=== PATIENT | female | born 1985 | race Caucasian/White ===

== ENCOUNTER 2023-07-29 16:28 | Outpatient (OUT) | payer OTHER, SELFPAY ==
[2023-07-29 17:27] LABS: Thyroid Stimulating Hormone 0.883 uIU/mL (0.358-3.740)
[2023-07-29 17:42] LABS: Erythrocyte Sedimentation Rate 3 mm/hr (<=20)
[2023-07-29 18:22] LABS: Percent Iron Saturation 14.7 %
[2023-07-31 04:10] LABS: DHEA-Sulfate 56.8 ug/dL (57.3-279.2)
[2023-07-31 12:09] LABS: ANA Direct Negative (Negative)
[2023-08-08 12:09] LABS: Free Testosterone(Direct) <0.2 pg/mL (0.0-4.2); Testosterone 5 ng/dL (8-60)
== END 2023-07-29 16:29 | disposition home or self-care (01) ==
LOC: LAB 16:33
PROVIDERS: PCP Internal Medicine
DX: L65.0 Telogen effluvium (principal)
CPT/HCPCS: 36415; 82306; 82607; 82627; 82728; 83540; 83550; 84402; 84403; 84443; 85652; 86038

== ENCOUNTER 2023-10-09 07:02 | Outpatient (OUT) | payer OTHER, SELFPAY ==
--- NOTE | 2023-10-09 | ECG_ITS ---
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
[2023-10-09 07:37] LABS: Hematocrit 36.1 % (36.0-48.0); Hemoglobin 12.1 g/dL (12.0-16.0)
== END 2023-10-09 07:03 | disposition home or self-care (01) ==
LOC: CARD 07:04
PROVIDERS: PCP Internal Medicine
DX: Z01.812 Encounter for preprocedural laboratory examination (principal); Z01.810 Encounter for preprocedural cardiovascular examination
CPT/HCPCS: 36415; 85014; 85018; 93005

== ENCOUNTER 2023-10-30 16:10 | Outpatient (OUT) | payer OTHER, SELFPAY ==
--- NOTE | 2023-10-30 | US_ITS ---
The [address] [address] Patient Name: CHRISTIAN WEBER MRN: [id number] date: 1985 Sex: F Assigned Patient Location: US Current Patient Location: US Accession/Order Number: [id number] Exam Date: 10/30/2023 16:00 Report Date: 10/30/2023 17:50 At the request of: NON-STAFF PHYSICIAN Procedure: US venous doppler LE BI EXAM: US venous doppler LE BI HISTORY: RULE OUT DVT, BILATERAL LEG SWELLING for the past day. COMPARISON: None. TECHNIQUE: Multiple sonographic images of the deep veins of both lower extremities were obtained, supplemented with Doppler. FINDINGS: The deep veins of both lower extremities are fairly well-visualized the groin to the mid calf. No filling defect is identified in the deep veins on either side to indicate a thrombus. There is normal compression augmentation of flow bilaterally. US/US venous doppler LE BI IMPRESSION: There is no direct or indirect evidence of deep vein thrombosis in the lower extremities at this time. Electronically authenticated by: LUCIO SALGUERO Date: 10/30/2023 17:50
== END 2023-10-30 16:11 | disposition home or self-care (01) ==
PROVIDERS: PCP Internal Medicine
DX: I82.403 Acute embolism and thrombosis of unspecified deep veins of lower extremity, bilateral (principal); R60.0 Localized edema
CPT/HCPCS: 93970

== ENCOUNTER 2024-04-08 20:15 | Outpatient (REF) | payer OTHER, SELFPAY ==
--- OUTSIDE RECORDS SUMMARY | 2024-04-08 20:21 | XMS_ITS | CCD ---
Author Organization [facility] Care Team Providers Care Underground Supervisor Name Role Phone Michael Hendrix Unavailable Unavailable Michael Hendrix Unavailable Unavailable Michael Hendrix Unavailable Unavailable BRIDGET [id number] UNKNOWN Unavailable U navailable HANNAH ., DR CAMPBELL Admitting Unavailabl e KARASIK ., DR CAMPBELL Attending Unavailabl e MISC, DR CERRATO Primary Care Unavailable KARASIK ., DR CAMPBELL Consulting Unavailabl e KARASIK ., DR CAMPBELL Admitting Unavailabl e KARASIK ., DR CAMPBELL Attending Unavailabl e MISC, DR CERRATO Primary Care Unavailable KARASIShannon ., DR CAMPBELL Consulting UnavailReal Elder Consulting Unavailable MD Shahab Young Attending Provider Shahab Young Attending Unavailable Shahab Young Attending Unavailable Hima Hill DO Primary Care Provider HIMA HILL Attending HIMA Mcgee Referring HIMA Mcgee Primary Care Unavailable Allergies Allergy Classification Reported Allergen(s) Allergy Type Date of Onset Reaction(s) Facility (1 source) No Known Medication Allergies; Translations: [No Known Medication Allergies] Propensity to adverse reactions (disorder) [facility] Repository Medications Current Medications Medication Drug Class(es) Dates Sig (Normalized) Sig (Original) ascorbic acid 500 mg oral tablet (6 sources) Vitamin C take 1 tablet by mouth in the morning, then take 1 tablet by mouth at bedtime ascorbic acid (VITAMIN C) 500 mg tablet Take 1 tablet (500 mg total) by mouth in the morning and 1 tablet (500 mg total) before bedtime. 0 Active 24 hr buPROPion hydrochloride 150 mg extended release oral tablet (7 sources) Aminoketone Start: 12-10-2023 take 1 tablet by mouth once daily buPROPion XL (WELLBUTRIN XL) 150 mg 24 hr tablet Indications: Depression, unspecified depression type take 1 tablet by mouth once daily 90 tablet 0 12/10/2023 Active Start: 09-08-2023 take 1 tablet by anuradha th once daily buPROPion XL (WELLBUTRIN XL) 150 mg 24 hr tablet Indications: Depression, unspecified depression type take 1 tablet by mouth once daily 90 tablet 0 09/08/2023 Active Start: 07-21-2023 Bupropion Hcl Active MG ORAL AM July 21, 2023 12:00am chlorthalidone 25 mg oral tablet (1 source) Thiazide-like Diuretic Start: 07-21-2023 take 1 mg by mouth once daily Chlorthalidone Active MG ORAL DAILY July 21, 2023 12:00am 0.5 ml dulaglutide 1.5 mg/ml auto-injector (5 sources) GLP-1 Receptor Agonist Start: 12-17-2023 dulaglutide (TRULICITY) 0.75 mg/0.5 mL pen injector Indications: Obesity with body mass index 30 or greater Inject 0.5 mL (0.75 mg total) under the skin every 7 days. 2 mL 2 12/17/2023 Active estrogens, conjugated (mcc) 0.625 mg/ml vaginal cream (7 sources) Estrogen Start: 07-23-2023 PREMARIN vaginal cream Insert 0.5 g into the vagina 2 (two) times a week. 0 07/23/2023 Active Start: 07-21-2023 Conjugated Est rogens (Premarin) 0.625 mg/gram cream Active 0.625 MG VAGINAL TWICE A WEEK July 21, 2023 12:00am lactobacillus acidophilus [id number] unt / pectin 10 mg oral capsule (6 sources) take 1 capsule by mouth once daily at breakfast acidophilus-pectin, citrus 100 million cell-10 mg capsule Take 1 capsule by mouth daily with breakfast. 0 Active Pnv,Calcium 33-Dfst-Llnac Acid (Westab Plus) 27 mg iron- 1 mg tablet (1 source) Start: 023 take 1 tablet by mouth once daily Pnv,Calcium 49-Ogjr-Aopay Acid (Westab Plus) 27 mg iron- 1 mg tablet Active TAB ORAL DAILY July 21, 2023 12:00am no115/iron/folic acid ( 19 ORAL) (6 sources) take 1 tablet by mouth in the morning no115/iron/folic acid ( 19 ORAL) Take 1 tablet by mouth in the morning. 0 Active SUMAtriptan 100 mg oral tablet (11 sources) Serotonin-1b and Serotonin-1d Receptor Agonist Start: End: take 1 tablet by mouth twice daily SUMAtriptan (IMITREX) 100 mg tablet Indications: Migraine without aura and without status migrainosus, not intractable take 1 tablet by mouth twice a day if needed 9 tablet 0 02/19/2024 Active vitamin b12 1 mg oral tablet (6 sources) Vitamin B12 Start: take 33-33.9 tablets by mouth once daily in the morning cyanocobalamin 1000 MCG tablet Indications: Class 1 obesity with serious comorbidity and body mass index (BMI) of 33.0 to 33.9 in adult, unspecified obesity type take 1 tablet by mouth every morning 90 tablet 0 12/10/2023 Active Start: 11-10-2023 take 33-33.9 tablets by mouth once daily in the morning cyanocobalamin 1000 MCG tablet Indications: Class 1 obesity with serious comorbidity and body mass index (BMI) of 33.0 to 33.9 in adult, unspecified obesity type take 1 tablet by mouth every morning 90 tablet 0 11/10/2023 Active WESTAB PLUS 27 mg iron- 1 mg tablet (6 sources) Start: 03-06-2024 take 1 tablet by mouth once daily WESTAB PLUS 27 mg iron- 1 mg tablet Indications: Essential hypertension take 1 tablet by mouth once daily 90 tablet 0 03/06/2024 Active Start: 12-10-2023 End: 03-06-2024 take 1 tablet by mouth once daily WESTAB PLUS 27 mg iron- 1 mg tablet Indications: Essential hypertension take 1 tablet by mouth once daily 90 tablet 0 12/10/2023 03/06/2024 Discontinued Start: 12-10-2023 take 1 tablet by anuradha th once daily WESTAB PLUS 27 mg iron- 1 mg tablet Indications: Essential hypertension take 1 tablet by mouth once daily 90 tablet 0 12/10/2023 Active Completed/Discontinued Medications Medication Drug Class(es) Dates Sig (Normalized) Sig (Original) brompheniramin/pse udoephedrine (BROMALINE ORAL) (2 sources) End: 12-17-2023 take 2 tablets by mouth three times daily brompheniramin/pseu doephedrine (BROMALINE ORAL) Take 2 tablets by mouth 3 (three) times a day. 0 12/17/2023 Discontinued (Therapy completed) take 2 tablets by mo uth three times daily brompheniramin/pseudoephedrine (BROMALIN E ORAL) Take 2 tablets by mouth 3 (three) times a day. 0 Active 72 hr scopolamine 0.0139 mg/hr transdermal system (2 sources) Anticholinergic End: 12-17-2023 apply 1 dose transdermal route once daily scopolamine (TRANSDERM-SCOP) 1 mg/[address] 1 patch on the skin once. 0 12/17/2023 Discontinued (Therapy completed) Problems Active Problems Problem Classification Problem Date Documented Date Episodic/Chronic Essential hypertension (8 sources) Essential hypertension; Translations: [Essential (primary) hypertension] Onset: 12-29-2018 10-09-2022 Chronic Genitourinary symptoms and ill-defined conditions (6 sources) Female stress incontinence; Translations: [Stress incontinence (female) (male)] Onset: 12-29-2018 10-09-2022 Chronic Headache; including migraine (12 sources) Migraine without aura, not refractory ; Translations: [Migraine without aura, not intractable, without status migrainosus] Onset: 03-04-2022 12-03-2023 Chronic Immunizations and screening for infectious disease (1 source) Encounter for screening for human papillomavirus (HPV); Translations: [ENC SCREENING HUMAN PAPILLOMAVIRUS] Onset: 03-10-2023 Episodic Nonmalignant breast conditions (2 sources) Unspecified lump in the right breast, lower inner quadrant; Translations: [Unspecified lump in the left breast, lower inner quadrant] Onset: 03-16-2023 Episodic Other female genital disorders (1 source) Other specified noninflammatory disorders of vagina; Translations: [Other specified noninflammatory disorders of vagina] Onset: 07-21-2023 Episodic Other nutritional; endocrine; and metabolic disorders (7 sources) Body mass index 30+ - obesity; Translations: [Obesity, unspecified] Onset: 01-25-2020 10-09-2022 Chronic Other nutritional; endocrine; and metabolic disorders (1 source) Obesity, unspecified; Translations: [Obesity, unspecified] Onset: 10-09-2022 Chronic Other nutritional; endocrine; and metabolic disorders (1 source) Weight loss Onset: 12-17-2023 Episodic Other screening for suspected conditions (not mental disorders or infectious disease) (7 sources) Encounter for screening mammogram for malignant neoplasm of breast; Translations: [Encounter for screening for malignant neoplasm of cervix] Onset: 03-05-2023 Episodic Thyroid disorders (7 sources) Hypothyroidism; Translations: [Hypothyroidism, unspecified] Onset: 03-25-2019 10-09-2022 Chronic Past or Other Problems Problem Classification Problem Date Documented Da te Episodic/Chronic Diabetes mellitus without complication (6 sources) Impaired fasting glycemia; Translations: [Impaired fasting glucose] Onset: 03-04-2022 10-09-2022 Episodic Mood disorders (6 sources) Mood disorders Onset: 07-09-2023 Resolved: 12-17-2023 07-09-2023 Results Test Name Value Interpretation Reference Range Facility Virtual Visiton 07-21-2023 Virtual Visit [facility] [address] [place] [address] [address] [place] [address] Virtual Visit Signed Patient: Cass Riley MR#: [id number] : 1985 Acct: [id number] Age/Sex: 38 / F Loc: OB.AV Date of Service: 07/21/[address]: Shahab Young M.D. cc: Intake Intake Visit Reasons: meds [phone], ok per Hannah Signal Fitter Required: No Allergies No Known Allergies Allergy (Verified 07/21/23 16:27) Medications - Last Reconciled 07/21/23 by [facility] bupropion HCl mg ORAL AM chlorthalidone mg ORAL DAILY PNV,calcium 20-vuke-sezss acid 27 mg iron- 1 mg (WesTab Plus) tabs ORAL DAILY Patient : No Post menopausal: No History History 5 Elective abortions 0 Para 4 Spontaneous abortions 1 Hx # Term Pregnancies 4 Ectopic pregnancies 0 Hx # Pregnancies 0 Multiple births 0 PFSH Medical History (Updated 07/21/23 @ 16:29 by [facility]) Anxiety Depression Hypertension Surgical History (Updated 07/21/23 @ 16:29 by [facility]) History of section Hx of tonsillectomy Family History (Updated 07/21/23 @ 16:30 by [facility]) Other Diabetes Hypertension Social History (Updated 07/21/23 @ 16:30 by [facility]) Advance Directives: No Would like to be referred to Credit Portfolio Manager for info?: No Smoking Status: Never smoker Second hand tobacco smoke exposure: No Former alcohol user?: No How often do you have six or more drinks on one occasion: Never Non prescribed substance use: denies use Travel outside of [place] in last 30 days?: No (Updated 07/21/23 @ 16:30 by Rosa Is[facility] Ridgeway) Other Diabetes Hypertension (Updated 07/21/23 @ 16:29 by [facility]) Anxiety Depression Hypertension HPI Virtual Visit HPI COVID-19 Testing ordered at today's visit? (Not Rapid/POC testing in clinic): No Details: This visit was conducted remotely via real time communication between the patient and the provider. The patient consent for this virtual visit was obtained on 07/21/23. Cass is a 38-year-old multiparous white female, she is known to me from my previous practice. She has a history of vaginal dryness and has been on Premarin vaginal cream for some time. She is requesting a refill. She reports significant improvement of symptoms while using the cream only once a week. Is the patient in the right setting: Yes Questionnaire C-SSRS (Primary Care) [employer] Review of Systems [facility] Eyes Reports no additional complaints ENT Reports no additional complaints Card Reports no additional complaints Resp Reports no additional complaints GI Reports no additional complaints Reports no additional complaints Musc Reports no additional complaints Skin/Breast Reports no additional complaints Neuro Reports no additional complaints Psych Reports no additional complaints Endo Reports no additional complaints Exam (AMB) Const Common normals: Yes no acute distress and Yes patient oriented x3 HEENT Common normals: normocephalic Head and scalp: normocephalic Lymph Lymphatic: no lymphadenopathy noted Respiratory Common normals: normal respiratory effort Cardio Common normals: regular rate and regular rhythm Rate: regular rate Rhythm: regular rhythm GI Common normals: Normal to inspection, nondistended, normoactive bowel sounds present, Soft to palpation and non-tender Palpation: Soft to palpation Common normals: no CVA tenderness Bladder/kidney exam: no CVA tenderness Uterus palpation: No Uterus tender Back Pelvis Common normals: no CVA tenderness Extremity Common normals: normal to inspection, full ROM, no clubbing, cyanosis or edema and no calf tenderness Neuro Common normals: patient oriented x3, moves all extremities and no focal motor deficits Psych Common normals: mental status grossly normal Skin Common normals: Yes no rashes or lesions noted General skin exam: no rashes or lesions noted Level of Care and Goal Health Risk Score: (1) Low: no medical problems and biometric screenings normal Assessment Plan (AMB) Assessment Plan (1) Vaginal dryness: Code(s): N89.8 - Other specified noninflammatory disorders of vagina Plan We will continue using Premarin cream as prescribed. I advised Cass that she needs a yearly Pap test. Medications: New conjugated estrogens (Premarin) 0.625 mg vaginal 2XW 30 grams 1RF N89.8 - Other specified noninflammatory disorders of vagina Coding Level of Care Code 43954 New Patient Level 2 Diagnoses Vaginal dryness N89.8 Dictated By: Shahab Young M.D. Signed By: 07/22/23 1241 Normal [facility] PAP ACOG PANEL 2: 30 to 65on 03-12-2023 . . Normal [facility] Comment on above: Result Comment: Perf ormed at: WB Performed By: #### 4 [id number] #### [facility] [address] [address] [address] Marcia Beverly Age Gdln ACOG Testing 30-65 Normal [facility] Comment on above: Performed By: #### 4 [id number] #### [facility] [address] [address] [address] Marcia Beverly DIAGNOSIS: Comment Normal [facility] Comment on above: Result Comment: NEGA TIVE FOR INTRAEPITHELIAL LESION OR MALIGNANCY. Performed at: WB Performed By: #### 4 [id number] #### [facility] [address] [address] [address] Marcia Beverly HPV Aptima Negative Normal Negative [facility] Comment on above: Result Comment: This nucleic acid amplification test detects fourteen high-risk HPV types (16,18,31,33,35,39,45,51,52,56,58,59,66,68) without differentiation. Performed at: =G Performed By: #### 4 [id number] #### [facility] [address] [address] [address] Marcia Bevrely HPV Genotype Reflex Comment Normal [facility] Comment on above: Result Comment: Crit eria not met, HPV Genotype not performed. Performed at: WB Performed By: #### 4 [id number] #### [facility] [address] [address] [address] Marcia Beverly Methodology: Comment Normal [facility] Comment on above: Result Comment: This liquid based ThinPrep(R) pap test was screened with the use of an image guided system. Performed at: WB Performed By: #### 4 [id number] #### [facility] [address] [address] [address] Marcia Beverly Note: Comment Normal [facility] Comment on above: Result Comment: The Pap smear is a screening test designed to aid in the detection of premalignant and malignant conditions of the uterine cervix. It is not a diagnostic procedure and should not be used as the sole means of detecting cervical cancer. Both false-positive and false-negative reports do occur. . Performed at: WB Performed By: #### 4 [id number] #### [facility] [address] [address] [address] Marcia Beverly Performed by: Comment Normal [facility] Comment on above: Result Comment: Elke Covington, Remarketing Rep (ASCP) Performed at: WB Performed By: #### 4 [id number] #### [facility] [address] [place] [address] Dr. Marcia Beverly Specimen adequacy: Comment Normal [facility] Comment on above: Result Comment: Sati sfactory for evaluation. Endocervical and/or squamous metaplastic cells (endocervical component) are present. Performed at: WB Performed By: #### 4 [id number] #### [facility] [address] [address] [address] Marcia Beverly MG MAMM DIAGNOSTIC 3D SUBHASH CA Don 03-07-2023 MG MAMM DIAGNOSTIC 3D SUBHASH CAD Patient: CASS RILEY Exam Date: 03/07/2023 : 1985 Gender:F Ordering : DR SHAHAB YOUNG . Admission #: [id number] Family : Order #: [id number] CLICK HERE TO VIEW EXAM RADIOLOGY REPORT PROCEDURE: MAMMOGRAM DIAGNOSTIC 3D BILATERAL CAD, 03/07/2023, 07:14 ULTRASOUND BREAST BILATERAL LIMITED, 03/07/2023, 07:56 COMPARISON: None. INDICATIONS: Screening mammography Calculator Name NCI Breast Cancer Risk Assessment Tool 5 Year Breast Cancer Risk 0.40% Lifetime Breast Cancer Risk 9.20% Personal Breast Cancer No Personal Ovarian Cancer No Treatments None Family Cancers None LOCATION: [facility] BREAST COMPOSITION: Scattered areas fibroglandular density. FINDINGS: DIAGNOSTIC CATEGORY 2--BENIGN FINDING: RIGHT BREAST: Normal appearing fibroglandular tissue. Skin surface marker localizes a palpable lump to the anterior lower-inner quadrant; no appreciable mammographic abnormality. Ultrasound evaluation of this area demonstrates normal appearing fibroglandular tissue. LEFT BREAST: Normal appearing fibroglandular tissue. Skin surface marker localizes a palpable lump to the mid breast lower-inner quadrant; no appreciable mammographic abnormality. Ultrasound evaluation of this area demonstrates normal appearing fibroglandular tissue. RECOMMENDATIONS: CLINICAL EVALUATION. PLEASE NOTE: A NORMAL MAMMOGRAM DOES NOT EXCLUDE THE POSSIBILITY OF BREAST CANCER. A CLINICALLY SUSPICIOUS PALPABLE LUMP SHOULD BE BIOPSIED. Dictated by: Real Hendrix M.D. on 03/07/2023 at 09:03 Approved by: Real Hendrix M.D. on 03/07/2023 at 09:06 Normal [facility] US BREAST SUBHASH LIMITEDon 04-0 US BREAST SUBHASH LIMITED Patient: CASS RILEY Exam Date: 03/07/2023 : 1985 Gender:F Ordering : DR SHAHAB YOUNG . Admission #: [id number] Family : Order #: [id number] CLICK HERE TO VIEW EXAM RADIOLOGY REPORT PROCEDURE: MAMMOGRAM DIAGNOSTIC 3D BILATERAL CAD, 03/07/2023, 07:14 ULTRASOUND BREAST BILATERAL LIMITED, 03/07/2023, 07:56 COMPARISON: None. INDICATIONS: Screening mammography Calculator Name NCI Breast Cancer Risk Assessment Tool 5 Year Breast Cancer Risk 0.40% Lifetime Breast Cancer Risk 9.20% Personal Breast Cancer No Personal Ovarian Cancer No Treatments None Family Cancers None LOCATION: [facility] BREAST COMPOSITION: Scattered areas fibroglandular density. FINDINGS: DIAGNOSTIC CATEGORY 2--BENIGN FINDING: RIGHT BREAST: Normal appearing fibroglandular tissue. Skin surface marker localizes a palpable lump to the anterior lower-inner quadrant; no appreciable mammographic abnormality. Ultrasound evaluation of this area demonstrates normal appearing fibroglandular tissue. LEFT BREAST: Normal appearing fibroglandular tissue. Skin surface marker localizes a palpable lump to the mid breast lower-inner quadrant; no appreciable mammographic abnormality. Ultrasound evaluation of this area demonstrates normal appearing fibroglandular tissue. RECOMMENDATIONS: CLINICAL EVALUATION. PLEASE NOTE: A NORMAL MAMMOGRAM DOES NOT EXCLUDE THE POSSIBILITY OF BREAST CANCER. A CLINICALLY SUSPICIOUS PALPABLE LUMP SHOULD BE BIOPSIED. Dictated by: Real Hendrix M.D. on 03/07/2023 at 09:03 Approved by: Real Hendrix M.D. on 03/07/2023 at 09:06 Normal [facility] BASIC METABOLIC PANELon 07-01 BUN/CREATININE RATIO NOT APPLICABLE Normal 6-22 [facility] Comment on above: Performed By: #### 1 0165, [id number], 28198 #### [facility] [place] [address] Office Technology Instructor: Bruno Watts MD Calcium [Mass/Vol] 9.0 mg/dL Normal 8.6-10.2 [facility] Comment on above: Performed By: #### 1 0165, 23882, 18963 #### [facility] [place] [address] Office Technology Instructor: Bruno Watts MD Chloride [Moles/Vol] 101 mmol/L Normal 98-110 [facility] Comment on above: Performed By: #### 1 0165, 91012, 85372 #### [facility] [place] [address] Office Technology Instructor: Bruno Watts MD CO2 [Moles/Vol] 30 mmol/L Normal 20-32 [facility] Comment on above: Performed By: #### 1 0165, 34190, 78023 #### [facility] [place] [address] Office Technology Instructor: Bruno Watts MD Creatinine [Mass/Vol] 0.67 mg/dL Normal 0.50-1.10 [facility] Comment on above: Performed By: #### 1 0165, 33591, 12329 #### [facility] [place] [address] Office Technology Instructor: Bruno Watts MD eGFR NON-AFR. CYMRAES 113 mL/min/1.73m2 Normal > OR = 60 [facility] Comment on above: Performed By: #### 1 0165, 61910, 89604 #### [facility] [address], [address] [place] [address] Office Technology Instructor: Bruno Watts MD GFR/1.73 sq M.predicted among blacks MDRD (S/P/Bld) [Vol rate/Area] 131 mL/min/{1.73_m2} Normal > OR = 60 [facility] Comment on above: Performed By: #### 1 0165, 72188, 48285 #### [facility] [place] [address] Office Technology Instructor: Bruno Watts MD Glucose [Mass/Vol] 127 mg/dL High 65-99 [facility] Comment on above: Result Comment: Fasting reference interval For someone without known diabetes, a glucose value >125 mg/dL indicates that they may have diabetes and this should be confirmed with a follow-up test. Performed By: #### 1 0165, 05376, 83863 #### [facility] [place] [address] Office Technology Instructor: Bruno Watts MD Potassium [Moles/Vol] 3.7 mmol/L Normal 3.5-5.3 [facility] Comment on above: Performed By: #### 1 0165, 97512, 95849 #### [facility] [place] [address] Office Technology Instructor: Bruno Watts MD Sodium [Moles/Vol] 139 mmol/L Normal 135-146 [facility] Comment on above: Performed By: #### 1 0165, 94210, 52890 #### [facility] [place] [id number] Office Technology Instructor: Bruno Watts MD Urea nitrogen [Mass/Vol] 14 mg/dL Normal 7-25 [facility] Comment on above: Performed By: #### 1 0165, 14407, 21506 #### [facility] [place] [address] Office Technology Instructor: Bruno Watts MD PATIENT ID APPROVAL TIQ RENETTAU EARLon 07-14-2021 COMMENT Normal [facility] Comment on above: Result Comment: Iden tification of test requisition and/or specimen(s) was questionable. The below named individual provided this revised patient identification. Performed By: #### 1 0165, 53901, 65639 #### [facility] [place] [address] Office Technology Instructor: Bruno Watts MD CONTACT ZARA Roche Normal [facility] Comment on above: Performed By: #### 1 0165, 48434, 51928 #### [facility] [address] [place] [address] Office Technology Instructor: Bruno Watts MD TESTS AFFECTED [id number] Normal [facility] Comment on above: Performed By: #### 1 0165, 28237, 70187 #### [facility] [place] [address] Office Technology Instructor: Bruno Watts MD TSH+FREE T4on 07-14-2021 Free T4 [Mass/Vol] 0.9 ng/dL Normal 0.8-1.8 [facility] Comment on above: Result Comment: TEST NOT PERFORMED An identification discrepancy exists between the requisition and the specimen. Performed By: #### 1 0165, 20878, 94198 #### [facility] [place] [address] Office Technology Instructor: Bruno Watts MD TSH Qn 0.92 m[IU]/L Normal [facility] Comment on above: Result Comment: Refe rence Range > or = 20 Years 0.40-4.50 Ranges First trimester 0.26-2.66 Second trimester 0.55-2.73 Third trimester 0.43-2.91 Performed By: #### 1 0165, 54383, 75589 #### [facility] [address] [facility], [address] [place] [address] Office Technology Instructor: Bruno Watts MD Coding Summary.on 02-11-2018 Coding Summary. 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 However, the narrative phrase printed from the coding software may appear abbreviated, or result in slightly different terminology. Coded By: Marcela Sandoval Date Saved: 02/11/2018 10:31 am Normal [facility] [place] Intraoperative Recor don 02-05-2018 Main OR Intraoperative Record IntraOp Document Type FTURO Summary Primary Physician: Owen Alexandre Jr., MD Finalized Date/Time: 02/05/18 14:30:20 Pt. Name: RHINA RILEYRAJAT Rucker/Sex: 1985 Female Med Rec #: [id number] Physician: Owen Alexandre Jr., MD Financial #: [id number] Pt. Type: O Room/Bed: / Admit/Disch: 02/05/18 13:58:13 - Institution: Case Times FTURO Entry 1 Patient Times In Room 02/05/18 14:22:00 Out Room 02/05/18 14:31:00 Procedure Times Start 02/05/18 14:23:00 Stop 02/05/18 14:26:00 Anesthesia Times Last Modified By: Yoel RAI, Maru GARCIA 02/05/18 14:27:00 Case Attendance FTURO Entry 1 Entry 2 Entry 3 Case Attendee Yoel RAI, SHAUNAOR, [facility], Owen Kumari Jr., MD Role Performed Pediatric Psychologist - Primary Scrub - Primary Surgeon - Primary Time In 02/05/18 14:22:00 02/05/18 14:22:00 02/05/18 14:22:00 Time Out 02/05/18 14:31:00 02/05/18 14:31:00 02/05/18 14:31:00 Procedure CYSTOSCOPY LOCAL(.) CYSTOSCOPY LOCAL(.) CYSTOSCOPY LOCAL(.) Comments Last Modified By: Yoel RAI, SHAUNAOR, Yoel RAI, SHAUNAOR, Yoel ARI, SHAUNAOR, Maru 02/05/18 Maru 02/05/18 Maru 02/05/18 14:27:01 14:27:01 14:27:01 Surgical Procedures FTURO Entry 1 Procedure Description Procedure CYSTOSCOPY LOCAL Modifiers . Surgeon Description cysto Primary Procedure Yes Primary Surgeon Baldomero Zuluaga MD, Owen Santos Start 02/05/18 14:23:00 Stop 02/05/18 14:26:00 Anesthesia Type Local Surgical Service Urology Wound Class 2 - Clean-Contaminated Last Modified By: Yoel RAI, RADHA, Maru 02/05/18 14:27:03 General Case Data FTURO Pre-Care Text: Classifies surgical wound, implements aseptic technique, initiates traffic control Entry 1 Case Information OR URO 1 FT Case Level None Wound Class 2 - Clean-Contaminated Specialty Urology Preop Diagnosis URINARY INCONTINENCE Postop Same As Preop No Postop Diagnosis stress uriinary Outcomes Met? Yes inconttinence Last Modified By: Yoel RAI, SHAUNAOR, Maru 02/05/18 14:29:01 Post-Care Text: The patient is free from signs and symptoms of infection EU IntraOp - FTURO Pre-Care Text: Implements protective measures prior to operative or invasive procedure, confirms identity before the operative or invasive procedure, verifies operative procedure, surgical site, and laterality Entry 1 EU Perioperative Protocols Procedure(s) CYSTOSCOPY LOCAL(.) Patient Identity Birthday, ID Band Verified (select at Check, Patient least 2): Participation Consents / H and P HandP, Surgery/Procedure Operative Site N/A Verified Consent Marking Verified Surgical Site Yes Laterality Verified n/a Verified Procedure Verified Yes Correct Patient Yes Position Verified Availability Equipment, Medication Time Out Yoel RAI, SHAUNAOR, Verified (If Participants Adriel Mahoney [facility], Applicable) Baldomero Wiley Jr., MD, Donald L Time Out Complete 02/05/18 14:23:00 Allergies Reviewed? Yes Allergies Reviewed Self/Patient With Body Position Frog Legged Prep Area perineal area Prep Agents Betadine Solution Skin. Condition Intact Additional None Specimens Collected Vitals - EU Blood Pressure 153/92 Pulse 85 bpm Respirations SPO2 EBL 0 IandO - EU Total Intake 0 mL Total Output 0 mL Outcomes Met? Yes Last Modified By: RADHA Diallo RN, Ruthann 02/05/18 14:25:52 Post-Care Text: The patient is free from signs and symptoms of injury caused by extraneous objects Case Comments Finalized By: RADHA Diallo RN, Ruthann Document Signatures Signed By: RADHA Diallo RN, Ruthann 02/05/18 14:29 RADHA Diallo RN, Ruthann 02/05/18 14:30 Normal [facility] Main OR Preoperative Recordo n 02-05-2018 Main OR Preoperative Record Holding Area Document Type FTURO Summary Primary Physician: Owen Alexandre Jr., MD Finalized Date/Time: 02/05/18 14:24:03 Pt. Name: CASS RILEY/Sex: 1985 Female Med Rec #: [id number] Physician: Owen Alexandre Jr., MD Financial #: [id number] Pt. Type: O Room/Bed: / Admit/Disch: 02/05/18 13:58:13 - Institution: Case Times Holding FTURO Pre-Care Text: Verifies consent for planned procedure, identifies individual values and wishes concerning care, includes family members in perioperative teaching Secures patient's records' belongings, and valuables, maintains patient's dignity and privacy, and maintains patient confidentiality Entry 1 In Holding 02/05/18 14:16:00 Outcomes Met? Yes Last Modified By: Indiana Victor LPN 02/05/18 14:16:46 Post-Care Text: The patient participates in decisions affecting his or her perioperative plan of care The patient's right to privacy is maintained Surgery Checklist FTURO Entry 1 Patient Birthday, ID Band Procedure History and Physical, Identification: Check, Patient Verification: Surgical Consent, With Participation Patient NPO after Midnight: n/a Personal Items: Jewelry Personal Items earrings, ring Complaints of Pain: No Comment: Skin Integrity Intact, Running [place], Warm, & Dry Vitals - EU Blood Pressure 153/98 Pulse 88 bpm Respirations 16 br/min SPO2 RN Reviewed Yes Last Modified By: RADHA Diallo RN, Ruthann 02/05/18 14:23:59 Finalized By: RADHA Diallo RN, Ruthann Document Signatures Signed By: Indiana Victor LPN 02/05/18 14:18 RADHA Diallo RN, Ruthann 02/05/18 14:24 [facility] Operative Reporton 8 Operative Report Patient: CASS RILEY Age: 32 years Sex: Female : 1985 Associated Diagnoses: None Author: Baldomero Zuluaga MD, Owen Santos Procedure Operative Information Details: Date/ Time: 02/05/18 14:31:00. Pre-Op Dx: Mixed Urinary Incontinence - N39.46, Urgency Incontinence - N39.41, Stress Incontinence - N39.3. Post-Op Dx: Same. Anesthesia Type: Local. Procedure: Local Cystoscopy. Complications: None. Risks/Benefits/Inform ed Consent: Surgical risks, benefits, details of the procedure have been explained to the patient, Full informed consent has been obtained. Intraoperative Information Prepped: Patient is brought back to the endoscopy suite, Patient is placed in modified dorso/lithotomy position, Patient prepped in the usual fashion with Betadine solution, 2% Xylocaine Jelly is placed per Urethra, After waiting several minutes the Cystoscope is introduced. The Urethra is: Normal, there is hypermobility to the urethra. No urethral masses diverticuli or vaginal abnormalities were noted.. The Bladder is: Normal, the bladder does leak with Valsalva and coughing. The urethra appears to be hypermobile.. The ureteral orifices: Show efflux of clear urine. Devices Implanted: None. Removal: Cystoscope is removed, The patient tolerated it well. Postoperative Information Discharge: Patient is discharged home with antibiotic coverage, Follow up arranged, we discussed several treatment options including bladder suspension. The patient will be seen in the office in the next 2 weeks and we will likely make arrangements for TVT mid urethral sling.. Normal [facility] Comment on above: Result Comment: Elec tronically Signed By: Baldomero Zuluaga MD, Owen Will.monique\Date and Time Signed: 02/05/18 14:32 EST Vital Signs Date Time Vital Sign Value Performing Clinician Ronen schrader 12-17-2023 16:28-0500 Body height 162.6 cm Hima Hill DO Work Phone: Sidelines 12-17-2023 16:28-0500 Body mass index (BMI) [Ratio] 30.24 kg/m2 Hima Hill DO Work Phone: [facility] 12-17-2023 16:28-0500 Body temperature 97.9 [degF] Hima Chapmans DO Work Phone: S[facility] 12-17-2023 16:28-0500 Body weight 79.92 kg Hima Chapmans DO Work Phone: S[facility] 12-17-2023 16:28-0500 Diastolic blood pressure 70 mm[Hg] Hima Hill DO Work Phone: S[facility] 12-17-2023 16:28-0500 Heart rate 75 /min Hima Chapmans DO Work Phone: [facility] 12-17-2023 16:28-0500 SaO2% (BldA) [Mass fraction] 99 % Hima Hill DO Work Phone: [facility] 12-17-2023 16:28-0500 Systolic blood pressure 126 mm[Hg] Hima Hill DO Work Phone: Sidelines Encounters Encounter Date Encounter Type Care Provider Facility Start: 03-06-2024 Refill Hima Mayer O Work Phone: [facility] Comment on above: Essential hypertensi on Start: 02-19-2024 Refill Hima Hill D O Work Phone: [facility] Comment on above: Migraine without aur a and without status migrainosus, not intractable Start: 02-02-2024 Refill Hima Mayer O Work Phone: [facility] Comment on above: Migraine without aur a and without status migrainosus, not intractable Start: 01-14-2024 Refill Hima Mayer O Work Phone: [facility] Comment on above: Migraine without aur a and without status migrainosus, not intractable Start: 12-17-2023 End: 12-17-2023 ambulatory [facility] Start: 12-17-2023 End: 12-17-2023 Office outpatient visit 25 minutes Hima Hill DO Work Phone: [facility] Comment on above: Obesity with body ma ss index 30 or greater (Primary Dx); Migraine without aura and without status migrainosus, not intractable Start: 12-03-2023 Refill Hima Mayer O Work Phone: [facility] Comment on above: Migraine without aur a and without status migrainosus, not intractable Start: 07-21-2023 End: 07-21-2023 ambulatory Shahab Young Facility:[facility] Start: 07-21-2023 Non-patient / Non-visit MD Manuel Young Work Phone: [facility] ([facility] Work Phone: Start: 03-07-2023 End: 03-08-[address] SHAHAB YOUNG . Facility:[facility] Start: 03-05-2023 End: 03-05-[address] SHAHAB YOUNG . Facility:[facility] Start: 02-05-2018 End: 02-06-2018 Ambulatory Michael Hendrix Facility:[facility] Procedures Date Procedure Procedure Detail Performing Clinician Start: 12-17-2023 Adult depression screening assessment Hima Hill DO Work Phone: Start: 07-09-2023 Adult depression screening assessment Hima Yuhas DO Work Phone: Plan of Treatment Date Care Activity Detail Author Start: 10-01-2033 DTaP,Tdap and Td Vaccines (2 - Td or Tdap) DTaP,Tdap and Td Vaccines (2 - Td or Tdap) [facility] Start: 12-17-2024 Adult BMI Screening Adult BMI Screen ing [facility] Start: 12-17-2024 Depression Screening Depression Scre ening [facility] Start: 12-17-2024 Tobacco Screening Tobacco Screening [facility] Start: 10-22-2024 Adult BMI Screening Adult BMI Screen ing [facility] Start: 10-22-2024 Tobacco Screening Tobacco Screening [facility] Start: 08-01-2024 Influenza vaccination Influenza Vacc ine [facility] Start: 07-09-2024 Depression Screening Depression Scre ening [facility] Start: 12-17-2023 End: 12-17-2023 Patient encounter procedure 12/17/2023 4:30 PM EST Office Visit [facility] [address] [place] [address] Hima Hill DO [address] [place] [address] [facility] Start: 08-01-2023 COVID-19 Vaccine ( season) COVID-19 Vaccine ( season) [facility] Start: 2006 Screening for malign ant neoplasm of cervix Pap Smear [facility] Start: 2003 Adult BMI Follow Up Plan Adult BMI Follow Up Plan [facility] Immunizations Immunization Date Immunization Notes Care Provider Fa cility 10-01-2023 influenza, injectabl e, quadrivalent, preservative free Hima Hill DO Work Phone: [facility] 10-01-2023 tetanus toxoid, redu eliceo diphtheria toxoid, and acellular pertussis vaccine, adsorbed Hima Hill DO Work Phone: [facility] 10-01-2023 influenza virus vaccine, unspecified formulation Hima Velahas DO Work Phone: [facility] 09-27-2022 Influenza, injectabl e, Madin Ashwini Canine Kidney, preservative free, quadrivalent Hima Yuhas DO Work Phone: [facility] 08-14-2021 influenza, injectabl e, quadrivalent, preservative free Hima Velahas DO Work Phone: [facility] 09-13-2020 influenza, seasonal, injectable Hima Yuhas DO Work Phone: [facility] 07-13-2020 influenza, injectabl e, quadrivalent, preservative free Hima Yuhas DO Work Phone: [facility] 07-13-2019 influenza, injectabl e, quadrivalent, preservative free Hima Yuhas DO Work Phone: [facility] 07-13-2019 measles, mumps and rubella virus vaccine Hima Yuhas DO Work Phone: [facility] 07-10-2018 influenza, injectabl e, quadrivalent, preservative free Hima Yuhas DO Work Phone: [facility] 12-25-2017 Influenza, injectabl e, Madin Ashwini Canine Kidney, preservative free, quadrivalent Hima Yuhas DO Work Phone: [facility] 12-17-2017 influenza virus vaccine, unspecified formulation Hima Velahas DO Work Phone: [facility] Payers Date Payer Category Payer Self-pay 2020 Medicaid [place] [employer] [place] [employer] [id number] 2020-Present [phone] [facility] [address] [place] [address] [id number] 2018 Unknown [id number] 1985 Unknown [id number] 1985 Unknown [id number] 1985 Unknown [id number] 1959 Unknown [id number] Unknown [id number] Unknown [id number] Social History Date Type Detail Facility Start: 07-21-2023 Tobacco smoking stat [facility] Never smoker [facility] Work Phone: Start: 1985 Sex Assigned At Female [facility] Work Phone: Start: 10-09-2022 Tobacco smoking stat [facility] Never smoked tobacco [facility] Start: 10-09-2022 Tobacco use and exposure Smokeless tobacco non-user [facility] Start: 10-25-2023 End: 12-17-2023 Alcohol intake Current drinker of alcohol (finding) [facility] Start: 10-22-2023 End: 12-17-2023 History of Social function [facility] Start: 10-22-2023 End: 12-17-2023 Tobacco use panel [facility] Adolescent depressio n screening assessment 0 [facility] Start: 10-22-2023 Alcohol Comment Socially [facility] Start: 1985 Sex Assigned At Not on file P [facility] History of Present illness Narrative 12-17-2023 Hima Hill, DO - 12/17/2023 4:30 PM EST Note Date & Type Note Facility 12-17-2023 History of Presen t illness Narrative IM PROGRESS NOTE Patient - Cass Riley Age - 38 y.o. - 1985 ASSESSMENT & PLAN 1. Obesity with body mass index 30 or greater -we discussed her ongoing treatment options for recurrent weight gain. -diet and exercise still the [place]. She relates a adequate diet for weight loss. -medication options include continuing the bupropion and adding phentermine, or trying to use GLP 1 agent once again. She prefers to try GLP 1 agent along with the bupropion - dulaglutide (TRULICITY) 0.75 mg/0.5 mL pen injector; Inject 0.5 mL (0.75 mg total) under the skin every 7 days. Dispense: 2 mL; Refill: 2 2. Migraine without aura and without status migrainosus, not intractable -increased frequency of migraines. May be related to her weight gain. -advised her to start using sumatriptan early on in her migraines. This should allow it to work better. If she is running out before the end of the month, we may need to change to CGRP prophylactic agent. It appears she is now having 10-15 migraine days a month. - SUMAtriptan (IMITREX) 100 mg tablet; take 1 tablet by mouth twice a day if needed Dispense: 9 tablet; Refill: 0 Subjective 38-year-old female presents for recheck on her weight, as well as migraine headaches. She has had problems with obesity since having children, but through a series of Mounjaro, bupropion, and phentermine, combined with a portion control, high-protein diet and increased exercise was able to drop her BMI to 28. -at last visit, she would completed her course of phentermine along with the diet. -since her last visit, her weight has increased and her BMI is again above 30. -she is interested in restarting medications along with her diet and exercise. A review of systems was negative except for the following: General: weight gain Neurological: Increasing frequency of her migraine headaches. Had been stable at about 2 per month, but now happening 2-3 times a week. This is been in conjunction with her weight gain. She describes it as sharp, [place] pain in her right temporal region accompanied by visual blurring and nausea. Generally triggered by bright lights or working on the computer. Sumatriptan has been used in the past with success, but her insurance will only pay for 6 tablets a month, and she runs out quickly. As a result, she is started using ibuprofen as her primary treatment and sumatriptan only if there has no improvement. Therefore, she has not taking the sumatriptan for several hours after the onset of the headache. Dermatological: Her alopecia is improving. No longer on any treatment.. Exam BP 126/70 (BP Site: Left Arm, BP Postition: Sitting) Pulse 75 Temp 36.6 C (97.9 F) (Oral) Ht 162.6 cm (5' 4 ) Wt 79.9 kg (176 lb 3.2 oz) SpO2 99% BMI 30.24 kg/m Physical Exam Vitals reviewed. Constitutional: General: She is not in acute distress. Appearance: She is obese. She is not toxic-appearing. HENT: Head: Normocephalic. Right Ear: External ear normal. Left Ear: External ear normal. Nose: Nose normal. Mouth/Throat: Mouth: Mucous membranes are moist. Comments: Attempted visualization of the posterior pharynx, but not enough light available on her phone to provide a good look. Eyes: General: No scleral icterus. Neck: Vascular: No carotid bruit. Cardiovascular: Rate and Rhythm: Normal rate and regular rhythm. Pulses: Normal pulses. Heart sounds: No murmur heard. No gallop. Pulmonary: Effort: Pulmonary effort is normal. Breath sounds: No wheezing or rales. Abdominal: Palpations: Abdomen is soft. Musculoskeletal: Cervical back: Normal range of motion. No tenderness. Right lower leg: No edema. Left lower leg: No edema. Skin: General: Skin is warm and dry. Coloration: Skin is not jaundiced. Findings: No bruising. Comments: Thinning hair on the scalp without bald spots Neurological: Mental Status: She is alert and oriented to person, place, and time. Motor: No weakness. Coordination: Coordination normal. Psychiatric: Mood and Affect: Mood normal. Behavior: Behavior normal. Meds Current Outpatient Medications: acidophilus-pectin, citrus 100 million cell-10 mg capsule, Take 1 capsule by mouth daily with breakfast., Disp: , Rfl: ascorbic acid (VITAMIN C) 500 mg tablet, Take 1 tablet (500 mg total) by mouth in the morning and 1 tablet (500 mg total) before bedtime., Disp: , Rfl: buPROPion XL (WELLBUTRIN XL) 150 mg 24 hr tablet, take 1 tablet by mouth once daily, Disp: 90 tablet, Rfl: 0 cyanocobalamin 1000 MCG tablet, take 1 tablet by mouth every morning, Disp: 90 tablet, Rfl: 0 PREMARIN vaginal cream, Insert 0.5 g into the vagina 2 (two) times a week., Disp: , Rfl: no115/iron/folic acid ( 19 ORAL), Take 1 tablet by mouth in the morning., Disp: , Rfl: WESTAB PLUS 27 mg iron- 1 mg tablet, take 1 tablet by mouth once daily, Disp: 90 tablet, Rfl: 0 dulaglutide (TRULICITY) 0.75 mg/0.5 mL pen injector, Inject 0.5 mL (0.75 mg total) under the skin every 7 days., Disp: 2 mL, Rfl: 2 SUMAtriptan (IMITREX) 100 mg tablet, take 1 tablet by mouth twice a day if needed, Disp: 9 tablet, Rfl: 0 Lab Results No visits with results within 1 Month(s) from this visit. Latest known visit with results is: Admission on 10/22/2023, Discharged on 10/22/2023 Component Date Value Ref Range Status Nursing urine 10/22/2023 Negative Negative^Negative Final Other Testing No results found. Hima Hill DO., [facility] Office: [phone] documented in this encounter [facility] Evaluation note Note Date & Type Note Facility Evaluation note No assessment information [facility] Work Phone: Evaluation note Note Date & Type Note Facility Evaluation note Diagnosis Migraine without aura and without status migrainosus, not intractable documented in this encounter [facility] Evaluation note Note Date & Type Note Facility Evaluation note Diagnosis Obesity with body mass index 30 or greater- Primary Migraine without aura and without status migrainosus, not intractable documented in this encounter [facility] Evaluation note Note Date & Type Note Facility Evaluation note Diagnosis Migraine without aura and without status migrainosus, not intractable documented in this encounter [facility] Evaluation note Note Date & Type Note Facility Evaluation note Diagnosis Essential hypertension Unspecified essential hypertension documented in this encounter [facility] Instructions Note Date & Type Note Facility Instructions Not on filedocumented in this en counter [facility] Instructions Note Date & Type Note Facility Instructions Not on filedocumented in this en counter [facility] Instructions Note Date & Type Note Facility Instructions Not on filedocumented in this en counter [facility] Summary Purpose Family History Relationship Condition Age at Onset Recorded Date/T rivera Not Specified Diabetes mellitus Unknown Hypertension Unknown Advance Directives Advance Directive Response Recorded Date/ Time Advance Directives No July 21, 2023 4:30pm Chief Complaint and Reason for Visit Chief Complaint meds [phone], o k jae Young Additional Source Comments INFORMATION SOURCE (unrecogn ized section and content) DATE CREATED AUTHOR 05/22/2018 [facility] DATE CREATED AUTHOR AUTHOR'S ORGANIZ ATION 09/30/2021 [facility] DATE CREATED AUTHOR AUTHOR'S ORGANIZ ATION 03/16/2023 [facility] DATE CREATED AUTHOR AUTHOR'S ORGANIZ ATION 07/26/2023 [facility] DATE CREATED AUTHOR AUTHOR'S ORGANIZ ATION 12/20/2023 [facility] Goals (unrecognized section and content) Goals may be documented in a n alternate sectionNot on filedocumented as of this encounterNot on filedocumented as of this encounterNot on filedocumented as of this encounterNot on filedocumented as of this encounterNot on filedocumented as of this encounterNot on filedocumented as of this encounter Reason for Visit (unrecogniz ed section and content) Reason Comments Med Refill Reason Comments Hypertension Bp check,Headaches Hypothyroidism Weight Loss Care Teams (unrecognized sec tion and content) Underground Supervisor Relationship Specialty Start Date End Date Hima Hill DO [address] [place] [address] PCP - General Internal Medicine 10/09/22 Underground Supervisor Relationship Specialty Start Date End Date Hima Hill DO [address] [place] [address] PCP - General Internal Medicine 10/09/22 Underground Supervisor Relationship Specialty Start Date End Date Hima Hill DO [address] [place] [address] PCP - General Internal Medicine 10/09/22 FOR RECORDS PERTAINING TO PATIENTS WHO ARE OR HAVE BEEN ENROLLED IN A CHEMICAL DEPENDENCY/SUBSTANCEABUSE PROGRAM, SOME INFORMATION MAY BE OMITTED. This clinical summary was aggregated from multiple sources. Caution should be exercised in using it in the provision of clinical care. This summary normalizes information from multiple sources, and as a consequence, information in this document may materially change the coding, format and clinical context of patient data. In addition, data may be omitted in some cases. CLINICAL DECISIONS SHOULD BE BASED ON THE PRIMARY CLINICAL RECORDS. [facility]. provides no warranty or guarantee of the accuracy or completeness of information in this document.
[2024-04-14 11:10] LABS: Age Gdln ACOG Testing Note (.); HPV Aptima Negative (Negative); IGP, Aptima HPV, rfx 16/18,45 Note (.)
== END 2024-04-08 20:16 | disposition home or self-care (01) ==
LOC: LAB 20:15
PROVIDERS: PCP Internal Medicine; Visit Provider Physician Assistant
DX: Z01.419 Encounter for gynecological examination (general) (routine) without abnormal findings (principal)
CPT/HCPCS: 87624; G0145

== ENCOUNTER 2024-12-10 10:11 | Outpatient (OUT) | payer OTHER, SELFPAY ==
--- NOTE | 2024-12-10 10:16 | US_ITS ---
Patient Name: CHRISTIAN WEBER MR#: [id number] : 1985 Exam Date: 12/10/2024 Ordering Doctor: THERESE VIZCAINO . RADIOLOGY REPORT PROCEDURE: MM TOMOSYNTHESIS DIAGNOSTIC BI, 12/10/2024, 10:39 US BREAST LT LIMITED, 12/10/2024, 10:18 COMPARISON: MG MAMM DIAGNOSTIC 3D SUBHASH CAD, 03/07/2023. INDICATIONS: Breast lump Calculator Name NCI Breast Cancer Risk Assessment Tool 5 Year Breast Cancer Risk 0.50% Lifetime Breast Cancer Risk 9.10% Personal Breast Cancer No Personal Ovarian Cancer No Treatments None Family Cancers None LOCATION: [facility] BREAST COMPOSITION: There are scattered areas of fibroglandular density. FINDINGS: DIAGNOSTIC CATEGORY 2--BENIGN FINDING: RIGHT BREAST: No significant suspicious finding. No significant change has occurred. LEFT BREAST: Skin surface marker localizes patient's palpable lump to the lower inner quadrant, mid breast. No underlying mammographic abnormality or change compared to prior study. Ultrasound evaluation demonstrates an area deep to the palpable lump which appears to represent normal fibroglandular tissue. Annual screening mammography is recommended. If patient notices any increase in size, additional evaluation should be performed at that time. RECOMMENDATIONS: ROUTINE MAMMOGRAM AND CLINICAL EVALUATION IN 12 MONTHS. PLEASE NOTE: A NORMAL MAMMOGRAM DOES NOT EXCLUDE THE POSSIBILITY OF BREAST CANCER. A CLINICALLY SUSPICIOUS PALPABLE LUMP SHOULD BE BIOPSIED. Dictated by: Real Hendrix M.D. on 12/10/2024 at 11:07 Approved by: Real Hendrix M.D. on 12/10/2024 at 11:33
--- OUTSIDE RECORDS SUMMARY | 2024-12-10 10:30 | XMS_ITS | CCD ---
Author Organization [facility] Care Team Providers Care Credit Consultant Name Role Phone Simeon, Michael W Unavailable Unavailable Rice, Michael W Unavailable Unavailable Rice, Michael W Unavailable Unavailable MIRIANHAS, HIMA~[phone] UNKNOWN Unavailable U navailable HANNAH ., DR CAMPBELL Admitting Unavailabl e KARASIK ., DR CAMPBELL Attending Unavailabl e MISC, DR CERRATO Primary Care Unavailable KARASIK ., DR CAMPBELL Consulting Unavailabl e KARASIK ., DR CAMPBELL Admitting Unavailabl e KARASIK ., DR CAMPBELL Attending Unavailabl e MISC, DR CERRATO Primary Care Unavailable KARASIK ., DR CAMPBELL Consulting Unavailabl e Real Hendrix Consulting Unavailable MD Shahab Young Attending Provider Shahab Young Attending Unavailable Shahab Young Attending Unavailable Yuvahes Hima MARTÍNEZ Primary Care Provider ELLIOTT VIZCAINO Attending Unavailable ELLIOTT VIZCAINO Attending Unavailable YUHAS, HIMA L Referring Unavailable YUHAS, HIMA L Primary Care Unavailable YUHAS, HIMA L Attending Unavailable YUHAS, HIMA L Referring Unavailable YUHAS, HIMA L Primary Care Unavailable YUHAS, HIMA L Attending Unavailable YUHAS, HIMA L Referring Unavailable YUHAS, HIMA L Primary Care Unavailable YUHAS, HIMA L Attending Unavailable YUHAS, HIMA L Referring Unavailable YUHAS, HIMA L Primary Care Unavailable YUHAS, HIMA L Attending Unavailable YUHAS, HIMA L Referring Unavailable YUHAS, HIMA L Primary Care Unavailable Allergies Allergy Classification Reported Allergen(s) Allergy Type Date of Onset Reaction(s) Facility (1 source) No Known Medication Allergies; Translations: [No Known Medication Allergies] Propensity to adverse reactions (disorder) [facility] Medications Current Medications Medication Drug Class(es) [...] 7 days. 2 mL 2 12/17/2023 Active DULoxetine 30 mg delayed release oral capsule (5 sources) Serotonin and Norepinephrine Reuptake Inhibitor Start: 10-18-2024 take 1 capsule by mouth in the morning DULoxetine (CYMBALTA) 30 mg capsule Indications: Fibromyalgia Take 1 capsule (30 mg total) by mouth in the morning. 90 capsule 10/18/2024 Active Start: 08-17-2024 End: 10-18-2024 take 1 capsule by mouth in the morning DULoxetine (CYMBALTA) 30 mg capsule Indications: Fibromyalgia Take 1 capsule (30 mg total) by mouth in the morning. 90 capsule 08/17/2024 10/18/2024 Discontinued (Reorder) lactobacillus acidophilus [id number] unt / pectin 10 mg oral capsule (10 sources) take 1 capsule by mouth once daily at breakfast acidophilus-pectin, citrus 100 million cell-10 mg capsule Take 1 capsule by mouth daily with breakfast. Active ondansetron 4 mg disintegrating oral tablet (4 sources) Serotonin-3 Receptor Antagonist Start: ondansetron ODT (ZOFRAN ODT) 4 mg disintegrating tablet Indications: Migraine without aura and without status migrainosus, not intractable Dissolve 1 tablet (4 mg total) on tongue 2 (two) times a day as needed for nausea or vomiting. 20 tablet 10/05/2024 Active Pnv,Calcium 15-Ovml-Iumxr Acid (Westab Plus) 27 mg iron- 1 mg tablet (1 source) Start: take 1 tablet by mouth once daily Pnv,Calcium 73-Vugx-Rscgo Acid (Westab Plus) 27 mg iron- 1 mg tablet Active TAB ORAL DAILY July 21, 2023 12:00am no115/iron/folic acid ( 19 ORAL) (6 sources) take 1 tablet by mouth in the morning no115/iron/folic acid ( 19 ORAL) Take 1 tablet by mouth in the morning. 0 Active propranolol hydrochloride 40 mg oral tablet (5 sources) beta-Adrenergic Blake Start: take 1 tablet by mouth twice daily at bedtime propranoloL (INDERAL) 40 mg tablet Indications: Intractable migraine without aura and without status migrainosus TAKE 1 TABLET BY MOUTH TWICE DAILY (IN THE MORNING and before bedtime) 60 tablet 1 11/15/2024 Active Start: 10-12-2024 End: 11-15-2024 take 1 tablet by mouth in the morning, then take 1 tablet by mouth at bedtime propranoloL (INDERAL) 40 mg tablet Indications: Intractable migraine without aura and without status migrainosus Take 1 tablet (40 mg total) by mouth in the morning and 1 tablet (40 mg total) before bedtime. 60 tablet 1 10/12/2024 11/15/2024 Discontinued SUMAtriptan 100 mg oral tablet (16 sources) Serotonin-1b and Serotonin-1d Receptor Agonist Start: 10-18-2024 take 1 tablet by mouth at bedtime SUMAtriptan (IMITREX) 100 mg tablet Indications: Migraine without aura and without status migrainosus, not intractable Take 1 tablet (100 mg total) by mouth in the morning and at bedtime. 9 tablet 1 10/18/2024 Active Start: 10-05-2024 End: 10-18-2024 take 1 tablet by mouth at bedtime SUMAtriptan (IMITREX) 100 mg tablet Indications: Migraine without aura and without status migrainosus, not intractable Take 1 tablet (100 mg total) by mouth in the morning and at bedtime. 9 tablet 1 10/05/2024 10/18/2024 Discontinued (Reorder) Start: 11-10-2023 End: 02-19-2024 take 1 tablet by mouth twice daily SUMAtriptan (IMITREX) 100 mg tablet Indications: Migraine without aura and without status migrainosus, not intractable take 1 tablet by mouth twice a day if needed 9 tablet 0 02/19/2024 Active ubrogepant 100 mg oral tablet (4 sources) Start: 10-12-2024 take 1 tablet by mouth once daily as needed ubrogepant (UBRELVY) 100 mg tablet Indications: Intractable migraine without aura and without status migrainosus Take 100 mg by mouth daily as needed (zMigraine). 2 tablet 10/12/2024 Active vitamin b12 1 mg oral tablet (10 sources) Vitamin B12 Start: 04-27-2024 take 33-33.9 tablets by mouth once daily in the morning cyanocobalamin 1000 MCG tablet Indications: Class 1 obesity with serious comorbidity and body mass index (BMI) of 33.0 to 33.9 in adult, unspecified obesity type take 1 tablet by mouth every morning 90 tablet 04/27/2024 Active Start: 12-10-2023 take 33-33.9 tablets by mouth once daily [...] PLUS 27 mg iron- 1 mg tablet (10 sources) Start: 05-23-2024 take 1 tablet by mouth once daily WESTAB PLUS 27 mg iron- 1 mg tablet Indications: Essential hypertension take 1 tablet by mouth once daily 90 tablet 05/23/2024 Active Start: 03-06-2024 take 1 tablet by anuradha th once [...] 3 (three) times a day. 0 Active estrogens, conjugated (correction) 0.625 mg/ml vaginal cream (8 sources) Estrogen Start: 07-23-2023 End: 10-12-2024 PREMARIN vaginal cream Inser t 0.5 g into the vagina 2 (two) times a week. 07/23/2023 10/12/2024 Discontinued (Patient Stopped On Own) Start: 07-21-2023 Conjugated Est rogens (Premarin) 0.625 mg/gram cream Active 0.625 MG VAGINAL TWICE A WEEK July 21, 2023 12:00am 72 hr scopolamine 0.0139 mg/hr transdermal system (2 sources) Anticholinergic End: 01-17-2024 apply 1 dose transdermal route once daily scopolamine (TRANSDERM-SCOP) 1 mg/[address] 1 patch on the skin once. 0 12/17/2023 Discontinued (Therapy completed) Problems Active Problems Problem Classification Problem Date Documented Date Episodic/Chronic Anxiety disorders (1 source) Obsessive-compulsive disorder, unspecified; Translations: [Obsessive-compulsive disorder, unspecified] Onset: 07-23-2024 Chronic Deficiency and other anemia (2 sources) Iron deficiency anemia, unspecified; Translations: [Iron deficiency anemia, unspecified] Onset: 07-23-2024 Episodic Essential hypertension (12 sources) Essential hypertension; Translations: [Essential (primary) hypertension] Onset: 12-29-2018 10-09-2022 Chronic Genitourinary symptoms and ill-defined conditions (10 sources) Female stress incontinence; Translations: [Stress incontinence (female) (male)] Onset: 12-29-2018 10-09-2022 Chronic Headache; including migraine (20 sources) Migraine without aura, not refractory ; [...] breast, lower inner quadrant] Onset: 03-16-2023 Episodic Nutritional deficiencies (2 sources) Deficiency of other specified B group vitamins; Translations: [Deficiency of other specified B group vitamins] Onset: 07-23-2024 Episodic Other connective tissue disease (1 source) Fibromyalgia; Translations: [Fibromyalgia] 10-18-2024 Episodic Other female genital disorders (1 source) Other specified noninflammatory disorders of vagina; Translations: [Other specified noninflammatory disorders of vagina] Onset: 07-21-2023 Episodic Other nutritional; endocrine; and metabolic disorders (11 sources) Body mass index 30+ - obesity; Translations: [Obesity, unspecified] Onset: 01-25-2020 10-09-2022 Chronic Other nutritional; endocrine; and metabolic disorders (2 sources) Obesity, unspecified; Translations: [Obesity, unspecified] Onset: 10-09-2022 Chronic Other nutritional; endocrine; and metabolic disorders (2 sources) Body mass index (BMI) 33.0-33.9, adult; Translations: [Body mass index (BMI) 33.0-33.9, adult] Onset: 07-23-2024 Chronic Other screening for suspected conditions (not mental disorders or infectious disease) (7 sources) Encounter for screening mammogram for malignant neoplasm of breast; Translations: [Encounter for screening for malignant neoplasm of cervix] Onset: 03-05-2023 Episodic Thyroid disorders (11 sources) Hypothyroidism; Translations: [Hypothyroidism, unspecified] Onset: 03-25-2019 10-09-2022 Chronic Unclassified (1 source) Annual Exam Onset: 07-23-2024 Past or Other Problems Problem Classification Problem Date Documented Da te Episodic/Chronic Diabetes mellitus without complication (12 sources) Impaired fasting glycemia; Translations: [Impaired fasting glucose] Onset: 03-04-2022 10-09-2022 Episodic Mood disorders (10 sources) Mood disorders Onset: 07-09-2023 Resolved: 10-12-2024 07-09-2023 Other nutritional; endocrine; and metabolic disorders (1 source) Weight loss Onset: 12-17-2023 Episodic Results Test Name Value Interpretation Reference Range Facility MR BRAIN WO CONTon MR BRAIN WO CONT MR BRAIN WO CONT MR BRAIN WO CONT 11/02/2024 6:36 AM INDICATION: Intractable migraine without aura and without status migrainosus COMPARISON: None TECHNIQUE: Multiplanar multisequence MR images of the brain were obtained without intravenous contrast. FINDINGS: BRAIN: A few scattered foci of periventricular and subcortical T2/flair hyperintensities, primarily involving the frontal lobes bilaterally. No areas of diffusion restriction. No acute intracranial hemorrhage. No mass lesion.Nonspecific flattening of the pituitary parenchyma along the floor of the sella. Suggestion of low-lying position of the right greater than left cerebellar tonsils, though with maintenance of normal rounded morphology, compatible with normal anatomic variant. VENTRICLES: Normal ventricular size. VASCULATURE: Major arterial and venous intracranial flow voids are present. ORBITS: Unremarkable. PARANASAL SINUSES: Visualized paranasal sinuses are well-aerated. TEMPORAL BONE: Well-aerated middle ears and visualized mastoid air cells. SOFT TISSUES: The visualized head and neck soft tissues are unremarkable. OSSEOUS STRUCTURES: Normal bone marrow signal. Visualized upper cervical spine is unremarkable. IMPRESSION: 1. No acute intracranial process. 2. Mild white matter signal abnormalities, as can be seen in setting of migrainous headaches amongst other etiologies in this age group. Approved by Jeovanny Queen MD on 11/02/2024 8:25 AM I, Tomer Guido MD have personally reviewed the image(s) and agree with and/or edited the report Finalized by Tomer Guido MD on 11/02/2024 12:57 PM Normal [facility] CBC AND AUTO DIFFon 07-23-20 ABSOLUTE BASOPHIL 0.1 X10E9/L Normal 0.0-0.2 [facility] Comment on above: Performed By: #### C BCA, CMP, TSHR, 2132-08, 22050-1 #### [facility] ([id number]) [address], [address] [place] [address] ABSOLUTE NEUTROPHIL 4.7 X10E9/L Normal 1.5-6.6 [facility] Comment on above: Performed By: #### C BCA, CMP, TSHR, 2132-08, 91936-7 #### [facility] ([id number]) [address], [address] [place] [address] Basophils/100 WBC (Bld) 1.0 % Normal [facility] Comment on above: Performed By: #### C BCA, CMP, TSHR, 2132-08, 03657-1 #### [facility] ([id number]) [address], [address] [place] [address] Eosinophils (Bld) [#/Vol] 0.1 10*3/uL Normal 0.0-0.4 [facility] Comment on above: Performed By: #### C BCA, CMP, TSHR, 2132-08, 70835-0 #### [facility] ([id number]) [address], [address] [place] [address] Eosinophils/100 WBC (Bld) 1.8 % Normal [facility] Comment on above: Performed By: #### C BCA, CMP, TSHR, 2132-08, 84558-6 #### [facility] ([id number]) [address], [address] [place] [address] Erythrocyte distribution width (RBC) [Ratio] 12.8 % Normal 11.5-15.0 [facility] Comment on above: Performed By: #### C BCA, CMP, TSHR, 2132-08, 55364-2 #### [facility] ([id number]) [address], [facility] [address] [place] [address] Hematocrit (Bld) [Volume fraction] 36.0 % Normal 35-47 [facility] Comment on above: Performed By: #### C BCA, CMP, TSHR, 2132-08, 08271-9 #### [facility] ([id number]) [address], [address] [place] [address] Hemoglobin (Bld) [Mass/Vol] 12.4 g/dL Normal 11.7-15.5 [facility] Comment on above: Performed By: #### C BCA, CMP, TSHR, 2132-08, 92212-4 #### [facility] ([id number]) [address], [facility] [address] [place] [address] Lymphocytes (Bld) [#/Vol] 1.7 10*3/uL Normal 1.0-3.5 [facility] Comment on above: Performed By: #### C BCA, CMP, TSHR, 2132-08, 30848-3 #### [facility] ([id number]) [address] [address] Lymphocytes/100 WBC (Bld) 24.6 % Normal [facility] Comment on above: Performed By: #### C BCA, CMP, TSHR, 2132-08, 58742-0 #### [facility] ([id number]) [address], [address] [place] [address] MCH (RBC) [Entitic mass] 30.0 pg Normal 27-34 [facility] Comment on above: Performed By: #### C BCA, CMP, TSHR, 2132-08, 41175-9 #### [facility] ([id number]) [address], [address] [place] [address] MCHC (RBC) [Mass/Vol] 34.5 g/dL Normal 32-36 [facility] Comment on above: Performed By: #### C BCA, CMP, TSHR, 2132-08, 29913-6 #### [facility] ([id number]) [address], [address] [place] [address] MCV (RBC) [Entitic vol] 87 fL Normal 80-100 [facility] Comment on above: Performed By: #### C BCA, CMP, TSHR, 2132-08, 43610-6 #### [facility] ([id number]) [address], [address] [place] [address] Monocytes (Bld) [#/Vol] 0.3 10*3/uL Normal 0-0.9 [facility] Comment on above: Performed By: #### C BCA, CMP, TSHR, 2132-08, 68191-6 #### [facility] ([id number]) [address], [address] [place] [address] Monocytes/100 WBC (Bld) 4.8 % Normal [facility] Comment on above: Performed By: #### C BCA, CMP, TSHR, 2132-08, 67418-3 #### [facility] ([id number]) [address], [address] [place] [address] Neutrophils/100 WBC (Bld) 67.8 % Normal [facility] Comment on above: Performed By: #### C BCA, CMP, TSHR, 2132-08, 32695-8 #### [facility] ([id number]) [address], [address] [place] [address] Platelet mean volume (Bld) [Entitic vol] 8.8 fL Normal 7-12 [facility] Comment on above: Performed By: #### C BCA, CMP, TSHR, 2132-08, 00920-2 #### [facility] ([id number]) [address], [facility] [address] [place] [address] Platelets (Bld) [#/Vol] 298 10*3/uL Normal 150-450 [facility] Comment on above: Performed By: #### C BCA, CMP, TSHR, 2132-08, 47803-2 #### [facility] ([id number]) [address] [address] [place] [address] RBC COUNT 4.13 X10E12/L Normal 3.80-5.20 [facility] Comment on above: Performed By: #### C BCA, CMP, TSHR, 2132-08, 18705-5 #### [facility] ([id number]) [address] [address] WBC (Bld) [#/Vol] 7.0 10*3/uL Normal 4.0-11.0 [facility] Comment on above: Performed By: #### C BCA, CMP, TSHR, 2132-08, 34478-7 #### [facility] ([id number]) [address], [address] [place] [address] COMPREHENSIVE METABOLIC PANE Ignacio 07-23-2024 Albumin [Mass/Vol] 4.2 g/dL Normal 3.2-5.3 [facility] Comment on above: Performed By: #### C BCA, CMP, TSHR, 2132-08, 73108-5 #### [facility] ([id number]) [address], [address] [place] [address] ALP [Catalytic activity/Vol] 50 U/L Normal 39-130 [facility] Comment on above: Performed By: #### C BCA, CMP, TSHR, 2132-08, 66915-0 #### [facility] ([id number]) [address], [address] [place] [address] ALT [Catalytic activity/Vol] 18 U/L Normal 0-31 [facility] Comment on above: Performed By: #### C BCA, CMP, TSHR, 2132-08, 46532-4 #### [facility] ([id number]) [address], [address] [place] [address] Anion gap [Moles/Vol] 7 mmol/L Normal 5-15 [facility] Comment on above: Performed By: #### C BCA, CMP, TSHR, 2132-08, 43471-8 #### [facility] ([id number]) [address], [address] [place] [address] AST [Catalytic activity/Vol] 23 U/L Normal 0-41 [facility] Comment on above: Performed By: #### C BCA, CMP, TSHR, 2132-08, 36756-2 #### [facility] ([id number]) [address], [address] [place] [address] Bilirubin [Mass/Vol] 0.5 mg/dL Normal 0.3-1.2 [facility] Comment on above: Performed By: #### C BCA, CMP, TSHR, 2132-08, 07122-2 #### [facility] ([id number]) [address], [address] [place] [address] Calcium [Mass/Vol] 9.1 mg/dL Normal 8.5-10.5 [facility] Comment on above: Performed By: #### C BCA, CMP, TSHR, 2132-08, 94852-7 #### [facility] ([id number]) [address], [address] [place] [address] Chloride [Moles/Vol] 101 mmol/L Normal 98-109 [facility] Comment on above: Performed By: #### C BCA, CMP, TSHR, 2132-08, 88999-4 #### [facility] ([id number]) [address], [address] [place] [address] CO2 [Moles/Vol] 30 mmol/L Normal 22-32 [facility] Comment on above: Performed By: #### C BCA, CMP, TSHR, 2132-08, 67717-8 #### [facility] ([id number]) [address] [place] [address] Creatinine [Mass/Vol] 0.60 mg/dL Normal 0.40-1.00 [facility] Comment on above: Result Comment: METH OD TRACEABLE TO IDMS STANDARD Performed By: #### C BCA, CMP, TSHR, 2132-08, 73136-2 #### [facility] ([id number]) [address] [place] [address] eGFR (CKD-EPI) NON-RACE DEPENDENT >90 Normal >59 [facility] Comment on above: Result Comment: Reported eGFR is based on the CKD-EPI 2020 equation that does not use a race coefficient. Performed By: #### C BCA, CMP, TSHR, 2132-08, 83868-2 #### [facility] ([id number]) [address], [address] [place] [address] Glucose [Mass/Vol] 91 mg/dL Normal 65-99 [facility] Comment on above: Performed By: #### C BCA, CMP, TSHR, 2132-08, 35976-1 #### [facility] ([id number]) [address], [address] [place] [address] Potassium [Moles/Vol] 4.1 mmol/L Normal 3.5-5.0 [facility] Comment on above: Performed By: #### C BCA, CMP, TSHR, 2132-08, 55137-3 #### [facility] ([id number]) [address], [address] [place] [address] Protein [Mass/Vol] 6.9 g/dL Normal 6.0-8.0 [facility] Comment on above: Performed By: #### C BCA, CMP, TSHR, 2132-08, 10174-9 #### [facility] ([id number]) [address] [place] [address] Sodium [Moles/Vol] 138 mmol/L Normal 134-146 [facility] Comment on above: Performed By: #### C BCA, CMP, TSHR, 56345-0 #### [facility] ([id number]) [address], [address] [place] [address] Urea nitrogen [Mass/Vol] 11 mg/dL Normal 5-23 [facility] Comment on above: Performed By: #### C BCA, CMP, TSHR, 2132-08, 50676-9 #### [facility] ([id number]) [address] [place] [address] ESR Photometric method (Bld) [Velocity]on 07-23-2024 ESR, ERYTHROCYTE SEDIMENTATION RATE 8 mm/h Normal 0-20 [facility] Comment on above: Performed By: #### C BCA, CMP, TSHR, 2132-08, 25156-1 #### [facility] ([id number]) [address] [place] [address] TSH WITH REFLEXon 07-23-2024 TSH 2.06 uIU/mL Normal 0.49-4.67 [facility] Comment on above: Performed By: #### C BCA, CMP, TSHR, 9, 72936-5 #### [facility] ([id number]) [address] [facility], [address] [place] [address] VITAMIN B12on 07-23-2024 Cobalamin (Vitamin B12) [Mass/Vol] 916 pg/mL High 180-914 [facility] Comment on above: Performed By: #### C BCA, CMP, TSHR, 9, 76127-6 #### [facility] ([id number]) [address] [facility], [address] [place] [address] Virtual Visiton 07-21-2023 Virtual Visit [facility] [address] [place] [address] Virtual Visit Signed Patient: Cass Riley MR#: [id number] : 1985 Acct: [id number] Age/Sex: 38 / F Loc: OB.AV Date of Service: 07/21/[address]: Shahab Young M.D. cc: Intake Intake Visit Reasons: meds [phone], ok per Hannah Principle [employer] Hygienist Required: No Allergies No Known Allergies Allergy (Verified 07/21/23 16:27) Medications - Last Reconciled 07/21/23 by [facility] bupropion HCl mg ORAL AM chlorthalidone mg ORAL DAILY PNV,calcium 46-yynx-sehiq acid 27 mg iron- 1 mg (WesTab Plus) tabs ORAL DAILY Patient : No Post menopausal: No History History 5 Elective abortions 0 Para 4 Spontaneous abortions 1 Hx # Term Pregnancies 4 Ectopic pregnancies 0 Hx # Pregnancies 0 Multiple births 0 PFSH Medical History (Updated 07/21/23 @ 16:29 by [facility]) Anxiety Depression Hypertension Surgical History (Updated 07/21/23 @ 16:29 by [facility]) History of section Hx of tonsillectomy Family History (Updated 07/21/23 @ 16:30 by [facility]) Other Diabetes Hypertension Social History (Updated 07/21/23 @ 16:30 by [facility]) Advance Directives: No Would like to be referred to [employer] for info?: No Smoking Status: Never smoker Second hand tobacco smoke exposure: No Former alcohol user?: No How often do you have six or more drinks on one occasion: Never Non prescribed substance use: denies use Travel outside of [place] in last 30 days?: No (Updated 07/21/23 @ 16:30 by Rosa Isela Golden) Other Diabetes Hypertension (Updated 07/21/23 @ 16:29 by Rosa Isela Golden) Anxiety Depression Hypertension HPI Virtual Visit HPI [...] for [employer] Review of Systems [facility] Eyes Reports no additional complaints ENT Reports [...] of vagina Coding Level of Care Code 93608 New Patient Level 2 Diagnoses Vaginal dryness N89.8 Dictated By: Shahab Young M.D. Signed By: 07/22/23 1241 Normal [facility] PAP ACOG PANEL 2: 30 to 65on 03-12-2023 . . Normal [facility] Comment on above: Result Comment: Perf ormed at: WB Performed By: #### [id number] #### [facility] [address] [address] [address] Marcia Beverly Age Gdln ACOG Testing 30-65 Normal [facility] Comment on above: Performed By: #### [id number] #### [facility] [address] [address] [address] Marcia Beverly DIAGNOSIS: Comment Normal [facility] Comment on above: Result Comment: NEGA TIVE FOR INTRAEPITHELIAL LESION OR MALIGNANCY. Performed at: WB Performed By: #### [id number] #### [facility] [address] [address] [address] Marcia Beverly HPV Aptima Negative Normal Negative [facility] Comment on above: Result Comment: This nucleic acid amplification test detects fourteen high-risk HPV types (16,18,31,33,35,39,45,51,52,56,58,59,66,68) without differentiation. Performed at: =G Performed By: #### [id number] #### [facility] [address] [address] [address] Marcia Beverly HPV Genotype Reflex Comment Normal [facility] Comment on above: Result Comment: Crit eria not met, HPV Genotype not performed. Performed at: WB Performed By: #### [id number] #### [facility] [address] [place] [address] Dr. Marcia Beverly Methodology: Comment [facility] [facility] Comment on above: Result Comment: This liquid based ThinPrep(R) pap test was screened with the use of an image guided system. Performed at: WB Performed By: #### [id number] #### [facility] [address] [place] [address] Dr. Marcia Beverly Note: Comment Normal [facility] Comment on above: Result Comment: The Pap smear is a screening test designed to aid in the detection of premalignant and malignant conditions of the uterine cervix. It is not a diagnostic procedure and should not be used as the sole means of detecting cervical cancer. Both false-positive and false-negative reports do occur. . Performed at: WB Performed By: #### [id number] #### [facility] [address] [place] [address] Dr. Marcia Beverly Performed by: Comment Normal [facility] Comment on above: Result Comment: Elke Covington, Shipping Receiving Clerk (ASCP) Performed at: WB Performed By: #### 4 [id number] #### [facility] [address] [place] [address] Dr. Marcia Beverly Specimen adequacy: Comment Normal [facility] Comment on above: Result Comment: Sati sfactory for evaluation. Endocervical and/or squamous metaplastic cells (endocervical component) are present. Performed at: WB Performed By: #### 4 [id number] #### [facility] [address] [place] [address] Dr. Marcia Beverly MG MAMM DIAGNOSTIC 3D SUBHASH CA Don 03-07-2023 MG MAMM DIAGNOSTIC 3D SUBHASH CAD Patient: CASS RILEY Exam Date: 03/07/2023 : 1985 Gender:F Ordering : DR SHAHAB YOUNG . Admission #: [id number] Family : Order #: [id number] CLICK HERE TO VIEW EXAM RADIOLOGY REPORT PROCEDURE: MAMMOGRAM DIAGNOSTIC 3D BILATERAL CAD, 03/07/2023, 07:14 ULTRASOUND BREAST BILATERAL LIMITED, 03/07/2023, 07:56 COMPARISON: None. INDICATIONS: Screening mammography Calculator Name NCI Breast Cancer Risk Assessment Tool 5 Year Breast Cancer Risk 0.40% Lifetime Breast Cancer Risk 9.20% Personal Breast Cancer No Personal Ovarian Cancer No Treatments None Family Cancers None LOCATION: [facility] BREAST COMPOSITION: Scattered areas fibroglandular density. [...] M.D. on 03/07/2023 at 09:06 Normal [facility] US BREAST SUBHASH LIMITEDon 04-0 US BREAST SUBHASH LIMITED Patient: CASS RILEY Exam Date: 03/07/2023 : 1985 Gender:F Ordering : DR SHAHAB YOUNG . Admission #: [id number] Family : Order #: [id number] CLICK HERE TO VIEW EXAM RADIOLOGY REPORT PROCEDURE: MAMMOGRAM DIAGNOSTIC 3D BILATERAL CAD, 03/07/2023, 07:14 ULTRASOUND BREAST BILATERAL LIMITED, 03/07/2023, 07:56 COMPARISON: None. INDICATIONS: Screening mammography Calculator Name NCI Breast Cancer Risk Assessment Tool 5 Year Breast Cancer Risk 0.40% Lifetime Breast Cancer Risk 9.20% Personal Breast Cancer No Personal Ovarian Cancer No Treatments None Family Cancers None LOCATION: [facility] BREAST COMPOSITION: Scattered areas fibroglandular density. [...] Hendrix M.D. on 03/07/2023 at 09:06 Normal [facility] BASIC METABOLIC PANELon 07-01 BUN/CREATININE RATIO NOT APPLICABLE Normal 6-22 [facility] Comment on above: Performed By: #### 1 0165, 30168, [id number] #### [facility] [place] [address] [employer] Supervisor: Bruno Watts MD Calcium [Mass/Vol] 9.0 mg/dL Normal 8.6-10.2 [facility] Comment on above: Performed By: #### 1 0165, 54753, 21764 #### [facility] [place] [address] [employer] Supervisor: Bruno Watts MD Chloride [Moles/Vol] 101 mmol/L Normal 98-110 [facility] Comment on above: Performed By: #### 1 0165, 44156, 31720 #### [facility] [place] [address] [employer] Supervisor: Bruno Watts MD CO2 [Moles/Vol] 30 mmol/L Normal 20-32 [facility] Comment on above: Performed By: #### 1 0165, 76816, 33183 #### [facility] [place] [address] [employer] Supervisor: Bruno Watts MD Creatinine [Mass/Vol] 0.67 mg/dL Normal 0.50-1.10 [facility] Comment on above: Performed By: #### 1 0165, 15874, 29136 #### [facility] [place] [address] [employer] Supervisor: Bruno Watts MD eGFR NON-AFR. NAMIBIAN 113 mL/min/1.73m2 Normal > OR = 60 [facility] Comment on above: Performed By: #### 1 0165, 02246, 83618 #### [facility] [place] [address] [employer] Supervisor: Bruno Watts MD GFR/1.73 sq M.predicted among blacks MDRD (S/P/Bld) [Vol rate/Area] 131 mL/min/{1.73_m2} Normal > OR = 60 [facility] Comment on above: Performed By: #### 1 0165, 84687, 14173 #### [facility] [place] [address] [employer] Supervisor: Bruno Watts MD Glucose [Mass/Vol] 127 mg/dL High 65-99 [facility] Comment on above: Result Comment: Fasting reference interval For someone without known diabetes, a glucose value >125 mg/dL indicates that they may have diabetes and this should be confirmed with a follow-up test. Performed By: #### 1 0165, 43242, 67837 #### [facility] [place] [address] [employer] Supervisor: Bruno Watts MD Potassium [Moles/Vol] 3.7 mmol/L Normal 3.5-5.3 [facility] Comment on above: Performed By: #### 1 0165, 88988, 49896 #### [facility] [place] [address] [employer] Supervisor: Bruno Watts MD Sodium [Moles/Vol] 139 mmol/L Normal 135-146 [facility] Comment on above: Performed By: #### 1 0165, 29006, 75387 #### [facility] [place] [address] [employer] Supervisor: Bruno Watts MD Urea nitrogen [Mass/Vol] 14 mg/dL Normal 7-25 [facility] Comment on above: Performed By: #### 1 0165, 52984, 06646 #### [facility] of [address], [address] [place] [address] [employer] Supervisor: Bruno Watts MD PATIENT ID APPROVAL TIQ RENETTAU EARLon 07-14-2021 COMMENT Normal [facility] Comment on above: Result Comment: Iden tification of test requisition and/or specimen(s) was questionable. The below named individual provided this revised patient identification. Performed By: #### 1 0165, 36459, 07421 #### [facility] of [address], [address] [place] [address] [employer] Supervisor: Bruno Watts MD CONTACT ZARA Roche Normal [facility] Comment on above: Performed By: #### 1 0165, 54349, 25129 #### [facility] of [address], [address] [place] [address] [employer] Supervisor: Bruno Watts MD TESTS AFFECTED [facility] [address] Normal [facility] Comment on above: Performed By: #### 1 0165, 80109, 40589 #### [facility] of [address], [address] [place] [address] [employer] Supervisor: Bruno Watts MD TSH+FREE T4on 07-14-2021 Free T4 [Mass/Vol] 0.9 ng/dL Normal 0.8-1.8 [facility] Comment on above: Result Comment: TEST NOT PERFORMED An identification discrepancy exists between the requisition and the specimen. Performed By: #### 1 0165, 81337, 56288 #### [facility] of [address], [address] [place] [address] [employer] Supervisor: Bruno Watts MD TSH Qn 0.92 m[IU]/L Normal [facility] Comment on above: Result Comment: Refe rence Range > or = 20 Years 0.40-4.50 Ranges First trimester 0.26-2.66 Second trimester 0.55-2.73 Third trimester 0.43-2.91 Performed By: #### 1 0165, 69769, 21070 #### [facility] [address] [facility], [address] [place] [address] [employer] Supervisor: Bruno Watts MD Coding Summary.on 02-11-2018 Coding Summary. CODING DATE: 02/11/2018 FINAL [facility] STATUS: Home (Routine DC) PAYOR: Roel [...] Sandoval Date Saved: 02/11/2018 10:31 am Normal [facility] Main OR Intraoperative Recor don 02-05-2018 Main OR Intraoperative Record IntraOp Document Type FTURO Summary Primary Physician: Owen Alexandre Jr., MD Finalized Date/Time: 02/05/18 14:30:20 Pt. Name: CASS RILEY/Sex: 1985 Female Med Rec #: [id number] Physician: Owen Alexandre Jr., MD Financial #: [id number] Pt. Type: O Room/Bed: / Admit/Disch: 02/05/18 13:58:13 - Institution: Case Times FTURO Entry 1 Patient Times In Room 02/05/18 14:22:00 Out Room 02/05/18 14:31:00 Procedure Times Start 02/05/18 14:23:00 Stop 02/05/18 14:26:00 Anesthesia Times Last Modified By: Yoel RAI, Maru GARCIA 02/05/18 14:27:00 Case Attendance FTURO Entry 1 Entry 2 Entry 3 Case Attendee Yoel RAI, SHAUNAOR, Adriel FIBERGLASS ROVING WINDER, Owen Kumari Jr., MD Role Performed Credit Balance Specialist - Primary Scrub - Primary Surgeon - Primary Time In 02/05/18 14:22:00 02/05/18 14:22:00 02/05/18 14:22:00 Time Out 02/05/18 14:31:00 02/05/18 14:31:00 02/05/18 14:31:00 Procedure CYSTOSCOPY LOCAL(.) CYSTOSCOPY LOCAL(.) CYSTOSCOPY LOCAL(.) Comments Last Modified By: Yoel RAI, CNOR, Yoel RAI, SHAUNAOR, Yoel RAI, SHAUNAOR, Maru 02/05/18 Maru 02/05/18 Maru 02/05/18 14:27:01 14:27:01 14:27:01 Surgical Procedures FTURO Entry 1 Procedure Description Procedure CYSTOSCOPY LOCAL Modifiers . Surgeon Description cysto Primary Procedure Yes Primary Surgeon Baldomero Zuluaga MD, Owen Santos Start 02/05/18 14:23:00 Stop 02/05/18 14:26:00 Anesthesia Type Local Surgical Service Urology Wound Class 2 - Clean-Contaminated Last Modified By: Yoel RAI, SHAUNAOR, Maru 02/05/18 14:27:03 General Case Data FTURO Pre-Care Text: Classifies surgical wound, implements aseptic technique, initiates traffic control Entry 1 Case Information OR URO 1 FT Case Level None Wound Class 2 - Clean-Contaminated Specialty Urology Preop Diagnosis URINARY INCONTINENCE Postop Same As Preop No Postop Diagnosis stress uriinary Outcomes Met? Yes inconttinence Last Modified By: Yoel RAI, CNOR, Maru 02/05/18 14:29:01 Post-Care Text: The patient [...] RAI, SHAUNAOR, Verified (If Participants Adriel Mahoney RUST, Applicable) Baldomero Wiley Jr., MD, Donald L [...] RADHA Diallo RN, Ruthann 02/05/18 14:30 Normal [facility] Main OR Preoperative Recordo n 02-05-2018 Main OR Preoperative Record Holding Area Document Type FTURO Summary Primary Physician: Owen Alexandre Jr., MD Finalized Date/Time: 02/05/18 14:24:03 Pt. Name: CASS RILEY/Sex: 1985 Female Med Rec #: [id number] Physician: Owen Alexandre Jr., MD Financial #: [id number] Pt. Type: O Room/Bed: / Admit/Disch: 02/05/18 [...] of Pain: No Comment: Skin Integrity Intact, [place], Warm, & Dry Vitals - EU Blood Pressure 153/98 Pulse 88 bpm Respirations 16 br/min SPO2 RN Reviewed Yes Last Modified By: RADHA Diallo RN, Ruthann 02/05/18 14:23:59 Finalized By: RADHA Diallo RN, Ruthann Document Signatures Signed By: Kayleigh VARGASPamelaIndiana 02/05/18 14:18 RADHA Diallo RN, Ruthann 02/05/18 14:24 Normal [facility] Operative Reporton Operative Report Patient: CASS RILEY Age: 32 years Sex: Female : 1985 Associated Diagnoses: None Author: Owen Alexandre Jr., MD Procedure Operative Information Details: Date/ Time: 02/05/18 [...] arrangements for TVT mid urethral sling.. Normal [facility] Comment on above: Result Comment: Elec tronically Signed By: Owen Alexandre Jr., MD\.monique\Date and Time Signed: 02/05/18 14:32 EST Vital Signs Date Time Vital Sign Value Performing Clinician Ronen schrader 10-12-2024 17:18-0500 Diastolic blood pressure 98 mm[Hg] Hima Chapmans DO Work Phone: [facility] [employer] 10-12-2024 17:18-0500 Systolic blood pressure 150 mm[Hg] Hima Velahas DO Work Phone: [facility] [employer] [facility] 10-12-2024 16:41-0500 Body mass index (BMI) [Ratio] 31.45 kg/m2 Hima Velahas DO Work Phone: [facility] [employer] 10-12-2024 16:41-0500 Body temperature 98.2 [degF] Hima Chapmans DO Work Phone: [facility] [employer] [facility] 10-12-2024 16:41-0500 Body weight 83.1 kg Hima Chapmans DO Work Phone: [facility] [employer] [facility] 10-12-2024 16:41-0500 Heart rate 96 /min Hima Velahas DO Work Phone: [facility] [employer] 10-12-2024 16:41-0500 SaO2% (BldA) [Mass fraction] 98 % Hima Chapmans DO Work Phone: [facility] [employer] [facility] 12-17-2023 16:28-0500 Body height 162.6 cm Hima Velahas DO Work Phone: [facility] [employer] [facility] 12-17-2023 16:28-0500 Body mass index (BMI) [Ratio] 30.24 kg/m2 Hima Velahas DO Work Phone: [facility] [employer] 12-17-2023 16:28-0500 Body temperature 97.9 [degF] Hima Velahas DO Work Phone: [facility] [employer] [facility] 12-17-2023 16:28-0500 Body weight 79.92 kg Hima Velahas DO Work Phone: [facility] [employer] [facility] 12-17-2023 16:28-0500 Diastolic blood pressure 70 mm[Hg] Hima Roberts DO Work Phone: [facility] [employer] [facility] 12-17-2023 16:28-0500 Heart rate 75 /min Hima Roberts DO Work Phone: [facility] [employer] [facility] 12-17-2023 16:28-0500 SaO2% (BldA) [Mass fraction] 99 % Hima Roberts DO Work Phone: [facility] [employer] [facility] 12-17-2023 16:28-0500 Systolic blood pressure 126 mm[Hg] Hima Roberts DO Work Phone: [facility] Encounters Encounter Date Encounter Type Care Provider Facility Start: 11-15-2024 End: 11-15-2024 Refill [facility] Roberts [facility] Comment on above: Intractable migraine without aura and without status migrainosus Start: 11-02-2024 End: 11-02-2024 ambulatory [facility] Start: 10-18-2024 End: 10-18-2024 Refill Hima Roberts DO Work Phone: [facility] Comment on above: Fibromyalgia; Migraine without aura and without status migrainosus, not intractable Start: 10-13-2024 End: 10-15-2024 Telephone encounter Hima Roberts DO Work Phone: [facility] Start: 10-12-2024 End: 10-12-2024 Office outpatient visit 25 minutes Hima Roberts DO Work Phone: [facility] Comment on above: Intractable migraine without aura and without status migrainosus (Primary Dx) Start: 10-12-2024 End: 10-12-2024 ambulatory [facility] Start: 07-23-2024 End: 07-23-2024 ambulatory [facility] Start: 07-23-2024 End: 07-23-2024 ambulatory [facility] Start: 04-12-2024 End: 04-12-2024 ambulatory ELLIOTT VIZCAINO Not Available Start: 04-08-2024 End: 04-08-2024 ambulatory ELLIOTT VIZCAINO Not Available Start: 03-06-2024 Refill Hima Roberts D O [facility] Comment on above: Essential hypertensi on Start: 02-19-2024 Refill Hima Chapmans D O Work Phone: [facility] Comment on above: Migraine without aur a and without status migrainosus, not intractable Start: 02-02-2024 Refill Hima Chapmans D O Work Phone: [facility] Comment on above: Migraine without aur a and without status migrainosus, not intractable Start: 01-14-2024 Refill Hima Chapmans D O Work Phone[facility] Comment on above: Migraine without aur a and without status migrainosus, not intractable Start: 12-17-2023 End: 12-17-2023 Office outpatient visit 25 minutes Hima Roberts DO [facility] Comment on above: Obesity with body ma ss index 30 or greater (Primary Dx); Migraine without aura and without status migrainosus, not intractable Start: 12-17-2023 End: 12-17-2023 ambulatory [facility] Start: 12-03-2023 Refill Hima Roberts D O Work Phone: [facility] Comment on above: Migraine without aur a and without status migrainosus, not intractable Start: 07-21-2023 End: 07-21-2023 ambulatory Shahab Young [facility] Start: 07-21-2023 Non-patient / Non-visit MD Manuel Young Work Phone: [facility] ([facility] Work Phone: Start: 03-07-2023 End: 03-08-[address] SHAHAB YOUNG . Facility:[facility] Start: 03-05-2023 End: 03-05-[address] SHAHAB YOUNG . Facility:[facility] Start: 02-05-2018 End: 02-06-2018 Ambulatory Michael Caro Simeon Facility:[facility] Procedures Date Procedure Procedure Detail Performing Clinician Start: 10-12-2024 Adult depression scr eening assessment Hima Roberts DO Work Phone: Start: 04-08-2024 Microscopic observat ion [Identifier] in Cervix by Cyto stain Hima Roberts DO Work Phone: Start: 12-17-2023 Adult depression scr eening assessment Hima Roberts DO Work Phone: Start: 07-09-2023 Adult depression scr eening assessment Hima Roberts DO Work Phone: Plan of Treatment Date Care Activity Detail Author Start: 10-01-2033 DTaP,Tdap and Td Vaccines (2 - Td or Tdap) DTaP,Tdap and Td Vaccines (2 - Td or Tdap) [facility] Start: 04-08-2027 Screening for malign ant neoplasm of cervix Pap Smear [facility] Start: 10-12-2025 Adult BMI Screening Adult BMI Screen ing [facility] Start: 10-12-2025 Depression Screening Depression Scre ening [facility] Start: 07-23-2025 Tobacco Screening Tobacco Screening [facility] Start: 12-17-2024 Adult BMI Screening Adult BMI Screen ing [facility] Start: 12-17-2024 Depression Screening Depression Scre ening [facility] Start: 12-17-2024 Tobacco Screening Tobacco Screening [facility] Start: 11-10-2024 End: 11-10-2024 Patient encounter procedure 11/10/2024 4:30 PM EST [facility] [address] [place] [address] Hima Roberts, DO [address] [place] [address] [facility] Start: 11-02-2024 End: 11-02-2024 Patient encounter procedure 11/02/2024 6:45 AM EST Appointment [facility] [address] [place] [address] Hima Roberts, DO [address] [place] [address] [facility] Start: 10-26-2024 End: 10-26-2024 Patient encounter procedure 10/26/2024 4:30 PM EST [facility] [address] [place] [address] Hima Roberts, DO [address] [place] [address] [facility] Start: 10-22-2024 Adult BMI Screening Adult BMI Screen ing [facility] Start: 10-22-2024 Tobacco Screening Tobacco Screening [facility] Start: 10-12-2024 End: 10-12-2025 MR Brain WO contrast MR brain without contrast Imaging Routine Intractable migraine without aura and without status migrainosus Expected: 10/12/2024, Expires: 10/12/2025 [facility] Work [facility]: Comment on above: Expected: 10/12/2024 , Expires: 10/12/2025 Start: 08-01-2024 COVID-19 Vaccine ( season) COVID-19 Vaccine ( season) [facility] Start: 08-01-2024 Influenza vaccination Influenza Vacc ine [facility] Start: 07-09-2024 Depression Screening Depression Scre ening [facility] Start: 12-17-2023 End: 12-17-2023 Patient encounter procedure 12/17/2023 4:30 PM EST [facility] [address] [place] [id number] Hima Roberts DO [address] [facility] [place] [address] [facility] Start: 08-01-2023 COVID-19 Vaccine ( season) COVID-19 Vaccine () [facility] Start: 2006 Screening for malign ant neoplasm of cervix Pap Smear [facility] Start: 2003 Adult BMI Follow Up Plan Adult BMI Follow Up Plan [facility] Immunizations Immunization Date Immunization Notes Care Provider Fa cility 10-01-2023 influenza, injectabl e, quadrivalent, preservative free Hima Chapmanelen DO Work Phone: [facility] 10-01-2023 tetanus toxoid, redu eliceo diphtheria toxoid, and acellular pertussis vaccine, adsorbed Hima Roberts DO Work Phone: [facility] 10-01-2023 influenza virus vaccine, unspecified formulation Hima Arielen DO Work Phone: [facility] 09-27-2022 Influenza, injectabl e, Madin Ashwini Canine Kidney, preservative free, quadrivalent Hima Arielen DO Work Phone: [facility] 08-14-2021 influenza, injectabl e, quadrivalent, preservative free Hima Arielen DO Work Phone: [facility] 09-13-2020 influenza, seasonal, injectable Hima Yuhas DO Work Phone: [facility] 07-13-2020 influenza, injectabl e, quadrivalent, preservative free Hima Mirianhas DO Work Phone: [facility] 07-13-2019 influenza, injectabl e, quadrivalent, preservative free Hima Roberts DO Work Phone: [facility] 07-13-2019 measles, mumps and rubella virus vaccine Hima Chapmans DO Work Phone: [facility] 07-10-2018 influenza, injectabl e, quadrivalent, preservative free Hima Chapmans DO Work Phone: [facility] 12-25-2017 Influenza, injectabl e, Madin [place] Canine Kidney, preservative free, quadrivalent Hima Chapmans DO Work Phone: [facility] 12-17-2017 influenza virus vaccine, unspecified formulation Hima Chapmans DO Work Phone: [facility] Payers Date Payer Category Payer Self-pay 2020 Medicaid [employer] [employer] [id number] 2020-Present [phone] [address] [place] [id number] 2020 Medicaid HMO [employer] [id number] 2018 Unknown [id number] 1985 Unknown [id number] 1985 Unknown [id number] 1985 Unknown [id number] [id number] 1985 Unknown [id number] [id number] 1985 Unknown [id number] [id number] 1985 Unknown [id number] [id number] 1985 Unknown [id number] [id number] 1985 Unknown [id number] [id number] 1985 Unknown [id number] [id number] 1959 Unknown [id number] Unknown [id number] Unknown [id number] Social History Date Type Detail Facility Start: 07-21-2023 Tobacco smoking stat [facility] Never smoker [facility] Work Phone: Start: 1985 Sex Assigned At Female [facility] Work Phone: Start: 10-09-2022 Tobacco smoking stat [facility] Never smoked tobacco [facility] Start: 10-09-2022 Tobacco use and exposure Smokeless tobacco non-user [facility] Start: 10-25-2023 End: 07-23-2024 Alcohol intake Current drinker of alcohol (finding) [facility] Start: 10-22-2023 End: 10-12-2024 History of Social function [facility] Start: 10-22-2023 End: 10-12-2024 Tobacco use panel [facility] Adolescent depressio n screening assessment 0 [facility] Start: 10-22-2023 Alcohol Comment Socially [facility] Start: 1985 Sex Assigned At Not on file P [facility] Start: 07-06-2015 Sex Female (finding) [facility] Clinical Notes 12-17-2023 to 10-13-2024 Telephone Encounter - Brigette Hendricks - 10/13/2024 2:59 PM ESTTelephone Encounter - Hima Roberts DO - 10/13/2024 2:59 PM ESTTelephone Encounter - Hima Roberts DO - 10/13/2024 2:59 PM EST Note Date & Type Note Facility 10-13-2024 Miscellaneous Notes Patient called they can't get her in until November 02 for her MRI she wanted to know if that was okay Message noted. Yes Message noted. Yes Patient notified documented in this encounter [facility] 10-13-2024 Telephone encounter Note Patient called they can't get her in until November 02 for her MRI she wanted to know if that was okay [facility] 10-13-2024 Telephone encounter Note Message noted. Yes [facility] 10-13-2024 Telephone encounter Note Patient notified [facility] 10-12-2024 History of Presen t illness Narrative IM PROGRESS NOTE Patient - Cass Riley Age - 39 [facility] 1985 [id number] ASSESS[facility] & PLAN 1. Intractable migraine without aura and without status migrainosus (Primary) -patient with longstanding migraines, which have increased in severity, frequency, and duration -need to get imaging -will add propanolol as prophylactic agent, but reviewed potential side effects with the patient. -will also make Ubrelvy available for breakthrough. - MR brain without contrast; Future - propranoloL (INDERAL) 40 mg tablet; Take 1 tablet (40 mg total) by mouth in the morning and 1 tablet (40 mg total) before bedtime. Dispense: 60 tablet; Refill: 1 - ubrogepant (UBRELVY) 100 mg tablet; Take 100 mg by mouth daily as needed (zMigraine). Dispense: 2 tablet; Refill: 0 2. Hypertension. -readings in office are elevated today -start propanolol 40 mg b.i.d. as above -asked patient to start checking routinely at home -goals of treatment were reviewed with the patient Subjective HEADACHE This is Worsening of a previous problem. Headache described as pounding, dull, constant, and constant feeling of nausea and fatigue. Location is reported bilateral, And for short time severe spasm or pain in the right occipital region When present, will last for 1 week straight. Headaches have been happening since a week ago Headaches symptoms: do not seem to be related to any time of the day Any new activities? yes, She started a new job several weeks ago, and is spending much more time in front of a computer screen. She is now having migraine headaches 3-4 times a week, and at least 15 over the last month. Any new diet changes? no Any new lifestyle changes? no Any new medications? no Headache can be improved by: Nothing. She has been using her previously prescribed migraine medications including sumatriptan, Excedrin, and duloxetine without any decrease in the migraines. Headache can be worsened by: stress, bright light / sun exposure, and prolonged computer use* Associated symptoms include: aura, dizziness, light sensitivity, nausea, and stiff neck A review of systems was negative except for the following: Psychiatric: anxiety. Exam BP (!) 150/98 (BP Site: Left Arm, BP Postition: Sitting) Pulse 96 Temp 36.8 C (98.2 F) (Oral) Wt 83.1 kg (183 lb 3.2 oz) SpO2 98% BMI 31.45 kg/m Physical Exam Vitals reviewed. Constitutional: General: She is not in acute distress. Appearance: She is obese. She is not toxic-appearing. HENT: Head: Normocephalic. Right Ear: Tympanic membrane, ear canal and external ear normal. Left Ear: Tympanic membrane, ear canal and external ear normal. Nose: Congestion present. Mouth/Throat: Mouth: Mucous membranes are moist. Comments: Attempted visualization of the posterior pharynx, but not enough light available on her phone to provide a good look. Eyes: General: No scleral icterus. Extraocular Movements: Extraocular movements intact. Comments: Funduscopic exam without papilledema bilaterally. Neck: Vascular: No carotid bruit. Cardiovascular: Rate and Rhythm: Normal rate and regular rhythm. Pulses: Normal pulses. Heart sounds: No murmur heard. No gallop. Pulmonary: Effort: Pulmonary effort is normal. Breath sounds: No wheezing or rales. Abdominal: Palpations: Abdomen is soft. Musculoskeletal: Right lower leg: No edema. Left lower leg: No edema. Lymphadenopathy: Cervical: No cervical adenopathy. Skin: General: Skin is warm and dry. Coloration: Skin is not jaundiced. Findings: No bruising. Comments: Thinning hair on the scalp without bald spots Neurological: General: No focal deficit present. Mental Status: She is alert and oriented to person, place, and time. Motor: No weakness. Coordination: Coordination normal. Comments: Hallpike-Stephanie test negative bilateral Psychiatric: Mood and Affect: Mood normal. Behavior: Behavior normal. Meds Current Outpatient Medications: acidophilus-pectin, citrus 100 million cell-10 mg capsule, Take 1 capsule by mouth daily with breakfast., Disp: , Rfl: cyanocobalamin 1000 MCG tablet, take 1 tablet by mouth every morning, Disp: 90 tablet, Rfl: 0 DULoxetine (CYMBALTA) 30 mg capsule, Take 1 capsule (30 mg total) by mouth in the morning., Disp: 90 capsule, Rfl: 0 ondansetron ODT (ZOFRAN ODT) 4 mg disintegrating tablet, Dissolve 1 tablet (4 mg total) on tongue 2 (two) times a day as needed for nausea or vomiting., Disp: 20 tablet, Rfl: 0 SUMAtriptan (IMITREX) 100 mg tablet, Take 1 tablet (100 mg total) by mouth in the morning and at bedtime., Disp: 9 tablet, Rfl: 1 WESTAB PLUS 27 mg iron- 1 mg tablet, take 1 tablet by mouth once daily, Disp: 90 tablet, Rfl: 0 propranoloL (INDERAL) 40 mg tablet, Take 1 tablet (40 mg total) by mouth in the morning and 1 tablet (40 mg total) before bedtime., Disp: 60 tablet, Rfl: 1 ubrogepant (UBRELVY) 100 mg tablet, Take 100 mg by mouth daily as needed (zMigraine)., Disp: 2 tablet, Rfl: 0 Lab Results No visits with results within 1 Month(s) from this visit. Latest known visit with results is: Hospital Outpatient Visit on 07/23/2024 Component Date Value Ref Range Status Sed Rate 07/23/2024 8 0 - 20 mm/h Final White Blood Cells 07/23/2024 7.0 4.0 - 11.0 X10E9/L Final RBC count 07/23/2024 4.13 3.80 - 5.20 X10E12/L Final Hemoglobin 07/23/2024 12.4 11.7 - 15.5 g/dL Final Hematocrit 07/23/2024 36.0 35 - 47 % Final MCV 07/23/2024 87 80 - 100 fL Final MCH 07/23/2024 30.0 27 - 34 pg Final MCHC 07/23/2024 34.5 32 - 36 g/dL Final RDW 07/23/2024 12.8 11.5 - 15.0 % Final Platelets 07/23/2024 298 150 - 450 X10E9/L Final MPV 07/23/2024 8.8 7 - 12 fL Final % neutrophils 07/23/2024 67.8 % Final % lymphocytes 07/23/2024 24.6 % Final % monocytes 07/23/2024 4.8 % Final % eosinophils 07/23/2024 1.8 % Final % Basophils 07/23/2024 1.0 % Final Neutrophils Absolute (A) 07/23/2024 4.7 1.5 - 6.6 X10E9/L Final Lymphocytes Absolute 07/23/2024 1.7 1.0 - 3.5 X10E9/L Final Monocytes Absolute 07/23/2024 0.3 0 - 0.9 X10E9/L Final Eosinophils Absolute 07/23/2024 0.1 0.0 - 0.4 X10E9/L Final Basophils Absolute 07/23/2024 0.1 0.0 - 0.2 X10E9/L Final Vitamin B-12 07/23/2024 916 (H) 180 - 914 pg/mL Final TSH 07/23/2024 2.06 0.49 - 4.67 uIU/mL Final Sodium 07/23/2024 138 134 - 146 mmol/L Final Potassium, Bld 07/23/2024 4.1 3.5 - 5.0 mmol/L Final Chloride 07/23/2024 101 98 - 109 mmol/L Final CO2 07/23/2024 30 22 - 32 mmol/L Final Anion gap 07/23/2024 7 5 - 15 mmol/L Final BUN 07/23/2024 11 5 - 23 mg/dL Final Creatinine 07/23/2024 0.60 0.40 - 1.00 mg/dL Final Glucose 07/23/2024 91 65 - 99 mg/dL Final Calcium 07/23/2024 9.1 8.5 - 10.5 mg/dL Final Total Protein 07/23/2024 6.9 6.0 - 8.0 g/dL Final Albumin 07/23/2024 4.2 3.2 - 5.3 g/dL Final Alkaline Phosphatase 07/23/2024 50 39 - 130 U/L Final AST 07/23/2024 23 0 - 41 U/L Final ALT 07/23/2024 18 0 - 31 U/L Final Total bilirubin 07/23/2024 0.5 0.3 - 1.2 mg/dL Final eGFR (CKD-EPI)non-race dependent 07/23/2024 >90 >59 ml/min/1.73sq.m Final Other Testing No results found. Hima Roberts DO., [facility] Office: [phone] documented in this encounter [facility] 12-17-2023 History of Presen t illness Narrative [...] weight gain. She describes it as sharp, Carrie pain in her right temporal region accompanied [...] Final Other Testing No results found. Hima Roberts DO., [facility]: [phone] documented in this encounter [facility] Evaluation note No assessment inform ation available [facility] Work Phone: Evaluation note Diagnosis Migraine without aura and without status migrainosus, not intractable [facility] Diagnosis Obesity with body mass index 30 or greater- Primary Migraine without aura and without status migrainosus, not intractable [facility] Diagnosis Migraine without aura and without status migrainosus, not intractable [facility] Diagnosis Essential hypertension Unspecified essential hypertension [facility] Diagnosis Intractable migraine without aura and without status migrainosus- Primary [facility] Diagnosis Fibromyalgia Unspecified myalgia and myositis Migraine without aura and without status migrainosus, not intractable documented in this [facility]* Diagnosis Intractable migraine without aura and without status migrainosus [facility] filedocumented in [facility] filedocumented in this encounter [facility] filedocumented in this encounter [facility] on filedocumented in this encounter [facility] on filedocumented in this encounter [facility] Summary Purpose Family History Relationship Condition Age at Onset Recorded Date/T rivera Not Specified Diabetes mellitus Unknown Hypertension Unknown Advance Directives Advance Directive Response Recorded Date/ Time Advance Directives No July 21, 2023 4:30pm Chief Complaint and Reason for Visit Chief Complaint meds [phone], o k jae Young Additional Source Comments INFORMATION SOURCE (unrecogn ized section and content) DATE CREATED AUTHOR 05/22/2018 [facility] DATE CREATED AUTHOR AUTHOR'S ORGANIZ ATION 09/30/2021 [facility] DATE CREATED AUTHOR AUTHOR'S ORGANIZ ATION 03/16/2023 [facility] DATE CREATED AUTHOR AUTHOR'S ORGANIZ ATION 07/26/2023 [facility]ical Center [facility] DATE CREATED AUTHOR AUTHOR'S ORGANIZ ATION 04/13/2024 [facility] dical Specialists [facility] DATE CREATED AUTHOR AUTHOR'S ORGANIZ ATION 07/25/2024 [facility] DATE CREATED AUTHOR AUTHOR'S ORGANIZ ATION 10/14/2024 [facility] DATE CREATED AUTHOR AUTHOR'S ORGANIZ ATION 11/03/2024 [facility] Goals (unrecognized section and content) Goals may [...] Comments Hypertension Bp check,Headaches Hypothyroidism Weight Loss Reason Comments Migraine Symptoms. X1 week. Reason Onset Date Comments Med Refill 10/18/2024 Care Teams (unrecognized sec tion and content) Credit Consultant Relationship Specialty Start Date End Date Hima Roberts DO [address] [place] [address] PCP - General Internal Medicine 10/09/22 Credit Consultant Relationship Specialty Start Date End Date Hima Roberts DO [address] [place] [address] PCP - General Internal Medicine 10/09/22 Credit Consultant Relationship Specialty Start Date End Date Hima Roberts DO [address] [place] [address] PCP - General Internal Medicine 10/09/22 Credit Consultant Relationship Specialty Start Date End Date Hima Roberts DO [address] [place] [address] PCP - General Internal Medicine 10/09/22 Credit Consultant Relationship Specialty Start Date End Date Hima Roberts DO [address] [place] [address] PCP - General Internal Medicine 10/09/22 Credit Consultant Relationship Specialty Start Date End Date Hima Roberts DO [address] [place] [address] PCP - General Internal Medicine 10/09/22 FOR [...] BE BASED ON THE PRIMARY CLINICAL RECORDS. [facility] [employer] [facility]. provides no warranty or guarantee of the accuracy or completeness of information in this document.
--- NOTE | 2024-12-10 10:43 | MM_ITS ---
Patient Name: CHRISTIAN WEBER MR#: [id number] : 1985 Exam Date: 12/10/2024 Ordering Doctor: THERESE VIZCAINO . RADIOLOGY REPORT PROCEDURE: MM TOMOSYNTHESIS DIAGNOSTIC BI, 12/10/2024, 10:39 US BREAST LT LIMITED, 12/10/2024, 10:18 COMPARISON: MG MAMM DIAGNOSTIC 3D SUBHASH CAD, 03/07/2023. INDICATIONS: Breast lump Calculator Name NCI Breast Cancer Risk Assessment Tool 5 Year Breast Cancer Risk 0.50% Lifetime Breast Cancer Risk 9.10% Personal Breast Cancer No Personal Ovarian Cancer No Treatments None Family Cancers None LOCATION: [facility] BREAST COMPOSITION: There are scattered areas of fibroglandular density. FINDINGS: DIAGNOSTIC CATEGORY 2--BENIGN FINDING: RIGHT BREAST: No significant suspicious finding. No significant change has occurred. LEFT BREAST: Skin surface marker localizes patient's palpable lump to the lower inner quadrant, mid breast. No underlying mammographic abnormality or change compared to prior study. Ultrasound evaluation demonstrates an area deep to the palpable lump which appears to represent normal fibroglandular tissue. Annual screening mammography is recommended. If patient notices any increase in size, additional evaluation should be performed at that time. RECOMMENDATIONS: ROUTINE MAMMOGRAM AND CLINICAL EVALUATION IN 12 MONTHS. PLEASE NOTE: A NORMAL MAMMOGRAM DOES NOT EXCLUDE THE POSSIBILITY OF BREAST CANCER. A CLINICALLY SUSPICIOUS PALPABLE LUMP SHOULD BE BIOPSIED. Dictated by: Real Hendrix M.D. on 12/10/2024 at 11:07 Approved by: Real Hendrix M.D. on 12/10/2024 at 11:33
== END 2024-12-10 10:12 | disposition home or self-care (01) ==
PROVIDERS: PCP Internal Medicine; Visit Provider Physician Assistant
DX: N63.25 Unspecified lump in the left breast, overlapping quadrants (principal)
CPT/HCPCS: 76642; 77066; G0279

== ENCOUNTER 2025-03-25 13:33 | Outpatient (OUT) | payer OTHER, SELFPAY ==
--- NOTE | 2025-03-25 13:48 | US_ITS ---
The [address] [address] Patient Name: CHRISTIAN WEBER MRN: [id number] date: 1985 Sex: F Assigned Patient Location: Current Patient Location: Accession/Order Number: [id number] Exam Date: 03/25/2025 15:09 Report Date: 03/25/2025 15:11 At the request of: NOAM IRIZARRY DO Procedure: US pelvis transvaginal Pelvic ultrasound. Reason for exam: Menorrhagia Comparison: none Technique: Transvaginal imaging of the uterus and ovaries was also obtained. Additional spectral Doppler analysis of the ovaries was also obtained. Findings: Uterus measures 9.7 x 4.0 x 5.1 cm. No measurable fibroid. Endometrium measures 9 mm without focal abnormality. No free fluid is seen. Left ovary not visualized. Right ovary measures 2.4 x 2.3 x 2.1 cm. Normal arterial and venous Doppler waveforms. No adnexal mass. US/US pelvis transvaginal Impression: Unremarkable uterus, endometrium and right ovary. Left ovary not visualized. Impression dictated by: Branodn Montez Jr., D.O. 03/25/2025 3:11 PM Dictation Location: [place] [address] Electronically authenticated by: [id number] Y Date: 03/25/2025 15:11
[2025-03-25 13:56] LABS: Basophils Absolute Auto 0.1 10^3/uL (0.0-0.1); Basophils Percent Auto 0.7 % (0.2-2.0); Eosinophils Absolute Auto 0.1 10^3/uL (0.0-0.7); Eosinophils Percent Auto 1.3 % (0.9-7.0); Hematocrit 36.6 % (36.0-48.0); Hemoglobin 12.5 g/dL (12.0-16.0); Immature Granulocytes Abs Auto 0.01 10^3/uL (0.00-0.03); Immature Granulocytes Pct Auto 0.1 % (0.0-0.5); Lymphocytes Percent Auto 23.2 % (20.5-60.0); Mean Corpuscular HGB Conc 34.2 g/dL (29.9-35.2); Mean Corpuscular Hemoglobin 29.9 pg (26.7-34.0); Mean Corpuscular Volume 87.6 fL (81.0-99.0); Monocytes Absolute Auto 0.5 10^3/uL (0.3-0.8); Monocytes Percent Auto 6.4 % (1.7-12.0); Neutrophils Absolute Auto 5.8 10^3/uL (1.4-6.5); Neutrophils Percent Auto 68.3 % (43.0-75.0); Platelet Count 350 10^3/uL (150-450); Red Blood Count 4.18 10^6/uL (4.20-5.40); White Blood Count 8.5 10^3/uL (4.0-11.0)
[2025-03-25 14:42] LABS: Estimated Average Glucose 100 mg/dL; Glycohemoglobin A1C 5.1 % (4.5-6.2)
[2025-03-25 14:47] LABS: Free T4 1.05 ng/dL (0.76-1.46)
[2025-03-25 14:52] LABS: Thyroid Stimulating Hormone 3.147 uIU/mL (0.358-3.740)
[2025-03-25 14:58] LABS: HCG Quantitative <1 mIU/mL
[2025-03-26 04:07] LABS: DHEA-Sulfate 55.1 ug/dL (57.3-279.2); FSH 9.9 mIU/mL (.); Luteinizing Hormone(LH) 12.7 mIU/mL (.)
[2025-04-02 17:09] LABS: DHEA, Serum 90 ng/dL (31-701)
== END 2025-03-25 13:34 | disposition home or self-care (01) ==
LOC: US 13:34
PROVIDERS: PCP Internal Medicine; Visit Provider Obstetrics & Gynecology
DX: N92.0 Excessive and frequent menstruation with regular cycle (principal)
CPT/HCPCS: 36415; 76830; 82626; 82627; 83001; 83002; 83036; 84439; 84443; 84702; 85025

== ENCOUNTER 2025-04-11 14:18 | Outpatient (REF) | payer OTHER, SELFPAY | END 2025-04-11 14:19 | disposition home or self-care (01) | LOC: LAB 14:18 | PROVIDERS: PCP Internal Medicine; Visit Provider Obstetrics & Gynecology | DX: N92.0 Excessive and frequent menstruation with regular cycle (principal); R10.2 Pelvic and perineal pain; N93.9 Abnormal uterine and vaginal bleeding, unspecified ==

== ENCOUNTER 2025-04-20 13:58 | Outpatient (OUT) | payer OTHER, SELFPAY ==
--- OUTSIDE RECORDS SUMMARY | 2025-01-28 07:00 | XMS_ITS ---
Author Organization [facility] Address [address] [place] [address] [id number] Care Team Providers Care Rental Sales Agent Name Role Phone TorieLinnea castellanosica Marina [phone] REASON FOR VISIT Recall (A) 39 Social History Sex Assigned At : Social History Observation Description Sex Assigned At Female Encounters Encounter Location Date Provider Diagnosis [facility] [address] [place] [phone] 01/28/2025 Marah Sauer Plan Of Treatment Next Appt Details Provider Name:Zoe Jimenez , 09/09/2025 11:15:00 AM, [address] [place] [address], [phone], Progress Notes * Cass RILEY LDOB: 5 (39 yo F)Acc No.[id number]:01/28/2025 Patient: Dusty KEENANCass Provider: Gi Sauer DMD :1985 A ge:39 Y S ex:Female Date:01/28/2025 Address:[address] [place] [id number] Subjective: * Chief Complaints: * 1 . Recall (A) 39. * Medical History: Objective: * Vitals: Assessment: Plan: * Treatment: * Billing Information: * Visit Code: * Procedure Codes: * Electronic signature of Linnea Sauer DMD on 04/20/2025 at 02:00 PM EDT Sign off status: Pending * Provider: Gi Sauer DMD Date: 0 01/28/2025 Generated for Phillip andrews/Obie/Stewart on: 0 04/20/2025 02:00 PM EDT
--- OUTSIDE RECORDS SUMMARY | 2025-04-11 15:30 | XMS_ITS | Encounter Summary ---
Author Organization [facility] Address [address] [place] [address] Care Team Providers Care Site Surveyor Name Role Phone Jefferson Roberts MD Primary Care Provider [phone] Reason for Visit * Reason Comments EMBX Pre-op Visit Encounter Details Date Type Department Care Team (Late st Contact Info) Description 04/11/2025 3:30 PM EDT Procedure Visit [facility] OB [address] [place] [address] Franklin Bryant, DO [address] Lora Johnson, [id number] Preop examination; Menorrhagia with regular cycle; Abnormal uterine bleeding (AUB); Pelvic pain Social History Tobacco Use Types Packs/Day Years Used Date Smoking Tobacco: Never Smokeless Tobacco: Never Alcohol Use Standard Drinks/Week Comments Never 0 (1 standard drink = 0.6 oz pur e alcohol) Comments No Sex and Gender Information Value Date Recorded Sex Assigned at Not on file Legal Sex Female 11:47 PM EDT Gender Identity Not on file Sexual Orientation Not on file documented as of this encounter Last Filed Vital Signs Vital Sign Reading Time Taken Comments Blood Pressure 122/76 04/11/2025 3:46 PM EDT Pulse - - Temperature - - Respiratory Rate - - Oxygen Saturation - - Inhaled Oxygen Concentration - - Weight 83.9 kg (185 lb) 04/11/2025 3:46 PM EDT Height - - Body Mass Index 32.77 04/12/2024 8:57 AM EDT documented in this encounter Progress Notes * Leny Lutz - 04/11/2025 3:30 PM EDT Reason for Appointment: Patient ID: Cass Riley is a 39 y.o. female who presents for EMBX and Pre-op Visit Patient presents today for Pre Op/Endometrial Biopsy appointment. Patient is scheduled to undergo Endometrial Ablation with Gabbie on 04-29-[address] Bryant at [facility]. MEDICATIONS Current Outpatient Medications Medication Instructions DULoxetine (CYMBALTA) 60 mg, Daily estrogens (conjugated) (PREMARIN) 0.625 mg, Oral, Daily, Take 1 tablet daily by mouth for 30 days phentermine (ADIPEX-P) 37.5 mg, Oral, Daily before breakfast Nswhyapw-Yve-Vl-FA ( 1 + IRON PO) propranolol LA (INDERAL LA) 60 mg, Daily ALLERGIES No Known Allergies PROBLEMS Active Ambulatory Problems Diagnosis Date Noted No Active Ambulatory Problems Resolved Ambulatory Problems Diagnosis Date Noted No Resolved Ambulatory Problems Past Medical History: Diagnosis Date Anxiety and depression (CMS/HCC) Benign essential HTN (CMS/HCC) Encounter for gynecological examination (general) (routine) without abnormal findings Hypothyroidism (CMS/HCC) Obesity (BMI 30-39.9) HISTORY PAST MEDICAL HISTORY SOCIAL HISTORY Past Medical History: Diagnosis Date Anxiety and depression (CMS/HCC) Benign essential HTN (CMS/HCC) Encounter for gynecological examination (general) (routine) without abnormal findings Hypothyroidism (CMS/HCC) Obesity (BMI 30-39.9) Social History Tobacco Use Smoking status: Never Smokeless tobacco: Never Substance Use Topics Alcohol use: Never Drug use: Never FAMILY HISTORY No family history on file. SURGICAL HISTORY Past Surgical History: Procedure Laterality Date ADENOIDECTOMY 01/2010 BLADDER SUSPENSION 2018 SECTION, LOW TRANSVERSE 08/2016 SALPINGECTOMY Bilateral 01/2021 TONSILLECTOMY 01/2010 REVIEW OF SYSTEMS Review of Systems: Review of Systems Constitutional: Negative. HENT: Negative. Eyes: Negative. Respiratory: Negative. Cardiovascular: Negative. Gastrointestinal: Negative. Genitourinary: Positive for menstrual problem and pelvic pain. Musculoskeletal: Negative. Skin: Negative. Neurological: Negative. All other systems reviewed and are negative. Hematological: Negative. Endocrine: Negative. Allergic/Immunologic: Negative. OBJECTIVE Objective: Physical Exam Constitutional: Appearance: Normal appearance. She is well-developed. Genitourinary: Vulva normal. Cardiovascular: Rate and Rhythm: Normal rate and regular rhythm. Pulmonary: Effort: Pulmonary effort is normal. Breath sounds: Normal breath sounds. Abdominal: General: Bowel sounds are normal. There is no distension. Palpations: Abdomen is soft. Tenderness: There is no abdominal tenderness. There is no guarding or rebound. Musculoskeletal: General: No swelling. Normal range of motion. Right lower leg: No edema. Left lower leg: No edema. Neurological: Mental Status: She is alert and oriented to person, place, and time. Skin: General: Skin is warm and dry. Psychiatric: Mood and Affect: Mood normal. Behavior: Behavior normal. Vitals and nursing note reviewed. Exam conducted with a interactive media director present. Vitals: Estimated body mass index is 33.66 kg/m?? as calculated from the following: Height as of 04/12/24: 5' 3 . Weight as of 03/21/25: 190 lb. BP: Patient's last menstrual period was 03/14/2025 (approximate). ASSESSMENT & PLAN ICD-10-CM 1. Preop examination Z01.818 2. Menorrhagia with regular cycle N92.0 3. Abnormal uterine bleeding (AUB) N93.9 4. Pelvic pain R10.2 EMBX: Patient was placed in dorsal lithotomy position with feet in stirrups. A sterile speculum was placed into the vagina and the cervix was visualized. The cervix was grasped with a single tooth tenaculum. The endometrial pipette was placed through the cervix into the uterus, endometrial curettage was performed and sampling was obtained, endometrial curettings were placed in formalin, and single tooth tenaculum was removed. Excellent hemostasis was assured. All instruments were removed from vagina. ..Pre Op: Patient is doing well but has complaints of bleeding and pelvic pain. Patient has tried hormone therapy in the past but all attempts to subside patients issues have failed. I have discussed conservative management vs. surgical management with the patient in detail and patient desires surgical management at this time. Patient will undergo Endometrial Ablation with Gabbie on 04/29/25. Surgical consents were signed, mmc was reviewed, and patient is to proceed to [facility] OR. Follow Up: Patient is to follow up between 1-2 weeks post op to assess proper healing and recovery from procedure. Documented by Barbara Scruggs LPN on behalf of: Franklin Bryant DO documented in this encounter Plan of Treatment Upcoming Encounters Date Type Department Care Team (Late st Contact Info) Description 05/04/2025 3:40 PM EDT Office Visit [facility] [address] [place] [address] MannyFranklin dennis, DO [address] [address] Scheduled Orders Name Type Priority Associated Diagnoses Orde r Schedule Endometrial biopsy Procedures Routine Menorrhagia with regular cycle Abnormal uterine bleeding (AUB) Pelvic pain Ordered: 04/11/2025 documented as of this encounter Procedures Procedure Name Priority Date/Time Associated Diagnosis Comments POCT , URINE Routine 04/11/2025 3:57 PM EDT Menorrhagia with regular cycle Abnormal uterine bleeding (AUB) Pelvic pain POCT URINALYSIS DIPSTICK Routine 04/11/2025 3:57 PM EDT Menorrhagia with regular cycle Abnormal uterine bleeding (AUB) Pelvic pain documented in this encounter Results * POCT , urine manually resulted (04/11/2025 3:57 PM EDT) Preg Test, Ur Negative Negative Urine 04/11/2025 3:57 PM EDT Franklin Bryant DO POINT OF CARE TEST ENTER/EDIT OR DERABLES Final Result * POCT urinalysis dipstick manually resulted (04/11/2025 3:57 PM EDT) Color, UA Yellow Clarity, UA Clear Glucose, UA Negative Negative - 2000(110) ++++ mg/dL Bilirubin, UA Negative Negative - 4(70) +++ mg/dL Ketones, UA Positive Negative - 160(16) ++++ mg/dL Comment:trace Spec Grav, UA 1.030 1 - 1.03 Blood, UA Negative Negative - 50 Ananth/mcL pH, UA 5.5 5 - 9 Protein, UA Trace Negative - 1999(20) ++++ mg/dL Urobilinogen, UA 0.2 0.2 - 12 mg/dL Leukocytes, UA Negative Negative - 500+++ Avis/mcL Nitrite, UA Negative Negative - Positive Urine 04/11/2025 3:57 PM EDT Franklin Manny DO POINT OF CARE TEST ENTER/EDIT OR DERABLES Final Result documented in this encounter Visit Diagnoses Diagnosis Preop examination Unspecified pre-operative examination Menorrhagia with regular cycle Abnormal uterine bleeding (AUB) Pelvic pain documented in this encounter Care Teams Site Surveyor Relationship Specialty Start Date End Date Jefferson Roberts MD PCP - General Internal Medicine 04/12/24 documented as of this encounter
--- OUTSIDE RECORDS SUMMARY | 2025-04-16 05:16 | XMS_ITS | Continuity of Care Document ---
Author Organization [facility] Address [address] [place] [address] Phone Care Team Providers Care Roll Out Manager Name Role Phone Franklin Bryant DO Attending Provider Care Teams Patient Care Team Team Status: Inactive Member Role Status Dates Franklin Bryant DO Attending Provider Active Start : April 11, 2025 End: April 11, 2025 Chief Complaint and Reason for Visit Chief Complaint Admit Date Unknown April 11, 2025 3:39p m Allergies, Adverse Reactions, Alerts No known allergies Social History Smoking Status Unknown if ever smoked Observation Status Observation Response Date of Response Patient Sex Female April 13, 2025 1 2:06am Assigned Sex Female May 17 Medications Medication Status Dose Units Route Directions Qty Days St art Date Stop Date End Date Instructions Metoprolol Succinate 50 mg tablet extended release 24 hr Active 50 MG PO Daily April 01, 2018 12:00a m Sumatriptan Succinate 50 mg tablet Active 50 MG PO Daily as needed for Migraine Headache April 01, 2018 12:00a m Levothyroxin e 25 mcg tablet Active 25 MCG PO Daily April 01, 2018 12:00a m Sertraline 50 mg tablet Active 50 MG PO Daily April 01, 2018 12:00a m Oxycodone-Ac etaminophen 5-325 mg tablet Discont inued 1 TAB PO Q6H as needed for pain April 01, 2018 April 06, 2018 12:00 am April 07, 2018 12:01 am Cephalexin 500 mg capsule Active 500 MG PO Q12H April 01, 2018 12:00a m Medical Equipment Device Date Implanted Device Details OBTRYX HALO SYSTEM April 01, 2018 Advance Directives Advance Directive Response Recorded Date/ Time Advance Directives No April 01, 2018 5:33am Insurance Providers Guarantor Cass Riley Address [address] [place] [phone] Contact Info. Home Phone: Payer Policy Id Coverage Id Subscriber's Name Subscriber Id Effective Date Expiration Date Roel HORVATH [id number] Owen Orourke Rosemary [id number] Insurance No Card [id number] Encounters Encounter Location(s) Arrival/Admit Date Discharge/Depart Date Provider(s) Departed Referred [facility] April 11, 2025 3:39pm April 11, 2025 3:40pm Franklin Bryant Plan of Treatment Future Tests Future scheduled test information is unavailable Pending Tests Pending diagnostic test information is unavailable Future Visits Future appointment information is unavailable Referrals to Other Providers Referral information is unavailable Future Procedures Procedure Name Ordered Date Scheduled Date Pathology Request for Lab [facility] April 12, 2025 1: 07pm April 11, 2025 12:00am Future Medications Future medication information is unavailable Patient Instructions Patient instructions are unavailable
--- OUTSIDE RECORDS SUMMARY | 2025-04-20 14:00 | XMS_ITS | Encounter Summary ---
Author Organization [facility] tem Address [id number] [address] [place] [address] Care Team Providers Care Magazine Journalist Name Role Phone Jefferson Roberts DO Primary Care Provider [phone] Encounter Details Date Type Department Care Team (Late st Contact Info) Description 10/25/2022 Telephone [facility] Internal Medicine - Family Medicine [address] [place] [address] Zara Farmer CMA Social History Tobacco Use Types Packs/Day Years Used Date Smoking Tobacco: Never Smokeless Tobacco: Never Childcare Answer Date Recorded Childcare Unknown 05/12/2019 Employment Answer Date Recorded Employment Unknown 05/12/2019 Comments Unknown Sex and Gender Information Value Date Recorded Sex Assigned at Not on file Legal Sex Female 11:25 AM EDT Gender Identity Not on file Sexual Orientation Not on file COVID-19 Exposure Response Date Recorded In the last month, have you been in contact with someone who was confirmed or suspected to have Coronavirus / COVID-19? No / Unsure 10/09/2022 3:49 PM EST documented as of this encounter Miscellaneous Notes * Telephone Encounter - Zara Farmer CMA - 10/25/2022 9:50 AM EST Patient called to let you know that the [place]ro is working great except she has a lot of nausea. She was wondering if you cold send something in for the nausea? If so, she would like it sent to [facility] in [place]. * Telephone Encounter - Jefferson Roberst DO - 10/25/2022 9:50 AM EST Rather than adding a new medication, have her decrease the dose of Mounjaro to 2.5 mg weekly for the next 2 weeks, then increase back up to 5 mg weekly. The nausea is usually noted when 1st starting,and if we use a lower dose her body will acclimate and not continue to have problems. * Telephone Encounter - Zara Farmer CMA - 10/25/2022 9:50 AM EST Left this message on her voice mail documented in this encounter Plan of Treatment Not on file documented as of this encounter Visit Diagnoses Not on filedocumented in this encounter Care Teams Magazine Journalist Relationship Specialty Start Date End Date Jefferson Roberts DO [address] [place] [address] PCP - General Internal Medicine 10/09/22 documented as of this encounter
--- OUTSIDE RECORDS SUMMARY | 2025-04-20 14:00 | XMS_ITS | Encounter Summary ---
Author Organization [facility] Address [id number] [address] [place] [address] Care Team Providers Care Inspector Exhaust Emissions Name Role Phone Jefferson Roberts DO Primary Care Provider [phone] Reason for Visit * Reason Onset Date Comments Med Refill 10/28/2022 Encounter Details Date Type Department Care Team (Late st Contact Info) Description 10/28/2022 Refill [facility] Internal Medicine - Family Medicine [address] [place] [address] Zara Farmer CMA Obesity with body mass index 30 or greater (Primary Dx) Social History Tobacco Use Types Packs/Day Years [...] PM EST documented as of this encounter Plan of Treatment Not on file documented as of this encounter Visit Diagnoses Diagnosis Obesity with body mass index 30 or greater- Primary documented in this encounter Care Teams Inspector Exhaust Emissions Relationship Specialty Start Date End Date Jefferson Roberts DO [address] [place] [address] PCP - General Internal Medicine 10/09/22 documented as of this encounter
--- OUTSIDE RECORDS SUMMARY | 2025-04-20 14:01 | XMS_ITS | Encounter Summary ---
Author Organization [facility] Address [address] [place] [address] Care Team Providers Care Pole Incisor Operator Name Role Phone Jefferson Roberts MD Primary Care Provider [phone] Encounter Details Date Type Department Care Team (Late st Contact Info) Description 04/11/2025 External Result Encounter [facility] External Department Unsolicited Franklin Bryant, DO [address] [place] [address] Social History Tobacco Use Types Packs/Day Years [...] on file documented as of this encounter Plan of Treatment Upcoming Encounters Date Type Department Care Team (Late st Contact Info) Description 05/04/2025 3:40 PM EDT Office Visit [facility] [address] [facility] [place] [id number] Franklin Bryant, [facility] [place] [address] documented as of this encounter Procedures Procedure Name Priority Date/Time Associated Diagnosis Comments PATHOLOGY REQUEST FOR LAB JULIANN Routine 04/11/2025 12:00 AM EDT documented in this encounter Results * PATHOLOGY REQUEST FOR LAB JULIANN (04/11/2025 12:00 AM EDT) PATHOLOGY REQUEST FOR LAB JULIANN 04/15/2025 9:10 AM EDT [facility] Comment:See report. Scanned copy available in EMR. Other Topography unknown / Unknown 04/11/2025 04/12/2025 1:06 PM EDT Narrative [facility] - 04/15/2025 9:11 AM EDT EMBX us Franklin Manny DO LAB BLOOD ORDERABLES Final Resul t Performing Organization Address City/State/[facility] Co de Phone Number [facility] [address] [id number], [facility] [address] [phone] documented in this encounter Visit Diagnoses Not on filedocumented in this encounter Care Teams Pole Incisor Operator Relationship Specialty Start Date End Date Jefferson Roberts MD PCP - General Internal Medicine 04/12/24 documented as of this encounter
--- OUTSIDE RECORDS SUMMARY | 2025-04-20 14:01 | XMS_ITS | Encounter Summary ---
Author Organization [facility] Address [address] [place] [address] Care Team Providers Care Sales And Distribution Clerk Name Role Phone Hima Hill MD Primary Care Provider [phone] Encounter Details Date Type Department Care Team (Late st Contact Info) Description 12/10/2024 Clinisync Result Encounter [facility] External Department Unsolicited Evelyn Vizcaino PA [address] [place] [address] Social History Tobacco Use Types Packs/Day Years [...] Visit [facility] [address] [place] [address] Franklin Bryant, DO [address] [facility] [place] [address] documented as of this encounter Procedures Procedure Name Priority Date/Time Associated Diagnosis Comments MM TOMOSYNTHESIS DIAGNOSTIC BI 12/10/2024 11:33 AM EST documented in this encounter Results * MM TOMOSYNTHESIS DIAGNOSTIC BI (12/10/2024 11:33 AM EST) Anatomical Region Laterality Modality Other 12/10/2024 11:3 3 AM EST Narrative 12/10/2024 11:34 [place] [address] Mammography Report Signed Patient: CHRISTIAN RILEY MR#: [id number] : 1985 Acct:[id number] Age/Sex: 39 / F ADM Date: 12/10/24 Loc: US Attending Dr: Evelyn Vizcaino Ordering Physician: Evelyn Vizcaino Results: Date of Service: 12/10/24 Follow Up: Procedure(s): MM tomosynthesis diagnostic BI Accession Number(s): [id number] cc: Evelyn Vizcaino; HIMA HILL Patient Name: CHRISTIAN RILEY MR#: [id number] : 1985 Exam Date: 12/10/2024 Ordering Doctor: THERESE VIZCAINO . RADIOLOGY REPORT PROCEDURE: MM TOMOSYNTHESIS DIAGNOSTIC BI, 12/10/2024, 10:39 US BREAST LT LIMITED, 12/10/2024, 10:18 COMPARISON: MG MAMM DIAGNOSTIC 3D SUBHASH CAD, 03/07/2023. INDICATIONS: Breast lump Calculator Name NCI Breast Cancer Risk Assessment Tool 5 Year Breast Cancer Risk 0.50% Lifetime Breast Cancer Risk 9.10% Personal Breast Cancer No Personal Ovarian Cancer No Treatments None Family Cancers None LOCATION: [facility] BREAST COMPOSITION: There are scattered areas of fibroglandular density. FINDINGS: DIAGNOSTIC CATEGORY 2--BENIGN FINDING: RIGHT BREAST: No significant suspicious finding. No significant change has occurred. LEFT BREAST: Skin surface marker localizes patient's palpable lump to the lower inner quadrant, mid breast. No underlying mammographic abnormality or change compared to prior study. Ultrasound evaluation demonstrates an area deep to the palpable lump which appears to represent normal fibroglandular tissue. Annual screening mammography is recommended. If patient notices any increase in size, additional evaluation should be performed at that time. RECOMMENDATIONS: ROUTINE MAMMOGRAM AND CLINICAL EVALUATION IN 12 MONTHS. PLEASE NOTE: A NORMAL MAMMOGRAM DOES NOT EXCLUDE THE POSSIBILITY OF BREAST CANCER. A CLINICALLY SUSPICIOUS PALPABLE LUMP SHOULD BE BIOPSIED. Dictated by: Real Hendrix M.D. on 12/10/2024 at 11:07 Approved by: Real Hendrix M.D. on 12/10/2024 at 11:33 Dictated By: Real Hendrix M.D. Signed By: 12/10/24 1134 DD/ 1133 TD/TT: Social Work Professor: Procedure Note Radiology, Radiologist, MD - 12/10/2024 [place] [address] Mammography Report Signed Patient: CHRISTIAN RILEY LMR#: [id number] : 1985Acct:[id number] Age/Sex: 39 / FADM Date: 12/10/24 Loc: US Attending Dr: Evelyn Vizcaino Ordering Physician: Evelyn VizcainoResults: Date of Service: 12/10/24Follow Up: Procedure(s): MM tomosynthesis diagnostic BI Accession Number(s): [id number] cc: Evelyn Vizcaino; HIMA HILL Patient Name: CHRISTIAN RILEY MR#: [id number] : 1985 Exam Date: 12/10/2024 Ordering Doctor: THERESE VIZCAINO . RADIOLOGY REPORT PROCEDURE: MM TOMOSYNTHESIS DIAGNOSTIC BI, 12/10/2024, 10:39 US BREAST LT LIMITED, 12/10/2024, 10:18 COMPARISON: MG MAMM DIAGNOSTIC 3D SUBHASH CAD, 03/07/2023. INDICATIONS: Breast lump Calculator Name NCI Breast Cancer Risk Assessment Tool 5 Year Breast Cancer Risk 0.50% Lifetime Breast Cancer Risk 9.10% Personal Breast Cancer No Personal Ovarian Cancer No Treatments None Family Cancers None LOCATION: [facility] BREAST COMPOSITION: There are scattered areas of fibroglandulardensity. FINDINGS: DIAGNOSTIC CATEGORY 2--BENIGN FINDING: RIGHT BREAST: No significant suspicious finding. No significant changehas occurred. LEFT BREAST: Skin surface marker localizes patient's palpable lump to the lower inner quadrant, mid breast. No underlying mammographic abnormalityor change compared to prior study. Ultrasound evaluation demonstrates anarea deep to the palpable lump which appears to represent normal fibroglandular tissue. Annual screening mammography is recommended. If patient noticesany increase in size, additional evaluation should be performed at that time. RECOMMENDATIONS: ROUTINE MAMMOGRAM AND CLINICAL EVALUATION IN 12 MONTHS. PLEASE NOTE: A NORMAL MAMMOGRAM DOES NOT EXCLUDE THE POSSIBILITY OFBREAST CANCER. A CLINICALLY SUSPICIOUS PALPABLE LUMP SHOULD BE BIOPSIED. Dictated by: Real Hendrix M.D. on 12/10/2024 at 11:07 Approved by: Real Hendrix M.D. on 12/10/2024 at 11:33 Dictated By: Real Hendrix M.D. Signed By:12/10/24 1134 DD/ 1133 TD/TT: Social Work Professor: Evelyn [facility] Final Result documented in this encounter Visit Diagnoses Not on filedocumented in this encounter Care Teams Sales And Distribution Clerk Relationship Specialty Start Date End Date Hima Hill MD PCP - General Internal Medicine 04/12/24 documented as of this encounter
--- OUTSIDE RECORDS SUMMARY | 2025-04-20 14:01 | XMS_ITS | Clinical Summary ---
Author Organization [facility] tem Address [id number] [address] [place] [address] Care Team Providers Care Asphalt Paving Machine Operator Name Role Phone Jefferson Roberts Primary Care Provider [phone] Allergies No known active allergies Medications PNV,calcium 92-icoh-txtaf acid (WESTAB PLUS) 27 mg iron- 1 mg tabletIndications: Essential hypertension Take 1 tablet by mouth in the morning. 90 tablet 12/30/19 25 Active DULoxetine (CYMBALTA) 30 mg capsuleIndications :Fibromyalgia Take 1 capsule (30 mg total) by mouth in the morning. 90 capsule 1 12/30/19 25 Active PREMARIN 0.625 mg tablet Take 1 tablet (0.625 mg total) by mouth. 12/28/19 25 Active rimegepant (NURTEC ODT) 75 mg tablet,disintegrat ingIndications:Int ractable migraine without aura and without status migrainosus Dissolve 75 mg on tongue daily as needed (breakthrou gh migraine). 2 tablet 01/17/20 25 Active baclofen (LIORESAL) 10 mg tabletIndications: Strain of neck muscle, initial encounter Take 1 tablet (10 mg total) by mouth in the morning and 1 tablet (10 mg total) before bedtime. 20 tablet 02/19/20 25 Active meloxicam (MOBIC) 15 mg tabletIndications: Strain of neck muscle, initial encounter Take 1 tablet (15 mg total) by mouth in the morning. 20 tablet 02/19/20 25 Active ondansetron ODT (ZOFRAN ODT) 4 mg disintegrating tabletIndications: Migraine without aura and without status migrainosus, not intractable Dissolve 1 tablet (4 mg total) on tongue 2 (two) times a day as needed for nausea or vomiting. 20 tablet 02/19/20 25 Active SUMAtriptan (IMITREX) 100 mg tabletIndications: Migraine without aura and without status migrainosus, not intractable Take 1 tablet (100 mg total) by mouth in the morning and at bedtime. 9 tablet 1 02/19/20 25 Active propranoloL (INDERAL) 40 mg tabletIndications: Intractable migraine without aura and without status migrainosus TAKE 1 TABLET BY MOUTH TWICE DAILY 60 tablet 2 03/25/20 25 Active propranoloL (INDERAL) 40 mg tabletIndications: Intractable migraine without aura and without status migrainosus TAKE 1 TABLET BY MOUTH TWICE DAILY IN THE MORNING and BEFORE bedtime 60 tablet 1 01/25/20 25 025 Discontinued Active Problems Problem Noted Date Diagnosed Date Impaired fasting glucose 03/04/2022 Migraine without aura 03/04/2022 Obesity with body mass index 30 or greater 01/25 Hypothyroidism 03/25/2019 Essential hypertension 12/29/2018 Female stress incontinence 12/29/2018 Encounters Date Type Department Care Team Description 04/13/2025 Orders Only [facility] - Family [facility] [address] [place] [phone] Ref Prov, Not In System 03/25/2025 Refill [facility] [address] [place] [address] Jefferson Roberts DO Intractable migraine without aura and without status migrainosus 03/21/2025 Orders Only [facility] [address] [place] [address] Jefferson Roberts DO Bipolar disorder, current episode mixed, mild (CMS-HCC) (Primary Dx) 03/21/2025 Telephone [facility] [address] [place] [address] Benito Scales CMA 02/18/2025 Refill [facility] [address] [place] [address] Jefferson Roberts, Strain of neck muscle, initial encounter; Migraine without aura and without status migrainosus, not intractable 02/03/2025 4:45 PM EST Telemedicine [facility] [address] [place] [address] Jefferson Roberts, Bipolar disorder, current episode mixed, mild (CMS-HCC) (Primary Dx) 02/03/2025 Travel 01/25/2025 Refill [facility] [address] [place] [address] Jefferson Roberts, Intractable migraine without aura and without status migrainosus from Last 3 Months Immunizations Immunization Administration Dates Next Due Influenza, Im Trivalent Preservative 09/13/2020 Influenza, Injectable, Mdck, Preservative Free, Quad 09/27/2022,12/25/2017 Influenza, Injectable, quadr ivalent (PF) 10/01/2023,08/14/2021,07/13/2020,2018,07/10/2018 Influenza, Unspecified 12/17/2017 MMR 07/13/2019 Tdap 10/01/2023 Family History Medical History Relation Name Comments Aneurysm Brother Hypertension Father Diabetes Paternal Grandmother Hypertension Paternal Grandmother Relation Name Status Comments Brother Father Alive Mother Alive Paternal Grandmother Social History Tobacco Use Types Packs/Day Years Used Date Smoking Tobacco: Never Smokeless Tobacco: Never Alcohol Use Standard Drinks/Week Comments Yes 0 (1 standard drink = 0.6 oz pur e alcohol) Socially Overall Financial Resource Strain (CARDIA) Answe r Date Recorded How hard is it for you to pa y for the very basics like food, housing, medical care, and heating? Not hard at all 07/23/2024 PHQ-2 Answer Date Recorded Total Score 0 01/17/2025 PRAPARE - Transportation Answer Date Re corded In the past 12 months, has l ack of transportation kept you from medical appointments or from getting medications? No 07/02 In the past 12 months, has l ack of transportation kept you from meetings, work, or from getting things needed for daily living? No 07/23/2024 Housing Instability Answer Date Recorde d Are you worried or concerned that in the next two months you may not have stable housing that you own, rent or stay in as a part of a household? No 07/23/2024 Childcare Answer Date Recorded Childcare Unknown 05/12/2019 Employment Answer Date Recorded Employment Unknown 05/12/2019 Hunger Screening Answer Date Recorded Within the past 12 months we worried whether our food would run out before we got money to buy more. Never True 01/17/2025 Within the past 12 months th e food we bought just didn't last and we didn't have money to get more. Never True 01/17/2025 Comments Unknown Sex and Gender Information Value Date Recorded Sex Assigned at Not on file Legal Sex Female 11:25 AM EDT Gender Identity Not on file Sexual Orientation Not on file Last Filed Vital Signs Vital Sign Reading Time Taken Comments Blood Pressure 138/78 01/17/2025 4:31 PM EST Pulse 82 01/17/2025 4:31 PM EST Temperature 36.9 C (98.5 F) 01/17/2025 4:31 PM EST Respiratory Rate 18 01/17/2025 4:31 PM EST Oxygen Saturation 99% 01/17/2025 4:31 PM EST Inhaled Oxygen Concentration - - Weight 88.5 kg (195 lb 3.2 oz) 01/17/2025 4:31 P M EST Height 162.6 cm (5' 4.02 ) 01/17/2025 4:31 PM ES T Body Mass Index 33.49 01/17/2025 4:31 PM EST Plan of Treatment Health Maintenance Due Date Last Done Comments Adult BMI Follow Up Plan 2003 COVID-19 Vaccine (2024-01 5 season) 2024 03/07/2021 Influenza Vaccine 08/01/2025 10/01/2023, , 08/14/2021, Additional history exists Adult BMI Screening 01/17/2026 01/17/2025 Depression Screening 01/17/2026 01/17/2025 Tobacco Screening 01/17/2026 01/17/2025 Pap Smear 04/08/2027 04/08/2024, 03/05/2023 DTaP,Tdap and Td Vaccines (2 - Td or Tdap) 10/01/2033 10/01/2023 Medical Devices Not on file Procedures Procedure Name Priority Date/Time Associated Diagnosis Comments US PELVIC WITH TRANSVAGINAL Routine 03/25/2025 2:15 PM EDT from Last 3 Months Results * Ultrasound pelvic with transvaginal (03/25/2025 2:15 PM EDT) Anatomical Region Laterality Modality Body, Pelvis Ultrasound us Not In System Ref Prov IMG US ORDERABLES Final R esult from Last 3 Months Insurance [place] [employer] Care Teams Asphalt Paving Machine Operator Relationship Specialty Start Date End Date Jefferson Roberts DO [address] [place], [place] [id number] PCP - General Internal Medicine 10/09/22
--- OUTSIDE RECORDS SUMMARY | 2025-04-20 14:01 | XMS_ITS | Encounter Summary ---
Author Organization [facility] Address [address] [place] [address] Care Team Providers Care Manager Of Applications Development Name Role Phone Jefferson Roberts MD Primary Care Provider [phone] Encounter Details Date Type Department Care Team (Late st Contact Info) Description 04/16/[address] [facility] [facility] [address] [place] [address] Bell Kramer LPN [address] [facility] [address] VALDEZ [facility] Social History Tobacco Use Types Packs/Day Years [...] 05/04/2025 3:40 PM EDT Office Visit [facility] [address] [place] [address] Franklin Bryant [address] [facility] [place] [address] documented as of this encounter Procedures Procedure Name Priority Date/Time Associated Diagnosis Comments PAP SMEAR Routine 04/08/2024 12:00 AM EDT documented in this encounter Results * Pap Smear (04/08/2024 12:00 AM EDT) Swab Cervical swab / Unknown us Damián Lamar MD LAB CYTOLOGY ORDERABLES Jessica salazar Result EXTERNAL LAB documented in this encounter Visit Diagnoses Not on filedocumented in this encounter Care Teams Manager Of Applications Development Relationship Specialty Start Date End Date Jefferson Roberts MD PCP - General Internal Medicine 04/12/24 documented as of this encounter
--- OUTSIDE RECORDS SUMMARY | 2025-04-20 14:01 | XMS_ITS | Encounter Summary ---
Author Organization [facility] Address [address] [facility] [place] [address] Care Team Providers Care Building Maintenance Superintendent Name Role Phone Jefferson Roberts MD Primary Care Provider [phone] Encounter Details Date Type Department Care Team (Late st Contact Info) Description 04/20/2025 Orders Only [facility] [address] [place] [phone] Cammy Uribe [place] [address] [place] [address] Social History Tobacco Use Types Packs/Day Years [...] 05/04/2025 3:40 PM EDT Office Visit [facility] [address] [place] [address] Franklin Bryant DO [address] [place] [address] [address] [place], [place] [id number] documented as of this encounter Procedures Procedure Name Priority Date/Time Associated Diagnosis Comments ENDOMETRIAL BIOPSY Routine 04/11/2025 12:00 AM EDT documented in this encounter Results * Endometrial biopsy (04/11/2025 12:00 AM EDT) us Franklin Bryant DO SURGICAL HISTORY PROCEDURES Jessica l Result EXTERNAL LAB documented in this encounter Visit Diagnoses Not on filedocumented in this encounter Care Teams Building Maintenance Superintendent Relationship Specialty Start Date End Date Jefferson Roberts MD PCP - General Internal Medicine 04/12/24 documented as of this encounter
--- OUTSIDE RECORDS SUMMARY | 2025-04-20 14:01 | XMS_ITS | Encounter Summary ---
Author Organization [employer] [facility] tem Address [id number] [address] [place] [address] Care Team Providers Care Hand Slitter Name Role Phone Jefferson Roberts Primary Care Provider [phone] Encounter Details Date Type Department Care Team (Late st Contact Info) Description 07/12/2024 Telephone [facility] - Family Medicine [address] [place] [address] No Montoya CMA Social History Tobacco Use Types Packs/Day Years Used Date Smoking Tobacco: Never Smokeless Tobacco: Never Alcohol Use Standard Drinks/Week Comments Yes 0 (1 standard drink = 0.6 oz pur e alcohol) Socially PHQ-2 Answer Date Recorded Total Score 0 12/17/2023 Childcare Answer Date Recorded Childcare Unknown 05/12/2019 Employment Answer Date Recorded Employment Unknown 05/12/2019 Hunger Screening Answer Date Recorded Within the past 12 months we worried whether our food would run out before we got money to buy more. Never True 12/17/2023 Within the past 12 months th e food we bought just didn't last and we didn't have money to get more. Never True 12/17/2023 Comments Unknown Sex and Gender Information Value Date Recorded Sex Assigned at Not on file Legal Sex Female 11:25 AM EDT Gender Identity Not on file Sexual Orientation Not on file documented as of this encounter Miscellaneous Notes * Telephone Encounter - No Montoya CMA - 07/12/2024 1:46 PM EDT Pt called stated that she is covid positive for 9 days now stated she feels like she is getting worse. Is there anything you can send in for it ? * Telephone Encounter - Jefferson Roberts DO - 07/12/2024 1:46 PM EDT Message noted. No, she probably needs to be seen. Video? * Telephone Encounter - No Montoya CMA - 07/12/2024 1:46 PM EDT I called pt to set up an appt via video and couldn't get her in till the she declined the visit , advised her to treat the symptoms documented in this encounter Plan of Treatment Not on file documented as of this encounter Visit Diagnoses Not on filedocumented in this encounter Additional Health Concerns Assessment Noted Time PHQ-9 Depression Total Score: 0 12/17/19 24 4:27 PM EST documented as of this encounter Care Teams Hand Slitter Relationship Specialty Start Date End Date Jefferson Roberts DO [address] [place] [address] PCP - General Internal Medicine 10/09/22 documented as of this encounter
--- OUTSIDE RECORDS SUMMARY | 2025-04-20 14:01 | XMS_ITS | Encounter Summary ---
Author Organization [facility] Address [address] [place] [address] Care Team Providers Care Speedometer Mechanic Name Role Phone Hima Hill MD Primary Care Provider [phone] Encounter Details Date Type Department Care Team (Late st Contact Info) Description 12/10/2024 Clinisync Result Encounter [facility] External Department Unsolicited Evelyn Vizcaino PA [address] [facility] [place] [address] Social History Tobacco Use Types Packs/Day Years [...] Visit [facility] [address] [place] [address] Franklin Bryant, DO [address] [facility] [place] [address] documented as of this encounter Procedures Procedure Name Priority Date/Time Associated Diagnosis Comments US BREAST LT LIMITED 12/10/2024 11:33 AM EST documented in this encounter Results * US BREAST LT LIMITED (12/10/2024 11:33 AM EST) Anatomical Region Laterality Modality Other 12/10/2024 11:3 3 AM EST Narrative 12/10/2024 11:34 AM EST [facility] [place] [id number] Ultrasound Report Signed Patient: CHRISTIAN RILEY MR#: [id number] : 1985 Acct:[id number] Age/Sex: 39 / F ADM Date: 12/10/24 Loc: US Attending Dr: Evelyn Vizcaino Ordering Physician: Evelyn Vizcaino Date of Service: 12/10/24 Procedure(s): US breast LT limited Accession Number(s): [id number] cc: Evelyn Vizcaino; HIMA HILL Patient Name: CHRISTIAN RILEY MR#: [id number] : 1985 Exam Date: 12/10/2024 Ordering Doctor: [...] None Family Cancers None LOCATION: [facility] BREAST COMPOSITION: There are scattered areas [...] Signed By: 12/10/24 1134 DD/ 1133 TD/TT: Lineman Apprentice: Procedure Note Radiology, Radiologist, MD - 12/10/2024 [place] [address] Ultrasound Report Signed Patient: CHRISTIAN RILEY LMR#: [id number] : 1985Acct:[id number] Age/Sex: 39 / FADM Date: 12/10/24 Loc: US Attending Dr: Evelyn Vizcaino Ordering Physician: Evelyn Vizcaino Date of Service: 12/10/24 Procedure(s): US breast LT limited Accession Number(s): [id number] cc: Evelyn Vizcaino; HIMA HILL Patient Name: CHRISTIAN RILEY MR#: [id number] : 1985 Exam Date: 12/10/2024 Ordering Doctor: [...] None Family Cancers None LOCATION: [facility] BREAST COMPOSITION: There are scattered areas [...] M.D. Signed By:12/10/24 1134 DD/ 1133 TD/TT: Lineman Apprentice: Evelyn [facility] Final Result documented in this encounter Visit Diagnoses Not on filedocumented in this encounter Care Teams Speedometer Mechanic Relationship Specialty Start Date End Date Hima Hill MD PCP - General Internal Medicine 04/12/24 documented as of this encounter
--- OUTSIDE RECORDS SUMMARY | 2025-04-20 14:01 | XMS_ITS | Encounter Summary ---
Author Organization [facility] Address [id number] [address] [place] [address] Care Team Providers Care Dentist/Owner Name Role Phone Jefferson Roberts DO Primary Care Provider [phone] Reason for Visit * Reason Onset Date Comments Med Refill 02/11/2023 Encounter Details Date Type Department Care Team (Late st Contact Info) Description 02/11/2023 [facility] [address] [place] [address] Zara Farmer CMA Med Refill Social History Tobacco Use Types Packs/Day Years [...] Telephone Encounter - Zara Farmer CMA - 02/11/2023 12:13 PM EDT Patient called and wants you to send her Monjouro 7.5mg to [facility] documented in this encounter Plan of Treatment Not on file documented as of this encounter Visit Diagnoses Not on filedocumented in this encounter Care Teams Dentist/Owner Relationship Specialty Start Date End Date Jefferson Roberts DO [address] [place] [address] PCP - General Internal Medicine 10/09/22 documented as of this encounter
--- OUTSIDE RECORDS SUMMARY | 2025-04-20 14:01 | XMS_ITS | Encounter Summary ---
Author Organization [facility] Address [address] [place] [address] Care Team Providers Care Oil Heaterman Name Role Phone Jefferson Roberts MD Primary Care Provider Encounter Details Date Type Department Care Team (Latest Contact Info) Description 04/11/2025 Travel Social History Tobacco Use Types Packs/Day Years [...] EDT Office Visit [facility] [address] [place] [phone] Franklin Bryant, DO [address] [facility] [address] [place] [address] documented as of this encounter Visit Diagnoses Not on filedocumented in this encounter Care Teams Oil Heaterman Relationship Specialty Start Date End Date Jefferson Roberts MD PCP - General Internal Medicine 04/12/24 documented as of this encounter
--- OUTSIDE RECORDS SUMMARY | 2025-04-20 14:01 | XMS_ITS | Encounter Summary ---
Author Organization [employer] [facility] tem Address [id number] [address] [place] [address] Care Team Providers Care Railroad Auditor Name Role Phone Jefferson Roberts DO Primary Care Provider [phone] Encounter Details Date Type Department Care Team (Late st Contact Info) Description 03/01/2023 Orders Only [facility] - Family Medicine [address] [phone] Jefferson Roberts DO [address] [place] [address] Class 1 obesity with serious comorbidity and body mass index (BMI) of 33.0 to 33.9 in adult, unspecified obesity type Social History Tobacco Use Types Packs/Day Years Used Date Smoking Tobacco: Never Smokeless Tobacco: Never PHQ-2 Answer Date Recorded Total Score 0 02/17/2023 Childcare Answer Date Recorded Childcare Unknown 05/12/2019 [...] have Coronavirus / COVID-19? No / Unsure 02/17/2023 4:17 PM EDT documented as of this encounter Plan of Treatment Not on file documented as of this encounter Visit Diagnoses Diagnosis Class 1 obesity with serious comorbidity and body mass index (BMI) of 33.0 to 33.9 in adult, unspecified obesity type documented in this encounter Additional Health Concerns Assessment Noted Time PHQ-9 Depression Total Score: 0 02/18/20 23 4:23 PM EDT documented as of this encounter Care Teams Railroad Auditor Relationship Specialty Start Date End Date Jefferson Roberts DO [address] [place] [id number] PCP - General Internal Medicine 10/09/22 documented as of this encounter
--- OUTSIDE RECORDS SUMMARY | 2025-04-20 14:01 | XMS_ITS | Patient Health Record ---
Author Organization [facility] vices Address [address] [place], [place] [id number] Care Team Providers Care Vice President [employer] Name Role Phone Marah Sauer Unavailable [phone] ZekeZoe new Unavailable [phone] Allergies No Known Allergies Reason For Referral No Information Medications Medication SIG (Take, Route, Frequency, Duration) Notes Start Date End Date Status Levothyroxine Sodium Not-Taking Biotin Active Wellbutrin Active Chlorthalidone Not-T aking Active Cymbalta 30 MG 1 capsule Orally Onc e a day Active Propranolol HCl 80 MG 1 tablet Orally Tw ice a day Active Sprintec 28 0.25-35 MG-MCG 1 (one) Oral daily 05/02 Not-Taking Potassimin Not-Takin g Social History Sex Assigned At : Social History Observation Description Sex Assigned At Female Problems Problem Type SNOMED Code ICD Code Onset Dates Problem Status W/U Status Risk Notes Problem Venereal disease screening (557513025) Screening for STD (sexually transmitted disease) (Z11.3) Active confirmed Comment:pt desires screening, Problem Fatigue (06895950) Fatigue (R53.83) Active confirmed Problem Gynecological examination normal (67329425963790 4) Well woman exam with routine gynecological exam (Z01.419) Active confirmed Problem Obesity (998290969) Obesity (E66.9) Active confirmed Comment:pt trying diet and exercise, not losing weight. COunseled pt on medication to assist, that needs to be an adjunct to diet and exercise, counseled pt on low fat, low carb, high protein diet, pt to do calorie counter, small frequent meals pt stopped qsymia, felt like wasnt working. Discussed with pt there are no quick fixes, needs to give things time to work. pt has gained 10 lbs in 3 months, tsh and free t4 abn'l, will recheck pt has mirena for contraception - removed today pt to follow up as needed, to continue diet and exercise, Problem Thyroid function tests abnormal (364856514) Low TSH level (R94.6) Active confirmed Comment:free T 4 low. Pt to follow with pcp to see if she needs to start medical management, pcp said pt does not need meds, will repeat labs, Problem Removal of intrauterine contraceptive device done (situation) (30397690312258 5) Encounter for IUD removal (Z30.432) Active confirmed Comment:specul um inserted, iud strings seen at os, grasped with ringed forceps, iud removed intact and without difficulty, good hemostasis noted, pt tolerated procedure well, Problem Contraception care education (320079692) control counseling (Z30.09) Active confirmed Problem Leukocytosis (020457425) Leukocytosis (D72.829) Active confirmed Comment:with left shift, nurse to call pt to see if any infectious processes occuring currently repeat cbc, Problem Impaired fasting glycaemia (664582778) Elevated fasting blood sugar (R73.01) 010 Problem resolved confirmed Description:Im paired fasting glucose Problem Obesity (disorder) (995321786) Overweight and obesity (E66.3) 010 Problem resolved confirmed Vital Signs Heart Rate 80 /min 02/11/2025 Height-cm 162.56 cm 02/11/2025 Blood pressure diastolic 89 mm Hg 02/11/2025 Weight-kg 58.97 kg 02/11/2025 Height 64.00 in 02/11/2025 Blood pressure systolic 141 mm Hg 02/11/2025 Weight 130 lbs 02/11/2025 BMI 22.31 kg/m2 02/11/2025 Encounters Encounter Location Date Provider Diagnosis Dental Main [address] [place] [address] [id number] 06/07/2024 Marah Sauer Encounter for scre ening for dental disorders Z13.84 ; 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 and Encounter for dental examination and cleaning without abnormal findings Z01.20 Dental Main [address] [place] [address] [id number] 02/11/2025 Zoe Jimenez Encounter for dent al examination and cleaning without abnormal findings Z01.20 Assessments Encounter Date Diagnosis (ICD Code) Assessment Notes Treatment Notes Treatment Clinical Notes Section Notes 06/07/2024 Encounter for screening for dental disorders (ICD-10 - Z13.84) 02/11/2025 Encounter for dental examination and cleaning without abnormal findings (ICD-10 - Z01.20) 06/07/2024 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) 06/07/2024 Encounter for dental examination and cleaning without abnormal findings (ICD-10 - Z01.20) Plan Of Treatment Next Appt Details Provider Name:Zoe Jimenez , 09/09/2025 11:15:00 AM, [address], [place], [id number], Insurance Providers Payer Name Payer Address Payer Phone Subscriber Number Group Number Insured Name Patient Relationship to Insured Coverage Start Date Coverage End Date [employer] [address] [address] [place] [address] [id number] Rosemary Cass Self - patient is the insured 1 DMedicaid CFC after [employer] [address] [place], [place] [phone] [id number] Martha Rileyna Self - patient is the insured 1 Medical (General) History Medical History History ICD Code No significant history of medical diseas es, ProblemStatus: Active, , Surgical History Surgery Date(Month/Year) Tonsillectomy and adenoidectomy, Problem Status: Active, 2010-03-21
--- OUTSIDE RECORDS SUMMARY | 2025-04-20 14:01 | XMS_ITS | Encounter Summary ---
Author Organization [facility] Address [address] [place] [address] Care Team Providers Care Netezza Architect Name Role Phone Jefferson Roberts MD Primary Care Provider [phone] Encounter Details Date Type Department Care Team (Late Contact Info) Description 07/28/2023 Abstract [facility] [address] [facility] [address] [place] [address] Ml Dominguez MD [address] [facility] [address] [place] [address] Social History Tobacco Use Types Packs/Day Years Used Date Smoking Tobacco: Never Smokeless Tobacco: Never Alcohol Use Standard Drinks/Week Comments Never 0 (1 standard drink = 0.6 oz pur e alcohol) Comments Unknown Sex and Gender Information Value Date Recorded Sex Assigned at Not on file Legal Sex Female 11:47 PM EDT Gender Identity Not on file Sexual Orientation Not on file COVID-19 Exposure Response Date Recorded In the last 10 days, have yo u been in contact with someone who was confirmed or suspected to have Coronavirus/COVID-19? No / Unsure 07/27/2023 4:45 PM EDT documented as of this encounter Plan of Treatment Upcoming Encounters Date Type Department Care Team (Late st Contact Info) Description 05/04/2025 3:40 PM EDT Office Visit [facility] [address] [place] [address] Franklin Bryant DO [address] [place] [address] documented as of this encounter Visit Diagnoses Not on filedocumented in this encounter Care Teams Netezza Architect Relationship Specialty Start Date End Date Jefferson Roberts MD PCP - General Internal Medicine 04/12/24 documented as of this encounter
--- OUTSIDE RECORDS SUMMARY | 2025-04-20 14:01 | XMS_ITS | Encounter Summary ---
[facility] Address [id number] [address] [place] [address] Care Team Providers Care Construction Management Assistant Name Role Phone Jefferson Roberts DO Primary Care Provider [phone] Encounter Details Date Type Department Care Team (Late st Contact Info) Description 10/01/2022 Orders Only [facility] Internal Medicine - Family Medicine [address] [place] [phone] Jefferson Roberts DO [address] [place] [address] Social History Tobacco Use Types Packs/Day Years Used Date Smoking Tobacco: Never Assessed Childcare Answer Date Recorded Childcare Unknown 05/12/2019 [...] on filedocumented in this encounter Care Teams Construction Management Assistant Relationship Specialty Start Date End Date Jefferson Roberts DO [address] [place], [place] [phone] PCP - General Internal Medicine 10/09/22 documented as of this encounter
--- OUTSIDE RECORDS SUMMARY | 2025-04-20 14:01 | XMS_ITS | Encounter Summary ---
Author Organization [facility] [facility] Address [id number] [address] [place] [address] Care Team Providers Care Biofuels Product Development Manager Name Role Phone Jefferson Roberts DO Primary Care Provider [phone] Encounter Details Date Type Department Care Team (Late st Contact Info) Description 04/07/2023 Orders Only [facility] Internal Medicine - Family Medicine [address] [place] [address] Jefferson Roberts DO [address] [place] [address] Class 1 obesity with serious comorbidity and [...] documented as of this encounter Care Teams Biofuels Product Development Manager Relationship Specialty Start Date End Date Jefferson Roberts DO [address] [place] [address] PCP - General Internal Medicine 10/09/22 documented as of this encounter
--- OUTSIDE RECORDS SUMMARY | 2025-04-20 14:01 | XMS_ITS | Clinical Summary ---
Author Organization [facility] Address [address] [place] [address] Care Team Providers Care Home Theater Expert Name Role Phone Hima Hill MD Primary Care Provider [phone] Allergies No known active allergies Medications Xftkwhaf-Exz-Ed- FA ( 1 + IRON PO) Active estrogens, conjugated, (Premarin) 0.625 MG tabletIndication s:Hormone imbalance Take 1 tablet (0.625 mg) by mouth Daily Take 1 tablet daily by mouth for 30 days 30 tablet 11 4 Active DULoxetine (Cymbalta) [address] capsule Take 60 mg by mouth Daily Do not crush or chew. Active propranolol LA (Inderal LA) 60 MG 24 hr capsule Take 60 mg by mouth Daily Do not crush, chew, or split. Active phentermine (Adipex-P) 37.5 MG tabletIndication s:Encounter for weight management Take 1 tablet (37.5 mg) by mouth in the morning. Take before meals. 30 tablet 5 Active baclofen (Lioresal) 10 MG tablet Take 10 mg by mouth in the morning and 10 mg in the evening. 5 Active Ferrous Sulfate (IRON PO) Take 1 tablet by mouth in the morning. 5 Active 27-1 MG tablet Take 1 tablet by mouth Daily 5 Active Rimegepant Sulfate (Nurtec) 75 MG tablet dispersible Take 75 mg by mouth Daily as needed 5 Active SUMAtriptan (Imitrex) 100 MG tablet TAKE 1 TABLET BY MOUTH TWICE DAILY IN THE MORNING and before bedtime 5 Active Active Problems No known active problems Encounters Date Type Department Care Team Description 04/20/2025 Orders Only [facility] [address] [place] [address] Cammy Uribe MA 04/11/2025 3:30 PM EDT Procedure Visit [facility] [address] [place] [address] Noam Bryant, Preop examination; Menorrhagia with regular cycle; Abnormal uterine bleeding (AUB); Pelvic pain 04/11/2025 Abstract [facility] [address] [place] [address] Noam Bryant, DO 04/11/2025 External Result Encounter [facility] External Department Unsolicited Noam Bryant, DO 04/11/2025 Travel 03/25/2025 Clinisync Result Encounter [facility] External Department Unsolicited Noam Bryant, DO 03/25/2025 Clinisync Result Encounter [facility] External Department Unsolicited Noam Bryant, DO 03/21/2025 3:50 PM EDT Office Visit [facility] [address] [place] [address] Noam Bryant, Encounter to discuss procedure; Menorrhagia with regular cycle 03/21/2025 Bamboo flowsheet [facility] [address] [place] [address] Noam Bryant, DO 01/31/[address] [facility] [address] [place] [phone] Evelyn Malone PA from Last 3 Months Social History Tobacco Use Types Packs/Day Years Used Date Smoking Tobacco: Never Smokeless Tobacco: Never Tobacco Cessation:Counseling Given: Not Answered Alcohol Use Standard Drinks/Week Comments Never 0 [...] (185 lb) 04/11/2025 3:46 PM EDT Height 160 cm (5' 3 ) 04/12/2024 8:57 AM EDT Body Mass Index 32.77 04/12/2024 8:57 AM EDT Plan of Treatment Upcoming Encounters Date Type Department Care Team (Late st Contact Info) Description 05/04/2025 3:40 PM EDT Office Visit [facility] [address] [facility] [place] [address] Noam Bryant, DO [address] [place] [address] Health Maintenance Due Date Last Done Comments Influenza Vaccine (Season Ended) 2025 10/01/2023, 09/27/2022, 08/14/2021, Additional history exists Pap Smear 04/08/2027 04/08/2024, 03/05/2023 Cervical Cancer Screening 03/05/2028 HPV/Cotest 03/05/2028 Procedures Procedure Name Priority Date/Time Associated Diagnosis Comments POCT , URINE Routine 04/11/2025 3:57 PM EDT Menorrhagia with regular cycle Abnormal uterine bleeding (AUB) Pelvic pain POCT URINALYSIS DIPSTICK Routine 025 3:57 PM EDT Menorrhagia with regular cycle Abnormal uterine bleeding (AUB) Pelvic pain ENDOMETRIAL BIOPSY Routine 04/11/2025 12:00 AM EDT PATHOLOGY REQUEST FOR LAB JULIANN Routine 04/11/2025 12:00 AM EDT US PELVIS TRANSVAGINAL 3:11 PM EDT ALL DEHYDROEPIANDROSTERONE Routine 03/25 1:42 PM EDT ALL FOLLICLE STIMULATING HORMONE Routine 03/25/2025 1:42 PM EDT ALL LUTEINIZING HORMONE Routine 03/25/20 1:42 PM EDT ALL DHEA SULFATE Routine 03/25/2025 1:42 PM EDT TBH PREG QUANT HCG Routine 03/25/2025 1: 42 PM EDT ALL THYROID STIM HORMONE Routine 025 1:42 PM EDT ALL THYROXINE (T4) FREE Routine 03/25/20 1:42 PM EDT MLR HEMOGLOBIN A1C Routine 03/25/2025 1: 42 PM EDT ALL CBC WITH AUTO DIFF Routine 1:42 PM EDT POCT URINALYSIS DIPSTICK Routine 025 4:08 PM EDT Encounter to discuss procedure PAP SMEAR Routine 04/08/2024 12:00 AM EDT from Last 3 Months or Most Recently Relevant to Health Maintenance Results * POCT , urine manually resulted (04/11/2025 3:57 PM EDT) Preg Test, Ur Negative Negative Urine 04/11/2025 3:57 PM EDT Noam Bryant DO POINT OF CARE TEST ENTER/EDIT OR DERABLES Final Result * POCT urinalysis dipstick manually resulted (04/11/2025 3:57 PM EDT) Only the most recent of2 resultswithin the time period is included. Color, UA Yellow Clarity, UA Clear Glucose, UA Negative Negative - 2000(110) ++++ mg/dL Bilirubin, UA Negative Negative - 4(70) +++ mg/dL Ketones, UA Positive Negative - 160(16) ++++ mg/dL Comment:trace Spec Grav, UA 1.030 1 - 1.03 Blood, UA Negative Negative - 50 Ananth/mcL pH, UA 5.5 5 - 9 Protein, UA Trace Negative - 2000(20) ++++ mg/dL Urobilinogen, UA 0.2 0.2 - 12 mg/dL Leukocytes, UA Negative Negative - 500+++ Avis/mcL Nitrite, UA Negative Negative - Positive Urine 04/11/2025 3:57 PM EDT us Noam Manny DO POINT OF CARE TEST ENTER/EDIT OR DERABLES Final Result * PATHOLOGY REQUEST FOR LAB JULIANN (04/11/2025 12:00 AM EDT) PATHOLOGY REQUEST FOR LAB JULIANN 04/15/2025 9:10 AM EDT [facility] Comment:See report. Scanned copy available in EMR. Other Topography unknown / Unknown 04/11/2025 04/12/2025 1:06 PM EDT Narrative [facility] - 04/15/2025 9:11 AM EDT EMBX us Noam Manny DO LAB BLOOD ORDERABLES Final Resul t [facility] [address] [place] [address], [facility] [address] [id number] * Endometrial biopsy (04/11/2025 12:00 AM EDT) us Noam Manny DO SURGICAL HISTORY PROCEDURES Jessica l Result EXTERNAL LAB * US PELVIS TRANSVAGINAL (03/25/2025 3:11 PM EDT) Anatomical Region Laterality Modality Other 03/25/2025 3:11 PM EDT Narrative 03/25/2025 3:14 PM EDT [address] [address] Ultrasound Report Signed Patient: CASS RILEY MR#: [id number] : 1985 Acct:[id number] Age/Sex: 39 / F ADM Date: 03/25/25 Loc: US Attending Dr: Noam Bryant D.O. Ordering Physician: Noam Bryant D.O. Date of Service: 03/25/25 Procedure(s): US pelvis transvaginal Accession Number(s): [id number] cc: Noam Bryant D.O.; [place] [id number] Patient Name: CASS RILEY MRN: [facility]:[id number] date: 1985 Sex: F Assigned Patient Location: US Current Patient Location: US Accession/Order Number: [id number] Exam Date: 03/25/2025 15:09 Report Date: 03/25/2025 15:11 At the request of: NOAM BRYANT DO Procedure: US pelvis transvaginal Pelvic ultrasound. Reason for exam: Menorrhagia Comparison: none Technique: Transvaginal imaging of the uterus and ovaries was also obtained. Additional spectral Doppler analysis of the ovaries was also obtained. Findings: Uterus measures 9.7 x 4.0 x 5.1 cm. No measurable fibroid. Endometrium measures 9 mm without focal abnormality. No free fluid is seen. Left ovary not visualized. Right ovary measures 2.4 x 2.3 x 2.1 cm. Normal arterial and venous Doppler waveforms. No adnexal mass. US/US pelvis transvaginal Impression: Unremarkable uterus, endometrium and right ovary. Left ovary not visualized. Impression dictated by: Brandon Montez Jr., D.O. 03/25/2025 3:11 PM Dictation Location: [place] [address] Electronically authenticated by: [id number] Y Date: 03/25/2025 15:11 Dictated By: Brandon Montez M.D. Signed By: 03/25/25 1514 DD/ 151 TD/TT: Watershed Coordinator: Procedure Note Radiology, Radiologist, MD - 03/25/[address] [address] Ultrasound Report Signed Patient: CASS RILEY LMR#: [id number] : 1985Acct:[id number] Age/Sex: 39 / FADM Date: 03/25/25 Loc: US Attending Dr: Noam Bryant D.O. Ordering Physician: Noam Bryant D.O. Date of Service: 03/25/25 Procedure(s): US pelvis transvaginal Accession Number(s): [id number] cc: Noam Bryant D.O.; [place] [id number] Patient Name: CASS RILEY MRN: [facility]:[id number] date: 1985 Sex: F Assigned Patient Location: US Current Patient Location: US Accession/Order Number: [id number] Exam Date: 03/25/2025 15:09 Report Date: 03/25/2025 15:11 At the request of: NOAM BRYANT DO Procedure: US pelvis transvaginal Pelvic ultrasound. Reason for exam: Menorrhagia Comparison: none Technique: Transvaginal imaging of the uterus and ovaries was alsoobtained. Additional spectral Doppler analysis of the ovaries was also obtained. Findings: Uterus measures 9.7 x 4.0 x 5.1 cm. No measurable fibroid. Endometrium measures 9 mm without focal abnormality. No free fluid is seen. Left ovary not visualized. Right ovary measures2.4 x 2.3 x 2.1 cm. Normal arterial and venous Doppler waveforms. No adnexalmass. US/US pelvis transvaginal Impression: Unremarkable uterus, endometrium and right ovary. Left ovary not visualized. Impression dictated by: Brandon Montez Jr., D.O. 03/25/2025 3:11 PM Dictation Location: [place] [address] Electronically authenticated by: [id number] Y Date: 5:11 Dictated By: Brandon Montez M.D. Signed By:03/25/25 1514 DD/ 151 TD/TT: Watershed Coordinator: us Noam Bryant DO [facility] Final Result * [facility]H PREG QUANT HCG (03/25/2025 1:42 PM EDT) HCG QUANTITATIVE <1 mIU/mL TB Comment: 5-50 0.2-1 WEEK 50-500 1-2 WEEKS 100-5,000 2-3 WEEKS 500-10,000 3-4 WEEKS 1,000-50,000 4-5 WEEKS 10,000-100,000 5-6 WEEKS 15,000-200,000 6-8 WEEKS 10,000-100,000 2-3 MONTHS 03/25/2025 1:42 PM EDT 03/25/2025 1:46 PM EDT Narrative [facility] - 03/25/2025 2:58 PM EDT Noam Manny DO [facility] Final Result Performing Organization Address [facility]/ZIP Co de Phone Number [facility] * MLR HEMOGLOBIN A1C (03/25/2025 1:42 PM EDT) [facility] GLYCOHEMOGLOBIN A1C 5.1 4.5 - 6.2 % [facility] Comment: ADA RECOMMENDED LIMIT 4.0 - 6.0 ADA THERAPEUTIC TARGET < 7.0 ACTION SUGGESTED > 7.0 ESTIMATED AVERAGE GLUCOSE 100 mg/dL TB 03/25/2025 1:42 PM EDT 03/25/2025 1:46 PM EDT Narrative [facility] - 03/25/2025 2:58 PM EDT ILD Teleserviceso DO [facility] Final Result Performing Organization Address City/[facility]/ZIP Co de Phone Number [facility] * ALL THYROXINE (T4) FREE (03/25/2025 1:42 PM EDT) [facility] FREE T4 1.05 0.76 - 1.46 ng/dL TB 03/25/2025 1:42 PM EDT 03/25/2025 1:46 PM EDT Narrative [facility] - 03/25/2025 2:58 PM EDT Noam Manny DO [facility] Final Result Performing Organization Address City/[facility]/ZIP Co de Phone Number [facility] TB * ALL THYROID STIM HORMONE (03/25/2025 1:42 PM EDT) THYROID STIMULATING HORMONE 3.147 0.358 - 3.740 uIU/mL TBH 03/25/2025 1:42 PM EDT 03/25/2025 1:46 PM EDT Narrative [facility] - 03/25/2025 2:58 PM EDT [facility] Manny DO CLIN[facility] Final Result Performing Organization Address [facility] Co de Phone Number [facility] * ALL LUTEINIZING HORMONE (03/25/2025 1:42 PM EDT) Pathologist [facility] LUTEINIZING HORMONE(LH) 12.7 . mIU/mL TBH Comment: Adult Female Range Follicular phase 2.4 - 12.6 Ovulation phase 14.0 - 95.6 Luteal phase 1.0 - 11.4 Postmenopausal 7.7 - 58.5 03/25/2025 1:42 PM EDT 03/25/2025 1:46 PM EDT Narrative [facility] - 03/26/2025 4:07 AM EDT [facility] DO [facility] Final Result Performing Organization Address [facility] Co de Phone Number [facility] * ALL FOLLICLE STIMULATING HORMONE (03/25/2025 1:42 PM EDT) [facility] 9.9 . mIU/mL [facility] Comment: Adult Female Range Follicular phase 3.5 - 12.5 Ovulation phase 4.7 - 21.5 Luteal phase 1.7 - 7.7 Postmenopausal 25.8 - 134.8 Performed at: [address] [id number] Technical Analyst: Ronn Kolb PhD, Phone: [phone] 03/25/2025 1:42 PM EDT 03/25/2025 1:46 PM EDT Narrative [facility] - 03/26/2025 4:07 AM EDT [facility] Manny DO CL[facility] Final Result Performing Organization Address [facility]/ZIP Co de Phone Number [facility] * (ABNORMAL) ALL DHEA SULFATE (03/25/2025 1:42 PM EDT) [facility] DHEA-SULFATE 55.1(A) 57.3 - 279.2 ug/dL TBH 03/25/2025 1:42 PM EDT 03/25/2025 1:46 PM EDT Narrative [facility] - 03/26/2025 4:07 AM EDT [facility] Manny DO [facility] Final Result Performing Organization Address [facility] Co de Phone Number [facility] * ALL DEHYDROEPIANDROSTERONE (03/25/2025 1:42 PM EDT) [facility] DHEA, SERUM 90 31 - 701 ng/dL [facility] Comment: This test was developed and its performance characteristics determined by [employer]. It has not been cleared or approved by the Food and Drug Administration. Performed at: [address] [id number] Technical Analyst: Janel Coronado MD, Phone: [phone] 03/25/2025 1:42 PM EDT 03/25/2025 1:46 PM EDT Narrative [facility] - 04/02/2025 5:09 PM EDT [facility] Manny DO CL[facility] Final Result Performing Organization Address City/[facility]/ZIP Co de Phone Number [facility] * (ABNORMAL) ALL CBC WITH AUTO DIFF (03/25/2025 1:42 PM EDT) [facility] TBH WBC 8.5 4.0 - 11.0 10 3/uL TBH TBH RBC 4.18(L) 4.20 - 5.40 10 6/uL TBH TBH HGB 12.5 12.0 - 16.0 g/dL TBH TBH HCT 36.6 36.0 - 48.0 % TB TB MCV 87.6 81.0 - 99.0 fL TB TB MCH 29.9 26.7 - 34.0 pg TBH TB MCHC 34.2 29.9 - 35.2 g/dL TB TB RDW 12.0 11.0 - 15.0 % TBH TBH PLT 350 150 - 450 10 3/uL TBH TBH MPV 10.0 9.5 - 13.5 fL TBH NEUTROPHILS PERCENT AUTO 68.3 43.0 - 75.0 % TBH LYMPHOCYTES PERCENT AUTO 23.2 20.5 - 60.0 % TBH MONOCYTES PERCENT AUTO 6.4 1.7 - 12.0 % TBH TBH EO % 1.3 0.9 - 7.0 % TBH BASOPHILS PERCENT AUTO 0.7 0.2 - 2.0 % TBH IMMATURE GRANULOCYTES PCT AUTO 0.1 0.0 - 0.5 % TBH NEUTROPHILS ABSOLUTE AUTO 5.8 1.4 - 6.5 10 3/uL TBH LYMPHOCYTES ABSOLUTE AUTO 2.0 1.2 - 3.8 10 3/uL TBH MONOCYTES ABSOLUTE AUTO 0.5 0.3 - 0.8 10 3/uL TBH TBH EO # 0.1 0.0 - 0.7 10 3/uL TBH BASOPHILS ABSOLUTE AUTO 0.1 0.0 - 0.1 10 3/uL TBH IMMATURE GRANULOCYTES ABS AUTO 0.01 0.00 - 0.03 10 3/uL TBH 03/25/2025 1:42 PM EDT 03/25/2025 1:46 PM EDT Narrative [facility] - 03/25/2025 1:58 PM EDT us Noam Manny DO [facility] Final Result [facility] * Pap Smear (04/08/2024 12:00 AM EDT) Swab Cervical swab / Unknown us Damián Lamar MD LAB CYTOLOGY ORDERABLES Jessica l Result EXTERNAL LAB from Last 3 Months or Most Recently Relevant to Health Maintenance Insurance [employer] Care Teams Home Theater Expert Relationship Specialty Start Date End Date Hima Hill MD PCP - General Internal Medicine 04/12/24
--- OUTSIDE RECORDS SUMMARY | 2025-04-20 14:01 | XMS_ITS | Encounter Summary ---
Author Organization [employer] [facility] tem Address [facility] [id number] [address] [place] [address] Care Team Providers Care Product Safety Specialist Name Role Phone Jefferson Roberts DO Primary Care Provider [phone] Encounter Details Date Type Department Care Team (Late st Contact Info) Description 04/07/2023 [facility]phone [facility] [address] [place] [phone] Jefferson Roberts DO [address] [place] [address] Social History Tobacco Use Types Packs/Day Years [...] encounter Miscellaneous Notes * Telephone Encounter - Kita Mendieta - 04/07/2023 2:18 PM EDT Patient called and stated insurance wont coer the Mounjaro 10mg so she wants to stay with the 7.5mg. documented in this encounter Plan of Treatment Not on file documented as of this encounter Visit Diagnoses Not on filedocumented in this encounter Additional Health Concerns Assessment Noted Time PHQ-9 Depression Total Score: 0 02/18/20 23 4:23 PM EDT documented as of this encounter Care Teams Product Safety Specialist Relationship Specialty Start Date End Date Jefferson Roberts DO [address] [id number] PCP - General Internal Medicine 10/09/22 documented as of this encounter
--- OUTSIDE RECORDS SUMMARY | 2025-04-20 14:01 | XMS_ITS | Encounter Summary ---
Author Organization [employer] tem Address [facility] [place]-[id number] [address] [place] [address] Care Team Providers Care Tray Setter Name Role Phone Jefferson Roberts DO Primary Care Provider [phone] Reason for Visit * Reason Comments Med Refill Encounter Details Date Type Department Care Team (Late st Contact Info) Description 01/21/2023 Refill [facility] Internal Medicine - Family Medicine [address] [phone] Jefferson Roberts DO [address] [place] [address] Chronic rhinitis (Primary Dx) Social History Tobacco Use Types [...] * Telephone Encounter - Kita Mendieta - 01/21/2023 9:52 AM EST Patient called and stated the Tirzepatide 5 mg is not working like she thought and was wondering ifyou would switch it back to the 7 mg documented in this encounter Plan of Treatment Not on file documented as of this encounter Visit Diagnoses Diagnosis Chronic rhinitis- Primary documented in this encounter Care Teams Tray Setter Relationship Specialty Start Date End Date Jefferson Roberts DO [address] [place] [address] PCP - General Internal Medicine 10/09/22 documented as of this encounter
--- OUTSIDE RECORDS SUMMARY | 2025-04-20 14:01 | XMS_ITS | Encounter Summary ---
Author Organization [employer] s tem Address [facility] [place][id number] [address] [place] [address] Care Team Providers Care Retention Representative Name Role Phone Jefferson Roberts Primary Care Provider [phone] Encounter Details Date Type Department Care Team (Late st Contact Info) Description 03/17/2023 Telephone [facility] Internal Medicine - Family Medicine [address] [place] [phone] Karly Toledo MA Social History Tobacco Use Types Packs/Day Years [...] PM EDT documented as of this encounter Miscellaneous Notes * Telephone Encounter - Karly Toledo MA - 03/17/2023 9:46 AM EDT florentin denied through [employer] ins. documented in this encounter Plan of Treatment Not on file documented as of this encounter Visit Diagnoses Not on filedocumented in this encounter Additional Health Concerns Assessment Noted Time PHQ-9 Depression Total Score: 0 02/18/20 23 4:23 PM EDT documented as of this encounter Care Teams Retention Representative Relationship Specialty Start Date End Date Jefferson Roberts DO [address] [place] [address] PCP - General Internal Medicine 10/09/22 documented as of this encounter
--- OUTSIDE RECORDS SUMMARY | 2025-04-20 14:01 | XMS_ITS | Encounter Summary ---
Author Organization [facility] Address [address] [place] [address] Care Team Providers Care Applications Intern Name Role Phone Jefferson Roberts MD Primary Care Provider [phone] Encounter Details Date Type Department Care Team (Late Contact Info) Description 04/11/2025 Abstract [facility] [address] [facility] [address] Franklin Bryant DO [address] [place] [address] Social History Tobacco Use Types Packs/Day Years [...] Encounters Date Type Department Care Team (Late Contact Info) Description 05/04/2025 3:40 PM EDT Office Visit [facility] [address] [place] [address] Franklin Bryant, DO [address] [place], [place] [id number] documented as of this encounter Visit Diagnoses Not on filedocumented in this encounter Care Teams Applications Intern Relationship Specialty Start Date End Date Jefferson Roberts MD PCP - General Internal Medicine 04/12/24 documented as of this encounter
--- OUTSIDE RECORDS SUMMARY | 2025-04-20 14:01 | XMS_ITS | Encounter Summary ---
Author Organization [employer] tem Address [facility] [place]-[id number] [address] [place] [address] Care Team Providers Care Machine Engineer Name Role Phone Jefferson Roberts DO Primary Care Provider [phone] Reason for Visit * Reason Comments Med Refill Encounter Details Date Type Department Care Team (Late st Contact Info) Description 06/29/2024 Refill [facility] Internal Medicine - Family Medicine [address] [phone] Jefferson Roberts DO [address] [place] [address] Migraine without aura and without status migrainosus, not intractable Social History Tobacco Use Types Packs/Day Years [...] as of this encounter Visit Diagnoses Diagnosis Migraine without aura and without status migrainosus, not intractable documented in this encounter Additional Health Concerns Assessment Noted Time PHQ-9 Depression Total Score: 0 12/17/19 24 4:27 PM EST documented as of this encounter Care Teams Machine Engineer Relationship Specialty Start Date End Date Jefferson Roberts DO [address] [place] [address] PCP - General Internal Medicine 10/09/22 documented as of this encounter
--- OUTSIDE RECORDS SUMMARY | 2025-04-20 14:01 | XMS_ITS | Encounter Summary ---
Author Organization [employer] tem Address [facility] [id number] [address] [place] [address] Care Team Providers Care Grocery Manager Name Role Phone Jefferson Roberts DO Primary Care Provider [phone] Encounter Details Date Type Department Care Team (Late st Contact Info) Description 04/13/2025 Orders Only [facility] Internal Medicine - Family Medicine [address] [place] [phone] Ref Prov, [place] [address] Social History Tobacco Use Types Packs/Day Years [...] on file documented as of this encounter Procedures Procedure Name Priority Date/Time Associated Diagnosis Comments US PELVIC WITH TRANSVAGINAL Routine 03/25/2025 2:15 PM EDT documented in this encounter Results * Ultrasound pelvic with transvaginal (03/25/2025 2:15 PM EDT) Anatomical Region Laterality Modality Body, Pelvis Ultrasound us Not In System Ref Prov IMG US ORDERABLES Final R esult documented in this encounter Visit Diagnoses Not on filedocumented in this encounter Additional Health Concerns Assessment Noted Time PHQ-9 Depression Total Score: 0 01/17/20 25 4:30 PM EST documented as of this encounter Care Teams Grocery Manager Relationship Specialty Start Date End Date Jefferson Roberts DO [address] [place] [address] PCP - General Internal Medicine 10/09/22 documented as of this encounter
--- OUTSIDE RECORDS SUMMARY | 2025-04-20 14:01 | XMS_ITS | Encounter Summary ---
Author Organization [employer] tem Address [facility]-[id number] [address] [place] [address] Care Team Providers Care Vegetable Washing Machine Operator Name Role Phone Jefferson Roberts Primary Care Provider [phone] Encounter Details Date Type Department Care Team (Late st Contact Info) Description 03/21/2025 Telephone [facility] Internal Medicine - Family Medicine [address] [place] [phone] Benito Scales CMA Social History Tobacco Use Types Packs/Day [...] encounter Miscellaneous Notes * Telephone Encounter - Benito Scales CMA - 03/21/2025 9:49 AM EDT Pt called states there is a 6 month wait list for her referral could you please send it to [facility] or [facility] in [place]. documented in this encounter Plan of Treatment Not on file documented as of this encounter Visit Diagnoses Not on filedocumented in this encounter Additional Health Concerns Assessment Noted Time PHQ-9 Depression Total Score: 0 01/17/20 25 4:30 PM EST documented as of this encounter Care Teams Vegetable Washing Machine Operator Relationship Specialty Start Date End Date Jefferson Roberts DO [address] [place] [address] PCP - General Internal Medicine 10/09/22 documented as of this encounter
--- OUTSIDE RECORDS SUMMARY | 2025-04-20 14:01 | XMS_ITS | Encounter Summary ---
Author Organization [employer] tem Address [facility] [id number] [address] [place] [address] Care Team Providers Care Robotics Technologist Name Role Phone Jefferson Roberts DO Primary Care Provider [phone] Reason for Referral * Consultation (Routine) - Authorized Specialty Diagnoses / Procedures Referred By Contnatacha t Referred To Contact Behavioral Health Diagnoses Bipolar disorder, current episode mixed, mild (CMS-HCC) Jefferson Roberts DO [address] [place] [address] Phone: tel: fax: [facility] [address] [place] [address] Phone: tel: fax: Referral ID Status Reason Start Date Expiration Date Visits Requested Visits Authorized [id number] Authorized Specialty Services Required 03/21/2025 03/21/2026 4 4 Encounter Details Date Type Department Care Team (Late st Contact Info) Description 03/21/2025 Orders Only [facility] Internal Medicine - Family Medicine [address] [place] [address] Jefferson Roberts DO [address] [place] [address] Bipolar disorder, current episode mixed, mild (CMS-HCC) (Primary Dx) Social History Tobacco Use Types [...] as of this encounter Plan of Treatment Scheduled Referrals Name Type Priority Associated Diagnoses Order Schedule Ambulatory referral to Behavioral Health ([facility]) Outpatient Referral Routine Bipolar disorder, current episode mixed, mild (CMS-HCC) 1 Occurrences starting 03/21/2025 until 03/21/2026 documented as of this encounter Visit Diagnoses Diagnosis Bipolar disorder, current episode mixed, mild (CMS-HCC)- Primary documented in this encounter Additional Health Concerns Assessment Noted Time PHQ-9 Depression Total Score: 0 01/17/20 25 4:30 PM EST documented as of this encounter Care Teams Robotics Technologist Relationship Specialty Start Date End Date Jefferson Roberts DO [address] [place] [address] PCP - General Internal Medicine 10/09/22 documented as of this encounter
--- OUTSIDE RECORDS SUMMARY | 2025-04-20 14:01 | XMS_ITS | Encounter Summary ---
Author Organization [employer] [facility] tem Address [id number] [address] [place] [address] Care Team Providers Care Maintenance Engineer Oil Field Name Role Phone Jefferson Roberts DO Primary Care Provider [phone] Encounter Details Date Type Department Care Team (Late st Contact Info) Description 12/26/2022 [facility] [address] [place] [phone] Zara Farmer CMA Social History Tobacco Use [...] Telephone Encounter - Zara Farmer CMA - 12/26/2022 9:13 AM EST Patient has been on Mounjaro .5 for quite a while now and her pharmacy is having trouble getting it. She wants to know if she can go up to the 7.5? * Telephone Encounter - Jefferson Roberts DO - 12/26/2022 9:13 AM EST Yes. We can increase her Terzepatide to 7.5 mg weekly. I sent a new prescription to her pharmacy. * Telephone Encounter - Zara Farmer CMA - 12/26/2022 9:13 AM EST Spoke with the patient and she understands documented in this encounter Plan of Treatment Not on file documented as of this encounter Visit Diagnoses Not on filedocumented in this encounter Care Teams Maintenance Engineer Oil Field Relationship Specialty Start Date End Date Jefferson Roberts DO [address] [place] [address] PCP - General Internal Medicine 10/09/22 documented as of this encounter
--- OUTSIDE RECORDS SUMMARY | 2025-04-20 14:01 | XMS_ITS | Encounter Summary ---
Author Organization [employer] tem Address [facility] [id number] [address] [place] [address] Care Team Providers Care Jewel Oliving Machine Operator Name Role Phone Jefferson Roberts DO Primary Care Provider [phone] Reason for Visit * Reason Comments Med Refill Encounter Details Date Type Department Care Team (Late st Contact Info) Description 01/07/2023 Refill [facility] Internal Medicine - Family Medicine [address] [place] [address] Jefferson Roberts DO [address] [place] [address] Depression, unspecified depression type (Primary Dx) Social History Tobacco Use Types [...] as of this encounter Visit Diagnoses Diagnosis Depression, unspecified depression type- Primary documented in this encounter Care Teams Jewel Oliving Machine Operator Relationship Specialty Start Date End Date Jefferson Roberts DO [address] [place] [address] PCP - General Internal Medicine 10/09/22 documented as of this encounter
--- OUTSIDE RECORDS SUMMARY | 2025-04-20 14:01 | XMS_ITS | Encounter Summary ---
Author Organization [employer] [facility] tem Address [facility] [place][id number] [address] [place] [address] Care Team Providers Care Dye Feeder Name Role Phone Jefferson Roberts DO Primary Care Provider Encounter Details Date Type Department Care Team (Late st Contact Info) Description 12/26/2022 Orders Only [facility] Internal Medicine - Family Medicine [address] [place] [phone] Jefferson Robrets DO [address] [place], [place] [phone] Class 1 obesity with serious comorbidity and [...] unspecified obesity type documented in this encounter Care Teams Dye Feeder Relationship Specialty Start Date End Date Jefferson Roberts DO [address] [place], [place] [address] PCP - General Internal Medicine 10/09/22 documented as of this encounter
--- OUTSIDE RECORDS SUMMARY | 2025-04-20 14:01 | XMS_ITS | Encounter Summary ---
Author Organization [employer] [facility] tem Address [facility] [place][id number] [address] [place] [address] Care Team Providers Care Claims Counsel Name Role Phone Jefferson Roberts DO Primary Care Provider [phone] Encounter Details Date Type Department Care Team (Late st Contact Info) Description 01/28/2023 Orders Only [facility] Internal Medicine - Family Medicine [address] [place] [phone] Jefferson Roberts DO [address] [place], [place] [address] Class 1 obesity with serious comorbidity and [...] type documented in this encounter Care Teams Claims Counsel Relationship Specialty Start Date End Date Jefferson Roberts DO [address] [place], [place] [phone] PCP - General Internal Medicine 10/09/22 documented as of this encounter
--- OUTSIDE RECORDS SUMMARY | 2025-04-20 14:02 | XMS_ITS | Encounter Summary ---
Author Organization [employer] s tem Address [facility] [id number] [address] [place] [address] Care Team Providers Care Allocations Clerk Name Role Phone Jefferson Roberts DO Primary Care Provider [phone] Encounter Details Date Type Department Care Team (Late st Contact Info) Description 08/17/2024 Orders Only [facility] Internal Medicine - Family Medicine [address] [phone] Jefferson Roberts DO [address] [place] [address] Fibromyalgia (Primary Dx) Social History Tobacco Use Types [...] PHQ-2 Answer Date Recorded Total Score 0 07/23/2024 PRAPARE - Transportation Answer Date Re corded [...] got money to buy more. Never True 07/23/2024 Within the past 12 months th e food we bought just didn't last and we didn't have money to get more. Never True 07/23/2024 Comments Unknown Sex and Gender Information Value Date Recorded Sex Assigned at Not on file Legal Sex Female 11:25 AM EDT Gender Identity Not on file Sexual Orientation Not on file documented as of this encounter Plan of Treatment Not on file documented as of this encounter Visit Diagnoses Diagnosis Fibromyalgia- Primary Unspecified myalgia and myositis documented in this encounter Additional Health Concerns Assessment Noted Time PHQ-9 Depression Total Score: 0 07/23/20 24 10:01 AM EDT documented as of this encounter Care Teams Allocations Clerk Relationship Specialty Start Date End Date Jefferson Roberts DO [address] [place] [address] PCP - General Internal Medicine 10/09/22 documented as of this encounter
--- OUTSIDE RECORDS SUMMARY | 2025-04-20 14:02 | XMS_ITS | Encounter Summary ---
Author Organization [employer] tem Address [facility] [place][id number] [address] [place] [address] Care Team Providers Care Assistant Program Director Name Role Phone Jefferson Roberts Primary Care Provider [phone] Encounter Details Date Type Department Care Team (Late st Contact Info) Description 12/13/2024 Orders Only [facility] Internal Medicine - Family Medicine [address] [place] [phone] Ref Prov, [place] [address] Social History Tobacco Use Types Packs/Day Years [...] PHQ-2 Answer Date Recorded Total Score 0 10/12/2024 PRAPARE - Transportation Answer Date Re corded [...] got money to buy more. Never True 10/12/2024 Within the past 12 months th e food we bought just didn't last and we didn't have money to get more. Never True 10/12/2024 Comments Unknown Sex and Gender Information Value Date Recorded Sex Assigned at Not on file Legal Sex Female 11:25 AM EDT Gender Identity Not on file Sexual Orientation Not on file documented as of this encounter Plan of Treatment Not on file documented as of this encounter Procedures Procedure Name Priority Date/Time Associated Diagnosis Comments HM MAMMOGRAPHY Routine 12/10/2024 11:40 AM EST US BREAST LT COMPLETE Routine 12/10/2024 11:38 AM EST documented in this encounter Results * HM MAMMOGRAPHY (12/10/2024 11:40 AM EST) Anatomical Region Laterality Modality Other us Not In System Ref Prov HEALTH MAINTENANCE Final Result * Ultrasound breast complete left (12/10/2024 11:38 AM EST) Anatomical Region Laterality Modality Breast Left Ultrasound us Not In System Ref Prov IMG US ORDERABLES Final R esult documented in this encounter Visit Diagnoses Not on filedocumented in this encounter Additional Health Concerns Assessment Noted Time PHQ-9 Depression Total Score: 0 10/12/20 24 4:41 PM EST documented as of this encounter Care Teams Assistant Program Director Relationship Specialty Start Date End Date Jefferson Roberts DO [address] [place] [address] PCP - General Internal Medicine 10/09/22 documented as of this encounter
--- OUTSIDE RECORDS SUMMARY | 2025-04-20 14:02 | XMS_ITS | Encounter Summary ---
Author Organization [employer] s tem Address [facility] [place]-[id number] [address] [place] [address] Care Team Providers Care Diesel Instructor Name Role Phone Jefferson Roberts DO Primary Care Provider [phone] Encounter Details Date Type Department Care Team (Late st Contact Info) Description 12/27/2024 Orders Only [facility] Internal Medicine - Family Medicine [address] [phone] Jefferson Roberts DO [address] [place] [address] Social History Tobacco Use Types Packs/Day Years [...] documented as of this encounter Care Teams Diesel Instructor Relationship Specialty Start Date End Date Jefferson Roberts DO [address] [place] [address] PCP - General Internal Medicine 10/09/22 documented as of this encounter
--- OUTSIDE RECORDS SUMMARY | 2025-04-20 14:02 | XMS_ITS | Encounter Summary ---
Author Organization [employer] [facility] tem Address [facility] [place][id number] [address] [place] [address] Care Team Providers Care Civil Drafter Name Role Phone Jefferson Roberts DO Primary Care Provider [phone] Encounter Details Date Type Department Care Team (Late st Contact Info) Description 06/24/2023 [facility] [address] [place] [phone] Jefferson Roberts DO [address] [place] [address] Social History Tobacco Use Types Packs/Day Years Used Date Smoking Tobacco: Never Smokeless Tobacco: Never PHQ-2 Answer Date Recorded Total Score 0 06/11/2023 Childcare Answer Date Recorded Childcare Unknown 05/12/2019 Employment Answer Date Recorded Employment Unknown 05/12/2019 Comments Unknown Sex and Gender Information Value Date Recorded Sex Assigned at Not on file Legal Sex Female 11:25 AM EDT Gender Identity Not on file Sexual Orientation Not on file documented as of this encounter Miscellaneous Notes * Telephone Encounter - Brigette Hendricks - 06/24/2023 8:53 AM EDT Patient called and said that the referral to derm in [place] did not work out, she was wondering if you could send a new referral to the one in [place] * Telephone Encounter - Jefferson Roberts DO - 06/24/2023 8:53 AM EDT I referred [facility] to [facility] [place]. * Telephone Encounter - Kathya Rousseau CMA - 06/24/2023 8:53 AM EDT LM on to call us if she would like the number documented in this encounter Plan of Treatment Not on file documented as of this encounter Visit Diagnoses Not on filedocumented in this encounter Additional Health Concerns Assessment Noted Time PHQ-9 Depression Total Score: 0 06/11/20 23 4:11 PM EDT documented as of this encounter Care Teams Civil Drafter Relationship Specialty Start Date End Date Jefferson Roberts DO [address] [place] [address] PCP - General Internal Medicine 10/09/22 documented as of this encounter
--- OUTSIDE RECORDS SUMMARY | 2025-04-20 14:02 | XMS_ITS | Encounter Summary ---
Author Organization [employer] Address [facility] [place]-[id number] [address] [place] [address] Care Team Providers Care Timber Management Professor Name Role Phone Jefferson Roberts DO Primary Care Provider [phone] Reason for Visit * Reason Comments Med Refill Encounter Details Date Type Department Care Team (Late st Contact Info) Description 04/28/2024 Refill [facility] Internal Medicine - Family Medicine [address] [phone] Jefferson Roberts DO [address] [place] [address] Migraine without aura and without status migrainosus, [...] encounter Miscellaneous Notes * Telephone Encounter - Jefferson Roberts DO - 04/28/2024 3:53 PM EDT Duplicate request documented in this encounter Plan of Treatment Not on file documented as of this encounter Visit Diagnoses Diagnosis Migraine without aura and without status migrainosus, not intractable documented in this encounter Additional Health Concerns Assessment Noted Time PHQ-9 Depression Total Score: 0 12/17/19 24 4:27 PM EST documented as of this encounter Care Teams Timber Management Professor Relationship Specialty Start Date End Date Jefferson Roberts DO [address] [place] [address] PCP - General Internal Medicine 10/09/22 documented as of this encounter"
--- OUTSIDE RECORDS SUMMARY | 2025-04-20 14:02 | XMS_ITS | Encounter Summary ---
Author Organization [facility] Address [facility] [place]-[id number] [address] [place] [address] Care Team Providers Care Hub Cutter Apprentice Name Role Phone Jefferson Roberts DO Primary Care Provider [phone] Reason for Visit * Reason Onset Date Comments Med Refill 10/01/2022 Encounter Details Date Type Department Care Team (Late st Contact Info) Description 10/01/2022 Refill [facility] Internal Medicine - Family Medicine [address] [place] [address] Jefferson Roberts DO [address] [place] [address] Social History Tobacco Use Types Packs/Day Years [...] on filedocumented in this encounter Care Teams Hub Cutter Apprentice Relationship Specialty Start Date End Date Jefferson Roberts DO [address] [place] [address] PCP - General Internal Medicine 10/09/22 documented as of this encounter
--- OUTSIDE RECORDS SUMMARY | 2025-04-20 14:02 | XMS_ITS | Encounter Summary ---
Author Organization [facility] Address [id number] [address] [place] [address] Care Team Providers Care Warehouse Person Name Role Phone Jefferson Roberts DO Primary Care Provider [phone] Reason for Visit * Reason Comments Med Refill Encounter Details Date Type Department Care Team (Late st Contact Info) Description 01/28/2024 Refill [facility] Internal Medicine - Family Medicine [address] [phone] Jefferson Roberts DO [address] [place] [address] Social History Tobacco Use Types Packs/Day Years [...] Telephone Encounter - Jefferson Roberts DO - 01/28/2024 9:54 AM EST Discontinued documented in this encounter Plan of Treatment Not on file documented as of this encounter Visit Diagnoses Not on filedocumented in this encounter Additional Health Concerns Assessment Noted Time PHQ-9 Depression Total Score: 0 12/17/19 24 4:27 PM EST documented as of this encounter Care Teams Warehouse Person Relationship Specialty Start Date End Date Jefferson Roberts DO [address] [place] [address] PCP - General Internal Medicine 10/09/22 documented as of this encounter
--- OUTSIDE RECORDS SUMMARY | 2025-04-20 14:02 | XMS_ITS | Encounter Summary ---
Author Organization [facility] Address [facility] [id number] [address] [place] [address] Care Team Providers Care Frame Changer Name Role Phone Jefferson Roberts DO Primary Care Provider Encounter Details Date Type Department Care Team (Late st Contact Info) Description 11/04/2023 Orders Only [facility] Internal Medicine - Family Medicine [address] [phone] Jefferson Roberts DO [address] [place] [address] Social History Tobacco Use Types Packs/Day Years Used Date Smoking Tobacco: Never Smokeless Tobacco: Never Alcohol Use Standard Drinks/Week Comments Yes 0 (1 standard drink = 0.6 oz pur e alcohol) Socially PHQ-2 Answer Date Recorded Total Score 0 07/09/2023 Childcare Answer Date Recorded Childcare Unknown 05/12/2019 Employment Answer Date Recorded Employment Unknown 05/12/2019 Hunger Screening Answer Date Recorded Within the past 12 months we worried whether our food would run out before we got money to buy more. Never True 07/09/2023 Within the past 12 months th e food we bought just didn't last and we didn't have money to get more. Never True 07/09/2023 Comments Unknown Sex and Gender Information Value Date Recorded Sex Assigned at Not on file Legal Sex Female 11:25 AM EDT Gender Identity Not on file Sexual Orientation Not on file documented as of this encounter Plan of Treatment Not on file documented as of this encounter Procedures Procedure Name Priority Date/Time Associated Diagnosis Comments VASC VENOUS DUPLEX LOWER BILATERAL Routine 10/30/2023 8:26 AM EST documented in this encounter Results * Vas venous duplex lwr bilateral (10/30/2023 8:26 AM EST) Anatomical Region Laterality Modality Vascular Bilateral Ultrasound us Scanning Provider External CV VASCULAR ORDERABLE S Final Result documented in this encounter Visit Diagnoses Not on filedocumented in this encounter Additional Health Concerns Assessment Noted Time PHQ-9 Depression Total Score: 0 07/09/20 23 3:48 PM EDT documented as of this encounter Care Teams Frame Changer Relationship Specialty Start Date End Date Jefferson Roberts DO [address] [place] [address] PCP - General Internal Medicine 10/09/22 documented as of this encounter
--- OUTSIDE RECORDS SUMMARY | 2025-04-20 14:02 | XMS_ITS | Clinical Summary ---
Author Organization [facility] Address [address] [place] [address] Care Team Providers Care Ticket Taker Ferryboat Name Role Phone Unavailable Primary Care Provider Unavailabl e Allergies No known active allergies Medications sertraline (ZOLOFT) 100 MG tablet Take 100 mg by mouth daily. Active Multiple Vitamins-Mineral s (MULTIVITAL PO) Take by mouth. Active loratadine (CLEAR-ATADINE) 10 MG tablet Take 10 mg by mouth daily. Active ibuprofen (ADVIL;MOTRIN) 800 MG tablet Take 800 mg by mouth every 6 hours as needed. Active Active Problems No known active problems Social History Tobacco Use Types Packs/Day Years Used Date Smoking Tobacco: Never Smokeless Tobacco: Never Alcohol Use Standard Drinks/Week Comments No 0 (1 standard drink = 0.6 oz pur e alcohol) Comments No Sex and Gender Information Value Date Recorded Sex Assigned at Not on file Legal Sex Female 2:04 PM EDT Gender Identity Not on file Sexual Orientation Not on file Last Filed Vital Signs Vital Sign Reading Time Taken Comments Blood Pressure 110/80 08/04/2013 10:09 AM EDT Pulse - - Temperature - - Respiratory Rate - - Oxygen Saturation - - Inhaled Oxygen Concentration - - Weight 83.5 kg (184 lb) 08/04/2013 10:09 AM EDT Height 162.6 cm (5' 4 ) 08/04/2013 10:09 AM EDT Body Mass Index 31.58 08/04/2013 10:09 AM EDT Plan of Treatment Not on file
--- OUTSIDE RECORDS SUMMARY | 2025-04-20 14:02 | XMS_ITS | Encounter Summary ---
Author Organization [facility] Address [facility] [id number] [address] [place] [address] Care Team Providers Care Elementary School Teacher Name Role Phone Jefferson Roberts DO Primary Care Provider [phone] Reason for Visit * Reason Comments Med Refill Encounter Details Date Type Department Care Team (Late st Contact Info) Description 08/18/2022 Refill [facility] Internal Medicine - Family Medicine [address] [place] [phone] Jefferson Roberts DO [address] [place] [address] Hypothyroidism, unspecified type (Primary Dx) Social History Tobacco Use [...] as of this encounter Visit Diagnoses Diagnosis Hypothyroidism, unspecified type- Primary documented in this encounter Care Teams Elementary School Teacher Relationship Specialty Start Date End Date Jefferson Roberts DO [address] [place] [address] PCP - General Internal Medicine 10/09/22 documented as of this encounter
--- OUTSIDE RECORDS SUMMARY | 2025-04-20 14:02 | XMS_ITS | Encounter Summary ---
Author Organization [employer] s tem Address [facility] [id number] [address] [place] [address] Care Team Providers Care Inspector And Unloader Name Role Phone Jefferson Roberts DO Primary Care Provider [phone] Encounter Details Date Type Department Care Team (Late st Contact Info) Description 07/17/2023 Orders Only [facility] Internal Medicine - Family Medicine [address] [phone] Jefferson Roberts DO [address] [place] [address] Alopecia (Primary Dx) Social History Tobacco Use Types [...] as of this encounter Visit Diagnoses Diagnosis Alopecia- Primary documented in this encounter Additional Health Concerns Assessment Noted Time PHQ-9 Depression Total Score: 0 07/09/20 3:48 PM EDT documented as of this encounter Care Teams Inspector And Unloader Relationship Specialty Start Date End Date Jefferson Roberts DO [address] [phone] PCP - General Internal Medicine 10/09/22 documented as of this encounter
--- OUTSIDE RECORDS SUMMARY | 2025-04-20 14:02 | XMS_ITS | Encounter Summary ---
Author Organization [facility] tem Address [facility] [id number] [address] [place] [address] Care Team Providers Care Graduate School Dean Name Role Phone Jefferson Roberts DO Primary Care Provider [phone] Encounter Details Date Type Department Care Team (Late st Contact Info) Description 10/01/[address] [facility] [address] [place] [phone] Jefferson Roberts DO [address] [place] [address] Social History Tobacco Use Types Packs/Day Years [...] encounter Miscellaneous Notes * Telephone Encounter - Antoinette Choi - 10/01/2022 5:34 PM EDT Pt wanted to reach out to you 6 months after starting adipex, requesting florentin. * Telephone Encounter - Jefferson Roberts DO - 10/01/2022 5:34 PM EDT Was she able to get and use the Saxenda that was prescribed in May? We will need to see her for height and weight check prior to starting anything new. * Telephone Encounter - Evelyn Leyva MA - 10/01/2022 5:34 PM EDT Tried calling and just kept ringing. No answer or voicemail. * Telephone Encounter - Evelyn Leyva MA - 10/01/2022 5:34 PM EDT Patient called back and said she did try it but it made her violently ill . She is scheduling an appt to come in. documented in this encounter Plan of Treatment Not on file documented as of this encounter Visit Diagnoses Not on filedocumented in this encounter Care Teams Graduate School Dean Relationship Specialty Start Date End Date Jefferson Roberts DO [address] [place] [address] PCP - General Internal Medicine 10/09/22 documented as of this encounter
--- OUTSIDE RECORDS SUMMARY | 2025-04-20 14:02 | XMS_ITS | Encounter Summary ---
Author Organization [facility] Address [id number] [address] [place] [address] Care Team Providers Care Zoning Engineer Name Role Phone Jefferson Roberts DO Primary Care Provider [phone] Encounter Details Date Type Department Care Team (Late st Contact Info) Description 07/01/2023 Orders Only [facility] Internal Medicine - Family Medicine [address] [place] [phone] Sara Garcia CMA Alopecia Social History Tobacco Use Types Packs/Day Years [...] Procedure Name Priority Date/Time Associated Diagnosis Comments AMB REFERRAL TO DERMATOLOGY Routine 07/01/2023 Alopecia documented in this encounter Results * Ambulatory referral to Dermatology (07/01/2023) 07/01/2023 us Jeffreson Roberts DO OUTPATIENT REFERRAL ORDERABLES F inal Result MANUALLY TRANSCRIBED RESULTS documented in this encounter Visit Diagnoses Diagnosis Alopecia documented in this encounter Additional Health Concerns Assessment Noted Time PHQ-9 Depression Total Score: 0 06/11/20 23 4:11 PM EDT documented as of this encounter Care Teams Zoning Engineer Relationship Specialty Start Date End Date Jefferson Roberts DO [address] [place] [address] PCP - General Internal Medicine 10/09/22 documented as of this encounter
--- OUTSIDE RECORDS SUMMARY | 2025-04-20 14:02 | XMS_ITS | Encounter Summary ---
Author Organization [employer] [facility] Address [facility] [id number] [address] [place] [address] Care Team Providers Care Venereal Disease Investigator Name Role Phone Jefferson Roberts DO Primary Care Provider [phone] Reason for Referral * Consultation (Routine) - Closed Specialty Diagnoses / Procedures Referred By Contnatacha t Referred To Contact Dermatology Diagnoses Alopecia Jefferson Roberts DO [address] [place] [address] Phone: tel: fax: Cammie George MD [address] [place] [address], [address] [place] [address] Phone: tel: fax: Referral ID Status Reason Start Date Expiration Date V isits Requested Visits Authorized [id number] Closed Specialty Services Required 06/24/2023 06/23/2024 1 1 Encounter Details Date Type Department Care Team (Late st Contact Info) Description 06/24/2023 Orders Only [facility] Internal Medicine - Family Medicine [address] [place] [phone] Jefferson Roberts DO [address] [place] [address] Alopecia (Primary Dx) Social History Tobacco Use [...] on file documented as of this encounter Results * Ambulatory referral to Dermatology (07/01/2023) 07/01/2023 us Jefferson Roberts DO OUTPATIENT REFERRAL ORDERABLES F inal Result MANUALLY TRANSCRIBED RESULTS documented in this encounter Visit Diagnoses Diagnosis Alopecia- Primary documented in this encounter Additional Health Concerns Assessment Noted Time PHQ-9 Depression Total Score: 0 06/11/20 23 4:11 PM EDT documented as of this encounter Care Teams Venereal Disease Investigator Relationship Specialty Start Date End Date Jefferson Roberts DO [address] [place] [address] PCP - General Internal Medicine 10/09/22 documented as of this encounter
--- OUTSIDE RECORDS SUMMARY | 2025-04-20 14:02 | XMS_ITS | Encounter Summary ---
Author Organization [facility] Address [facility] [place]-[id number] [address] [place] [address] Care Team Providers Care Waste Collector Name Role Phone Jefferson Roberts DO Primary Care Provider [phone] Encounter Details Date Type Department Care Team (Late st Contact Info) Description 10/05/2024 Orders Only [facility] Internal Medicine - Family Medicine [address] [phone] Jefferson Roberts DO [address] [place] [address] Migraine without aura and without status migrainosus, [...] documented as of this encounter Care Teams Waste Collector Relationship Specialty Start Date End Date Jefferson Roberts DO [address] [place] [address] PCP - General Internal Medicine 10/09/22 documented as of this encounter
--- OUTSIDE RECORDS SUMMARY | 2025-04-20 14:02 | XMS_ITS | Encounter Summary ---
Author Organization [employer] [facility] Address [facility] [id number] [address] [place] [address] Care Team Providers Care Construction Craft Laborer Name Role Phone Jefferson Robetrs DO Primary Care Provider [phone] Reason for Visit * Reason Comments Med Refill Encounter Details Date Type Department Care Team (Late st Contact Info) Description 05/14/2024 Refill [facility] Medicine - Family Medicine [address] [phone] Jefferson Roberts DO [address] [place] [address] Migraine without aura and without status migrainosus, [...] documented as of this encounter Care Teams Construction Craft Laborer Relationship Specialty Start Date End Date Jefferson Roberts DO [address] [place] [address] PCP - General Internal Medicine 10/09/22 documented as of this encounter
--- OUTSIDE RECORDS SUMMARY | 2025-04-20 14:02 | XMS_ITS | Encounter Summary ---
Author Organization [employer] [facility] Address [facility] [id number] [address] [place] [address] Care Team Providers Care Real Estate Inspector Name Role Phone Jefferson Roberts DO Primary Care Provider [phone] Reason for Visit * Reason Comments Med Refill Encounter Details Date Type Department Care Team (Late st Contact Info) Description 11/11/2023 Refill [facility] Internal Medicine - Family Medicine [address] [phone] Jefferson Roberts DO [address] [place] [address] Essential hypertension Social History Tobacco Use Types Packs/Day Years [...] as of this encounter Visit Diagnoses Diagnosis Essential hypertension Unspecified essential hypertension documented in this encounter Additional Health Concerns Assessment Noted Time PHQ-9 Depression Total Score: 0 07/09/20 23 3:48 PM EDT documented as of this encounter Care Teams Real Estate Inspector Relationship Specialty Start Date End Date Jefferson Roberts DO [address] [place] [address] PCP - General Internal Medicine 10/09/22 documented as of this encounter
--- OUTSIDE RECORDS SUMMARY | 2025-04-20 14:02 | XMS_ITS | Encounter Summary ---
Author Organization [employer] [facility] Address [facility] [place]-[id number] [address] [place] [address] Care Team Providers Care Payloader Operator Name Role Phone Jefferson Roberts DO Primary Care Provider [phone] Reason for Visit * Reason Comments Med Refill Encounter Details Date Type Department Care Team (Late st Contact Info) Description 09/03/2022 Refill [facility] Internal Medicine - Family Medicine [address] [place] [address] Jefferson Roberts DO [address] [place] [address] Essential hypertension (Primary Dx) Social History Tobacco Use Types [...] of this encounter Visit Diagnoses Diagnosis Essential hypertension- Primary Unspecified essential hypertension documented in this encounter Care Teams Payloader Operator Relationship Specialty Start Date End Date Jefferson Roberts DO [address] [place] [address] PCP - General Internal Medicine 10/09/22 documented as of this encounter
--- NOTE | 2025-04-20 14:03 | ECG_ITS ---
[facility] Test Date: 2025-04-20 Pat Name: CHRISTIAN WEBER Department: Room: - Gender: Female Audio/Video Engineer: : [id number] Requested By: NOAM IRIZARRY Order Number: [id number] Reading MD: DELMY NUNEZ M.D. Measurements Intervals [place] Rate: 67 P: 35 IN: 171 QRS: 40 QRSD: 89 T: 40 QT: 397 QTc: 420 Interpretive Statements SINUS RHYTHM Normal ECG Compared to ECG 10/09/2023 07:48:21 No significant changes Electronically Signed On 04-20-2025 21:45:34 EDT by DELMY NUNEZ M.D.
--- OUTSIDE RECORDS SUMMARY | 2025-04-20 14:05 | XMS_ITS | CCD ---
Author Organization [facility]iniSymo Care Team Providers Care Coordinator Cardiopulmonary Services Name Role Phone Rice, Michael W Unavailable Unavailable Rice, Michael W Unavailable Unavailable Rice, Michael W Unavailable Unavailable KOFFIBENNIES, HIMA~[phone] UNKNOWN Unavailable U navailable HANNAH ., DR CAMPBELL Admitting Unavailabl e KARASIK ., DR CAMPBELL Attending Unavailabl e MISC, DR CERRATO Primary Care Unavailable KARASIK ., DR CAMPBELL Consulting Unavailabl e KARASIK ., DR CAMPBELL Admitting Unavailabl e KARASIK ., DR CAMPBELL Attending Unavailabl e MISC, DR CERRATO Primary Care Unavailable KARASIK ., DR CAMPBELL Consulting Unavailabl e Real Hendrix Consulting Unavailable MD Shannan Young Attending Provider [phone] Shannan Young Attending Unavailable Shannan Young Attending Unavailable HIMA HILL Referring Unavailable GHAZALS, HIMA Santos Primary Care Unavailable HIMA HILL Attending Unavailable GHAZALSHIMA Referring Unavailable GHAZALSHIMA Primary Care Unavailable Hima Hill MD Primary Care Provider [phone] Hima Hill DO Primary Care Provider HIMA HILL Attending Unavailable YUHAS, HIMA L Referring Unavailable YUHAS, HIMA L Primary Care Unavailable GHAZALSHIMA Attending Unavailable GHAZALSHIMA Referring Unavailable YUHAS, HIMA Santos Primary Care Unavailable HIMA HILL Attending Unavailable KOFFIHAS, HIMA L Referring Unavailable YUHAS, HIMA L Primary Care Unavailable GHAZALSHIMA L Attending Unavailable GHAZALS, HIMA L Referring Unavailable YUHAS, HIMA L Primary Care Unavailable HIMA HILL Attending Unavailable GHAZALS, HIMA Santos Referring Unavailable SERGIO, HIMA Santos Primary Care Unavailable HIMA HILL Attending Unavailable HIMA HILL Referring Unavailable YUHAS, HIMA L Primary Care Unavailable Hima Hill MD Primary Care Provider Hima Hill DO Primary Care Provider [phone] FRANKLIN BRYANT Attending Unavailable FRANKLIN BRYANT Attending Unavailable EVELYN VIZCAINO Attending Unavailable Franklin Bryant DO Attending Provider [phone] Franklin Bryant Attending Unavailable Franklin Bryant Admitting Unavailable Allergies Allergy Classification Reported Allergen(s) Allergy Type Date of Onset Reaction(s) Facility (1 source) No Known Medication Allergies; Translations: [No Known Medication Allergies] Propensity to adverse reactions (disorder) [facility] Repository Medications Current Medications Medication Drug Class(es) Dates Sig (Normalized) Sig (Original) amoxicillin 875 mg oral tablet (3 sources) Penicillin-class Antibacterial Start: 12-24-2024 End: 12-31-2024 take 1 tablet by mouth in the morning, then take 1 tablet by mouth at bedtime amoxicillin (AMOXIL) 875 mg tablet Indications: Strep throat exposure Take 1 tablet (875 mg total) by mouth in the morning and 1 tablet (875 mg total) before bedtime. Do all this for 7 days. 14 tablet 12/24/2024 12/31/2024 Active baclofen 10 mg oral tablet (9 sources) gamma-Aminobutyric Acid-ergic Agonist Start: 01-17-2025 End: 02-18-2025 take 1 tablet by mouth in the morning baclofen (Lioresal) 10 MG tablet Take 10 mg by mouth in the morning and 10 mg in the evening. 02/18/2025 Active 24 hr buPROPion hydrochloride 150 mg extended release oral tablet (20 sources) Aminoketone Start: 07-11-2024 take 1 tablet by mouth once daily buPROPion XL (WELLBUTRIN XL) 150 mg 24 hr tablet Indications: Depression, unspecified depression type take 1 tablet by mouth once daily 90 tablet 07/11/2024 Active Start: 09-08-2023 End: 07-11-2024 take 1 tablet by mouth once daily buPROPion XL (WELLBUTRIN XL) 150 mg 24 hr tablet Indications: Depression, unspecified depression type take 1 tablet by mouth once daily 90 tablet 12/10/2023 Active Start: 07-21-2023 Bupropion Hcl Active MG ORAL AM July 21, 2023 12:00am Start: 01-07-2023 End: 12-08-2024 take 1 tablet by mouth every twenty-four hours in the morning buPROPion XL (Wellbutrin XL) 150 MG 24 hr tablet Take 1 tablet by mouth in the morning. 01/07/2023 12/08/2024 Discontinued cephalexin 500 mg oral capsule (1 source) Cephalosporin Antibacterial Start: 04-01-2018 take 1 capsule by mouth every twelve hours Cephalexin 500 mg capsule Active 500 MG PO Q12H April 01, 2018 12:00am chlorthalidone 25 mg oral tablet (1 source) Thiazide-like Diuretic Start: 07-21-2023 take 1 mg by mouth once daily Chlorthalidone Active MG ORAL DAILY July 21, 2023 12:00am DULoxetine 30 mg delayed release oral capsule (20 sources) Serotonin and Norepinephrine Reuptake Inhibitor Start: 08-17-2024 End: 12-30-2024 take 1 capsule by mouth in the morning DULoxetine (CYMBALTA) 30 mg capsule Indications: Fibromyalgia Take 1 capsule (30 mg total) by mouth in the morning. 90 capsule 1 12/30/2024 Active take 1 capsule by mouth once darion ly DULoxetine (Cymbalta) [address] capsule Take 60 mg by mouth Daily Do not crush or chew. Active estrogens, conjugated (snf) 0.625 mg oral tablet (20 sources) Estrogen Start: 04-08-2024 End: 04-08-2025 take 1 tablet by mouth once daily, then take 1 tablet by mouth once daily estrogens, conjugated, (Premarin) 0.625 MG tablet Indications: Hormone imbalance Take 1 tablet (0.625 mg) by mouth Daily Take 1 tablet daily by mouth for 30 days 30 tablet 11 04/08/2024 Active Start: 07-23-2023 End: 10-12-2024 PREMARIN vaginal cream Inser t 0.5 g into the vagina 2 (two) times a week. 07/23/2023 10/12/2024 Discontinued (Patient Stopped On Own) Start: 07-21-2023 End: 12-08-2024 Conjugated Estrogens (Premar in) 0.625 mg/gram cream Active 0.625 MG VAGINAL TWICE A WEEK July 21, 2023 12:00am ferrous sulfate (2 sources) Start: 12-30-2024 take 1 tablet by mouth in the morning Ferrous Sulfate (IRON PO) Take 1 tablet by mouth in the morning. 12/30/2024 Active levothyroxine sodium 0.025 mg oral tablet (1 source) l-Thyroxine Start: 04-01-2018 take 1 tablet by mouth once daily Levothyroxine 25 mcg tablet Active 25 MCG PO Daily April 01, 2018 12:00am meloxicam 15 mg oral tablet (7 sources) Nonsteroidal Anti-inflammatory Drug Start: 02-18-2025 take 1 tablet by mouth in the morning meloxicam (MOBIC) 15 mg tablet Indications: Strain of neck muscle, initial encounter Take 1 tablet (15 mg total) by mouth in the morning. 20 tablet 02/18/2025 Active Start: 01-17-2025 End: 02-18-2025 take 1 tablet by mouth in the morning meloxicam (MOBIC) 15 mg tablet Indications: Strain of neck muscle, initial encounter Take 1 tablet (15 mg total) by mouth in the morning. 20 tablet 01/17/2025 02/18/2025 Discontinued (Reorder) 24 hr metoprolol succinate 50 mg extended release oral tablet (1 source) beta-Adrenergic Radha Start: 04-01-2018 take 1 tablet by mouth once daily Metoprolol Succinate 50 mg tablet extended release 24 hr Active 50 MG PO Daily April 01, 2018 12:00am ondansetron 4 mg disintegrating oral tablet (17 sources) Serotonin-3 Receptor Antagonist Start: 02-18-2025 ondansetron ODT (ZOFRAN ODT) 4 mg disintegrating tablet Indications: Migraine without aura and without status migrainosus, not intractable Dissolve 1 tablet (4 mg total) on tongue 2 (two) times a day as needed for nausea or vomiting. 20 tablet 02/18/2025 Active Start: 10-05-2024 End: 02-18-2025 ondansetron ODT (ZOFRAN ODT) 4 mg disintegrating tablet Indications: Migraine without aura and without status migrainosus, not intractable Dissolve 1 tablet (4 mg total) on tongue 2 (two) times a day as needed for nausea or vomiting. 20 tablet 01/20/2025 02/18/2025 Discontinued (Reorder) phentermine hydrochloride 37.5 mg oral tablet (11 sources) Sympathomimetic Amine Anorectic Start: 04-12-2024 End: 01-07-2025 take 1 tablet by mouth before mealtime phentermine (Adipex-P) 37.5 MG tablet Indications: Encounter for weight management Take 1 tablet (37.5 mg) by mouth in the morning. Take before meals. 30 tablet 12/08/2024 Active Pnv,Calcium 88-Yiyk-Qcujd Acid (Westab Plus) 27 mg iron- 1 mg tablet (1 source) Start: 07-21-2023 take 1 tablet by mouth once daily Pnv,Calcium 80-Vwka-Sabqw Acid (Westab Plus) 27 mg iron- 1 mg tablet Active TAB ORAL DAILY July 21, 2023 12:00am PNV,calcium 67-mzdy-gklkr acid (WESTAB PLUS) 27 mg iron- 1 mg tablet (8 sources) Start: 12-30-2024 take 1 tablet by mouth in the morning PNV,calcium 26-jeoc-wcsvy acid (WESTAB PLUS) 27 mg iron- 1 mg tablet Indications: Essential hypertension Take 1 tablet by mouth in the morning. 90 tablet 12/30/2024 Active 27-1 MG tablet (2 sources) Start: 03-25-2025 take 1 tablet by mouth once daily 27-1 MG tablet Take 1 tablet by mouth Daily 03/25/2025 Active Eykdadkc-Dut-Cw-FA ( 1 + IRON PO) (10 sources) Gmgixspr-Qyo-Pc-F A ( 1 + IRON PO) Active propranolol hydrochloride 40 mg oral tablet (20 sources) beta-Adrenergic Radha Start: 10-12-2024 End: 03-25-2025 take 1 tablet by mouth twice daily propranoloL (INDERAL) 40 mg tablet Indications: Intractable migraine without aura and without status migrainosus TAKE 1 TABLET BY MOUTH TWICE DAILY 60 tablet 2 03/25/2025 Active take 1 capsule by mouth once darion ly propranolol LA (Inderal LA) 60 MG 24 hr capsule Take 60 mg by mouth Daily Do not crush, chew, or split. Active rimegepant 75 mg disintegrating oral tablet (13 sources) Start: 12-13-2024 End: 01-17-2025 take 1 tablet by mouth every twenty-four hours as needed Rimegepant Sulfate (Nurtec) 75 MG tablet dispersible Take 75 mg by mouth Daily as needed 01/17/2025 Active sertraline 50 mg oral tablet (1 source) Serotonin Reuptake Inhibitor Start: 04-01-2018 take 1 tablet by mouth once daily Sertraline 50 mg tablet Active 50 MG PO Daily April 01, 2018 12:00am SUMAtriptan 100 mg oral tablet (20 sources) Serotonin-1b and Serotonin-1d Receptor Agonist Start: 10-05-2024 End: 02-18-2025 take 1 tablet by mouth twice daily at bedtime SUMAtriptan (Imitrex) 100 MG tablet TAKE 1 TABLET BY MOUTH TWICE DAILY IN THE MORNING and before bedtime 02/18/2025 Active Start: 11-10-2023 End: 06-21-2024 take 1 tablet by mouth twice daily SUMAtriptan (IMITREX) 100 mg tablet Indications: Migraine without aura and without status migrainosus, not intractable take 1 tablet by mouth twice a day if needed 9 tablet 06/21/2024 Active Start: 04-01-2018 take 1 tablet by anuradha th once daily as needed for headache Sumatriptan Succinate 50 mg tablet Active 50 MG PO Daily as needed for Migraine Headache April 01, 2018 12:00am vitamin b12 1 mg oral tablet (20 sources) Vitamin B12 Start: 11-10-2023 End: 12-13-2024 take 33-33.9 tablets by mouth once daily in the morning cyanocobalamin 1000 MCG tablet Indications: Class 1 obesity with serious comorbidity and body mass index (BMI) of 33.0 to 33.9 in adult, unspecified obesity type take 1 tablet by mouth every morning 90 tablet 04/27/2024 Active WESTAB PLUS 27 mg iron- 1 mg tablet (20 sources) Start: 05-23-2024 End: 12-30-2024 take 1 tablet by mouth once daily WESTAB PLUS 27 mg iron- 1 mg tablet Indications: Essential hypertension take 1 tablet by mouth once daily 90 tablet 05/23/2024 12/30/2024 Discontinued (Reorder) Start: 05-23-2024 take 1 tablet by anuradha th once daily WESTAB PLUS 27 mg iron- 1 mg tablet Indications: Essential hypertension take 1 tablet by mouth once daily 90 tablet 05/23/2024 Active Start: 04-27-2024 End: 05-23-2024 take 1 tablet by mouth once daily WESTAB PLUS 27 mg iron- 1 mg tablet Indications: Essential hypertension take 1 tablet by mouth once daily 90 tablet 04/27/2024 05/23/2024 Discontinued Start: 04-27-2024 take 1 tablet by anuradha th once daily WESTAB PLUS 27 mg iron- 1 mg tablet Indications: Essential hypertension take 1 tablet by mouth once daily 90 tablet 04/27/2024 Active Start: 03-06-2024 End: 04-27-2024 take 1 tablet by mouth once daily WESTAB PLUS 27 mg iron- 1 mg tablet Indications: Essential hypertension take 1 tablet by mouth once daily 90 tablet 03/06/2024 04/27/2024 Discontinued Start: 03-06-2024 take 1 tablet by anuradha th once daily WESTAB PLUS 27 mg iron- 1 mg tablet Indications: Essential hypertension take 1 tablet by mouth once daily 90 tablet 03/06/2024 Active Start: 03-06-2024 take 1 tablet by [...] tablet by mouth once daily 90 tablet 12/10/2023 03/06/2024 Discontinued Start: 12-10-2023 End: 03-06-2024 take 1 tablet [...] Drug Class(es) Dates Sig (Normalized) Sig (Original) acetaminophen 325 mg / oxyCODONE hydrochloride 5 mg oral tablet (1 source) Opioid Agonist Start: 04-01-2018 End: 04-07-2018 take 1 tablet by mouth every six hours as needed for pain Oxycodone-Acetamino phen 5-325 mg tablet Discontinued 1 TAB PO Q6H as needed for pain April 01, 2018 April 06, 2018 12:00am April 07, 2018 12:01am ascorbic acid 500 mg oral tablet (17 sources) Vitamin C End: 07-23-2024 take 1 tablet by mouth in the morning, then take 1 tablet by mouth at bedtime ascorbic acid (VITAMIN C) 500 mg tablet Take 1 tablet (500 mg total) by mouth in the morning and 1 tablet (500 mg total) before bedtime. 07/23/2024 Discontinued (Patient Stopped On Own) brompheniramin/pseud oephedrine (BROMALINE ORAL) (3 sources) End: 12-17-2023 take 2 tablets by mouth three times daily brompheniramin/pseu doephedrine (BROMALINE ORAL) Take 2 tablets by mouth 3 (three) times a day. 0 12/17/2023 Discontinued (Therapy completed) take 2 tablets by mo uth three times daily brompheniramin/pseudoephedrine (BROMALIN E ORAL) Take 2 tablets by mouth 3 (three) times a day. 0 Active brompheniramine maleate 0.4 mg/ml / dextromethorphan hydrobromide 2 mg/ml / pseudoephedrine hydrochloride 6 mg/ml oral solution (4 sources) alpha-Adrenergic Agonist, Uncompetitive I-unyxkg-I-aspartate Receptor Antagonist, Sigma-1 Agonist Start: 12-24-2024 End: 01-17-2025 take 5 mL by mouth four times daily as needed for congestion dsnwdvfzonpbrbe-jqiooivmq-ZH 2-30-10 mg/5 mL syrup Indications: Strep throat exposure Take 5 mL by mouth 4 (four) times a day as needed for congestion. 120 mL 12/24/2024 01/17/2025 Discontinued (Therapy completed) 0.5 ml dulaglutide 1.5 mg/ml auto-injector (16 sources) GLP-1 Receptor Agonist Start: 12-17-2023 End: 07-23-2024 dulaglutide (TRULICITY) 0.75 mg/0.5 mL pen injector Indications: Obesity with body mass index 30 or greater inject 0.5 MILLILITERS ( 0.75 milligrams ) subcutaneously every 7 days IN THE ABDOMEN THIGHS OR OUTER AREA OF UPPER ARM ROTATE INJECTION SITES 6 mL 04/21/2024 07/23/2024 Discontinued (Therapy completed) lactobacillus acidophilus [id number] unt / pectin 10 mg oral capsule (20 sources) End: 12-13-2024 take 1 capsule by mouth once daily at breakfast acidophilus-pectin, citrus 100 million cell-10 mg capsule Take 1 capsule by mouth daily with breakfast. 12/13/2024 Discontinued (Patient Stopped On Own) loratadine 10 mg oral tablet (3 sources) End: 12-08-2024 take 1 tablet by mouth once daily loratadine (Claritin) 10 MG tablet Take 10 mg by mouth Daily 12/08/2024 Discontinued no115/iron/folic acid ( 19 ORAL) (12 sources) End: 05-23-2024 take 1 tablet by mouth in the morning no115/iron/folic acid ( 19 ORAL) Take 1 tablet by mouth in the morning. 05/23/2024 Discontinued (Formulary change) take 1 tablet by mouth in the mo rning no115/iron/folic acid ( 19 ORAL) Take 1 tablet by mouth in the morning. Active take 1 tablet by mouth in the mo rning no115/iron/folic acid ( 19 ORAL) Take 1 tablet by mouth in the morning. 0 Active 72 hr scopolamine 0.0139 mg/hr transdermal system (3 sources) Anticholinergic End: 12-17-2023 apply 1 dose transdermal route once daily scopolamine (TRANSDERM-SCOP) 1 mg/[address] 1 patch on the skin once. 0 12/17/2023 Discontinued (Therapy completed) ubrogepant 100 mg oral tablet (5 sources) Start: 10-12-2024 End: 12-13-2024 take 1 tablet by mouth once daily as needed ubrogepant (UBRELVY) 100 mg tablet Indications: Intractable migraine without aura and without status migrainosus Take 100 mg by mouth daily as needed (zMigraine). 9 tablet 1 11/15/2024 12/13/2024 Discontinued (Cost of medication) Problems Active Problems Problem Classification Problem Date Documented Date Episodic/Chronic Abdominal pain (1 source) Pain in pelvis; Translations: [Pelvic and perineal pain] 04-11-2025 Episodic Administrative/social admission (4 sources) Patient encounter status; Translations: [Persons encountering health services in other specified circumstances] 12-08-2024 Episodic Anxiety disorders (2 sources) Obsessive-compulsive disorder; Translations: [Obsessive-compulsive disorder, unspecified] Onset: 07-23-2024 07-23-2024 Chronic Essential hypertension (20 sources) Essential hypertension; Translations: [Essential (primary) hypertension] Onset: 12-29-2018 10-09-2022 Chronic Genitourinary symptoms and ill-defined conditions (20 sources) Female stress incontinence; Translations: [Stress incontinence (female) (male)] Onset: 12-29-2018 10-09-2022 Chronic Headache; including migraine (20 sources) Migraine without aura, not intractable, without status migrainosus; Translations: [Migraine without aura, intractable, without status migrainosus] Onset: 03-04-2022 12-13-2024 Chronic Immunizations and screening for infectious disease (3 sources) Encounter for screening for human papillomavirus (HPV); Translations: [Exposure to streptococcal pharyngitis] Onset: 03-10-2023 12-24-2024 Episodic Menstrual disorders (3 sources) Menorrhagia; Translations: [Excessive and frequent menstruation with regular cycle] 03-21-2025 Chronic Mood disorders (5 sources) Depressive disorder; Translations: [Depression, unspecified depression type] 12-10-2023 Chronic Nonmalignant breast conditions (4 sources) Unspecified lump in the right breast, lower inner quadrant; Translations: [Unspecified lump in the left breast, lower inner quadrant] Onset: 03-16-2023 12-08-2024 Episodic Other connective tissue disease (3 sources) Fibromyalgia; Translations: [Fibromyalgia] 12-13-2024 Episodic Other female genital disorders (1 source) Abnormal uterine bleeding; Translations: [Abnormal uterine and vaginal bleeding, unspecified] 04-11-2025 Chronic Other female genital disorders (1 source) Other specified noninflammatory disorders of vagina; Translations: [Other specified noninflammatory disorders of vagina] Onset: 07-21-2023 Episodic Other nutritional; endocrine; and metabolic disorders (2 sources) Obesity, unspecified; Translations: [Obesity, unspecified] Onset: 07-23-2024 Chronic Other nutritional; endocrine; and metabolic disorders (2 sources) Body mass index (BMI) 33.0-33.9, adult; Translations: [Body mass index (BMI) 33.0-33.9, adult] Onset: 07-23-2024 Chronic Other nutritional; endocrine; and metabolic disorders (20 sources) Body mass index 30+ - obesity; Translations: [Obesity, unspecified] Onset: 01-25-2020 10-09-2022 Chronic Other nutritional; endocrine; and metabolic disorders (3 sources) Obesity; Translations: [Obesity, unspecified] 12-10-2023 Chronic Other screening for suspected conditions (not mental disorders or infectious disease) (7 sources) Encounter for screening mammogram for malignant neoplasm of breast; Translations: [Encounter for screening for malignant neoplasm of cervix] Onset: 03-05-2023 Episodic Spondylosis; intervertebral disc disorders; other back problems (1 source) Neck pain Onset: 01-17-2025 Episodic Sprains and strains (3 sources) Strain of neck muscle; Translations: [Strain of muscle, fascia and tendon at neck level, initial encounter] Onset: 01-17-2025 01-17-2025 Episodic Thyroid disorders (20 sources) Hypothyroidism; Translations: [Hypothyroidism, unspecified] Onset: 03-25-2019 10-09-2022 Chronic Unclassified (1 source) Annual Exam Onset: 07-23-2024 Past or Other Problems Problem Classification Problem Date Documented Da te Episodic/Chronic Deficiency and other anemia (2 sources) Iron deficiency anemia, unspecified; Translations: [Iron deficiency anemia, unspecified] Onset: 07-23-2024 Episodic Deficiency and other anemia (1 source) Iron deficiency anemia; Translations: [Iron deficiency anemia, unspecified] 07-23-2024 Episodic Diabetes mellitus without complication (20 sources) Impaired fasting glucose; Translations: [Impaired fasting glycemia] Onset: 03-04-2022 10-09-2022 Episodic Mood disorders (20 sources) Mood disorders Onset: 10-12-2024 Resolved: 01-17-2025 10-12-2024 Nutritional deficiencies (3 sources) Deficiency of other specified B group vitamins; Translations: [Cobalamin deficiency] Onset: 07-23-2024 07-23-2024 Episodic Results Test Name Value Interpretation Reference Range Facility PATHOLOGY REQUEST FOR LAB CO RPon 04-15-2025 PATHOLOGY REQUEST FOR LAB JULIANN [facility] Comment on above: See report. Scanned copy available in EMR. [facility] HCG ( test) Ql (U)o n 04-11-2025 Interpretation and review of laboratory results Normal [facility] Preg Test, Ur Negative Negative [facility] Pathology Request for Lab Co rpon 04-11-2025 Pathology Request for Lab Juliann Normal [facility] Comment on above: Order Comment: EMBX Result Comment: See report. Scanned copy available in EMR. PERFORMED BY: [place] [address] PATHOLOGIST [employer] RENA HARRY M.D. Performed By: #### P ATH TO [facility] #### [address] Urinalysis macro (dipstick) panel (U)Ordered By: Cammy Uribe on 04-11-2025 Bilirubin, UA Negative Negative - 4(70) +++ mg/dL [facility] Blood, UA Negative Negative - 50 Ananth/mcL [facility] Clarity, UA Clear [facility] Color, UA Yellow [facility] Glucose, UA Negative Negative - 2000(110) ++++ mg/dL [facility] Interpretation and review of laboratory results Normal [facility] Ketones, UA Positive Negative - 160(16) ++++ mg/dL [facility] Comment on above: trace Leukocytes, UA Negative Negative - 500+++ Avis/mcL [facility] Nitrite, UA Negative Negative - Positive [facility] pH, UA 5.5 5 - 9 [facility] Protein, UA Trace Negative - 2000(20) ++++ mg/dL [facility] Spec Grav, UA 1.03 1 - 1.03 [facility] Urobilinogen, UA 0.2 0.2 - 12 mg/dL [facility] ALL CBC WITH AUTO DIFFon BASOPHILS ABSOLUTE AUTO 0.1 N [facility] Basophils/100 WBC (Bld) 0.7 % 0.2 - 2.0 % [facility] Eosinophils/100 WBC (Bld) 1.3 % 0.9 - 7.0 % [facility] Erythrocyte distribution width (RBC) [Ratio] 12 % 11.0 - 15.0 % [facility] Hematocrit (Bld) [Volume fraction] 36.6 % 36.0 - 48.0 % [facility] Hemoglobin (Bld) [Mass/Vol] 12.5 g/dL 12.0 - 16.0 g/dL [facility] IMMATURE GRANULOCYTES ABS AUTO 0.01 [facility] Immature granulocytes/100 WBC (Bld) 0.1 % 0.0 - 0.5 % [facility] Interpretation and review of laboratory results [facility]normal [facility] LY[facility]OLUTE [facility] 2 [facility] Lymphocytes/100 WBC (Bld) 23.2 % 20.5 - 60.0 % [facility] MCH (RBC) [Entitic mass] 29.9 pg 26.7 - 34.0 pg [facility]C (RBC) [Mass/Vol] 34.2 g/dL 29.9 - 35.2 g/dL [facility] MCV (RBC) [Entitic vol] 87.6 fL 81.0 - 99.0 fL [facility] MONOCYTES ABSOLUTE AUTO 0.5 N [facility] Monocytes/100 WBC (Bld) 6.4 % 1.7 - 12.0 % [facility] NEUTROPHILS ABSOLUTE AUTO 5.8 [facility] Neutrophils/100 WBC (Bld) 68.3 % 43.0 - 75.0 % [facility] Platelet mean volume (Bld) [Entitic vol] 10 fL 9.5 - 13.5 fL [facility] EO # 0.1 [facility] PLT 350 [facility] TB RBC 4.18 Low [facility] WBC 8.5 [facility] [place] [address] Ultrasound Report Signed Patient: CASS RILEY MR#: [id number] : 1985 Acct:[id number] Age/Sex: 39 / F ADM Date: 03/25/25 Loc: US Attending Dr: Franklin Bryant D.O. Ordering Physician: Franklin Bryant D.O. Date of Service: 03/25/25 Procedure(s): US pelvis transvaginal Accession Number(s): [id number] cc: Franklin Bryant D.O.; HIMA HILL [address] [address] Patient Name: CASS RILEY MRN: [id number] date: 1985 Sex: F Assigned Patient Location: US Current Patient Location: [place] Accession/Order Number: [id number] Exam Date: 03/25/2025 15:09 Report Date: 03/25/2025 15:11 At the request of: FRANKLIN BRYANT DO Procedure: US pelvis transvaginal Pelvic [...] Jr., D.O. 03/25/2025 3:11 PM Dictation Location: [place] [address] Electronically authenticated by: [id number] Y Date: 03/25/2025 15:11 Dictated By: Brandon Montez M.D. Signed By: 03/25/25 1514 DD/ 1511 TD/TT: Trading Manager: [facility] Radiology, Radiologist, MD - 03/25/2025 [place] [address] Ultrasound Report Signed Patient: CASS RILEY MR#: [id number] : 1985 Acct:[id number] Age/Sex: 39 / F ADM Date: 03/25/25 Loc: US Attending Dr: Franklin Bryant D.O. Ordering Physician: Franklin Bryant D.O. Date of Service: 03/25/25 Procedure(s): US pelvis transvaginal Accession Number(s): [id number] cc: Franklin Bryant D.O.; HIMA HILL [address] [address] Patient Name: CASS RILEY MRN: [facility]:[id number] date: 1985 Sex: F Assigned Patient Location: Current Patient Location: US Accession/Order Number: [id number] Exam Date: 03/25/2025 15:09 Report Date: 03/25/2025 15:11 At the request of: FRANKLIN BRYANT DO Procedure: US pelvis transvaginal Pelvic [...] Jr., D.O. 03/25/2025 3:11 PM Dictation Location: [place] [address] Electronically authenticated by: [id number] Y Date: 03/25/2025 15:11 Dictated By: Brandon Montez M.D. Signed By: 03/25/25 1514 DD/ 1511 TD/TT: Trading Manager: [facility] Radiology Study observation (narrative) [facility] US PELVIS TRANSVAGINALOrdere d By: Radiologist Radiology on 03-25-2025 [facility] Work Phone: Urinalysis macro (dipstick) panel (U)on 03-21-2025 Bilirubin, UA Negative Negative - 4(70) +++ mg/dL [facility] Blood, UA Negative Negative - 50 Ananth/mcL [facility] Clarity, UA Clear [facility] Color, UA Yellow [facility] Glucose, UA Negative Negative - 2000(110) ++++ mg/dL [facility] Interpretation and review of laboratory results Normal [facility] Ketones, UA Negative Negative - 160(16) ++++ mg/dL [facility] Leukocytes, UA Negative Negative - 500+++ Avis/mcL [facility] Nitrite, UA Negative Negative - Positive [facility] pH, UA 7 5 - 9 [facility] Protein, UA Negative Negative - 1999(20) ++++ mg/dL [facility] Spec Grav, UA 1.02 1 - 1.03 [facility] Urobilinogen, UA 1.0 0.2 - 12 mg/dL [facility] MR BRAIN WO CONTon 4 MR BRAIN WO CONT MR BRAIN WO [...] etiologies in this age group. Approved by Res Brandon Queen MD on 11/02/2024 8:25 AM ITomer MD have personally reviewed the image(s) and agree with and/or edited the report Finalized by Tomer Guido MD on 11/02/2024 12:57 PM Normal [facility] CBC AND AUTO DIFFon 07-23-20 ABSOLUTE BASOPHIL 0.1 X10E9/L Normal 0.0-0.2 [facility] Comment on above: Performed By: #### C BCA, CMP, TSHR, 2132-9, 74085-3 #### [facility] ([id number]) [address], [address] [place] [address] ABSOLUTE NEUTROPHIL 4.7 X10E9/L Normal 1.5-6.6 [facility] Comment on above: Performed By: #### C BCA, CMP, TSHR, 2132-08, 69233-8 #### [facility] ([id number]) [address], [address] [place] [address] Basophils/100 WBC (Bld) 1.0 % Normal [facility] Comment on above: Performed By: #### C BCA, CMP, TSHR, 2132-08, 80305-6 #### [facility] ([id number]) [address], [address] [place] [address] Eosinophils (Bld) [#/Vol] 0.1 10*3/uL Normal 0.0-0.4 [facility] Comment on above: Performed By: #### C BCA, CMP, TSHR, 2132-08, 75576-1 #### [facility] ([id number]) [address], [address] [place] [address] Eosinophils/100 WBC (Bld) 1.8 % Normal [facility] Comment on above: Performed By: #### C BCA, CMP, TSHR, 2132-08, 09568-3 #### [facility] ([id number]) [address], [address] [place] [address] Erythrocyte distribution width (RBC) [Ratio] 12.8 % Normal 11.5-15.0 [facility] Comment on above: Performed By: #### C BCA, CMP, TSHR, 2132-08, 17663-8 #### [facility] ([id number]) [address], [address] [place] [address] Hematocrit (Bld) [Volume fraction] 36.0 % Normal 35-47 [facility] Comment on above: Performed By: #### C BCA, CMP, TSHR, 2132-08, 22679-8 #### [facility] ([id number]) [address], [address] [place] [address] Hemoglobin (Bld) [Mass/Vol] 12.4 g/dL Normal 11.7-15.5 [facility] Comment on above: Performed By: #### C BCA, CMP, TSHR, 2132-08, 58351-5 #### [facility] ([id number]) [address], [facility] [address] [place] [address] Lymphocytes (Bld) [#/Vol] 1.7 10*3/uL Normal 1.0-3.5 [facility] Comment on above: Performed By: #### C BCA, CMP, TSHR, 2132-08, 62347-4 #### [facility] ([id number]) [address] [address] [place] [address] Lymphocytes/100 WBC (Bld) 24.6 % Normal [facility] Comment on above: Performed By: #### C BCA, CMP, TSHR, 2132-08, 35241-1 #### [facility] ([id number]) [address], [facility] [address] [place] [address] MCH (RBC) [Entitic mass] 30.0 pg Normal 27-34 [facility] Comment on above: Performed By: #### C BCA, CMP, TSHR, 2132-08, 59574-6 #### [facility] ([id number]) [address], [address] [place] [address] MCHC (RBC) [Mass/Vol] 34.5 g/dL Normal 32-36 [facility] Comment on above: Performed By: #### C BCA, CMP, TSHR, 2132-08, 86491-2 #### [facility] ([id number]) [address] [address] [place] [address] MCV (RBC) [Entitic vol] 87 fL Normal 80-100 P [facility] Comment on above: Performed By: #### C BCA, CMP, TSHR, 2132-08, 00409-9 #### [facility] ([id number]) [address], [address] [place] [address] Monocytes (Bld) [#/Vol] 0.3 10*3/uL Normal 0-0.9 [facility] Comment on above: Performed By: #### C BCA, CMP, TSHR, 2132-08, 26734-6 #### [facility] ([id number]) [address], [address] [place] [address] Monocytes/100 WBC (Bld) 4.8 % Normal [facility] Comment on above: Performed By: #### C BCA, CMP, TSHR, 2132-08, 94010-5 #### [facility] ([id number]) [address], [address] [place] [address] Neutrophils/100 WBC (Bld) 67.8 % Normal [facility] Comment on above: Performed By: #### C BCA, CMP, TSHR, 2132-08, 32351-9 #### [facility] ([id number]) [address], [address] [place] [address] Platelet mean volume (Bld) [Entitic vol] 8.8 fL Normal 7-12 [facility] Comment on above: Performed By: #### C BCA, CMP, TSHR, 2132-08, 82071-3 #### [facility] ([id number]) [address], [address] [place] [address] Platelets (Bld) [#/Vol] 298 10*3/uL Normal 150-450 [facility] Comment on above: Performed By: #### C BCA, CMP, TSHR, 2132-08, 61060-8 #### [facility] ([id number]) [address], [address] [place] [address] RBC COUNT 4.13 X10E12/L Normal 3.80-5.20 [facility] Comment on above: Performed By: #### C BCA, CMP, TSHR, 2132-08, 80627-7 #### [facility] ([id number]) [address], [address] [place] [address] WBC (Bld) [#/Vol] 7.0 10*3/uL Normal 4.0-11.0 [facility] Comment on above: Performed By: #### C BCA, CMP, TSHR, 2132-08, 10518-3 #### [facility] ([id number]) [address], [address] [place] [address] COMPREHENSIVE METABOLIC PANE Ignacio 07-23-2024 Albumin [Mass/Vol] 4.2 g/dL Normal 3.2-5.3 [facility] Comment on above: Performed By: #### C BCA, CMP, TSHR, 2132-08, 16641-5 #### [facility] ([id number]) [address], [address] [place] [address] ALP [Catalytic activity/Vol] 50 U/L Normal 39-130 [facility] Comment on above: Performed By: #### C BCA, CMP, TSHR, 2132-08, 90155-2 #### [facility] ([id number]) [address], [address] [place] [address] ALT [Catalytic activity/Vol] 18 U/L Normal 0-31 [facility] Comment on above: Performed By: #### C BCA, CMP, TSHR, 2132-08, 25767-0 #### [facility] ([id number]) [address], [address] [place] [address] Anion gap [Moles/Vol] 7 mmol/L Normal 5-15 [facility] Comment on above: Performed By: #### C BCA, CMP, TSHR, 2132-08, 94597-7 #### [facility] ([id number]) [address], [address] [place] [address] AST [Catalytic activity/Vol] 23 U/L Normal 0-41 [facility] Comment on above: Performed By: #### C BCA, CMP, TSHR, 2132-08, 41748-0 #### [facility] ([id number]) [address], [address] [place] [address] Bilirubin [Mass/Vol] 0.5 mg/dL Normal 0.3-1.2 [facility] Comment on above: Performed By: #### C BCA, CMP, TSHR, 2132-08, 23950-4 #### [facility] ([id number]) [address], [address] [place] [address] Calcium [Mass/Vol] 9.1 mg/dL Normal 8.5-10.5 [facility] Comment on above: Performed By: #### C BCA, CMP, TSHR, 2132-08, 41281-5 #### [facility] ([id number]) [address] [place] [address] Chloride [Moles/Vol] 101 mmol/L Normal 98-109 [facility] Comment on above: Performed By: #### C BCA, CMP, TSHR, 2132-08, 21271-7 #### [facility] ([id number]) [address] [place] [address] CO2 [Moles/Vol] 30 mmol/L Normal 22-32 [facility] Comment on above: Performed By: #### C BCA, CMP, TSHR, 2132-08, 06416-3 #### [facility] ([id number]) [address], [address] [place] [address] Creatinine [Mass/Vol] 0.60 mg/dL Normal 0.40-1.00 [facility] Comment on above: Result Comment: METH OD TRACEABLE TO IDMS STANDARD Performed By: #### C BCA, CMP, TSHR, 2132-08, 49828-4 #### [facility] ([id number]) [address] [address] [place] [address] eGFR (CKD-EPI) NON-RACE DEPENDENT >90 Normal >59 [facility] Comment on above: Result Comment: Reported eGFR is based on the CKD-EPI 2020 equation that does not use a race coefficient. Performed By: #### C BCA, CMP, TSHR, 2132-08, 52530-5 #### [facility] ([id number]) [address] [address] Glucose [Mass/Vol] 91 mg/dL Normal 65-99 [facility] Comment on above: Performed By: #### C BCA, CMP, TSHR, 2132-08, 54687-5 #### [facility] ([id number]) [address] [address] Potassium [Moles/Vol] 4.1 mmol/L Normal 3.5-5.0 [facility] Comment on above: Performed By: #### C BCA, CMP, TSHR, 2132-08, 76389-6 #### [facility] ([id number]) [address] [address] Protein [Mass/Vol] 6.9 g/dL Normal 6.0-8.0 [facility] Comment on above: Performed By: #### C BCA, CMP, TSHR, 2132-08, 49258-9 #### [facility] ([id number]) [address] [address] [place] [address] Sodium [Moles/Vol] 138 mmol/L Normal 134-146 [facility] Comment on above: Performed By: #### C BCA, CMP, TSHR, 2132-08, 49271-6 #### [facility] ([id number]) [address], [address] [place] [address] Urea nitrogen [Mass/Vol] 11 mg/dL Normal 5-23 [facility] Comment on above: Performed By: #### C BCA, CMP, TSHR, 2132-08, 91838-1 #### [facility] ([id number]) [address] [place] [address] ESR Photometric method (Bld) [Velocity]on 07-23-2024 ESR, ERYTHROCYTE SEDIMENTATION RATE 8 mm/h Normal 0-20 [facility] Comment on above: Performed By: #### C BCA, CMP, TSHR, 2132-08, 26612-6 #### [facility] ([id number]) [address], [address] [place] [address] TSH WITH REFLEXon 07-23-2024 TSH 2.06 uIU/mL Normal 0.49-4.67 [facility] Comment on above: Performed By: #### C BCA, CMP, TSHR, 2132-08, 33733-7 #### [facility] ([id number]) [address], [address] [place] [address] VITAMIN B12on 07-23-2024 Cobalamin (Vitamin B12) [Mass/Vol] 916 pg/mL High 180-914 [facility] Comment on above: Performed By: #### C BCA, CMP, TSHR, 2132-08, 35397-1 #### [facility] ([id number]) [address], [address] [place] [address] Virtual Visiton 07-21-2023 Virtual Visit [facility] [address] [facility] [address] [place] [address] Virtual Visit Signed Patient: Cass [place] MR#: [id number] : 1985 Acct: [id number] Age/Sex: 38 / F Loc: OB.AV Date of Service: 07/21/[address]: Shannan Young M.D. cc: Intake Intake Visit Reasons: meds [phone], ok per Hannah Isotope Technician Required: No Allergies No Known Allergies Allergy (Verified 07/21/23 16:27) Medications - Last Reconciled 07/21/23 by [facility] bupropion HCl mg ORAL AM chlorthalidone mg ORAL DAILY PNV,calcium 92-psbw-kgmkr acid 27 mg iron- 1 mg (WesTab Plus) tabs ORAL DAILY Patient : No Post menopausal: No History History 5 Elective abortions 0 Para 4 Spontaneous abortions 1 Hx # Term Pregnancies 4 Ectopic pregnancies 0 Hx # Pregnancies 0 Multiple births 0 PFSH Medical History (Updated 07/21/23 @ 16:29 by [facility]) Anxiety Depression Hypertension Surgical History (Updated 07/21/23 @ 16:29 by [facility]) History of section Hx of tonsillectomy Family History (Updated 07/21/23 @ 16:30 by [facility]) Other Diabetes Hypertension Social History (Updated 07/21/23 @ 16:30 by [facility]) Advance Directives: No Would like to be referred to Sonogram Technician for info?: No Smoking Status: Never smoker Second hand tobacco smoke exposure: No Former alcohol user?: No How often do you have six or more drinks on one occasion: Never Non prescribed substance use: denies use Travel outside of [place] in last 30 days?: No (Updated 07/21/23 @ 16:30 by [facility]) Other Diabetes Hypertension (Updated 07/21/23 @ 16:29 by [facility]) Anxiety Depression Hypertension HPI Virtual Visit HPI [...] setting: Yes Questionnaire C-SSRS (Primary Care) [facility] Review of Systems [facility] Eyes Reports no additional complaints ENT [...] of vagina Coding Level of Care Code 05366 New Patient Level 2 Diagnoses Vaginal dryness N89.8 Dictated By: Shannan Young M.D. Signed By: 07/22/23 1241 Normal [facility] PAP ACOG PANEL 2: 30 to 65on 03-12-2023 . . Normal [facility] Comment on above: Result Comment: Perf ormed at: WB Performed By: #### 4 [id number] #### [facility] [address] [place] [address] [address] Marcia Beverly Age Gdln ACOG Testing 30-65 Normal [facility] Comment on above: Performed By: #### 4 [id number] #### [facility] [address] [place] [address] [address] Marcia Beverly DIAGNOSIS: Comment Normal [facility] Comment on above: Result Comment: NEGA TIVE FOR INTRAEPITHELIAL LESION OR MALIGNANCY. Performed at: WB Performed By: #### 4 [id number] #### [facility] [address] [place] [address] [address] Marcia Beverly HPV Aptima Negative Normal Negative [facility] Comment on above: Result Comment: This nucleic acid amplification test detects fourteen high-risk HPV types (16,18,31,33,35,39,45,51,52,56,58,59,66,68) without differentiation. Performed at: =G Performed By: #### 4 [id number] #### [facility] [address] [place] [address] Dr. Marcia Beverly HPV Genotype Reflex Comment Normal [facility] Comment on above: Result Comment: Crit eria not met, HPV Genotype not performed. Performed at: WB Performed By: #### 4 [id number] #### [facility] [address] [place] [address] Dr. Marcia Beverly Methodology: Comment Normal [facility] Comment on above: Result Comment: This liquid based ThinPrep(R) pap test was screened with the use of an image guided system. Performed at: WB Performed By: #### 4 [id number] #### [facility] [address] [place] [address] Dr. Marcia Beverly Note: Comment Normal [facility] Comment on above: Result Comment: The Pap smear is a screening test designed to aid in the detection of premalignant and malignant conditions of the uterine cervix. It is not a diagnostic procedure and should not be used as the sole means of detecting cervical cancer. Both false-positive and false-negative reports do occur. . Performed at: WB Performed By: #### 4 [id number] #### [facility] [address] [place], [place] [address] Dr. Marcia Beverly Performed by: Comment Normal [facility] Comment on above: Result Comment: Elke Covington, Marketing Database Coordinator (ASCP) Performed at: WB Performed By: #### 4 [id number] #### [facility] [address] [place], [place] [address] Dr. Marcia Beverly Specimen adequacy: Comment Normal [facility] Comment on above: Result Comment: Sati sfactory for evaluation. Endocervical and/or squamous metaplastic cells (endocervical component) are present. Performed at: WB Performed By: #### 4 [id number] #### [facility] [address] [place], [place] [address] Dr. Marcia Beverly MG MAMM DIAGNOSTIC 3D SUBHASH CA Don 03-07-2023 MG MAMM DIAGNOSTIC 3D SUBHASH CAD Patient: CASS RILEY Exam Date: 03/07/2023 : 1985 Gender:F Ordering : DR SHANNAN YOUNG . Admission #: [id number] Family : Order #: [id number] CLICK HERE TO VIEW EXAM RADIOLOGY REPORT PROCEDURE: MAMMOGRAM DIAGNOSTIC 3D BILATERAL CAD, 03/07/2023, 07:14 ULTRASOUND BREAST BILATERAL LIMITED, 03/07/2023, 07:56 COMPARISON: None. INDICATIONS: Screening mammography Calculator Name NCI Breast Cancer Risk Assessment Tool 5 Year Breast Cancer Risk 0.40% Lifetime Breast Cancer Risk 9.20% Personal Breast Cancer No Personal Ovarian Cancer No Treatments None Family Cancers None LOCATION: [facility] BREAST COMPOSITION: Scattered areas fibroglandular density. [...] Hendrix M.D. on 03/07/2023 at 09:06 Normal [facility] US BREAST SUBHASH LIMITEDon 04-0 US BREAST SUBHASH LIMITED Patient: CASS RILEY Exam Date: 03/07/2023 : 1985 Gender:F Ordering : DR SHANNAN YOUNG . Admission #: [id number] Family : Order #: [id number] CLICK HERE TO VIEW EXAM RADIOLOGY REPORT PROCEDURE: MAMMOGRAM DIAGNOSTIC 3D BILATERAL CAD, 03/07/2023, 07:14 ULTRASOUND BREAST BILATERAL LIMITED, 03/07/2023, 07:56 COMPARISON: None. INDICATIONS: Screening mammography Calculator Name NCI Breast Cancer Risk Assessment Tool 5 Year Breast Cancer Risk 0.40% Lifetime Breast Cancer Risk 9.20% Personal Breast Cancer No Personal Ovarian Cancer No Treatments None Family Cancers None LOCATION: [facility] BREAST COMPOSITION: Scattered areas fibroglandular density. [...] Hendrix M.D. on 03/07/2023 at 09:06 Normal [facility] BASIC METABOLIC PANELon 07-01 BUN/CREATININE RATIO NOT APPLICABLE Normal 6- [facility] Comment on above: Performed By: #### 1 0165, 72949, 85423 #### [facility] [address], [address] [place] [address] Nuclear Control Operator: Bruno Watts MD Calcium [Mass/Vol] 9.0 mg/dL Normal 8.6-10.2 [facility] Comment on above: Performed By: #### 1 0165, 71212, 40205 #### [facility] of [address], [address] [place] [address] Nuclear Control Operator: Bruno Watts MD Chloride [Moles/Vol] 101 mmol/L Normal 98-110 [facility] Comment on above: Performed By: #### 1 0165, 79206, 80022 #### [facility] of [address], [address] [place] [address] Nuclear Control Operator: Bruno Watts MD CO2 [Moles/Vol] 30 mmol/L Normal 20-32 [facility] Comment on above: Performed By: #### 1 0165, 63544, 09642 #### [facility] [place] [address] Nuclear Control Operator: Bruno Watts MD Creatinine [Mass/Vol] 0.67 mg/dL Normal 0.50-1.[address] [facility] Comment on above: Performed By: #### 1 0165, 09565, 39743 #### [facility] [place] [address] Nuclear Control Operator: Bruno Watts MD eGFR NON-AFR. BRUNEIAN 113 mL/min/1.73m2 Normal > OR = 60 [facility] Comment on above: Performed By: #### 1 0165, 52491, 33432 #### [facility] of [place] [address] Nuclear Control Operator: Bruno Watts MD GFR/1.73 sq M.predicted among blacks MDRD (S/P/Bld) [Vol rate/Area] 131 mL/min/{1.73_m2} Normal > OR = 60 [facility] Comment on above: Performed By: #### 1 0165, 54990, 17179 #### [facility] of [address], [address] [place] [address] Nuclear Control Operator: Bruno Watts MD Glucose [Mass/Vol] 127 mg/dL High 65-99 [facility] Comment on above: Result Comment: Fasting reference interval For someone without known diabetes, a glucose value >125 mg/dL indicates that they may have diabetes and this should be confirmed with a follow-up test. Performed By: #### 1 0165, 70349, 94548 #### [facility] [address], [address] [place] [address] Nuclear Control Operator: Bruno Watts MD Potassium [Moles/Vol] 3.7 mmol/L Normal 3.5-5.[address] [facility] Comment on above: Performed By: #### 1 0165, 20400, 08769 #### [facility] [place] [address] Nuclear Control Operator: Bruno Watts MD Sodium [Moles/Vol] 139 mmol/L Normal 135-146 [facility] Comment on above: Performed By: #### 1 0165, 73196, 50503 #### [facility] [address], [address] [place] [address] Nuclear Control Operator: Bruno Watts MD Urea nitrogen [Mass/Vol] 14 mg/dL Normal 7-25 [facility] Comment on above: Performed By: #### 1 0165, 41672, 16346 #### [facility] [place] [address] Nuclear Control Operator: Bruno Watts MD PATIENT ID APPROVAL TIQ DOCU [facility] 07-14-2021 COMMENT Normal [facility] Comment on above: Result Comment: Iden tification of test requisition and/or specimen(s) was questionable. The below named individual provided this revised patient identification. Performed By: #### 1 0165, 62247, 77892 #### [facility] [address], [address] [place] [address] Nuclear Control Operator: Bruno VALENCIA ZARA Melchor Normal [facility] Comment on above: Performed By: #### 1 0165, 63374, 37754 #### [facility] [address], [address] [place] [address] Nuclear Control Operator: Bruno Watts MD TESTS AFFECTED [id number] Normal [facility] Comment on above: Performed By: #### 1 0165, 23306, 77504 #### [facility] [address], [address] [place] [address] Nuclear Control Operator: Bruno Watts MD TSH+FREE T4on 07-14-2021 Free T4 [Mass/Vol] 0.9 ng/dL Normal 0.8-1.8 [facility] Comment on above: Result Comment: TEST NOT PERFORMED An identification discrepancy exists between the requisition and the specimen. Performed By: #### 1 0165, 92838, 98479 #### [facility] [address], [address] [place] [address] Nuclear Control Operator: Bruno Watts MD TSH Qn 0.92 m[IU]/L Normal [facility] Comment on above: Result Comment: Refe rence Range > or = 20 Years 0.40-4.50 Ranges First trimester 0.26-2.66 Second trimester 0.55-2.73 Third trimester 0.43-2.91 Performed By: #### 1 0165, 90203, 38886 #### [facility] [address], [address] [place] [address] Nuclear Control Operator: Bruno Watts MD Coding Summary.on 02-11-2018 Coding Summary. CODING DATE: 02/11/2018 FINAL [facility] STATUS: Home (Routine DC) PAYOR: Roel [...] Sandoval Date Saved: 02/11/2018 10:31 am Normal [facility] [facility] Main OR Intraoperative Recor shefali 02-05-2018 Main OR Intraoperative Record IntraOp Document Type FTURO Summary Primary Physician: Owen Alexandre Jr., MD Finalized Date/Time: 02/05/18 14:30:20 Pt. Name: CASS RILEY /Sex: 1985 Female Med Rec #: [id number] Physician: Owen Alexandre Jr., MD Financial #: [id number] Pt. Type: O Room/Bed: / Admit/Disch: 02/05/18 13:58:13 - Institution: Case Times FTURO Entry 1 Patient Times In Room 02/05/18 14:22:00 Out Room 02/05/18 14:31:00 Procedure Times Start 02/05/18 14:23:00 Stop 02/05/18 14:26:00 Anesthesia Times Last Modified By: Yoel RAI, SHAUNAOR, Maru 02/05/18 14:27:00 Case Attendance FTURO Entry 1 Entry 2 Entry 3 Case Attendee Yoel RN, CNOR, [place] SUPERVISOR RECEIVING AND PROCESSING, Owen Kumari Jr., MD Role Performed Police Liaison - Primary Scrub - Primary Surgeon - Primary Time In 02/05/18 14:22:00 02/05/18 14:22:00 02/05/18 14:22:00 Time Out 02/05/18 14:31:00 02/05/18 14:31:00 02/05/18 14:31:00 Procedure CYSTOSCOPY LOCAL(.) CYSTOSCOPY LOCAL(.) CYSTOSCOPY LOCAL(.) Comments Last Modified By: Yoel RN, CNOR, Yoel RN, CNOR, Yoel RN, CNOR, Maru 02/05/18 Maru 02/05/18 Maru 02/05/18 14:27:01 14:27:01 14:27:01 Surgical Procedures FTURO Entry 1 Procedure Description Procedure CYSTOSCOPY LOCAL Modifiers . Surgeon Description cysto Primary Procedure Yes Primary Surgeon Owen Alexandre Jr., MD Start 02/05/18 14:23:00 Stop 02/05/18 14:26:00 Anesthesia Type Local Surgical Service Urology Wound Class 2 - Clean-Contaminated Last Modified By: RADHA Diallo RN, Ruthann 02/05/18 14:27:03 General Case Data FTURO Pre-Care Text: Classifies surgical wound, implements aseptic technique, initiates traffic control Entry 1 Case Information OR URO 1 FT Case Level None Wound Class 2 - Clean-Contaminated Specialty Urology Preop Diagnosis URINARY INCONTINENCE Postop Same As Preop No Postop Diagnosis stress uriinary Outcomes Met? Yes inconttinence Last Modified By: RADHA Diallo RN, Ruthann 02/05/18 14:29:01 Post-Care Text: The patient is [...] Position Verified Availability Equipment, Medication Time Out RADHA Diallo RN, Verified (If Participants Adriel Mahoney CST, Applicable) Baldomero Wiley Jr., MD, Owen Santos Time Out Complete 02/05/18 14:23:00 Allergies Reviewed? [...] RADHA Diallo RN, Ruthann 02/05/18 14:[address] [facility] Main OR Preoperative Recordo n 02-05-2018 Main OR Preoperative Record Holding Area Document Type FTURO Summary Primary Physician: Owen Alexandre Jr., MD Finalized Date/Time: 02/05/18 14:24:03 Pt. Name: CASS RILEY /Sex: 1985 Female Med Rec #: [id number] Physician: Owen Alexandre Jr., MD Financial #: [id number] Pt. Type: O Room/Bed: / Admit/Disch: 02/05/18 [...] of Pain: No Comment: Skin Integrity Intact, Ren[place], Warm, & Dry Vitals - EU Blood Pressure 153/98 Pulse 88 bpm Respirations 16 br/min SPO2 RN Reviewed Yes Last Modified By: RADHA Diallo RN, Ruthann 02/05/18 14:23:59 Finalized By: RADHA Diallo RN, Ruthann Document Signatures Signed By: Indiana Victor LPN 02/05/18 14:18 RADHA Diallo RN, Ruthann 02/05/18 14:[address] [facility] Operative Reporton 8 Operative Report Patient: CASS RILEY Age: 32 years Sex: Female : 1985 Associated Diagnoses: None Author: Owen Alexandre Jr., MD Procedure Operative Information Details: Date/ Time: 02/05/18 14:31:00. Pre-Op Dx: Mixed Urinary Incontinence - N39.46, Urgency Incontinence - N39.41, Stress Incontinence - N39.3. Post-Op Dx: Same. Anesthesia Type: Local. Procedure: Local Cystoscopy. Complications: None. Risks/Benefits/Infor med Consent: Surgical risks, benefits, details of the [...] arrangements for TVT mid urethral sling.. Normal [facility] Comment on above: Result Comment: Elec tronically Signed By: Baldomero Zuluaga MD, Owen Santos\.br\Date and Time Signed: 02/05/18 14:32 EST Vital Signs Date Time Vital Sign Value Performing Clinician Facility 04-11-2025 15:46-0400 Body mass index (BMI) [Ratio] 32.77 kg/m2 [employer] Work Phone: [facility] 04-11-2025 15:46-0400 Body weight 83.92 kg [employer] Work Phone: [facility] 04-11-2025 15:46-0400 Diastolic blood pressure 76 mm[Hg] [employer] Work Phone: [facility] 04-11-2025 15:46-0400 Systolic blood pressure 122 mm[Hg] [employer] Work Phone: [facility] 03-21-2025 16:02-0400 Body mass index (BMI) [Ratio] 33.66 kg/m2 Franklin Manny DO Work Phone: [facility] 03-21-2025 16:02-0400 Body weight 86.18 kg Franklin Manny DO Work Phone: [facility] 03-21-2025 16:02-0400 Diastolic blood pressure 80 mm[Hg] Franklin Manny DO Work Phone: [facility] 03-21-2025 16:02-0400 Systolic blood pressure 128 mm[Hg] Franklin Manny DO Work Phone: [facility] 01-17-2025 16:31-0500 Body height 162.6 cm Hima Chapmans DO Work Phone: [facility] 01-17-2025 16:31-0500 Body mass index (BMI) [Ratio] 33.49 kg/m2 Hima Chapmans DO Work Phone: [facility] 01-17-2025 16:31-0500 Body temperature 98.49 [degF] Hima Chapmans DO Work Phone: [facility] 01-17-2025 16:31-0500 Body weight 88.54 kg Hima Chapmans DO Work Phone: [facility] 01-17-2025 16:31-0500 Diastolic blood pressure 78 mm[Hg] Hima Chapmans DO Work Phone: [facility] 01-17-2025 16:31-0500 Heart rate 82 /min Hima Velahas DO Work Phone: [facility] [employer] [facility] 01-17-2025 16:31-0500 Respiratory rate 18 /min Hima Velahas DO Work Phone: [facility] 01-17-2025 16:31-0500 SaO2% (BldA) [Mass fraction] 99 % Hima Chapmans DO Work Phone: [facility] 01-17-2025 16:31-0500 Systolic blood pressure 138 mm[Hg] Hima Hill DO Work Phone: [facility] 12-08-2024 16:48-0500 Body mass index (BMI) [Ratio] 35.07 kg/m2 Evelyn SALEH Work Phone: [facility] 12-08-2024 16:48-0500 Body weight 89.81 kg Evelyn Vizcaino PA Work Phone: [facility] 12-08-2024 16:48-0500 Diastolic blood pressure 80 mm[Hg] Evelyn Vizcaino PA Work Phone: [facility] 12-08-2024 16:48-0500 Systolic blood pressure 128 mm[Hg] Evelyn Vizcaino PA Work Phone: [facility] 10-12-2024 17:18-0500 Diastolic blood pressure 98 mm[Hg] Hima Hill DO Work Phone: [facility] 10-12-2024 17:18-0500 Systolic blood pressure 150 mm[Hg] Hima Hill DO Work Phone: [facility] 10-12-2024 16:41-0500 Body mass index (BMI) [Ratio] 31.45 kg/m2 Hima Hill DO Work Phone: [facility] 10-12-2024 16:41-0500 Body temperature 98.2 [degF] Hima Hill DO Work Phone: [facility] 10-12-2024 16:41-0500 Body weight 83.1 kg Hima Chapmans Work Phone: [facility] 10-12-2024 16:41-0500 Heart rate 96 /min Hima Hill DO Work Phone: [facility] 10-12-2024 16:41-0500 SaO2% (BldA) [Mass fraction] 98 % Hima Hill DO Work Phone: [facility] 07-23-2024 10:02-0400 Body height 162.6 cm Hima Velahas DO Work Phone: [facility] [employer] [facility] 07-23-2024 10:02-0400 Body mass index (BMI) [Ratio] 31.82 kg/m2 Hima Velahas DO Work Phone: [facility] [employer] [facility] 07-23-2024 10:02-0400 Body temperature 98.49 [degF] Hima Velahas DO Work Phone: [facility] 07-23-2024 10:02-0400 Body weight 84.1 kg Hima Velahas DO Work Phone: [facility] 07-23-2024 10:02-0400 Diastolic blood pressure 80 mm[Hg] Hima Velahas DO Work Phone: [facility] [employer] [facility] 07-23-2024 10:02-0400 Heart rate 81 /min Hima Chapmans DO Work Phone: [facility] 07-23-2024 10:02-0400 Respiratory rate 18 /min Hima Velahas DO Work Phone: [facility] 07-23-2024 10:02-0400 SaO2% (BldA) [Mass fraction] 99 % Hima Velahas DO Work Phone: [facility] [employer] [facility] 07-23-2024 10:02-0400 Systolic blood pressure 130 mm[Hg] Hima Velahas DO Work Phone: [facility] [employer] [facility] 12-17-2023 16:28-0500 Body height 162.6 cm Hima Yuhas DO Work Phone: [facility] 12-17-2023 16:28-0500 Body mass index (BMI) [Ratio] 30.24 kg/m2 Hima Velahas DO Work Phone: [facility] 12-17-2023 16:28-0500 Body temperature 97.9 [degF] Hima Velahas DO Work Phone: [facility] 12-17-2023 16:28-0500 Body weight 79.92 kg Hima Hill DO [facility] Phone: [facility] 12-17-2023 16:28-0500 Diastolic blood pressure 70 mm[Hg] Hima Hill DO Work Phone: [facility] 12-17-2023 16:28-0500 Heart rate 75 /min Hima Hill DO Work Phone: [facility] 12-17-2023 16:28-0500 SaO2% (BldA) [Mass fraction] 99 % Hima Hill DO Work Phone: [facility] 12-17-2023 16:28-0500 Systolic blood pressure 126 mm[Hg] Hima Hill DO Work Phone: [facility] Encounters Encounter Date Encounter Type Care Provider Facility Start: 04-11-2025 End: 04-11-2025 Departed Referred Franklin Bryant DO Work Phone: [facility] Start: 04-11-2025 End: 04-11-2025 Patient encounter procedure Franklin Mcleano DO Work Phone: [facility] Comment on above: Preop examination; Menorrhagia with regular cycle; Abnormal uterine bleeding (AUB); Pelvic pain Start: 04-11-2025 End: 04-11-2025 Preprocedural examination done Franklin Mcleano DO Work Phone: [facility] Start: 04-11-2025 End: 04-11-2025 ambulatory FRANKLIN MANNY Not Available Start: 04-11-2025 End: 04-15-2025 External Result Encounter Franklin Mcleano DO Work Phone: [facility] Unsolicited Start: 04-11-2025 End: 04-15-2025 External Result Encounter Franklin Mcleano DO Work Phone: [facility] Unsolicited Start: 03-25-2025 End: 03-25-2025 Clinisync Result Encounter Franklin Manny DO Work Phone: [facility] Unsolicited Start: 03-25-2025 End: 03-25-2025 Clinisync Result Encounter Franklin Manny DO Work Phone: [facility] Unsolicited Start: 03-25-2025 End: 03-25-2025 Refill [facility]ima Hill [facility] Comment on above: Intractable migraine without aura and without status migrainosus Start: 03-21-2025 End: 03-21-2025 Office outpatient visit 15 minutes Franklin Manny DO Work Phone: [facility] Comment on above: Encounter to discuss procedure; Menorrhagia with regular cycle Start: 03-21-2025 End: 03-21-2025 ambulatory FRANKLIN MANNY Not Available Start: 03-21-2025 End: 03-21-2025 Bamboo flowsheet Franklin Manny DO Work Phone: [facility] Start: 03-21-2025 End: 03-21-2025 Bamboo flowsheet Franklin Manny DO Work Phone: [facility] Start: 02-18-2025 End: 02-18-2025 Refill Hima Hill DO Work [facility] Comment on above: Strain of neck muscl e, initial encounter; Migraine without aura and without status migrainosus, not intractable Start: 02-03-2025 End: 02-03-2025 ambulatory [facility] Start: 02-03-2025 End: 02-03-2025 Office outpatient visit 25 minutes Hima Hill DO Work Phone: [facility] Comment on above: Bipolar disorder, cu rrent episode mixed, mild (CMS-HCC) (Primary Dx) Start: 01-25-2025 End: 01-25-2025 Refill Hima Hill DO Work Phone: [facility] Comment on above: Intractable migraine without aura and without status migrainosus Start: 01-20-2025 End: 01-20-2025 Refill No Jan [facility] Comment on above: Migraine without aur a and without status migrainosus, not intractable Start: 01-17-2025 End: 01-17-2025 Office outpatient visit 25 minutes Hima Hill DO Work Phone: [facility] Comment on above: Strain of neck muscl e, initial encounter (Primary Dx); Intractable migraine without aura and without status migrainosus Start: 01-17-2025 End: 01-17-2025 ambulatory [facility] Start: 01-17-2025 End: 01-25-2025 Telephone encounter Hima Hill DO Work Phone: [facility] Start: 12-30-2024 End: 12-30-2024 Refill Hima Hill DO Work Phone: [facility] Comment on above: Essential hypertensi on; Migraine without aura and without status migrainosus, not intractable; Fibromyalgia; Strep throat exposure Start: 12-27-2024 End: 12-27-2024 Telephone encounter Kathya Rousseau [facility] Start: 12-24-2024 End: 12-24-2024 ambulatory [facility] Start: 12-24-2024 End: 12-24-2024 Office outpatient visit 15 minutes Hima Chapmans DO Work Phone: [facility] Comment on above: Strep throat exposur e (Primary Dx) Start: 12-13-2024 End: 12-13-2024 ambulatory [facility] Start: 12-13-2024 End: 12-13-2024 Office outpatient visit 25 minutes Hima Chapmans DO Work Phone: [facility] Comment on above: Intractable migraine without aura and without status migrainosus (Primary Dx); Fibromyalgia Start: 12-08-2024 End: 12-08-2024 ambulatory EVELYN VIZCAINO Not Available Start: 12-08-2024 End: 12-08-2024 Office outpatient visit 15 minutes Evelyn Vizcaino PA Work Phone: [facility] Comment on above: Encounter for weight management; Breast lump on left side at 9 o'clock position Start: 12-08-2024 End: 12-08-2024 Bamboo flowsheet Evelyn Vizcaino PA Work Phone: [facility] Start: 12-08-2024 End: 12-08-2024 Bamboo flowsheet Evelyn Vizcaino PA Work Phone: [facility] Start: 11-15-2024 End: 11-15-2024 Refill Hima Hill DO Work Phone: [facility] Comment on above: Intractable migraine without aura and without status migrainosus Start: 11-02-2024 End: 11-02-2024 ambulatory [facility] Start: 10-18-2024 End: 10-18-2024 Refill Hima Hill DO Work Phone: [facility] Comment on above: Fibromyalgia; Migraine without aura and without status migrainosus, not intractable Start: 10-13-2024 End: 10-15-2024 Telephone encounter Hima Hill DO Work Phone: [facility] Start: 10-12-2024 End: 10-12-2024 Office outpatient visit 25 minutes Hima Hill DO Work Phone: [facility] Comment on above: Intractable migraine without aura and without status migrainosus (Primary Dx) Start: 10-12-2024 End: 10-12-2024 ambulatory [facility] Start: 08-20-2024 End: 08-20-2024 Telephone encounter Arlyn Miller CMA [facility] Start: 07-23-2024 End: 07-23-2024 ambulatory [facility] Start: 07-23-2024 End: 07-23-2024 Encounter for general adult medical examination with abnormal findings Hima Hill DO Work Phone: [facility] [employer] [facility] Work Phone: Start: 07-23-2024 End: 07-23-2024 Periodic preventive med est patient 18-39 yrs Hima Hill DO Work Phone: [facility] Comment on above: Abnormal wellness ex am (Primary Dx); Migraine without aura and without status migrainosus, not intractable; Impaired fasting glucose; Class 1 obesity with serious comorbidity and body mass index (BMI) of 33.0 to 33.9 in adult, unspecified obesity type; Iron deficiency anemia, unspecified iron deficiency anemia type; B12 deficiency; Obsessive-compulsive disorder, unspecified type Start: 07-23-2024 End: 07-23-2024 ambulatory [facility] Start: 07-11-2024 End: 07-11-2024 Refill Hima Hill DO Work Phone: [facility] Comment on above: Depression, unspecif ied depression type Start: 06-21-2024 End: 06-21-2024 Refill Hima Hill DO Work Phone: [facility] Comment on above: Migraine without aur a and without status migrainosus, not intractable Start: 06-16-2024 End: 06-16-2024 Telephone encounter Belkis Menezes [facility] Work Phone: [facility] Start: 06-02-2024 End: 06-02-2024 Telephone encounter Josee Lynn [facility] Comment on above: Appointment Due Start: 05-23-2024 End: 05-23-2024 Refill Hima Hill DO Work Phone: [facility] Comment on above: Essential hypertensi on Start: 04-27-2024 End: 04-27-2024 Refill Hima Hill DO Work Phone: [facility] Comment on above: Migraine without aur a and without status migrainosus, not intractable; Essential hypertension; Class 1 obesity with serious comorbidity and body mass index (BMI) of 33.0 to 33.9 in adult, unspecified obesity type; Depression, unspecified depression type Start: 04-21-2024 End: 04-21-2024 Refill Hima Hill DO Work Phone: [facility] Comment on above: Obesity with body ma ss index 30 or greater Start: 03-24-2024 End: 03-24-2024 Refill Hima Hill DO Work Phone: [facility] Comment on above: Migraine without aur a and without status migrainosus, not intractable Start: 03-06-2024 Refill Hima Hill D O Work Phone: [facility] Comment on above: Essential hypertensi on Start: 03-02-2024 End: 03-11-2024 Telephone encounter Hima Hill DO Work Phone: [facility] Start: 02-19-2024 Refill Hima Hill D O Work Phone: [facility] Comment on above: Migraine without aur a and without status migrainosus, not intractable Start: 02-02-2024 Refill Hima Chapmans D O Work Phone: [facility] Comment on above: Migraine without aur a and without status migrainosus, not intractable Start: 01-14-2024 Refill Hima Chapmans D O Work Phone: [facility] Comment on above: Migraine without aur a and without status migrainosus, not intractable Start: 12-17-2023 End: 12-17-2023 Office outpatient visit 25 minutes Hima Chapmanelen DO Work Phone: [facility] Comment on above: Obesity with body ma ss index 30 or greater (Primary Dx); Migraine without aura and without status migrainosus, not intractable Start: 12-10-2023 Refill Hima Mayer O Work Phone: [facility] Comment on above: Class 1 obesity with serious comorbidity and body mass index (BMI) of 33.0 to 33.9 in adult, unspecified obesity type; Depression, unspecified depression type; Essential hypertension Start: 12-03-2023 Refill Hima Chapmanelen Mayer O Work Phone: [facility] Comment on above: Migraine without aur a and without status migrainosus, not intractable Start: 07-21-2023 End: 07-21-2023 ambulatory Shannan Young Facility:[facility] Start: 07-21-2023 Non-patient / Non-visit MD Manuel Young Work Phone: [facility] ([facility] Work Phone: Start: 03-07-2023 End: 03-08-[address] SHANNAN YOUNG . Facility:[facility] Start: 03-05-2023 End: 03-05-[address] SHANNAN YOUNG . Facility:[facility] Start: 02-05-2018 End: 02-06-2018 Ambulatory Michael Hendrix Facility:[facility] Procedures Date Procedure Procedure Detail Performing Clinician Start: 04-11-2025 Urnls dip stick/tabl et rgnt non-auto w/o micrscp Franklin Manny DO Work Phone: Start: 04-11-2025 PATHOLOGY REQUEST FO R LAB JULIANN Farnklin Manny DO Work Phone: Start: 03-25-2025 US PELVIS TRANSVAGINAL Franklin Manny DO Work Phone: Start: 03-25-2025 ALL CBC WITH AUTO DIFF Franklin Manny DO Work Phone: Start: 03-21-2025 Urnls dip stick/tabl et rgnt non-auto w/o micrscp Franklin Manny DO Work Phone: Start: 01-17-2025 Adult depression scr eening assessment Hima Hill [employer] Work Phone: Start: 10-12-2024 Adult depression scr eening assessment Hima Hill DO Work Phone: Start: 07-23-2024 Adult depression scr eening assessment Hima Hill [employer] Work Phone: Start: 04-08-2024 Microscopic observat ion [Identifier] in Cervix by Cyto stain Hima Hill [employer] Work Phone: Start: 12-17-2023 Adult depression scr eening assessment Hima Hill [employer] Work Phone: Start: 07-09-2023 Adult depression scr eening assessment Hima Hill [employer] Work Phone: Start: 03-05-2023 Microscopic observat ion [Identifier] in Cervix by Cyto stain Hima Hill [employer] Phone: Plan of Treatment Date Care Activity Detail Author Start: 10-01-2033 DTaP,Tdap and Td Vaccines (2 - Td or Tdap) DTaP,Tdap and Td Vaccines (2 - Td or Tdap) [facility] Start: 03-05-2028 Screening for malign ant neoplasm of cervix [facility] Start: 04-08-2027 Screening for malign ant neoplasm of cervix Pap Smear [facility] Start: 03-05-2026 Screening for malign ant neoplasm of cervix Pap Smear [facility] Start: 01-17-2026 Adult BMI Screening Adult BMI Screen ing [facility] Start: 01-17-2026 Depression Screening Depression Scre ening [facility] Start: 01-17-2026 Tobacco Screening Tobacco Screening [facility] Start: 10-12-2025 Adult BMI Screening Adult BMI Screen ing [facility] Start: 10-12-2025 Depression Screening Depression Scre ening [facility] Start: 08-01-2025 Influenza vaccination [facility] Start: 07-23-2025 Adult BMI Screening Adult BMI Screen ing [facility] Start: 07-23-2025 Depression Screening Depression Scre ening [facility] Start: 07-23-2025 Tobacco Screening Tobacco Screening [facility] Start: 05-04-2025 End: 05-04-2025 Patient encounter procedure 05/04/2025 3:40 PM EDT Office Visit [facility] [address] [place] [id number] Franklin Bryant, DO [address] [place] [address] [facility] Start: 04-11-2025 End: 04-11-2025 Patient encounter procedure [facility] Start: 04-11-2025 [facility] Start: 03-21-2025 End: 03-21-2025 Patient encounter procedure 03/21/2025 3:50 PM EDT Office Visit [facility] [address] [place] [id number] Franklin Bryant, DO [address] [place] [address] Arrived [facility] Comment on above: Arrived Start: 03-21-2025 End: 03-21-2026 DHEA DHEA Lab Routine Menorrhagia with regular cycle Expected: 03/21/2025 (Approximate), Expires: 03/21/2026 [facility] Comment on above: Expected: 03/21/2025 (Approximate), Expires: 03/21/2026 Start: 03-21-2025 End: 03-21-2026 US Pelvis US Pelvis w/ TV Imaging Routine Menorrhagia with regular cycle Expected: 03/21/2025, Expires: 03/21/2026 [facility] Comment on above: Expected: 03/21/2025 , Expires: 03/21/2026 Start: 01-05-2025 End: 01-05-2025 Patient encounter procedure 01/05/2025 3:40 PM EST Office Visit [facility] [address] [place] [id number] Evelyn Vizcaino PA [address] [place] [address] [facility] Start: 12-17-2024 Adult BMI Screening Adult BMI Screen ing [facility] Start: 12-17-2024 Depression Screening Depression Scre ening [facility] Start: 12-17-2024 Tobacco Screening Tobacco Screening [facility] Start: 12-08-2024 End: 02-05-2026 US Breast - left Left breast US complete Imaging Routine Breast lump on left side at 9 o'clock position Expected: 12/08/2024, Expires: 02/05/2026 [facility] Work Phone: Comment on above: Expected: 12/08/2024 , Expires: 02/05/2026 Start: 11-10-2024 End: 11-10-2024 Patient encounter procedure 11/10/2024 4:30 PM EST Office Visit [facility] Internal Medicine - Family Medicine [address] [place] [address] Hima Hill, [address] [place] [address] [facility] - [facility] Start: 11-02-2024 End: 11-02-2024 Patient encounter procedure 11/02/2024 6:45 AM EST Appointment [facility] [address] [place] [id number] Hima Hill, DO [address] [place] [address] [facility] Start: 10-26-2024 End: 10-26-2024 Patient encounter procedure 10/26/2024 4:30 PM EST Office Visit [facility] Internal Medicine - Family Medicine [address] [place] [address] Hima Hill, DO [address] [place] [address] [facility] Internal Medicine - Family Medicine Start: 10-22-2024 Adult BMI Screening Adult BMI Screen ing [facility] Start: 10-22-2024 Tobacco Screening Tobacco Screening [facility] Start: 10-12-2024 End: 10-12-2025 MR Brain WO contrast MR brain without contrast Imaging Routine Intractable migraine without aura and without status migrainosus Expected: 10/12/2024, Expires: 10/12/2025 [facility] Work Phone: Comment on above: Expected: 10/12/2024 , Expires: 10/12/2025 Start: 08-01-2024 COVID-19 Vaccine ( season) COVID-19 Vaccine ( season) [facility] Start: 08-01-2024 COVID-19 Vaccine ( season) COVID-19 Vaccine ( season) [facility] Start: 08-01-2024 Influenza vaccination N [facility] Start: 07-23-2024 End: 07-23-2024 Patient encounter procedure 07/23/2024 10:00 AM EDT Office Visit [facility] Internal Medicine - Family Medicine [address] [place] [address] Hima Hill, DO [address] [place] [address] [facility] Medicine - Family Medicine Start: 07-09-2024 Depression Screening Depression Scre ening [facility] Start: 12-17-2023 End: 12-17-2023 Patient encounter procedure 12/17/2023 4:30 PM EST Office Visit [facility] Internal Medicine - Family Medicine [address] [place] [address] Hima Hill, [address] [place] [address] [facility] - [facility] Start: 08-01-2023 COVID-19 Vaccine () COVID-19 Vaccine () [facility] Start: 2006 Screening for malign ant neoplasm of cervix Pap Smear [facility] Start: 2003 Adult BMI Follow Up Plan Adult BMI Follow Up Plan [facility] End: 07-23-2025 CBC W Auto Differential panel - Blood CBC auto differential Lab Routine Iron deficiency anemia, unspecified iron deficiency anemia type 1 Occurrences starting 07/23/2024 until 07/23/2025 [facility] Comment on above: 1 Occurrences starti ng 07/23/2024 until 07/23/2025 CBC W Auto Different ial panel - Blood CBC and differential Lab Routine Menorrhagia with regular cycle Ordered: 03/21/2025 [facility] [employer] Comment on above: Ordered: 03/21/2025 End: 07-23-2025 Comprehensive metabolic 2000 panel - Serum or Plasma Comprehensive metabolic panel Lab Routine Impaired fasting glucose 1 Occurrences starting 07/23/2024 until 07/23/2025 [facility] Work Phone: Comment on above: 1 Occurrences starti ng 07/23/2024 until 07/23/2025 End: 07-23-2025 Cyanocobalamin vitamin b-12 Vitamin B12 Lab Routine B12 deficiency 1 Occurrences starting 07/23/2024 until 07/23/2025 [facility] [employer] Comment on above: 1 Occurrences starti ng 07/23/2024 until 07/23/2025 DHEA-sulfate DHEA-sulfate Lab Routine Menorrhagia with regular cycle Ordered: 03/21/2025 [facility] [employer] Comment on above: Ordered: 03/21/2025 Endometrial biopsy Endometrial b iopsy Procedures Routine Menorrhagia with regular cycle Abnormal uterine bleeding (AUB) Pelvic pain Ordered: 04/11/2025 [facility] [employer] Work Phone: Comment on above: Ordered: 04/11/2025 End: 07-23-2025 Erythrocyte sedimentation rate Erythrocyte Sedimentation Rate (ESR) Lab Routine Migraine without aura and without status migrainosus, not intractable 1 Occurrences starting 07/23/2024 until 07/23/2025 [facility] Comment on above: 1 Occurrences starti ng 07/23/2024 until 07/23/2025 Follicle stimulating hormone Follicle stimulating hormone Lab Routine Menorrhagia with regular cycle Ordered: 03/21/2025 [facility] Comment on above: Ordered: 03/21/2025 hCG, quantitative, hCG, quantitative, Lab Routine Menorrhagia with regular cycle Ordered: 03/21/2025 [facility] Work Phone: Comment on above: Ordered: 03/21/2025 Hemoglobin A1c/Hemoglobin.total in Blood Hemoglobin A1c Lab Routine Menorrhagia with regular cycle Ordered: 03/21/2025 [facility] Comment on above: Ordered: 03/21/2025 Luteinizing hormone Luteinizing hormone Lab Routine Menorrhagia with regular cycle Ordered: 03/21/2025 [facility] Comment on above: Ordered: 03/21/2025 Thyrotropin [Units/volume] in Serum or Plasma TSH Lab Routine Menorrhagia with regular cycle Ordered: 03/21/2025 [facility] Comment on above: Ordered: 03/21/2025 Thyroxine (T4) free [Mass/volume] in Serum or Plasma T4, free Lab Routine Menorrhagia with regular cycle Ordered: 03/21/2025 [facility] Comment on above: Ordered: 03/21/2025 End: 07-23-2025 TSH with Reflex TSH with Reflex Lab Routine Class 1 obesity with serious comorbidity and body mass index (BMI) of 33.0 to 33.9 in adult, unspecified obesity type 1 Occurrences starting 07/23/2024 until 07/23/2025 [facility] Comment on above: 1 Occurrences starti ng 07/23/2024 until 07/23/2025 Immunizations Immunization Date Immunization Notes Care Provider Sudheer lagunas 10-01-2023 influenza, injectabl e, quadrivalent, preservative free Hima Hill DO [facility] 10-01-2023 tetanus toxoid, redu eliceo diphtheria toxoid, and acellular pertussis vaccine, adsorbed Hima Chapmans DO Work Phone: [facility] 10-01-2023 influenza virus vaccine, unspecified formulation Hima Velahas DO Work Phone: [facility] 09-27-2022 Influenza, injectabl e, Madin Ashwini Canine Kidney, preservative free, quadrivalent Hima Yuhas DO Work Phone: [facility] 08-14-2021 influenza, injectabl e, quadrivalent, preservative free Hima Velahas DO Work Phone: [facility] 09-13-2020 influenza, seasonal, injectable Hima Velahas DO Work Phone: [facility] 07-13-2020 influenza, injectabl e, quadrivalent, preservative free Hima Yuhas DO Work Phone: [facility] 07-13-2019 influenza, injectabl e, quadrivalent, preservative free Hima Yuhas DO Work Phone: [facility] 07-13-2019 measles, mumps and rubella virus vaccine Hima Yuhas DO Work Phone: [facility] 07-10-2018 influenza, injectabl e, quadrivalent, preservative free Hima Yuhas DO Work Phone: [facility] 12-25-2017 Influenza, injectabl e, Madin [place] Canine Kidney, preservative free, quadrivalent Hima Yuhas DO Work Phone: [facility] 12-17-2017 influenza virus vaccine, unspecified formulation Hima Velahas DO Work Phone: [facility] Payers Date Payer Category Payer Self-pay 2020 Medicaid [place] [employer] [place] [employer] [id number] 2020-Present [phone] [address] [id number] 2020 Medicaid (Managed Care) [facility] MEDICAID [id number] 2020 Medicaid [place] [id number] 2018 Unknown [id number] 1985 Unknown [id number] 2.840.1.854711.3.579.2. 593 1985 Unknown [id number] 2.840.1.636289.3.579.2. 59 1985 Unknown [id number] 2.840.1.559998.3.579.2. 1285 1985 Unknown [id number] 2.16840.1.264301.3.579.2. 128 1985 Unknown [id number] 2.16840.1.440659.3.579.2. 128 1985 Unknown [id number] 2.16840.1.024509.3.579.2. 1286 1985 Unknown [id number] 2.16.840.1.859443.3.579.2. 1286 1985 Unknown [id number] 2.16.840.1.082143.3.579.2. 1286 1985 Unknown [id number] 2.16.840.1.383622.3.579.2. 1286 1985 Unknown [id number] 2.16.840.1.814504.3.579.2. 1286 1985 Unknown [id number] 2.16.840.1.403797.3.579.2. 1259 1985 Unknown [id number] 2.16.840.1.254041.3.579.2. 9 1985 Unknown [id number] 2.16840.1.387093.3.579.2. 1259 1959 Unknown [id number] Unknown [id number] 2.16840.1.448813.3.579.2. 1149 Unknown [id number] 2.16840.1.015572.3.579.2. 1149 Unknown Insurance No Card [id number] Unknown [id number] 2..[id number]. 531 Social History Date Type Detail Facility Start: 07-21-2023 [facility] Work Phone: Start: 1985 Sex Assigned At Female F [facility] Start: 10-09-2022 End: 07-28-2023 Tobacco smoking status [facility]IS Never smoked tobacco [facility] Start: 10-09-2022 End: 07-28-2023 Tobacco use and exposure Smokeless tobacco non-user [facility] Start: 04-12-2024 End: 04-11-2025 Alcoholic beverage intake Lifetime non-drinker (finding) [facility] Start: 07-28-2023 End: 04-12-2024 History of Social function [facility] [employer] [facility] Start: 07-28-2023 End: 04-12-2024 Tobacco use panel [facility] [employer] s tem Start: 1985 Sex assigned at Not on file [facility] Start: 07-23-2024 End: 01-17-2025 Alcoholic beverage intake Current drinker of alcohol (finding) [facility] How hard is it for y ou to pay for the very basics like food, housing, medical care, and heating Not hard at all [facility] Start: 10-22-2023 Alcohol Comment Socially [facility] Start: 07-06-2015 End: 04-13-2025 Sex Female (finding) [facility] Tobacco smoking stat [facility] Unknown if ever smoked [facility] Work Phone: Medical Equipment Procedure Code Equipment Code Equipment Origin al Text Equipment Identifier Dates Surgical procedure, using tension free vaginal tape, for stress incontinence [facility] FDA Start: 04-01-2018 Clinical Notes 12-17-2023 to 04-11-2025 Leny Lutz - 04/11/2025 3:30 PM Sheri Scruggs LPN - 03/21/2025 3:50 PM EDBrenton Hill, DO - 02/03/2025 4:45 PM Henna Hill, DO - 01/17/2025 4:30 PM EST Note Date & Type Note Facility 04-11-2025 History of Presen t illness Narrative Reason for Appointment: Patient ID: Cass Riley is a 39 y.o. female who presents for EMBX and Pre-op Visit Patient presents today for Pre Op/Endometrial Biopsy appointment. Patient is scheduled to undergo Endometrial Ablation with Gabbie on 04-29-[address] Bryant at [facility]. MEDICATIONS Current Outpatient Medications Medication Instructions DULoxetine (CYMBALTA) 60 mg, Daily estrogens (conjugated) (PREMARIN) 0.625 mg, Oral, Daily, Take 1 tablet daily by mouth for 30 days phentermine (ADIPEX-P) 37.5 mg, Oral, Daily before breakfast Tbpqrxwn-Iis-Ym-FA ( 1 + IRON PO) propranolol LA [...] nursing note reviewed. Exam conducted with a cryptologic technician present. Vitals: Estimated body mass index is 33.66 kg/m as calculated from the following: Height as [...] reviewed, and patient is to proceed to [facility] OR. Follow Up: Patient is to follow up between 1-2 weeks post op to assess proper healing and recovery from procedure. Documented by Barbara Scruggs LPN on behalf of: Franklin Bryant DO documented in this encounter [facility] 03-21-2025 History of Presen t illness Narrative Reason for Appointment: Patient ID: Cass Riley is a 39 y.o. female who presents for Procedure (Pt present today to discuss a hysterectomy) Patient presents today for Consult appointment. MEDICATIONS Current Outpatient Medications Medication Instructions DULoxetine (CYMBALTA) 60 mg, Daily estrogens (conjugated) (PREMARIN) 0.625 mg, Oral, Daily, Take 1 tablet daily by mouth for 30 days phentermine (ADIPEX-P) 37.5 mg, Oral, Daily before breakfast Ibrxlcwz-Zwb-Py-FA ( 1 + IRON PO) propranolol LA [...] SYSTEMS Review of Systems: Review of Systems Genitourinary: Positive for menstrual problem. All other systems reviewed and are negative. OBJECTIVE Objective: Physical Exam Constitutional: Appearance: Normal appearance. She is well-developed. Cardiovascular: Rate and Rhythm: Normal rate and [...] nursing note reviewed. Exam conducted with a cryptologic technician present. Vitals: Estimated body mass index is 33.66 kg/m as calculated from the following: Height as of 04/12/24: 5' 3 . Weight as of this encounter: 190 lb. BP: 128/80 Patient's last menstrual period was 03/14/2025 (approximate). ASSESSMENT & PLAN ICD-10-CM 1. Encounter to discuss procedure Z71.89 POCT urinalysis dipstick manually resulted 2. Menorrhagia with regular cycle N92.0 Patient presents to office today to discuss possible surgical management for heavy cycles. Patient has had 1 and bilateral tubal ligation. Ordered labs and ultrasound for patient to have obtained. Discussed conservative vs surgical management and patient desires to have Endometrial Ablation performed. Patient to schedule pre-op/Endometrial biopsy. Documented by Barbara Scruggs LPN on behalf of: Franklin Bryant DO documented in this encounter [facility] 02-03-2025 History of Presen t illness Narrative IM PROGRESS NOTE Patient - Cass Riley Age - 39 [facility] 1985 [id number] ASSESSMENT & PLAN Video Visit via Real-time Synchronous Audiovisual Provider Location: [facility] INTER[facility]IC[facility] - FAMILY MEDICINE [address] [facility] [address] Patient Location: workplace Video Visit Consent Statement: I discussed risks, benefits, and alternatives of a real-time synchronous audiovisual consultation with the patient (and any accompanying persons) including the risks that the patient's personal health details and medical records will be discussed over real-time, synchronous, interactive video/audio/telecommunication technology, the visit will not be recorded without the express consent of both the provider and the patient, and that there are some limitations compared to [id number] evaluations. The patient consented to the presence of additional virtual and/or in-person participants. We elected to proceed. 1. Bipolar disorder, current episode mixed, mild (CMS-HCC) (Primary) -MDQ screening test today was positive for 5 of the questions in for section, yes to happening in the same. , these problems moderate problems, but has never been diagnosed with bipolar disorder. -I feel she would benefit from an evaluation by a mental health professional, and she is agreeable to this. -referral to [facility] today -in the meantime, continue Cymbalta 30 mg daily Subjective 39-year-old female presents for evaluation of possible bipolar disorder. Patient describes intermittent episodes of depression alternating with anxiety since she was a teenager. 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 -she feels that the symptoms have been worse over the past 1 year. Generally more depressive than anxious. -she is describing a lot of dreams dealing with for the past several months. -she denies any suicidal thoughts on her own. -she does report her paternal grandfather probably had bipolar disorder, and thinks that her father may have had similar symptoms. -currently is on Cymbalta 30 mg daily for her fibromyalgia. -she has never been formally diagnosed with bipolar disorder. A review of systems was negative except for the following: General: fatigue and weight gain Psychiatric: anxiety, concentration difficulties, and mood swings Musculoskeletal: Generalized myalgias. Exam There were no vitals taken for this visit. Physical Exam Constitutional: General: She is not in acute distress. Appearance: She is obese. She is not toxic-appearing. HENT: Head: Normocephalic. Eyes: General: No scleral icterus. Skin: Coloration: Skin is not jaundiced. Neurological: Mental Status: She is alert and oriented to person, place, and time. Psychiatric: Mood and Affect: Mood normal. Behavior: Behavior normal. Meds Current Outpatient Medications: baclofen (LIORESAL) 10 mg tablet, Take 1 tablet (10 mg total) by mouth in the morning and 1 tablet (10 mg total) before bedtime., Disp: 20 tablet, Rfl: 0 DULoxetine (CYMBALTA) 30 mg capsule, Take 1 capsule (30 mg total) by mouth in the morning., Disp: 90 capsule, Rfl: 1 meloxicam (MOBIC) 15 mg tablet, Take 1 tablet (15 mg total) by mouth in the morning., Disp: 20 tablet, Rfl: 0 ondansetron ODT (ZOFRAN ODT) 4 mg disintegrating tablet, Dissolve 1 tablet (4 mg total) on tongue 2 (two) times a day as needed for nausea or vomiting., Disp: 20 tablet, Rfl: 0 PNV,calcium 37-mgrc-yrngn acid (WESTAB PLUS) 27 mg iron- 1 mg tablet, Take 1 tablet by mouth in the morning., Disp: 90 tablet, Rfl: 0 PREMARIN 0.625 mg tablet, Take 1 tablet (0.625 mg total) by mouth., Disp: , Rfl: propranoloL (INDERAL) 40 mg tablet, TAKE 1 TABLET BY MOUTH TWICE DAILY IN THE MORNING and BEFORE bedtime, Disp: 60 tablet, Rfl: 1 rimegepant (NURTEC ODT) 75 mg tablet,disintegrating, Dissolve 75 mg on tongue daily as needed (breakthrough migraine)., Disp: 2 tablet, Rfl: 0 SUMAtriptan (IMITREX) 100 mg tablet, Take 1 tablet (100 mg total) by mouth in the morning and at bedtime., Disp: 9 tablet, Rfl: 1 Lab Results No visits with results within [...] Testing No results found. Hima Hill DO., [facility] Office: [phone] documented in this encounter [facility] 01-17-2025 History of Presen t illness Narrative IM PROGRESS NOTE Patient - Cass Riley Age - 39 y.o. - 1985 ASSESSMENT & PLAN 1. Strain of neck muscle, initial encounter (Primary) -cervical strain from unknown cause. -advised to continue using heat to the area -massage would also be helpful -start baclofen b.i.d. as needed -discontinue Motrin -start meloxicam 15 mg daily for the next week -if these changes do not make any improvement, will need trial of physical therapy to the neck - baclofen (LIORESAL) 10 mg tablet; Take 1 tablet (10 mg total) by mouth in the morning and 1 tablet (10 mg total) before bedtime. Dispense: 20 tablet; Refill: 0 - meloxicam (MOBIC) 15 mg tablet; Take 1 tablet (15 mg total) by mouth in the morning. Dispense: 20 tablet; Refill: 0 2. Intractable migraine without aura and without status migrainosus -I suspect there may be component of a secondary migraine triggered by her neck symptoms -has received relief with Nurtec in the past. Samples given today. -continue propanolol 40 mg b.i.d. - rimegepant (NURTEC ODT) 75 mg tablet,disintegrating; Dissolve 75 mg on tongue daily as needed (breakthrough migraine). Dispense: 2 tablet; Refill: 0 Subjective HEADACHE This is new problem. Headache described as achy, dull, and tightness Location is reported left-sided unilateral, parietal, nuchal When present, will last for 7-8 hours Headaches have been happening since a week ago Headaches symptoms: do not seem to be related to any time of the day Any new activities? no Any new diet changes? no Any new lifestyle changes? no Any new medications? no Headache can be improved by: High dose of Motrin temporarily, but the headache comes back. Has been taking Motrin 800 mg several times a day. Does have some component of her migraines, but has not taking the sumatriptan. Is taking propanolol 40 mg b.i.d. routinely. Headache can be worsened by: prolonged computer use and sleeping on her left side, turning her head when driving * Associated symptoms include: stiff neck, weakness, and unable to sleep A review of systems was negative except for the following: Neurological: headaches. Exam BP 138/78 (BP Site: Left Arm, BP Postition: Sitting, BP CUFF SIZE: M (9-13 inches)) Pulse 82 Temp 36.9 C (98.5 F) (Oral) Resp 18 Ht 162.6 cm (5' 4.02 ) Wt 88.5 kg (195 lb 3.2 oz) SpO2 99% BMI 33.49 kg/m Physical Exam Vitals reviewed. Constitutional: General: She is not in acute distress. Appearance: She is obese. She is not toxic-appearing. HENT: Head: Normocephalic. Right Ear: External ear normal. Left Ear: Tympanic membrane, ear canal and external ear normal. Nose: No congestion. Mouth/Throat: Mouth: Mucous membranes are moist. Comments: Attempted visualization of the posterior pharynx, but not enough light available on her phone to provide a good look. Eyes: General: No scleral icterus. Neck: Vascular: No carotid bruit. Comments: ROM: Left rotation 60 . Right rotation 45 . Flexion 20 . Extension 40 . Cardiovascular: Rate and Rhythm: Normal rate and regular rhythm. Pulses: Normal pulses. Heart sounds: No murmur heard. No gallop. Pulmonary: Effort: Pulmonary effort is normal. Breath sounds: No wheezing or rales. Abdominal: Palpations: Abdomen is soft. Musculoskeletal: Cervical back: Tenderness (Left paraspinal muscles C4-C7) present. Right lower leg: No edema. Left lower leg: No edema. Lymphadenopathy: Cervical: No cervical adenopathy. Skin: General: Skin is warm and dry. Coloration: Skin is not jaundiced. Findings: No bruising. Neurological: Mental Status: She is alert and oriented to person, place, and time. Sensory: No sensory deficit (No loss of pinprick sensation in the scalp or frontal region bilaterally.). Motor: No weakness. Coordination: Coordination normal. Psychiatric: Mood and Affect: Mood normal. Behavior: Behavior normal. Meds Current Outpatient Medications: DULoxetine (CYMBALTA) 30 mg capsule, Take 1 capsule (30 mg total) by mouth in the morning., Disp: 90 capsule, Rfl: 1 ondansetron ODT (ZOFRAN ODT) 4 mg disintegrating tablet, Dissolve 1 tablet (4 mg total) on tongue 2 (two) times a day as needed for nausea or vomiting., Disp: 20 tablet, Rfl: 0 PNV,calcium 58-bahg-zqviu acid (WESTAB PLUS) 27 mg iron- 1 mg tablet, Take 1 tablet by mouth in the morning., Disp: 90 tablet, Rfl: 0 PREMARIN 0.625 mg tablet, Take 1 tablet (0.625 mg total) by mouth., Disp: , Rfl: propranoloL (INDERAL) 40 mg tablet, TAKE 1 TABLET BY MOUTH TWICE DAILY (IN THE MORNING and before bedtime), Disp: 60 tablet, Rfl: 1 SUMAtriptan (IMITREX) 100 mg tablet, Take 1 tablet (100 mg total) by mouth in the morning and at bedtime., Disp: 9 tablet, Rfl: 1 baclofen (LIORESAL) 10 mg tablet, Take 1 tablet (10 mg total) by mouth in the morning and 1 tablet (10 mg total) before bedtime., Disp: 20 tablet, Rfl: 0 meloxicam (MOBIC) 15 mg tablet, Take 1 tablet (15 mg total) by mouth in the morning., Disp: 20 tablet, Rfl: 0 rimegepant (NURTEC ODT) 75 mg tablet,disintegrating, Dissolve 75 mg on tongue daily as needed (breakthrough migraine)., Disp: 2 tablet, Rfl: 0 Lab Results [...] Testing No results found. Hima Hill DO., [facility] Office: [phone] documented in this encounter [facility] 01-17-2025 Miscellaneous Notes ----- Message from Dr. Hima Hill DO sent at 07/23/2024 2:55 PM EDT ----- Weight recheck Sent mychart msg documented in this encounter [facility] 01-17-2025 Telephone encounter Note ----- Message from Dr. Hima Hill DO sent at 07/23/2024 2:55 PM EDT ----- Weight recheck [facility] 01-17-2025 Telephone encounter Note Sent mychart msg [facility] 12-27-2024 Miscellaneous Notes Patient called and wanted to know if she could get a work note for 12/22-12/24/24. It will need faxed on [phone] Message noted. A off work note is written and available in the chart. Off 12/22/2024-12/24/2024, RTW 12/25/2024. Faxed to her job documented in [facility] Telephone encounter Note Patient called and wanted to know if she could get a work note for 12/22-12/24/24. It will need faxed on [phone] [facility]27[facility]24 Telephone encounter Note Message noted. A off work note is written and available in the chart. Off 12/22/2024-12/24/2024, RTW 12/25/2024. [facility] 12-27-2024 Telephone encounter Note Faxed to her job [facility] 12-24-[facility]24 History of Presen t illness Narrative IM PROGRESS NOTE Patient - Cass Riley Age - 39 y.[facility]. [facility] 1985 [id number] ASSESSMENT & PLAN Video Visit via Real-time Synchronous Audiovisual Provider Location: [facility] INTER[facility] MEDIC[facility] - FAMILY MEDICINE [address] [facility] [address] Patient Location: Patient's home Video Visit Consent Statement: I discussed risks, benefits, and alternatives of a real-time synchronous audiovisual consultation with the patient (and any accompanying persons) including the risks that the patient's personal health details and medical records will be discussed over real-time, synchronous, interactive video/audio/telecommunication technology, the visit will not be recorded without the express consent of both the provider and the patient, and that there are some limitations compared to pazs-ak-hcrh evaluations. The patient consented to the presence of additional virtual and/or in-person participants. We elected to proceed. 1. Strep throat exposure (Primary) -since this was done virtually, unable to perform a throat culture -however, her S/S are consistent with strep throat, with a known exposure to same -start amoxicillin 875 mg b.i.d. for 7 days -symptom relief with brompheniramine-Sudafed p.r.n. - amoxicillin (AMOXIL) 875 mg tablet; Take 1 tablet (875 mg total) by mouth in the morning and 1 tablet (875 mg total) before bedtime. Do all this for 7 days. Dispense: 14 tablet; Refill: 0 - mghymjkmumwqfke-qkeqydyty-BE 2-30-10 mg/5 mL syrup; Take 5 mL by mouth 4 (four) times a day as needed for congestion. Dispense: 120 mL; Refill: 0 Subjective 39-year-old female presents for evaluation of upper respiratory symptoms. Approximately 5 days ago, developed a sore throat. Was slightly irritating but not limiting. The next day, she was supposed to return to work, but her sore throat had worsened, she was having severe hoarseness, and odynophagia. The left side of her throat was very tender to touch externally. -she has been very fatigued, only able to get out of bed to go to the bathroom and fix a meal, and has had to stay home from work for the last 3 days. -she has not been able to eat well. -she has had intermittent fevers, with 1 episode spiking as high as 103.0 F -she has now developed bilateral ear fullness and discomfort -she was exposed to strep throat (mother) last week -she has been using DayQuil and NyQuil routinely without any relief of her symptoms A review of systems was negative except for the following: General: fatigue, fever, and malaise ENT: headaches, nasal congestion, and sore throat. Exam There were no vitals taken for this visit. Physical Exam Constitutional: Appearance: She is obese. She is ill-appearing. She is not toxic-appearing. HENT: Head: Normocephalic. Eyes: General: No scleral icterus. Skin: Coloration: Skin is not jaundiced. Neurological: Mental Status: She is alert and oriented to person, place, and time. Psychiatric: Mood and Affect: Mood normal. Behavior: Behavior normal. Meds Current Outpatient Medications: amoxicillin (AMOXIL) 875 mg tablet, Take 1 tablet (875 mg total) by mouth in the morning and 1 tablet (875 mg total) before bedtime. Do all this for 7 days., Disp: 14 tablet, Rfl: 0 lpzzwkepypxlwbm-rkaiajgnz-NL 2-30-10 mg/5 mL syrup, Take 5 mL by mouth 4 (four) times a day as needed for congestion., Disp: 120 mL, Rfl: 0 DULoxetine (CYMBALTA) 30 mg capsule, Take 1 capsule (30 mg total) by mouth in the morning., Disp: 90 capsule, Rfl: 1 ondansetron ODT (ZOFRAN ODT) 4 mg disintegrating tablet, Dissolve 1 tablet (4 mg total) on tongue 2 (two) times a day as needed for nausea or vomiting., Disp: 20 tablet, Rfl: 0 propranoloL (INDERAL) 40 mg tablet, TAKE 1 TABLET BY MOUTH TWICE DAILY (IN THE MORNING and before bedtime), Disp: 60 tablet, Rfl: 1 rimegepant (NURTEC ODT) 75 mg tablet,disintegrating, Dissolve 75 mg on tongue daily as needed (breakthrough migraine)., Disp: 10 tablet, Rfl: 1 SUMAtriptan (IMITREX) 100 mg tablet, Take 1 tablet (100 mg total) by mouth in the morning and at bedtime., Disp: 9 tablet, Rfl: 1 WESTAB PLUS 27 mg iron- 1 mg tablet, take 1 tablet by mouth once daily, Disp: 90 tablet, Rfl: 0 Lab Results No visits [...] Testing No results found. Hima Hill DO., [facility] Office: [phone] documented in this encounter [facility] 12-13-2024 History of Presen t illness Narrative IM PROGRESS NOTE Patient - Cass Riley Age - 39 y.o. - 1985 N - [id number] [id number] ASSESSMENT & PLAN Video Visit via Real-time Synchronous Audiovisual Provider Location: [facility] INTER[facility]IC[facility] - FAMILY MEDICINE [address] [place] [address] Patient Location: Patient's home Video Visit Consent Statement: I discussed risks, benefits, and alternatives of a real-time synchronous audiovisual consultation with the patient (and any accompanying persons) including the risks that the patient's personal health details and medical records will be discussed over real-time, synchronous, interactive video/audio/telecommunication technology, the visit will not be recorded without the express consent of both the provider and the patient, and that there are some limitations compared to lrty-cn-anpt evaluations. The patient consented to the presence of additional virtual and/or in-person participants. We elected to proceed. 1. Intractable migraine without aura and without status migrainosus (Primary) -patient on prophylactic treatment for migraines with propanolol 40 mg b.i.d. this has decreased the frequency of migraines, but she is having some side effects -results of MRI showing white matter abnormalities was reviewed with the patient -gets incomplete or variable relief using sumatriptan -does get complete relief using CGRP radha -will give a trial of Nurtec 75 mg daily as needed for breakthrough migraines 2. Fibromyalgia -improved control with duloxetine -refill duloxetine today Subjective 39-year-old female presents for recheck on her migraine headaches. At last visit, was noted to be having worsening of her migraine headaches, despite ongoing use of sumatriptan. She was getting migraine headaches 3-4 times a week and at least 15 every month. -she was started on propanolol 40 mg twice daily, and did note a decrease in the headaches to 2-3 times per week. However, she has noticed increased fatigue and sleepiness since starting the propranolol. -she continued to have breakthrough headaches, and intermittently gets relief with sumatriptan -she had an MRI scan performed, which did show some white matter signal abnormalities seen in the setting of migrainous headaches. No evidence of NPH or Chiari malformations -she was given samples of Ubrelvy 100 mg, which she said immediately and completely resolved her breakthrough migraines. -unfortunately, her insurance company will not pay for the Ubrelvy. A review of systems was negative except for the following: Musculoskeletal: She has been diagnosed with fibromyalgia, and had been started on duloxetine for the chronic pain. She says this has worked extremely well. No longer having the chronic aches and pains. Neurological: Migraine headaches, as described above. Exam There were no vitals taken for this visit. Physical Exam Constitutional: General: She is not in acute distress. Appearance: She is obese. She is not toxic-appearing. Eyes: General: No scleral icterus. Skin: Coloration: Skin is not jaundiced. Neurological: Mental Status: She is alert and oriented to person, place, and time. Psychiatric: Mood and Affect: Mood normal. Behavior: [...] or vomiting., Disp: 20 tablet, Rfl: 0 propranoloL (INDERAL) 40 mg tablet, TAKE 1 TABLET BY MOUTH TWICE DAILY (IN THE MORNING and before bedtime), Disp: 60 tablet, Rfl: 1 SUMAtriptan (IMITREX) 100 mg tablet, Take 1 tablet (100 mg total) by mouth in the morning and at bedtime., Disp: 9 tablet, Rfl: 1 ubrogepant (UBRELVY) 100 mg tablet, Take 100 mg by mouth daily as needed (zMigraine)., Disp: 9 tablet, Rfl: 1 WESTAB PLUS 27 mg iron- 1 mg tablet, take 1 tablet by mouth once daily, Disp: 90 tablet, Rfl: 0 Lab Results No visits [...] Testing No results found. Hima Hill DO., [facility] Office: [phone] documented in this encounter [facility] 12-08-2024 History of Presen t illness Narrative Reason for Appointment: Patient ID: Cass Riley is a 39 y.o. female who presents for Breast Problem and encounter for weight management Patient presents today for Acute Visit. MEDICATIONS Current Outpatient Medications Medication Instructions DULoxetine (CYMBALTA) 60 mg, Daily estrogens (conjugated) (PREMARIN) 0.625 mg, Oral, Daily, Take 1 tablet daily by mouth for 30 days phentermine (ADIPEX-P) 37.5 mg, Oral, Daily before breakfast Xnhxehuy-Hde-Al-FA ( 1 + IRON PO) propranolol LA [...] SYSTEMS Review of Systems: Review of Systems All other systems reviewed and are negative. OBJECTIVE Objective: Physical Exam Constitutional: Appearance: Normal appearance. She is well-developed. Cardiovascular: Rate and Rhythm: Normal rate and [...] nursing note reviewed. Exam conducted with a cryptologic technician present. Vitals: Estimated body mass index is 35.07 kg/m as calculated from the following: Height as of 04/12/24: 5' 3 . Weight as of this encounter: 198 lb. BP: 128/80 Patient's last menstrual period was 12/08/2024. ASSESSMENT & PLAN ICD-10-CM 1. Encounter for weight management Z76.89 phentermine (Adipex-P) 37.5 MG tablet 2. Breast lump on left side at 9 o'clock position N63.25 Left breast US complete 3 cm from nipple Patient presents today for Breast lump on Left Side. Patient encouraged to stay away from Caffeine, We will order Ultrasound at this time. Patient to use Aspercream to area. Patient presents today for initial Adipex prescription. The importance of keeping a food journal, proper nutrition/diet, and exercise regimen while taking Adipex has been discussed. Patient verbalized understanding and signed consents to initiate (Adipex) medication therapy. Patient was given a printed prescription signed by provider to take to their local pharmacy. Follow Up: Patient is to return to the office in 1 month for further evaluation to assess patient progress. Weight and blood pressure will need to be captured in order for patient to receive 2nd prescription. Documented by Bell Kramer LPN on behalf of: THERESE Pa documented in this encounter [facility] 10-13-2024 Miscellaneous Notes Patient called they can't get her in until November 02 for her MRI she wanted to know if that was okay Message noted. Yes Message noted. Yes Patient notified documented in this encounter [facility] 10-13-2024 Telephone encounter Note Patient called they can't get her in until November 02 for her MRI she wanted to know if that was okay [facility] 10-13-2024 Telephone encounter Note Message noted. Yes [facility] 10-13-2024 Telephone encounter Note Patient notified [facility] 10-12-2024 History of Presen t illness Narrative IM PROGRESS NOTE Patient - Cass Riley Age - 39 y.o. - 1985 ASSESSMENT & PLAN 1. Intractable migraine without [...] Testing No results found. Hima Hill DO., [facility] Office: [phone] documented in this encounter [facility] 08-20-2024 Miscellaneous Notes Start by decreasing the bupropion to 150 mg every other day. After one week you will start Duloxetine 30 mg daily, and then stop the bupropion. Spoke with pt. Pt verbalizes understanding. documented in this encounter [facility] 08-20-2024 Telephone encounter Note Start by decreasing the bupropion to 150 mg every other day. After one week you will start Duloxetine 30 mg daily, and then stop the bupropion. Spoke with pt. Pt verbalizes understanding. [facility] 07-23-2024 History of Presen t illness Narrative IM PROGRESS NOTE Patient - Cass Riley Age - 39 y.o. - 1985 ASSESSMENT & PLAN Patient presented to office today for Annual Adult Wellness Visit. Education was provided on healthy nutrition, including a diet rich in fruits and vegetables, minimizing simple carbohydrates, salt, and saturated fats. Encouraged regular cardiovascular exercise such as walking at least 30 minutes daily, 5 times per week - goal. Emphasized preventive health measures reduce health risks and promote healthy living. Goal for pt. is to achieve healthy BMI of 25 or under to reduce risk of developing diabetes and cardiovascular diseases. 1. Abnormal wellness exam -health maintenance activity specific for a 39-year-old female were discussed. 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 -will need to start having mammograms in the next several years. 2. Migraine without aura and without status migrainosus, not intractable -episodes are less frequent -continue Imitrex 100 mg daily as needed - Erythrocyte Sedimentation Rate (ESR); Future 3. Impaired fasting glucose -fasting blood sugars range 86-103 mg/dL -repeat fasting blood sugar - Comprehensive metabolic panel; Future 4. Class 1 obesity with serious comorbidity and body mass index (BMI) of 33.0 to 33.9 in adult, unspecified obesity type -has had some weight gain over past several months -currently on Wellbutrin 150 mg daily to help with weight loss in addition to high-protein, worsen restricted diet -recheck TSH. - TSH with Reflex; Future 5. Iron deficiency anemia, unspecified iron deficiency anemia type -will evaluate blood count as cause of her fatigue - CBC auto differential; Future 6. B12 deficiency -currently on B12 supplementation -repeat B12 levels - Vitamin B12; Future 7. Obsessive-compulsive disorder, unspecified type -currently she feels she is having anxiety, but her symptoms are suspicious for OCD -I advised her that Wellbutrin may not be the best choice for treating OCD -referral to Mental Health counselor for evaluation of her symptoms, and possibly psychiatric evaluation of medication choices - Ambulatory referral to Mental Health Counselor (Non[facility]); Future Subjective 39-year-old female presents for annual wellness check. 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 She does have several old and new issues to discuss today: -migraine headaches have been stable or improved since not having to work. She noticed that the lights in the pharmacy were triggering many of her headaches. Has not had any in the last 2 weeks. Generally is controlled with sumatriptan when present. -has regained some of the previously lost weight. Currently trying to follow a high-protein, plant based diet. Not currently on any medications for weight loss per se, but is still taking Wellbutrin. -she feels the Wellbutrin has helped with her appetite, and has helped with some of her depression, but still having episodes of anxiety . She describes this as not being able to rest or sleep, or even go out with her children or friends until she gets everything done that is on her mental list. She will go over this mental list in her mind even when she is trying to sleep. This is been an ongoing problem, but seems to be worsening. -she describes generalized aching all over . Her neck, shoulders hips and legs feels stiff and the muscles ache when she wakes up in the morning. This will improve somewhat with activity but never really goes away. Gets partial, minimal relief with some Tylenol or Motrin. This has been gradually worsening over the past 6-8 months. Has never had this in the past. She does have a history of at least 3 or 4 COVID infections over the past 4 years. A review of systems was negative except for the following: General: fatigue and weight gain Psychiatric: anxiety, concentration difficulties, and obsessive thoughts Musculoskeletal: joint stiffness, muscle pain, and muscular weakness Neurological: headaches and are improving. Exam BP 130/80 (BP Site: Left Arm, BP Postition: Sitting) Pulse 81 Temp 36.9 C (98.5 F) (Oral) Resp 18 Ht 162.6 cm (5' 4 ) Wt 84.1 kg (185 lb 6.4 oz) SpO2 99% BMI 31.82 kg/m Physical Exam Vitals reviewed. Constitutional: General: [...] No edema. Left lower leg: No edema. Comments: Bilateral trigger points noted in the lower cervical area, bilateral upper border of the trapezius, bilateral medial border of trapezius/scapuli, and tip of the scapuli, as well as across the bilateral iliac crest, extending down to the greater trochanter bilaterally Skin: General: Skin is warm and dry. [...] mouth daily with breakfast., Disp: , Rfl: buPROPion XL (WELLBUTRIN XL) 150 mg 24 hr tablet, take 1 tablet by mouth once daily, Disp: 90 tablet, Rfl: 0 cyanocobalamin 1000 MCG tablet, take 1 tablet by mouth every morning, Disp: 90 tablet, Rfl: 0 PREMARIN vaginal cream, Insert 0.5 g into the vagina 2 (two) times a week., Disp: , Rfl: SUMAtriptan (IMITREX) 100 mg tablet, take 1 tablet by mouth twice a day if needed, Disp: 9 tablet, Rfl: 0 WESTAB PLUS 27 mg iron- 1 mg tablet, take 1 tablet by mouth once daily, Disp: 90 tablet, Rfl: 0 Lab Results No visits with results within 1 Month(s) from this visit. Latest known visit with results is: Admission on 10/22/2023, Discharged on 10/22/2023 Component Date Value Ref Range Status Nursing urine 10/22/2023 Negative Negative^Negative Final Other Testing No results found. Hima Hill DO., [facility] Office: [phone] documented in this encounter [facility] [employer] [facility] 06-16-2024 Miscellaneous Notes [facility] [address] [employer] [address] [address] Phone: Population Health Adherence Outreach Name: Cass Riley Medication: Trulicity 0.75 mg/0.5 mL Prescribing Provider: Hima Hill Jr, DO Proportion of Days Covered (PDC): 0.63 Per pharmacy dispense report, last filled on 06/07/24 for a 28 days supply Contacted patient as part of the [facility] & Population Health program for medication adherence with Trulicity . This was my first attempt to reach the patient and a message was left on their voicemail requesting a callback. Belkis Menezes RPH Clinical Pharmacist, [facility] Phone: documented in this encounter [facility] [employer] [facility] 06-16-2024 Telephone encounter Note [facility] [address] [address] Phone: Population Health Adherence Outreach Name: Cass Riley Medication: Trulicity 0.75 mg/0.5 mL Prescribing Provider: Hima Hill Jr, DO Proportion of Days Covered (PDC): 0.63 Per pharmacy dispense report, last filled on 06/07/24 for a 28 days supply Contacted patient as part of the [facility] & Population Health program for medication adherence with Trulicity . This was my first attempt to reach the patient and a message was left on their voicemail requesting a callback. Belkis Menezes RPH Clinical Pharmacist, [facility]formation [facility] Work Phone: 06-02-2024 Miscellaneous Notes Care Coordination Outreach performed to coordinate overdue appointments, testing, and/or follow-up care: Yes Audit/Outreach Date: June 02, 2024 Reason: Well Person Method: Telephone and MyChart Outreach Attempt: First Outcome: Left Message and Letter sent Next PCP Appointment: N/A Tests/Referrals Pended: N/A Resources/Education Provided: Additional Comments: Unable to reach patient by telephone to schedule appointment. Letter sent. documented in this encounter [facility] 06-02-2024 Telephone encounter Note Care Coordination Outreach performed to coordinate overdue appointments, testing, and/or follow-up care: Yes Audit/Outreach Date: June 02, 2024 Reason: Well Person Method: Telephone and MyChart Outreach Attempt: First Outcome: Left Message and Letter sent Next PCP Appointment: N/A Tests/Referrals Pended: N/A Resources/Education Provided: Additional Comments: Unable to reach patient by telephone to schedule appointment. Letter sent. [facility] 03-02-2024 Miscellaneous Notes ----- Message from Hima Hill DO sent at 12/17/2023 5:51 PM EST ----- Weight recheck Patient declined scheduling at this time. Message noted. documented in this encounter [facility] 03-02-2024 Telephone encounter Note ----- Message from Hima Hill DO sent at 12/17/2023 5:51 PM EST ----- Weight recheck [facility] 03-02-2024 Telephone encounter Note Patient declined scheduling at this time. [facility] 03-02-2024 Telephone encounter Note Message noted. [facility] 12-17-2023 History of Presen t illness Narrative [...] weight gain. She describes it as sharp, [place] pain in her right temporal region accompanied [...] Testing No results found. Hima Hill DO., [facility] Office: [phone] documented in this encounter [facility] Evaluation note No assessment inform ation available [facility] Work Phone: Evaluation note Diagnosis Encounter for weight management Breast lump on left side at 9 o'clock position Lump or mass in breast documented in this encounter [facility]* Diagnosis Intractable migraine without aura and without status migrainosus- Primary Fibromyalgia Unspecified myalgia and myositis [facility] Diagnosis Strep throat exposure- Primary [facility] Diagnosis Essential hypertension Unspecified essential hypertension Migraine without aura and without status migrainosus, not intractable Fibromyalgia Unspecified myalgia and myositis Strep throat exposure [facility] Diagnosis Migraine without aura and without status migrainosus, not intractable [facility] Diagnosis Migraine without aura and without status migrainosus, not intractable [facility]* Diagnosis Class 1 obesity with serious comorbidity and body mass index (BMI) of 33.0 to 33.9 in adult, unspecified obesity type Depression, unspecified depression type Essential hypertension Unspecified essential hypertension [facility] Diagnosis Obesity with body mass index 30 or greater- Primary Migraine without aura and without status migrainosus, not intractable [facility] Diagnosis Obesity with body mass index 30 or greater [facility] Diagnosis Migraine without aura and without status migrainosus, not intractable Essential hypertension Unspecified essential hypertension Class 1 obesity with serious comorbidity and body mass index (BMI) of 33.0 to 33.9 in adult, unspecified obesity type Depression, unspecified depression type [facility] Diagnosis Essential hypertension Unspecified essential hypertension [facility] Diagnosis Depression, unspecified depression type [facility] Diagnosis Abnormal wellness exam- Primary Migraine without aura and without status migrainosus, not intractable Impaired fasting glucose Class 1 obesity with serious comorbidity and body mass index (BMI) of 33.0 to 33.9 in adult, unspecified obesity type Iron deficiency anemia, unspecified iron deficiency anemia type B12 deficiency Obsessive-compulsive disorder, unspecified type [facility] Diagnosis Intractable migraine without aura and without status migrainosus- Primary [facility] Diagnosis Fibromyalgia Unspecified myalgia and myositis Migraine without aura and without status migrainosus, not intractable [facility] Diagnosis Intractable migraine without aura and without status migrainosus [facility] Diagnosis Strain of neck muscle, initial encounter- Primary Intractable migraine without aura and without status migrainosus [facility] Diagnosis Migraine without aura and without status migrainosus, not intractable [facility] Diagnosis Intractable migraine without aura and without status migrainosus [facility] Diagnosis Bipolar disorder, current episode mixed, mild ([facility])- Primary [facility] Diagnosis Strain of neck muscle, initial encounter Migraine without aura and without status migrainosus, not intractable [facility] Diagnosis Encounter to discuss procedure Menorrhagia with regular cycle documented in this encounter [facility]* Diagnosis Preop examination Unspecified pre-operative examination Menorrhagia with regular cycle Abnormal uterine bleeding (AUB) Pelvic pain documented in this encounter [facility] HealthcareInstructionsNot on filedocumented in this encounterProMedica Health SystemInstructionsNot on filedocumented in this encounterProMedica Health SystemInstructionsNot on filedocumented in this encounterProMedica Health SystemInstructionsNot on filedocumented in this encounterProMedica [facility] InstructionsNot on filedocumented in this encounterPro[facility]ica [facility] InstructionsNot on filedocumented in this encounterPro[facility] InstructionsNot on filedocumented in this encounterPro[facility] InstructionsNot on filedocumented in this encounterPro[facility] InstructionsNot on filedocumented in this encounterProMedica [facility] InstructionsNot on filedocumented in this encounterProMedica Health [facility] InstructionsNot on filedocumented in this encounterProMedica Health [facility] InstructionsNot on filedocumented in this encounterProMedica Health [facility] InstructionsNot on filedocumented in this encounterProMedica Health [facility] InstructionsNot on filedocumented in this encounterProMedica Health [facility] InstructionsNot on filedocumented in this encounterProMedica Health System InstructionsNot on filedocumented in this encounterProMedica Health SystemReason for referral (narrative)* Consultation (Routine) - Pending Review Specialty Diagnoses / Procedures Referred By Geovanna wheat Referred To Contact Diagnoses Obsessive-compulsive disorder, unspecified type Hima Hill DO [address] [place] [address] [facility] & [address] [address] Referral ID Status Reason Start Date Expiration Date V isits Requested Visits Authorized [id number] Pending Review 07/23/2024 07/23/2025 4 4 [facility] Summary Purpose Family History No Family History Records Found Relationship Condition Age at Onset Recorded Date/T rivera Not Specified Diabetes mellitus Unknown Hypertension Unknown Advance Directives No Advanced Directives Records Found Advance Directive Response Recorded Date/ Time Advance Directives No July 21, 2023 4:30pm Advance Directive Response Recorded Date/ Time Advance Directives No April 01, 2018 5:33am Chief Complaint and Reason for Visit Chief Complaint meds [phone], o k per Hannah Chief Complaint Admit Date Unknown April 11, 2025 3:39p m Additional Source Comments INFORMATION SOURCE (unrecogn ized section and content) DATE CREATED AUTHOR 05/22/2018 [facility] DATE CREATED AUTHOR AUTHOR'S ORGANIZ ATION 09/30/2021 [facility] DATE CREATED AUTHOR AUTHOR'S ORGANIZ ATION 03/16/2023 [facility] DATE CREATED AUTHOR AUTHOR'S ORGANIZ ATION 07/26/2023 [facility] DATE CREATED AUTHOR AUTHOR'S ORGANIZ ATION 07/25/2024 [facility] DATE CREATED AUTHOR AUTHOR'S ORGANIZ ATION 11/03/2024 [facility] DATE CREATED AUTHOR AUTHOR'S ORGANIZ ATION 02/06/2025 [facility] DATE CREATED AUTHOR AUTHOR'S ORGANIZ ATION 04/12/2025 [facility] DATE CREATED AUTHOR AUTHOR'S ORGANIZ ATION 04/16/2025 [facility] Goals (unrecognized section and content) Goals may [...] this encounterNot on filedocumented as of this encounterGoals may be documented in an alternate section Care Teams (unrecognized sec tion and content) Coordinator Cardiopulmonary Services Relationship Specialty Start Date End Date Hima Hill MD [address] [place] [address] PCP - General Internal Medicine 04/12/24 Coordinator Cardiopulmonary Services Relationship Specialty Start Date End Date Hima Hill MD [address] [place] [address] PCP - General Internal Medicine 04/12/24 Coordinator Cardiopulmonary Services Relationship Specialty Start Date End Date Hima Hill DO [address] [place] [address] PCP - General Internal Medicine 10/09/22 Coordinator Cardiopulmonary Services Relationship Specialty Start Date End Date Hima Hill DO [address] [place] [address] PCP - General Internal Medicine 10/09/22 Coordinator Cardiopulmonary Services Relationship Specialty Start Date End Date Hima Hill DO [address] [place] [address] PCP - General Internal Medicine 10/09/22 Coordinator Cardiopulmonary Services Relationship Specialty Start Date End Date Hima Hill DO [address] [place] [address] PCP - General Internal Medicine 10/09/22 Coordinator Cardiopulmonary Services Relationship Specialty Start Date End Date Hima Hill DO [address] [place] [address] PCP - General Internal Medicine 10/09/22 Coordinator Cardiopulmonary Services Relationship Specialty Start Date End Date Hima Hill DO [address] [place] [address] PCP - General Internal Medicine 10/09/22 Coordinator Cardiopulmonary Services Relationship Specialty Start Date End Date Hima Hill DO [address] [place] [address] PCP - General Internal Medicine 10/09/22 Coordinator Cardiopulmonary Services Relationship Specialty Start Date End Date Hima Hill DO [address] [place] [address] PCP - General Internal Medicine 10/09/22 Coordinator Cardiopulmonary Services Relationship Specialty Start Date End Date Hima Hill DO [address] [place] [address] PCP - General Internal Medicine 10/09/22 Coordinator Cardiopulmonary Services Relationship Specialty Start Date End Date Hima Hill DO [address] [facility] [place] [address] PCP - General Internal Medicine 10/09/22 Coordinator Cardiopulmonary Services Relationship Specialty Start Date End Date Hima Hill DO [address] [facility] [place] [address] PCP - General Internal Medicine 10/09/22 Coordinator Cardiopulmonary Services Relationship Specialty Start Date End Date Hima Hill DO [address] [facility] [place] [address] PCP - General Internal Medicine 10/09/22 Coordinator Cardiopulmonary Services Relationship Specialty Start Date End Date Hima Hill DO [address] [facility] [address] PCP - General Internal Medicine 10/09/22 Coordinator Cardiopulmonary Services Relationship Specialty Start Date End Date Hima Hill DO [address] [facility] [place] [place] [address] PCP - General Internal Medicine 10/09/22 Coordinator Cardiopulmonary Services Relationship Specialty Start Date End Date Hima Hill DO [address] [facility] [place] [address] PCP - General Internal Medicine 10/09/22 Coordinator Cardiopulmonary Services Relationship Specialty Start Date End Date Hima Hill DO [address] [facility] [place] [address] PCP - General Internal Medicine 10/09/22 Coordinator Cardiopulmonary Services Relationship Specialty Start Date End Date Hima Hill DO [address] [facility] [place] [address] PCP - General Internal Medicine 10/09/22 Coordinator Cardiopulmonary Services Relationship Specialty Start Date End Date Hima Hill DO [address] [place] [address] PCP - General Internal Medicine 10/09/22 Coordinator Cardiopulmonary Services Relationship Specialty Start Date End Date Hima Hill DO [address] [place] [address] PCP - General Internal Medicine 10/09/22 Coordinator Cardiopulmonary Services Relationship Specialty Start Date End Date Hima Hill MD PCP - General Internal Medicine 04/12/24 Coordinator Cardiopulmonary Services Relationship Specialty Start Date End Date Hima Hill MD PCP - General Internal Medicine 04/12/24 Coordinator Cardiopulmonary Services Relationship Specialty Start Date End Date Hima Hill MD PCP - General Internal Medicine 04/12/24 Coordinator Cardiopulmonary Services Relationship Specialty Start Date End Date Hima Hill MD PCP - General Internal Medicine 04/12/24 Team Status: Inactive Member Role Status Dates Franklin Bryant DO Attending Provider Active Start : April 11, 2025 End: April 11, 2025 Reason for Visit (unrecogniz ed section and content) Reason Comments Breast Problem encounter for weight management Reason Onset Date Comments Med Refill 12/30/2024 Reason Comments Med Refill Reason Comments Hypertension Bp check,Headaches Hypothyroidism Weight Loss Reason Onset Date Comments Appointment Due 06/02/2024 Reason Comments Annual Exam Reason Comments Migraine Symptoms. X1 week. Reason Onset Date Comments Med Refill 10/18/2024 Reason Comments Neck Pain 9 days- pain scale - 7 Reason Onset Date Comments Med Refill 01/20/2025 Reason Onset Date Comments Med Refill 02/18/2025 Reason Comments Procedure Pt present today to discuss a hysterectomy Reason Comments EMBX Pre-op Visit FOR RECORDS PERTAINING TO PATIENTS WHO ARE [...] BE BASED ON THE PRIMARY CLINICAL RECORDS. [employer] provides no warranty or guarantee of the accuracy or completeness of information in this document.
== END 2025-04-20 13:59 | disposition home or self-care (01) ==
LOC: PST 13:59
PROVIDERS: PCP Internal Medicine; Visit Provider Obstetrics & Gynecology
DX: Z01.810 Encounter for preprocedural cardiovascular examination (principal); N92.0 Excessive and frequent menstruation with regular cycle; N93.9 Abnormal uterine and vaginal bleeding, unspecified; R10.2 Pelvic and perineal pain
CPT/HCPCS: 93005

== ENCOUNTER 2025-04-29 08:13 | Day surgery (SDC) | payer OTHER, SELFPAY ==
[2025-04-20 14:20] VITALS: BP 142/94; PULSE 74; TEMP 36.3; O2SAT 100; BMI 33.0
[2025-04-29] VITALS (7 sets, daily range): BP systolic 149–185; BP diastolic 92–118; PULSE 71–104; TEMP 36–36.2; O2SAT 96–99; BMI 33.0
[2025-04-29 08:21] LABS: Basophils Absolute Auto 0.1 10^3/uL (0.0-0.1); Basophils Percent Auto 1.1 % (0.2-2.0); Eosinophils Absolute Auto 0.1 10^3/uL (0.0-0.7); Eosinophils Percent Auto 1.7 % (0.9-7.0); Hematocrit 37.1 % (36.0-48.0); Hemoglobin 12.6 g/dL (12.0-16.0); Immature Granulocytes Abs Auto 0.03 10^3/uL (0.00-0.03); Immature Granulocytes Pct Auto 0.4 % (0.0-0.5); Lymphocytes Absolute Auto 1.8 10^3/uL (1.2-3.8); Lymphocytes Percent Auto 21.6 % (20.5-60.0); Mean Corpuscular Hemoglobin 30.6 pg (26.7-34.0); Mean Platelet Volume 9.8 fL (9.5-13.5); Monocytes Absolute Auto 0.4 10^3/uL (0.3-0.8); Monocytes Percent Auto 5.3 % (1.7-12.0); Neutrophils Absolute Auto 5.8 10^3/uL (1.4-6.5); Neutrophils Percent Auto 69.9 % (43.0-75.0); Platelet Count 300 10^3/uL (150-450); Red Blood Count 4.12 10^6/uL (4.20-5.40); Red Cell Distribution Width 12.5 % (11.0-15.0); White Blood Count 8.3 10^3/uL (4.0-11.0)
--- OUTSIDE RECORDS SUMMARY | 2025-04-29 08:29 | XMS_ITS | CCD ---
Author Organization [facility] CliniSynd Care Team Providers Care Life Educator Name Role Phone Rice, Michael W Unavailable Unavailable Rice, Michael W Unavailable Unavailable Rice, Michael W Unavailable Unavailable KOFFIBENNIES, HIMA~[phone] UNKNOWN Unavailable U navailable HANNAH ., DR CAMPBELL Admitting Unavailabl e KARASIK ., DR CAMPBELL Attending Unavailabl e MISC, DR CERRATO Primary Care Unavailable KARASIK ., DR CAMPBELL Consulting Unavailabl e KARASIK ., DR CAMPBELL Admitting Unavailabl e KARASIK ., DR CAMPBELL Attending Unavailabl e MISC, DR CERRATO Primary Care Unavailable KARASIK ., DR CAMPBELL Consulting Unavailabl e Real [employer] Consulting Unavailable MD Shannan Young Attending Provider [phone] Shannan Young Attending Unavailable Shannan Young Attending Unavailable HIMA HILL Referring Unavailable GHAZALS, HIMA Santos Primary Care Unavailable HIMA HILL Attending Unavailable GHAZALSHIMA Referring Unavailable GHAZALSHIMA Primary Care Unavailable Hima Hill MD Primary Care Provider Hima Hill DO Primary Care Provider [phone] HIMA HILL Attending Unavailable YUHAS, HIMA L [...] HIMA HILL Attending Unavailable GHAZALSHIMA Referring Unavailable SERGIO, HIMA Santos Primary Care Unavailable HIMA HILL Attending Unavailable HIMA HILL Referring Unavailable YUHAS, HIMA L Primary Care Unavailable Hima Hill MD Primary Care Provider Hima Hill DO Primary Care Provider FRANKLIN BRYANT Attending Unavailable FRANKLIN BRYANT Attending Unavailable EVELYN VIZCAINO Attending Unavailable [place] Bryant DO Attending Provider [phone] [place] Bryant Attending Unavailable [place] Bryant Admitting Unavailable Allergies Allergy Classification Reported Allergen(s) Allergy Type Date of Onset Reaction(s) Facility (1 source) No Known Medication Allergies; Translations: [No Known Medication Allergies] Propensity to adverse reactions (disorder) [facility] Repository Medications Current Medications Medication Drug Class(es) [...] 12/31/2024 Active baclofen 10 mg oral tablet (11 sources) gamma-Aminobutyric Acid-ergic Agonist Start: 01-17-2025 End: [...] not crush or chew. Active estrogens, conjugated (assisted) 0.625 mg oral tablet (20 sources) Estrogen Start: 04-26-2025 take 1 tablet by mouth once daily Premarin 0.625 MG tablet Indications: Hormone imbalance TAKE 1 TABLET BY MOUTH EVERY DAY 30 tablet 3 04/26/2025 Active Start: 04-08-2024 End: 04-08-2025 take 1 tablet [...] WEEK July 21, 2023 12:00am ferrous sulfate (4 sources) Start: 12-30-2024 take 1 tablet by [...] (Reorder) phentermine hydrochloride 37.5 mg oral tablet (13 sources) Sympathomimetic Amine Anorectic Start: 04-12-2024 End: 01-07-2025 take 1 tablet by mouth before mealtime phentermine (Adipex-P) 37.5 MG tablet Indications: Encounter for weight management Take 1 tablet (37.5 mg) by mouth in the morning. Take before meals. 30 tablet 12/08/2024 Active Pnv,Calcium 37-Krwf-Osgcj Acid (Westab Plus) 27 mg iron- 1 mg tablet (1 source) Start: 07-21-2023 take 1 tablet by mouth once daily Pnv,Calcium 33-Sybb-Pjowo Acid (Westab Plus) 27 mg iron- 1 mg tablet Active TAB ORAL DAILY July 21, 2023 12:00am PNV,calcium 64-kpex-ytvbo acid (WESTAB PLUS) 27 mg iron- 1 mg tablet (8 sources) Start: 12-30-2024 take 1 tablet by mouth in the morning PNV,calcium 19-siyw-bmrjb acid (WESTAB PLUS) 27 mg iron- 1 mg tablet Indications: Essential hypertension Take 1 tablet by mouth in the morning. 90 tablet 12/30/2024 Active 27-1 MG tablet (4 sources) Start: 03-25-2025 take 1 tablet by mouth once daily 27-1 MG tablet Take 1 tablet by mouth Daily 03/25/2025 Active Fatffjmy-Qlk-Oq-FA ( 1 + IRON PO) (12 sources) Xwylykif-Fli-Ey-F A ( 1 + IRON PO) Active [...] Active rimegepant 75 mg disintegrating oral tablet (15 sources) Start: 12-13-2024 End: 01-17-2025 take 1 [...] oral solution (4 sources) alpha-Adrenergic Agonist, Uncompetitive K-ydxorw-Q-aspartate Receptor Antagonist, Sigma-1 Agonist Start: 12-24-2024 End: 01-17-2025 take 5 mL by mouth four times daily as needed for congestion udgfplkvliauyiq-byzlqjwui-YO 2-30-10 mg/5 mL syrup Indications: Strep throat [...] 04/21/2024 07/23/2024 Discontinued (Therapy completed) lactobacillus acidophilus [id number] unt / pectin 10 mg oral capsule [...] Test Name Value Interpretation Reference Range Facility ALL CBC WITH AUTO DIFFon BASOPHILS ABSOLUTE AUTO 0.1 [facility] Basophils/100 WBC (Bld) 1.1 % 0.2 - 2.0 % [facility] Eosinophils/100 WBC (Bld) 1.7 % 0.9 - 7.0 % [facility] Erythrocyte distribution width (RBC) [Ratio] 12.5 % 11.0 - 15.0 % [facility] Hematocrit (Bld) [Volume fraction] 37.1 % 36.0 - 48.0 % [facility] Hemoglobin (Bld) [Mass/Vol] 12.6 g/dL 12.0 - 16.0 g/dL [facility] IMMATURE GRANULOCYTES ABS AUTO 0.03 [facility] Immature granulocytes/100 WBC (Bld) 0.4 % 0.0 - 0.5 % [facility] Interpretation and review of laboratory results Abnormal [facility] LYMPHOCYTES ABSOLUTE AUTO 1.8 [facility] Lymphocytes/100 WBC (Bld) 21.6 % 20.5 - 60.0 % [facility] MCH (RBC) [Entitic mass] 30.6 pg 26.7 - 34.0 pg [facility] MCHC (RBC) [Mass/Vol] 34 g/dL 29.9 - 35.2 g/dL [facility] MCV (RBC) [Entitic vol] 90 fL 81.0 - 99.0 fL [facility] MONOCYTES ABSOLUTE AUTO 0.4 [facility] Monocytes/100 WBC (Bld) 5.3 % 1.7 - 12.0 % [facility] NEUTROPHILS ABSOLUTE AUTO 5.8 [facility] Neutrophils/100 WBC (Bld) 69.9 % 43.0 - 75.0 % [facility] Platelet mean volume (Bld) [Entitic vol] 9.8 fL 9.5 - 13.5 [facility]L [facility] PLT 300 [facility] RBC 4.12 Low [facility] WBC 8.3 [facility] ECG 12-LEADon 04-20-2025 [place] [address] Electrocardiograph Report Signed Patient: CASS RILEY MR#: [id number] : 1985 Acct:[id number] Age/Sex: 39 / F ADM Date: 04/20/25 Loc: [facility] Attending Dr: [place] Bryant D.O. Ordering Physician: [place] Bryant D.O. 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 Measurements Intervals [place] Rate: 67 P: 35 MA: 171 QRS: 40 QRSD: 89 T: 40 QT: 397 QTc: 420 Interpretive Statements SINUS RHYTHM Normal ECG Compared to ECG 10/09/2023 07:48:21 No significant changes Electronically Signed On 04-20-2025 21:45:34 EDT by DELMY NUNEZ M.D. Dictated By: DELMY NUNEZ Signed By: 04/20/25 DD/ 1422 TD/TT: High School Academic Coach: [facility] Radiology, Radiologist, MD - 04/20/2025 [place] [address] Electrocardiograph Report Signed Patient: CASS RILEY MR#: [id number] : 1985 Acct:[id number] Age/Sex: 39 / F ADM Date: 04/20/25 Loc: [facility] Attending Dr: [place] Bryant D.O. Ordering Physician: [place] Bryant D.O. 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 Measurements Intervals [place] Rate: 67 P: 35 MA: 171 QRS: 40 QRSD: 89 T: 40 QT: 397 QTc: 420 Interpretive Statements SINUS RHYTHM Normal ECG Compared to ECG 10/09/2023 07:48:21 No significant changes Electronically Signed On 04-20-2025 21:45:34 EDT by DELMY NUNEZ M.D. Dictated By: DELMY NUNEZ Signed By: 04/20/256 DD/ 1422 TD/TT: High School Academic Coach: [facility] Radiology Study observation (narrative) [facility] ECG 12-LEADOrdered By: Radio logist Radiology on 04-20-2025 [facility] Work Phone: PATHOLOGY REQUEST FOR LAB CO RPon 04-15-2025 PATHOLOGY REQUEST FOR LAB UJLIANN [facility] Comment on above: See report. Scanned copy available in EMR. [facility] HCG ( test) Ql (U)o n 04-11-2025 Interpretation and review of laboratory results Normal [facility] Preg Test, Ur Negative Negative [facility] Pathology Request for Lab Co rpon 04-11-2025 Pathology Request for Lab Juliann Normal [facility] Comment on above: Order Comment: [facility] Result Comment: See report. Scanned copy available in EMR. PERFORMED BY: [place] [address] PATHOLOGIST OBSTETRICS SPECIALIST RENA HARRY M.D. Performed By: #### P ATH TO [facility] #### [address] Urinalysis macro (dipstick) panel (U)Ordered By: Cammy Uribe on 04-11-2025 Bilirubin, UA Negative Negative - 4(70) +++ mg/dL [facility] Blood, UA Negative Negative - 50 Ananth/mcL [facility] Clarity, UA Clear [facility] Color, UA Yellow [facility] Glucose, UA Negative Negative - 1999(110) ++++ mg/dL [facility] Interpretation and review of laboratory results Normal [facility] Ketones, UA Positive Negative - 160(16) ++++ mg/dL [facility] Comment on above: trace Leukocytes, UA Negative Negative - 500+++ Avis/mcL [facility] Nitrite, UA Negative Negative - Positive [facility] pH, UA 5.5 5 - 9 [facility] Protein, UA Trace Negative - 1999(20) ++++ mg/dL [facility] Spec Grav, UA 1.03 1 - 1.03 [facility] Urobilinogen, UA 0.2 0.2 - 12 mg/dL [facility] ALL CBC WITH AUTO DIFFon BASOPHILS ABSOLUTE AUTO 0.1 [facility] Basophils/100 WBC (Bld) 0.7 % 0.2 - 2.0 % [facility] Eosinophils/100 WBC (Bld) 1.3 % 0.9 - 7.0 % [facility] Erythrocyte distribution width (RBC) [Ratio] 12 % 11.0 - 15.0 % [facility] Hematocrit (Bld) [Volume fraction] 36.6 % 36.0 - 48.0 % [facility] Hemoglobin (Bld) [Mass/Vol] 12.5 g/dL 12.0 - 16.0 g/dL [facility] IMMATURE GRANULOCYTES ABS AUTO 0.01 [facility] Immature granulocytes/100 WBC (Bld) 0.1 % 0.0 - 0.5 % [facility] Interpretation and review of laboratory results Abnormal [facility] LYMPHOCYTES ABSOLUTE AUTO 2 [facility] Lymphocytes/100 WBC (Bld) 23.2 % 20.5 - 60.0 % [facility] MCH (RBC) [Entitic mass] 29.9 pg 26.7 - 34.0 pg [facility] MCHC (RBC) [Mass/Vol] 34.2 g/dL 29.9 - 35.2 g/dL [facility] MCV (RBC) [Entitic vol] 87.6 fL 81.0 - 99.0 fL [facility] MONOCYTES ABSOLUTE AUTO 0.5 [facility] Monocytes/100 WBC (Bld) 6.4 % 1.7 - 12.0 % [facility] NEUTROPHILS ABSOLUTE AUTO 5.8 [facility] Neutrophils/100 WBC (Bld) 68.3 % 43.0 - 75.0 % [facility] Platelet mean volume (Bld) [Entitic vol] 10 fL 9.5 - 13.5 fL [facility] TBH EO # 0.1 [facility] TB PLT 350 [facility] RBC 4.18 Low [facility] WBC 8.5 [facility] US PELVIS TRANSVAGINALon The [address] [address] Ultrasound Report Signed Patient: CASS RILEY MR#: [id number] : 1985 Acct:[id number] Age/Sex: 39 / F ADM Date: 03/25/25 Loc: US Attending Dr: [place] Bryant D.O. Ordering Physician: [place] Bryant D.O. Date of Service: 03/25/25 Procedure(s): US pelvis transvaginal Accession Number(s): [id number] cc: [place] Bryant D.O.; HIMA HILL [place] [address] Patient Name: CASS RILEY MRN: [facility]:[id number] date: 1985 Sex: F Assigned Patient Location: [place] Current Patient Location: [place] Accession/Order Number: [id number] Exam Date: 03/25/2025 15:09 Report Date: 03/25/2025 [...] Jr., D.O. 03/25/2025 3:11 PM Dictation Location: [place] [address] Electronically authenticated by: [id number] Y Date: 03/25/2025 15:11 Dictated By: Brandon Montez M.D. Signed By: 03/25/25 1514 DD/ 1511 TD/TT: High School Academic Coach: [facility] Radiology, Radiologist, MD - 03/25/2025 [facility] [address] [place] [address] Ultrasound Report Signed Patient: CASS RILEY MR#: [id number] : 1985 Acct:[id number] Age/Sex: 39 / F ADM Date: 03/25/25 Loc: [place] Attending Dr: [place] Bryant D.O. Ordering Physician: [place] Bryant D.O. Date of Service: 03/25/25 Procedure(s): US pelvis transvaginal Accession Number(s): [id number] cc: [place] Bryant D.O.; HIMA HILL [place] [address] Patient Name: CASS RILEY MRN: [id number] date: 1985 Sex: F Assigned Patient Location: [place] Current Patient Location: [place] Accession/Order Number: [id number] Exam Date: 03/25/2025 15:09 Report Date: 03/25/2025 [...] Jr., D.O. 03/25/2025 3:11 PM Dictation Location: [place] [address] Electronically authenticated by: [id number] Y Date: 03/25/2025 15:11 Dictated By: Brandon Montez M.D. Signed By: 03/25/25 1514 DD/ 151 TD/TT: High School Academic Coach: [facility] Radiology Study observation (narrative) [facility] US PELVIS TRANSVAGINALOrdere d By: Radiologist Radiology on 03-25-2025 [facility] Work Phone: Urinalysis macro (dipstick) panel (U)on 03-21-2025 Bilirubin, UA Negative Negative - 4(70) +++ mg/dL [facility] Blood, UA Negative Negative - 50 Ananth/mcL [facility] Clarity, UA Clear [facility] Color, UA Yellow [facility] Glucose, UA Negative Negative - 2000(110) ++++ mg/dL [facility] Interpretation and review of laboratory results Normal [facility] Ketones, UA Negative Negative - 160(16) ++++ mg/dL [facility] Leukocytes, UA Negative Negative - 500+++ Avis/mcL [facility] Nitrite, UA Negative Negative - Positive [facility] pH, UA 7 5 - 9 [facility] Protein, UA Negative Negative - 2000(20) ++++ mg/dL [facility] Spec Grav, UA 1.02 1 - 1.03 [facility] Urobilinogen, UA 1.0 0.2 - 12 mg/dL [facility] MR BRAIN WO CONTon MR BRAIN WO [...] Brandon Queen MD on 11/02/2024 8:25 AM I, Tomer Guido MD have personally reviewed the image(s) and agree with and/or edited the report Finalized by Tomer Guido MD on 11/02/2024 12:57 PM Normal [facility] CBC AND AUTO DIFFon 07-23-20 ABSOLUTE BASOPHIL 0.1 X10E9/L Normal 0.0-0.2 [facility] Comment on above: Performed By: #### C BCA, CMP, TSHR, 2132-08, 84210-3 #### [facility] ([id number]) [address], [address] [place] [address] ABSOLUTE NEUTROPHIL 4.7 X10E9/L Normal 1.5-6.6 [facility] Comment on above: Performed By: #### C BCA, CMP, TSHR, 2132-08, 57616-5 #### [facility] ([id number]) [address], [address] [place] [address] Basophils/100 WBC (Bld) 1.0 % Normal [facility] Comment on above: Performed By: #### C BCA, CMP, TSHR, 2132-08, 07493-4 #### [facility] ([id number]) [address], [address] [place] [address] Eosinophils (Bld) [#/Vol] 0.1 10*3/uL Normal 0.0-0.4 [facility] Comment on above: Performed By: #### C BCA, CMP, TSHR, 2132-08, 04628-3 #### [facility] ([id number]) [address], [address] [place] [address] Eosinophils/100 WBC (Bld) 1.8 % Normal [facility] Comment on above: Performed By: #### C BCA, CMP, TSHR, 2132-08, 48281-6 #### [facility] ([id number]) [address] [address] [place] [address] Erythrocyte distribution width (RBC) [Ratio] 12.8 % Normal 11.5-15.0 [facility] Comment on above: Performed By: #### C BCA, CMP, TSHR, 2132-08, 09092-6 #### [facility] ([id number]) [address], [address] [place] [address] Hematocrit (Bld) [Volume fraction] 36.0 % Normal 35-47 [facility] Comment on above: Performed By: #### C BCA, CMP, TSHR, 2132-08, 00392-8 #### [facility] ([id number]) [address] [address] [place] [address] Hemoglobin (Bld) [Mass/Vol] 12.4 g/dL Normal 11.7-15.5 [facility] Comment on above: Performed By: #### C BCA, CMP, TSHR, 2132-08, 93854-2 #### [facility] ([id number]) [address] [address] [place] [address] Lymphocytes (Bld) [#/Vol] 1.7 10*3/uL Normal 1.0-3.5 [facility] Comment on above: Performed By: #### C BCA, CMP, TSHR, 2132-08, 55893-8 #### [facility] ([id number]) [address] [address] [place] [address] Lymphocytes/100 WBC (Bld) 24.6 % Normal [facility] Comment on above: Performed By: #### C BCA, CMP, TSHR, 2132-08, 38045-8 #### [facility] ([id number]) [address] [address] [place] [address] MCH (RBC) [Entitic mass] 30.0 pg Normal 27-34 [facility] Comment on above: Performed By: #### C BCA, CMP, TSHR, 2132-08, 59328-3 #### [facility] ([id number]) [address] [address] [place] [address] MCHC (RBC) [Mass/Vol] 34.5 g/dL Normal 32-36 [facility] Comment on above: Performed By: #### C BCA, CMP, TSHR, 2132-08, 21808-1 #### [facility] ([id number]) [address] [facility] [address] [place] [address] MCV (RBC) [Entitic vol] 87 fL Normal 80-100 P [facility] Comment on above: Performed By: #### C BCA, CMP, TSHR, 2132-08, 20370-2 #### [facility] ([id number]) [address] [address] [place] [address] Monocytes (Bld) [#/Vol] 0.3 10*3/uL Normal 0-0.9 [facility] Comment on above: Performed By: #### C BCA, CMP, TSHR, 2132-08, 40959-0 #### [facility] ([id number]) [address] [facility] [address] [place] [address] Monocytes/100 WBC (Bld) 4.8 % Normal P [facility] Comment on above: Performed By: #### C BCA, CMP, TSHR, 2132-08, 84399-5 #### [facility] ([id number]) [address] [address] [place] [address] Neutrophils/100 WBC (Bld) 67.8 % Normal [facility] Comment on above: Performed By: #### C BCA, CMP, TSHR, 2132-08, 62552-0 #### [facility] ([id number]) [address] [address] [place] [address] Platelet mean volume (Bld) [Entitic vol] 8.8 fL Normal 7-12 [facility] Comment on above: Performed By: #### C BCA, CMP, TSHR, 2132-08, 20063-4 #### [facility] ([id number]) [address] [address] Platelets (Bld) [#/Vol] 298 10*3/uL Normal 150-450 [facility] Comment on above: Performed By: #### C BCA, CMP, TSHR, 2132-08, 97465-3 #### [facility] ([id number]) [address] [address] [place] [address] RBC COUNT 4.13 X10E12/L Normal 3.80-5.20 [facility] Comment on above: Performed By: #### C BCA, CMP, TSHR, 2132-08, 10368-6 #### [facility] ([id number]) [address] [address] WBC (Bld) [#/Vol] 7.0 10*3/uL Normal 4.0-11.0 [facility] Comment on above: Performed By: #### C BCA, CMP, TSHR, 2132-08, 49330-2 #### [facility] ([id number]) [address] [address] [place] [address] COMPREHENSIVE METABOLIC PANE Ignacio 07-23-2024 Albumin [Mass/Vol] 4.2 g/dL Normal 3.2-5.3 [facility] Comment on above: Performed By: #### C BCA, CMP, TSHR, 2132-08, 59082-4 #### [facility] ([id number]) [address] [place] [address] ALP [Catalytic activity/Vol] 50 U/L Normal 39-130 [facility] Comment on above: Performed By: #### C BCA, CMP, TSHR, 2132-08, 67793-3 #### [facility] ([id number]) [address], [address] [place] [address] ALT [Catalytic activity/Vol] 18 U/L Normal 0-31 [facility] Comment on above: Performed By: #### C BCA, CMP, TSHR, 2132-08, 19659-6 #### [facility] ([id number]) [address] [place] [address] Anion gap [Moles/Vol] 7 mmol/L Normal 5-15 [facility] Comment on above: Performed By: #### C BCA, CMP, TSHR, 2132-08, 15159-1 #### [facility] ([id number]) [address] [place] [address] AST [Catalytic activity/Vol] 23 U/L Normal 0-41 [facility] Comment on above: Performed By: #### C BCA, CMP, TSHR, 2132-08, 96375-7 #### [facility] ([id number]) [address] [place] [address] Bilirubin [Mass/Vol] 0.5 mg/dL Normal 0.3-1.2 [facility] Comment on above: Performed By: #### C BCA, CMP, TSHR, 2132-08, 28355-8 #### [facility] ([id number]) [address] [place] [address] Calcium [Mass/Vol] 9.1 mg/dL Normal 8.5-10.5 [facility] Comment on above: Performed By: #### C BCA, CMP, TSHR, 2132-08, 19372-2 #### [facility] ([id number]) [address] [place] [address] Chloride [Moles/Vol] 101 mmol/L Normal 98-109 [facility] Comment on above: Performed By: #### C BCA, CMP, TSHR, 2132-08, 42928-4 #### [facility] ([id number]) [address] [place] [address] CO2 [Moles/Vol] 30 mmol/L Normal 22-32 [facility] Comment on above: Performed By: #### C BCA, CMP, TSHR, 2132-08, 37537-4 #### [facility] ([id number]) [address] [place] [address] Creatinine [Mass/Vol] 0.60 mg/dL Normal 0.40-1.00 [facility] Comment on above: Result Comment: METH OD TRACEABLE TO IDMS STANDARD Performed By: #### C BCA, CMP, TSHR, 2132-08, 41317-0 #### [facility] ([id number]) [address] [place] [address] eGFR (CKD-EPI) NON-RACE DEPENDENT >90 Normal >59 [facility] [facility] Comment on above: Result Comment: Reported eGFR is based on the CKD-EPI 2020 equation that does not use a race coefficient. Performed By: #### C BCA, CMP, TSHR, 2132-08, 92538-3 #### [facility] ([id number]) [address], [address] [place] [address] Glucose [Mass/Vol] 91 mg/dL Normal 65-99 [facility] Comment on above: Performed By: #### C BCA, CMP, TSHR, 2132-08, 32083-9 #### [facility] ([id number]) [address], [address] [place] [address] Potassium [Moles/Vol] 4.1 mmol/L Normal 3.5-5.0 [facility] Comment on above: Performed By: #### C BCA, CMP, TSHR, 2132-08, 70349-3 #### [facility] ([id number]) [address], [address] [place] [address] Protein [Mass/Vol] 6.9 g/dL Normal 6.0-8.0 [facility] Comment on above: Performed By: #### C BCA, CMP, TSHR, 2132-08, 46751-8 #### [facility] ([id number]) [address], [facility] [address] [place] [address] Sodium [Moles/Vol] 138 mmol/L Normal 134-146 [facility] Comment on above: Performed By: #### C BCA, CMP, TSHR, 2132-08, 64711-0 #### [facility] ([id number]) [address], [address] [address] Urea nitrogen [Mass/Vol] 11 mg/dL Normal 5-23 [facility] Comment on above: Performed By: #### C BCA, CMP, TSHR, 2132-08, 48088-4 #### [facility] ([id number]) [address], [address] [address] ESR Photometric method (Bld) [Velocity]on 07-23-2024 ESR, ERYTHROCYTE SEDIMENTATION RATE 8 mm/h Normal 0-20 [facility] Comment on above: Performed By: #### C BCA, CMP, TSHR, 77223-1 #### [facility] ([id number]) [address], [address] [address] TSH WITH REFLEXon 07-23-2024 TSH 2.06 uIU/mL Normal 0.49-4.67 [facility] Comment on above: Performed By: #### C BCA, CMP, TSHR, 2132-08, 53861-1 #### [facility] ([id number]) [address] [facility], [address] [place] [address] VITAMIN B12on 07-23-2024 Cobalamin (Vitamin B12) [Mass/Vol] 916 pg/mL High 180-914 [facility] Comment on above: Performed By: #### C BCA, CMP, TSHR, 2132-08, 74335-9 #### [facility] ([id number]) [address] [facility], [address] [place] [address] Virtual Visiton 07-21-2023 Virtual Visit [facility] [address] [place] [address] Virtual Visit Signed Patient: Cass Riley MR#: [id number] : 1985 Acct: [id number] Age/Sex: 38 / F Loc: OB.AV Date of Service: 07/21/[address]: Shannan Young M.D. cc: Intake Intake Visit Reasons: meds [phone], ok per Hannah Step Finisher Required: No Allergies No Known Allergies Allergy (Verified 07/21/23 16:27) Medications - Last Reconciled 07/21/23 by Rosa Isela Wright bupropion HCl mg ORAL AM chlorthalidone mg ORAL DAILY PNV,calcium 86-only-zdctp acid 27 mg iron- 1 mg (WesTab Plus) tabs ORAL DAILY Patient : No Post menopausal: No History History 5 Elective abortions 0 Para 4 Spontaneous abortions 1 Hx # Term Pregnancies 4 Ectopic pregnancies 0 Hx # Pregnancies 0 Multiple births 0 PFSH Medical History (Updated 07/21/23 @ 16:29 by [facility]) Anxiety Depression Hypertension Surgical History (Updated 07/21/23 @ 16:29 by [facility]) History of section Hx of tonsillectomy Family History (Updated 07/21/23 @ 16:30 by [facility]) Other Diabetes Hypertension Social History (Updated 07/21/23 @ 16:30 by [facility]) Advance Directives: No Would like to be referred to Case Preparer And Liner for info?: No Smoking Status: Never smoker [...] Yes Questionnaire C-SSRS (Primary Care) The [facility] Review of Systems [facility] Eyes Reports no additional complaints ENT [...] of vagina Coding Level of Care Code 42163 New Patient Level 2 Diagnoses Vaginal dryness N89.8 Dictated By: Shannan Young M.D. Signed By: 07/22/23 1241 Normal [facility] PAP ACOG PANEL 2: 30 to 65on 03-12-2023 . . Normal [facility] Comment on above: Result Comment: Perf ormed at: WB Performed By: #### 4 [id number] #### [facility] [address] [address] [address] Marcia Beverly Age Gdln ACOG Testing 30-65 Normal [facility] Comment on above: Performed By: #### 4 [id number] #### [facility] [address] [address] [address] Marcia Beverly DIAGNOSIS: Comment Normal [facility] Comment on above: Result Comment: NEGA TIVE FOR INTRAEPITHELIAL LESION OR MALIGNANCY. Performed at: WB Performed By: #### 4 [id number] #### [facility] [address] [address] [address] Marcia Beverly HPV Aptima Negative Normal Negative [facility] Comment on above: Result Comment: This nucleic acid amplification test detects fourteen high-risk HPV types (16,18,31,33,35,39,45,51,52,56,58,59,66,68) without differentiation. Performed at: =G Performed By: #### 4 [id number] #### [facility] [address] [address] [address] Marcia Beverly HPV Genotype Reflex Comment Normal [facility] Comment on above: Result Comment: Crit eria not met, HPV Genotype not performed. Performed at: WB Performed By: #### 4 [id number] #### [facility] [address] [place] [address] Dr. Marcia Beverly Methodology: Comment Normal [facility] Comment on above: Result Comment: This liquid based ThinPrep(R) pap test was screened with the use of an image guided system. Performed at: WB Performed By: #### 4 [id number] #### [facility] [address] [place] [address] Dr. Marcia Beverly Note: Comment Normal [facility] Comment on above: Result Comment: The Pap smear is a screening test designed to aid in the detection of premalignant and malignant conditions of the uterine cervix. It is not a diagnostic procedure and should not be used as the sole means of detecting cervical cancer. Both false-positive and false-negative reports do occur. . Performed at: WB Performed By: #### 4 [id number] #### [facility] [address] [place] [address] Dr. Marcia Beveryl Performed by: Comment Normal [facility] Comment on above: Result Comment: Elke Covington, Raised Printer (ASCP) Performed at: WB Performed By: #### 4 [id number] #### [facility] [address] [place] [address] Dr. Marcia Beverly Specimen adequacy: Comment Normal [facility] Comment on above: Result Comment: Sati sfactory for evaluation. Endocervical and/or squamous metaplastic cells (endocervical component) are present. Performed at: WB Performed By: #### 4 [id number] #### [facility] [address] [place] [address] Dr. Marcia Beverly MG MAMM DIAGNOSTIC 3D SUBHASH CA Don 03-07-2023 MG MAMM DIAGNOSTIC 3D SUBHASH CAD Patient: CASS RILEY Exam Date: 03/07/2023 : 1985 Gender:F Ordering : DR SHANNAN YOUNG . Admission #: [id number] Family : Order #: [id number] CLICK HERE TO VIEW EXAM RADIOLOGY REPORT PROCEDURE: MAMMOGRAM DIAGNOSTIC 3D BILATERAL CAD, 03/07/2023, 07:14 ULTRASOUND BREAST BILATERAL LIMITED, 03/07/2023, 07:56 COMPARISON: None. INDICATIONS: Screening mammography Calculator Name NCI Breast Cancer Risk Assessment Tool 5 Year Breast Cancer Risk 0.40% Lifetime Breast Cancer Risk 9.20% Personal Breast Cancer No Personal Ovarian Cancer No Treatments None Family Cancers None LOCATION: [facility] BREAST COMPOSITION: Scattered areas fibroglandular density. [...] Hendrix M.D. on 03/07/2023 at 09:06 Normal [facility] US BREAST SUBHASH LIMITEDon 04-0 US BREAST SUBHASH LIMITED Patient: CASS RILEY Exam Date: 03/07/2023 : 1985 Gender:F Ordering : DR SHANNAN YOUNG . Admission #: [id number] Family : Order #: [id number] CLICK HERE TO VIEW EXAM RADIOLOGY REPORT PROCEDURE: MAMMOGRAM DIAGNOSTIC 3D BILATERAL CAD, 03/07/2023, 07:14 ULTRASOUND BREAST BILATERAL LIMITED, 03/07/2023, 07:56 COMPARISON: None. INDICATIONS: Screening mammography Calculator Name NCI Breast Cancer Risk Assessment Tool 5 Year Breast Cancer Risk 0.40% Lifetime Breast Cancer Risk 9.20% Personal Breast Cancer No Personal Ovarian Cancer No Treatments None Family Cancers None LOCATION: [facility] BREAST COMPOSITION: Scattered areas fibroglandular density. [...] Hendrix M.D. on 03/07/2023 at 09:06 Normal [facility] BASIC METABOLIC PANELon 07-01 BUN/CREATININE RATIO NOT APPLICABLE Normal 6-22 [facility] Comment on above: Performed By: #### 1 0165, 22897, 07946 #### [facility] [address] [address] Gambling Supervisor: Bruno Watts MD Calcium [Mass/Vol] 9.0 mg/dL Normal 8.6-10.2 [facility] Comment on above: Performed By: #### 1 0165, 58867, 59767 #### [facility] [address] [place] [address] Gambling Supervisor: Bruno Watts MD Chloride [Moles/Vol] 101 mmol/L Normal 98-110 [facility] Comment on above: Performed By: #### 1 0165, 72052, 05521 #### [facility] [address] [place] [address] Gambling Supervisor: Bruno Watts MD CO2 [Moles/Vol] 30 mmol/L Normal 20-32 [facility] Comment on above: Performed By: #### 1 0165, 03137, 93261 #### [facility] [address] [place] [address] Gambling Supervisor: Bruno Watts MD Creatinine [Mass/Vol] 0.67 mg/dL Normal 0.50-1.[address] [facility] Comment on above: Performed By: #### 1 0165, 64205, 43985 #### [facility] [address] [address] Gambling Supervisor: Bruno Watts MD eGFR NON-AFR. CITIZEN OF [place] 113 mL/min/1.73m2 Normal > OR = 60 [facility] Comment on above: Performed By: #### 1 0165, 27020, 49700 #### [facility] [place] [address] Gambling Supervisor: Bruno Watts MD GFR/1.73 sq M.predicted among blacks MDRD (S/P/Bld) [Vol rate/Area] 131 mL/min/{1.73_m2} Normal > OR = 60 [facility] Comment on above: Performed By: #### 1 0165, 52787, 98401 #### [facility] [address] [place] [address] Gambling Supervisor: Bruno Watts MD Glucose [Mass/Vol] 127 mg/dL High 65-99 [facility] Comment on above: Result Comment: Fasting reference interval For someone without known diabetes, a glucose value >125 mg/dL indicates that they may have diabetes and this should be confirmed with a follow-up test. Performed By: #### 1 0165, 24984, 76825 #### [facility] [address] [place] [address] Gambling Supervisor: Bruno Watts MD Potassium [Moles/Vol] 3.7 mmol/L Normal 3.5-5.3 [facility] Comment on above: Performed By: #### 1 0165, 45133, 45042 #### [facility] [address] [place] [address] Gambling Supervisor: Bruno Watts MD Sodium [Moles/Vol] 139 mmol/L Normal 135-146 [facility] Comment on above: Performed By: #### 1 0165, 05971, 03528 #### [facility] [address] [place] [address] Gambling Supervisor: Bruno Watts MD Urea nitrogen [Mass/Vol] 14 mg/dL Normal 7-25 [facility] Comment on above: Performed By: #### 1 0165, 21628, 16792 #### [facility] of [address], [address] [place] [address] Gambling Supervisor: Bruno Watts MD PATIENT ID APPROVAL TIQ DOCU MENTNARESHon 07-14-2021 COMMENT Normal [facility] Comment on above: Result Comment: Iden tification of test requisition and/or specimen(s) was questionable. The below named individual provided this revised patient identification. Performed By: #### 1 0165, 04917, 37922 #### [facility] of [address], [address] [place] [address] Gambling Supervisor: Bruno Watts MD CONTACT ZARA Roche Normal [facility] Comment on above: Performed By: #### 1 0165, 71590, 06723 #### [facility] of [address], [address] [place] [address] Gambling Supervisor: Bruno Watts MD TESTS AFFECTED [id number] Normal [facility] Comment on above: Performed By: #### 1 0165, 86291, 60540 #### [facility] of [address], [address] [place] [address] Gambling Supervisor: Bruno Watts MD TSH+FREE T4on 07-14-2021 Free T4 [Mass/Vol] 0.9 ng/dL Normal 0.8-1.8 [facility] Comment on above: Result Comment: TEST NOT PERFORMED An identification discrepancy exists between the requisition and the specimen. Performed By: #### 1 0165, 02391, 73507 #### [facility] of [address], [address] [place] [address] Gambling Supervisor: Bruno Watts MD TSH Qn 0.92 m[IU]/L Normal [facility] Comment on above: Result Comment: Refe rence Range > or = 20 Years 0.40-4.50 Ranges First trimester 0.26-2.66 Second trimester 0.55-2.73 Third trimester 0.43-2.91 Performed By: #### 1 0165, 22902, 87240 #### [facility] of [facility] [address], [address] [place] [address] Gambling Supervisor: Bruno Watts MD Coding Summary.on 02-11-2018 Coding Summary. CODING DATE: 02/11/2018 FINAL [facility] STATUS: Home (Routine DC) PAYOR: [...] Sandoval Date Saved: 02/11/2018 10:31 am Normal [facility] Main OR Intraoperative Recor don 02-05-2018 Main OR Intraoperative Record IntraOp Document Type FTURO Summary Primary Physician: Owen Alexandre Jr., MD Finalized Date/Time: 02/05/18 14:30:20 Pt. Name: CASS RILEY D.O.B./Sex: 1985 Female Med Rec #: [id number] Physician: Owen Alexandre Jr., MD Financial #: [id number] Pt. Type: O Room/Bed: / Admit/Disch: 02/05/18 13:58:13 - Institution: Case Times FTURO Entry 1 Patient Times In Room 02/05/18 14:22:00 Out Room 02/05/18 14:31:00 Procedure Times Start 02/05/18 14:23:00 Stop 02/05/18 14:26:00 Anesthesia Times Last Modified By: Yoel RAI, Maru GARCIA 02/05/18 14:27:00 Case Attendance FTURO Entry 1 Entry 2 Entry 3 Case Attendee Yoel RAI, SHAUNAOR, Adriel [facility], Owen Kumari Jr., MD Role Performed Retort Unloader - Primary Scrub - Primary Surgeon - [...] RAI, SHAUNAOR, Verified (If Participants Adriel Mahoney CST, Applicable) Baldomero Wiley Jr., MD, Donald L [...] RADHA Diallo RN, Ruthann 02/05/18 14:30 Normal [facility] Main OR Preoperative Recordo n 02-05-2018 Main OR Preoperative Record Holding Area Document Type FTURO Summary Primary Physician: Owen Alexandre Jr., MD Finalized Date/Time: 02/05/18 14:24:03 Pt. Name: CASS RILEY/Sex: 1985 Female Med Rec #: [id number] Physician: Owen Alexandre Jr., MD Financial #: [id number] Pt. Type: O Room/Bed: / Admit/Disch: 02/05/18 [...] of Pain: No Comment: Skin Integrity Intact, [place], Warm, & Dry Vitals - EU Blood Pressure 153/98 Pulse 88 bpm Respirations 16 br/min SPO2 RN Reviewed Yes Last Modified By: RADHA Diallo RN, Ruthann 02/05/18 14:23:59 Finalized By: RADHA Diallo RN, Ruthann Document Signatures Signed By: Gordondavid [place] 02/05/18 14:18 RADHA Diallo RN, Ruthann 02/05/18 14:24 Normal [facility] Operative Reporton Operative Report Patient: CASS RILEY [...] arrangements for TVT mid urethral sling.. Normal [facility] Comment on above: Result Comment: Elec tronically Signed By: Owen Alexandre Jr., MD\.br\Date and Time Signed: 02/05/18 14:32 EST Vital Signs Date Time Vital Sign Value Performing Clinician Facility 04-11-2025 15:46-0400 Body mass index (BMI) [Ratio] 32.77 kg/m2 Franklin Manny DO Work Phone: [facility] 04-11-2025 15:46-0400 Body weight 83.92 kg Franklin Manny DO Work Phone: [facility] 04-11-2025 15:46-0400 Diastolic blood pressure 76 mm[Hg] Franklin Manny DO Work Phone: [facility] 04-11-2025 15:46-0400 Systolic blood pressure 122 mm[Hg] Franklin Manny DO Work Phone: [facility] 03-21-2025 16:02-0400 Body mass index (BMI) [Ratio] 33.66 kg/m2 Franklin Manny DO Work Phone: [facility] 03-21-2025 16:02-0400 Body weight 86.18 kg Franklin Manny DO Work Phone: [facility] 03-21-2025 16:02-0400 Diastolic blood pressure 80 mm[Hg] Franklin Manny DO Work Phone: [facility] 03-21-2025 16:02-0400 Systolic blood pressure 128 mm[Hg] Franklin Manny DO Work Phone: [facility] 01-17-2025 16:31-0500 Body height 162.6 cm Hima Chapmanelen DO Work Phone: [facility] 01-17-2025 16:31-0500 Body mass index (BMI) [Ratio] 33.49 kg/m2 Hima Hill DO Work Phone: [facility] 01-17-2025 16:31-0500 Body temperature 98.49 [degF] Hima Hill DO Work Phone: [facility] 01-17-2025 16:31-0500 Body weight 88.54 kg Hima Chapmans DO Work Phone: [facility] [employer] [facility] 01-17-2025 16:31-0500 Diastolic blood pressure 78 mm[Hg] Hima Chapmans DO Work Phone: [facility] [employer] [facility] 01-17-2025 16:31-0500 Heart rate 82 /min Hima Chapmans DO Work Phone: [facility] [employer] [facility] 01-17-2025 16:31-0500 Respiratory rate 18 /min Hima Chapmans DO Work Phone: [facility] 01-17-2025 16:31-0500 SaO2% (BldA) [Mass fraction] 99 % Hima Chapmans DO Work Phone: [facility] 01-17-2025 16:31-0500 Systolic blood pressure 138 mm[Hg] Hima Chapmans DO Work Phone: [facility] 12-08-2024 16:48-0500 Body mass index (BMI) [Ratio] 35.07 kg/m2 Evelyn SAELH Work Phone: [facility] 12-08-2024 16:48-0500 Body weight 89.81 kg Evelyn Vizcaino PA Work Phone: [facility] 12-08-2024 16:48-0500 Diastolic blood pressure 80 mm[Hg] Evelyn Vizcaino PA Work Phone: [facility] 12-08-2024 16:48-0500 Systolic blood pressure 128 mm[Hg] Evelyn Vizcaino PA Work Phone: [facility] 10-12-2024 17:18-0500 Diastolic blood pressure 98 mm[Hg] Hima Chapmans DO Work Phone: [facility] 10-12-2024 17:18-0500 Systolic blood pressure 150 mm[Hg] Hima Chapmans DO Work Phone: [facility] 10-12-2024 16:41-0500 Body mass index (BMI) [Ratio] 31.45 kg/m2 Hima Yuhas DO Work Phone: [facility] 10-12-2024 16:41-0500 Body temperature 98.2 [degF] Hima Chapmans DO Work Phone: [facility] [employer] [facility] 10-12-2024 16:41-0500 Body weight 83.1 kg Hima Chapmans DO Work Phone: [facility] [employer] [facility] 10-12-2024 16:41-0500 Heart rate 96 /min Hima Chapmans DO Work Phone: [facility] [employer] [facility] 10-12-2024 16:41-0500 SaO2% (BldA) [Mass fraction] 98 % Hima Chapmans DO Work Phone: [facility] [employer] [facility] 07-23-2024 10:02-0400 Body height 162.6 cm Hima Chapmans DO Work Phone: [facility] [employer] [facility] 07-23-2024 10:02-0400 Body mass index (BMI) [Ratio] 31.82 kg/m2 Hima Hill DO Work Phone: [facility] [employer] [facility] 07-23-2024 10:02-0400 Body temperature 98.49 [degF] Hima Hill DO Work Phone: [facility] [employer] [facility] 07-23-2024 10:02-0400 Body weight 84.1 kg Hima Hill DO Work Phone: [facility] [employer] [facility] 07-23-2024 10:02-0400 Diastolic blood pressure 80 mm[Hg] Hima Chapmans DO Work Phone: [facility] [employer] [facility] 07-23-2024 10:02-0400 Heart rate 81 /min Hima Chapmans DO Work Phone: [facility] [employer] [facility] 07-23-2024 10:02-0400 Respiratory rate 18 /min Hima Chapmans DO Work Phone: [facility] [employer] [facility] 07-23-2024 10:02-0400 SaO2% (BldA) [Mass fraction] 99 % Hima Hill [facility] 07-23-2024 10:02-0400 Systolic blood pressure 130 mm[Hg] Hima Hill [facility] 12-17-2023 16:28-0500 Body height 162.6 cm Hima Hill [facility] 12-17-2023 16:28-0500 Body mass index (BMI) [Ratio] 30.24 kg/m2 Hima Hill [facility] 12-17-2023 16:28-0500 Body temperature 97.9 [degF] Hima Hill [facility] 12-17-2023 16:28-0500 Body weight 79.92 kg Hima Hill DO Work Phone: [facility] 12-17-2023 16:28-0500 Diastolic blood pressure 70 mm[Hg] Hima Hill [facility] 12-17-2023 16:28-0500 Heart rate 75 /min Hima Hill [facility] 12-17-2023 16:28-0500 SaO2% (BldA) [Mass fraction] 99 % Hima Hill [facility] 12-17-2023 16:28-0500 Systolic blood pressure 126 mm[Hg] Hima Hill DO Work Phone: [facility] Encounters Encounter Date Encounter Type Care Provider Facility Start: 04-29-2025 End: 04-29-2025 Clinisync Result Encounter Franklin Manny DO Work Phone: [facility] Unsolicited Start: 04-29-2025 End: 04-29-2025 Clinisync Result Encounter Franklin Manny DO Work Phone: [facility] Unsolicited Start: 04-20-2025 End: 04-20-2025 Clinisync Result Encounter Franklin Manny DO Work Phone: [facility] Unsolicited Start: 04-20-2025 End: 04-20-2025 Clinisync Result Encounter Franklin Manny DO Work Phone: [facility] Unsolicited Start: 04-11-2025 End: 04-11-2025 Departed Referred Franklin Manny DO Work Phone: [facility] Start: 04-11-2025 End: 04-11-2025 Patient encounter procedure Franklin Manny DO Work Phone: [facility] Comment on above: Preop examination; Menorrhagia with regular cycle; Abnormal uterine bleeding (AUB); Pelvic pain Start: 04-11-2025 End: 04-11-2025 Preprocedural examination done Franklin Manny DO Work Phone: [facility] Start: 04-11-2025 End: 04-11-2025 ambulatory FRANKLIN MANNY Not Available Start: 04-11-2025 End: 04-15-2025 External Result Encounter Franklin Manny DO Work Phone: [facility] Unsolicited Start: 04-11-2025 End: 04-15-2025 External Result Encounter Franklin Manny DO Work Phone: [facility] Unsolicited Start: 03-25-2025 End: 03-25-2025 Clinisync Result Encounter Franklin Manny DO Work Phone: [facility] Unsolicited Start: 03-25-2025 End: 03-25-2025 Clinisync Result Encounter Franklin Manny DO Work Phone: [facility] Unsolicited Start: 03-25-2025 End: 03-25-2025 Refill [facility]ima Hill DO [facility] Comment on above: Intractable migraine without aura and without status migrainosus Start: 03-21-2025 End: 03-21-2025 Office outpatient visit 15 minutes Franlkin Manny DO Work Phone: [facility] [...] 02-18-2025 Refill Hima Hill DO [facility] Comment on above: Strain of neck muscl e, initial encounter; Migraine without aura and without status migrainosus, not intractable Start: 02-03-2025 End: 02-03-2025 ambulatory [facility] Start: 02-03-2025 End: 02-03-2025 Office outpatient visit 25 minutes Hima Chapmanelen DO Work Phone: [facility] Comment on above: Bipolar disorder, cu rrent episode mixed, mild (CMS-HCC) (Primary Dx) Start: 01-25-2025 End: 01-25-2025 Refill Hima Hill DO Work Phone: [facility] Comment on above: Intractable migraine without aura and without status migrainosus Start: 01-20-2025 End: 01-20-2025 Refill No Jan GARBAGE PERSON [facility] Comment on above: Migraine without aur a and without status migrainosus, not intractable Start: 01-17-2025 End: 01-17-2025 Office outpatient visit 25 minutes Hima Chapmanelen DO Work Phone: [facility] Comment on above: Strain of neck muscl e, initial encounter (Primary Dx); Intractable migraine without aura and without status migrainosus Start: 01-17-2025 End: 01-17-[address] [facility] Start: 01-17-2025 End: 01-25-2025 Telephone encounter Hima Hill DO Work Phone: [facility] Start: 12-30-2024 End: 12-30-2024 Refill Hima Hill DO Work Phone: [facility] Comment on above: Essential hypertensi on; Migraine without aura and without status migrainosus, not intractable; Fibromyalgia; Strep throat exposure Start: 12-27-2024 End: 12-27-2024 Telephone encounter Kathya Rousseau [facility] Start: 12-24-2024 End: 12-24-2024 ambulatory [facility] Start: 12-24-2024 End: 12-24-2024 Office outpatient visit 15 minutes Hima Hill DO Work Phone: [facility] Comment on above: Strep throat exposur e (Primary Dx) Start: 12-13-2024 End: 12-13-2024 ambulatory [facility] Start: 12-13-2024 End: 12-13-2024 Office outpatient visit 25 minutes Hima Hill DO Work Phone: [facility] Comment on above: Intractable migraine without aura and without status migrainosus (Primary Dx); Fibromyalgia Start: 12-08-2024 End: 12-08-2024 ambulatory EVELYN VIZCAINO Not Available Start: 12-08-2024 End: 12-08-2024 Office outpatient visit 15 minutes Evelyn Vizcaino PA Work Phone: [facility] Comment on above: Encounter for weight management; Breast lump on left side at 9 o'clock position Start: 12-08-2024 End: 12-08-2024 Bamboo flowsheet Evelyn SALEH Work Phone: [facility] Start: 12-08-2024 End: 12-08-2024 Bamboo flowsheet Evelyn SALEH Work Phone: [facility] Start: 11-15-2024 End: 11-15-2024 Refill Hima Hill DO [facility] Comment on above: Intractable migraine without aura and without status migrainosus Start: 11-02-2024 End: 11-02-2024 ambulatory [facility] Start: 10-18-2024 End: 10-18-2024 Refill Hima Hill DO Work Phone: [facility] Comment on above: Fibromyalgia; Migraine without aura and without status migrainosus, not intractable Start: 10-13-2024 End: 10-15-2024 Telephone encounter Hima Chapmanelen MARTÍNEZ Work Phone: [facility] Start: 10-12-2024 End: 10-12-2024 Office outpatient visit 25 minutes Hima Tom Hill DO Work Phone: [facility] Comment on above: Intractable migraine without aura and without status migrainosus (Primary Dx) Start: 10-12-2024 End: 10-12-2024 ambulatory [facility] Start: 08-20-2024 End: 08-20-2024 Telephone encounter Arlyn Miller [facility] Start: 07-23-2024 End: 07-23-2024 ambulatory [facility] Start: 07-23-2024 End: 07-23-2024 Encounter for general adult medical examination with abnormal findings Hima Tom Hill DO Work Phone: [facility] [employer] [facility] Work Phone: Start: 07-23-2024 End: 07-23-2024 Periodic preventive med est patient 18-39 yrs Hima Hill DO Work Phone: [facility] [...] 07-11-2024 Refill Hima Hill DO Work Phone: [facility] Comment on above: Depression, unspecif ied depression type Start: 06-21-2024 End: 06-21-2024 Refill Hima Hill DO Work Phone: [facility] Comment on above: Migraine without aur a and without status migrainosus, not intractable Start: 06-16-2024 End: 06-16-2024 Telephone encounter Belkis Menezes [facility] Work Phone: [facility] Start: 06-02-2024 End: 06-02-2024 Telephone encounter Josee Lynn CMA [facility] Comment on above: Appointment Due Start: 05-23-2024 End: 05-23-2024 Refill Hima Hill DO Work Phone: [facility] Comment on above: Essential hypertensi on Start: 04-27-2024 End: 04-27-2024 Refill Hima Hill DO Work Phone: [facility] Comment on above: Migraine without aur a and without status migrainosus, not intractable; Essential hypertension; Class 1 obesity with serious comorbidity and body mass index (BMI) of 33.0 to 33.9 in adult, unspecified obesity type; Depression, unspecified depression type Start: 04-21-2024 End: 04-21-2024 Refill Hima Chapmans DO Work Phone: [facility] Comment on above: Obesity with body ma ss index 30 or greater Start: 03-24-2024 End: 03-24-2024 Refill Hima Chapmans DO Work Phone: [facility] Comment on above: Migraine without aur a and without status migrainosus, not intractable Start: 03-06-2024 Refill Hima Chapmans D O Work Phone: [facility] Comment on above: Essential hypertensi on Start: 03-02-2024 End: 03-11-2024 Telephone encounter Hima Hill DO Work Phone: [facility] Internal Medicine Family Medicine Start: 02-19-2024 Refill Hima Chapmans D O Work Phone: [facility] Comment on above: Migraine without aur a and without status migrainosus, not intractable Start: 02-02-2024 Refill Hima Chapmans D O Work Phone: [facility] Comment on above: Migraine without aur a and without status migrainosus, not intractable Start: 01-14-2024 Refill Hima Velahas D O Work Phone: [facility] Comment on above: Migraine without aur a and without status migrainosus, not intractable Start: 12-17-2023 End: 12-17-2023 Office outpatient visit 25 minutes Hima Chapmans DO Work Phone: [facility] Comment on above: Obesity with body ma ss index 30 or greater (Primary Dx); Migraine without aura and without status migrainosus, not intractable Start: 12-10-2023 Refill Hima Chapmans D O Work Phone: [facility] Comment on above: Class 1 obesity with serious comorbidity and body mass index (BMI) of 33.0 to 33.9 in adult, unspecified obesity type; Depression, unspecified depression type; Essential hypertension Start: 12-03-2023 Bryce Costello Work Phone: [facility] Comment on above: Migraine without aur a and without status migrainosus, not intractable Start: 07-21-2023 End: 07-21-2023 ambulatory Shannan Young Facility:[facility] Start: 07-21-2023 Non-patient / Non-visit MD Manuel Young Work Phone: [facility] Work Phone: Start: 03-07-2023 End: 03-08-[address] SHANNAN YOUNG . Facility: Start: 03-05-2023 End: 03-05-[address] SHANNAN YOUNG . Facility: Start: 02-05-2018 End: 02-06-2018 Ambulatory Michael Hendrix Facility:[facility] Procedures Date Procedure Procedure Detail Performing Clinician Start: 04-29-2025 ALL CBC WITH AUTO DIFF Franklin Manny DO Work Phone: Start: 04-20-2025 ECG 12-LEAD Franklin Fazi o DO Work Phone: Start: 04-11-2025 Urnls dip stick/tabl et rgnt non-auto w/o micrscp Franklin Manny DO Work Phone: Start: 04-11-2025 PATHOLOGY REQUEST FO R LAB JULIANN Franklin Manny DO Work Phone: Start: 03-25-2025 US PELVIS TRANSVAGINAL Franklin Manny DO Work Phone: Start: 03-25-2025 ALL CBC WITH AUTO DIFF Franklin Manny DO Work Phone: Start: 03-21-2025 Urnls dip stick/tabl et rgnt non-auto w/o micrscp Franklin Manny DO Work Phone: Start: 01-17-2025 Adult depression scr eening assessment Hima Hill DO Work Phone: Start: 10-12-2024 Adult depression scr eening assessment Hima Hill DO Work Phone: Start: 07-23-2024 Adult depression scr eening assessment Hima Hill DO Work Phone: Start: 04-08-2024 Microscopic observat ion [Identifier] in Cervix by Cyto stain Hima Hill DO Work Phone: Start: 12-17-2023 Adult depression scr eening assessment Hima Hill DO Work Phone: Start: 07-09-2023 Adult depression scr eening assessment Hima Hill DO Work Phone: Start: 03-05-2023 Microscopic observat ion [Identifier] in Cervix by Cyto stain Hima Hill DO [facility] Phone: Plan of Treatment Date Care Activity Detail Author Start: 10-01-2033 DTaP,Tdap and Td Vaccines (2 - Td or Tdap) DTaP,Tdap and Td Vaccines (2 - Td or Tdap) [facility] Start: 03-05-2028 Screening for malign ant neoplasm of cervix [facility] Start: 04-08-2027 Screening for malign ant neoplasm of cervix Pap Smear [facility] Start: 03-05-2026 Screening for malign ant neoplasm of cervix Pap Smear [facility] Start: 01-17-2026 Adult BMI Screening Adult BMI Screen ing [facility] Start: 01-17-2026 [facility] Start: 01-17-2026 Tobacco Screening Tobacco Screening [facility] Start: 10-12-2025 Adult BMI Screening Adult BMI Screen ing [facility] Start: 10-12-2025 Depression Screening Depression Scre ening [facility] Start: 08-01-2025 Influenza vaccination [facility] Start: 07-23-2025 Adult BMI Screening Adult BMI Screen ing [facility] Start: 07-23-2025 Depression Screening Depression Scre ening [facility] Start: 07-23-2025 Tobacco Screening Tobacco Screening [facility] Start: 05-04-2025 End: 05-04-2025 Patient encounter procedure 05/04/2025 3:40 PM EDT Office Visit [facility] [address] [place] [id number] Franklin Bryant, DO [address] [place] [address] [facility] Start: 04-11-2025 End: 04-11-2025 Patient encounter procedure [facility] Start: 04-11-2025 Start: 03-21-2025 End: 03-21-2025 Patient encounter procedure 03/21/2025 3:50 PM EDT Office Visit [facility] [address] [place] [id number] Franklin Bryant, DO [address], [place] [id number] Arrived [facility] Comment on above: Arrived Start: 03-21-2025 End: 03-21-2026 DHEA DHEA Lab Routine Menorrhagia with regular cycle Expected: 03/21/2025 (Approximate), Expires: 03/21/2026 [facility] Comment on above: Expected: 03/21/2025 (Approximate), Expires: 03/21/2026 Start: 03-21-2025 End: 03-21-2026 US Pelvis US Pelvis w/ TV Imaging Routine Menorrhagia with regular cycle Expected: 03/21/2025, Expires: 03/21/2026 [facility] Comment on above: Expected: 03/21/2025 , Expires: 03/21/2026 Start: 01-05-2025 End: 01-05-2025 Patient encounter procedure 01/05/2025 3:40 PM EST Office Visit [facility] [address] [place] [id number] Evelyn Vizcaino PA [address] [place], [place] [id number] [facility] Start: 12-17-2024 Adult BMI Screening Adult BMI Screen ing [facility] Start: 12-17-2024 Depression Screening Depression Scre ening [facility] Start: 12-17-2024 Tobacco Screening Tobacco Screening [facility] Start: 12-08-2024 End: 02-05-2026 US Breast - left Left breast US complete Imaging Routine Breast lump on left side at 9 o'clock position Expected: 12/08/2024, Expires: 02/05/2026 [facility] Work Phone: Comment on above: Expected: 12/08/2024 , Expires: 02/05/2026 Start: 11-10-2024 End: 11-10-2024 Patient encounter procedure 11/10/2024 4:30 PM EST [facility] [address] [place] [address] Hima Hill, DO [address] [place] [address] [facility] Start: 11-02-2024 End: 11-02-2024 Patient encounter procedure 11/02/2024 6:45 AM EST Appointment [facility] [address] [place] [address] Hima Hill, DO [address] [place] [address] [facility] Start: 10-26-2024 End: 10-26-2024 Patient encounter procedure 10/26/2024 4:30 PM EST [facility] [address] [place] [address] Hima Hill, DO [address] [place] [address] [facility] Internal Medicine - Family Medicine Start: 10-22-2024 Adult BMI Screening Adult BMI Screen ing [facility] Start: 10-22-2024 Tobacco Screening Tobacco Screening [facility] Start: 10-12-2024 End: 10-12-2025 MR Brain WO contrast MR brain without contrast Imaging Routine Intractable migraine without aura and without status migrainosus Expected: 10/12/2024, Expires: 10/12/2025 [facility] Work Phone: Comment on above: Expected: 10/12/2024 , Expires: 10/12/2025 Start: 08-01-2024 COVID-19 Vaccine () COVID-19 Vacc[address] () [facility] Start: 08-01-2024 COVID-19 Vaccine () COVID-19 Vaccine () [facility] Start: 08-01-2024 Influenza vaccination [facility] Start: 07-23-2024 End: 07-23-2024 Patient encounter procedure 07/23/2024 10:00 AM EDT Office Visit [facility] Internal Medicine - Family Medicine [address] [place] [address] Hima Hill, DO [address] [place] [address] [facility] Start: 07-09-2024 [facility] Start: 12-17-2023 End: 12-17-2023 Patient encounter procedure 12/17/2023 4:30 PM EST Office Visit [facility] Internal Medicine - Family Medicine [address] [place] [address] Hima Hill, DO [address] [place] [address] [facility] Internal Medicine - Family Medicine Start: 08-01-2023 COVID-19 Vaccine ( season) COVID-19 Vaccine () [facility] Start: 2006 Screening for malign ant neoplasm of cervix Pap Smear [facility] Start: 2003 Adult BMI Follow Up Plan Adult BMI Follow Up Plan [facility] End: 07-23-2025 CBC W Auto Differential panel - Blood CBC auto differential Lab Routine Iron deficiency anemia, unspecified iron deficiency anemia type 1 Occurrences starting 07/23/2024 until 07/23/2025 [facility] Comment on above: 1 Occurrences starti ng 07/23/2024 until 07/23/2025 CBC W Auto Different ial panel - Blood CBC and differential Lab Routine Menorrhagia with regular cycle Ordered: 03/21/2025 [facility] [employer] Comment on above: Ordered: 03/21/2025 End: 07-23-2025 Comprehensive metabolic 2000 panel - Serum or Plasma Comprehensive metabolic panel Lab Routine Impaired fasting glucose 1 Occurrences starting 07/23/2024 until 07/23/2025 [facility] Comment on above: 1 Occurrences starti ng 07/23/2024 until 07/23/2025 End: 07-23-2025 Cyanocobalamin vitamin b-12 Vitamin B12 Lab Routine B12 deficiency 1 Occurrences starting 07/23/2024 until 07/23/2025 [facility] Comment on above: 1 Occurrences starti ng 07/23/2024 until 07/23/2025 DHEA-sulfate DHEA-sulfate Lab Routine Menorrhagia with regular cycle Ordered: 03/21/2025 [facility] [employer] Comment on above: Ordered: 03/21/2025 Endometrial biopsy Endometrial b iopsy Procedures Routine Menorrhagia with regular cycle Abnormal uterine bleeding (AUB) Pelvic pain Ordered: 04/11/2025 [facility] [employer] Work Phone: Comment on above: Ordered: 04/11/2025 End: 07-23-2025 Erythrocyte sedimentation rate Erythrocyte Sedimentation Rate (ESR) Lab Routine Migraine without aura and without status migrainosus, not intractable 1 Occurrences starting 07/23/2024 until 07/23[facility]: 1 Occurrences starti ng 07/23/2024 until 07/23/2025 Follicle stimulating hormone Follicle stimulating hormone Lab Routine Menorrhagia with regular cycle Ordered: 03/21/2025 [facility] Comment on above: Ordered: 03/21/2025 hCG, quantitative, hCG, quantitative, Lab Routine Menorrhagia with regular cycle Ordered: 03/21/2025 [facility] Work Phone: Comment on above: Ordered: 03/21/2025 Hemoglobin A1c/Hemoglobin.total in Blood Hemoglobin A1c Lab Routine Menorrhagia with regular cycle Ordered: 03/21/2025 [facility] Comment on above: Ordered: 03/21/2025 Luteinizing hormone Luteinizing hormone Lab Routine Menorrhagia with regular cycle Ordered: 03/21/2025 [facility] Comment on above: Ordered: 03/21/2025 Thyrotropin [Units/volume] in Serum or Plasma TSH Lab Routine Menorrhagia with regular cycle Ordered: 03/21/2025 [facility] Comment on above: Ordered: 03/21/2025 Thyroxine (T4) free [Mass/volume] in Serum or Plasma T4, free Lab Routine Menorrhagia with regular cycle Ordered: 03/21/2025 [facility] Comment on above: Ordered: 03/21/2025 End: 07-23-2025 TSH with Reflex TSH with Reflex Lab Routine Class 1 obesity with serious comorbidity and body mass index (BMI) of 33.0 to 33.9 in adult, unspecified obesity type 1 Occurrences starting 07/23/2024 until 07/23/2025 [facility] Comment on above: 1 Occurrences starti ng 07/23/2024 until 07/23/2025 Immunizations Immunization Date Immunization Notes Care Provider Sudheer lagunas 10-01-2023 influenza, injectabl e, quadrivalent, preservative free iHma Hill DO Work Phone: [facility] 10-01-2023 tetanus toxoid, redu eliceo diphtheria toxoid, and acellular pertussis vaccine, adsorbed Hima Hill DO Work Phone: [facility] 10-01-2023 influenza virus vaccine, unspecified formulation Hima Koffidmitri DO Work Phone: [facility] 09-27-2022 Influenza, injectabl e, Madin Ashwini Canine Kidney, preservative free, quadrivalent Hima Yuhas DO Work Phone: [facility] 08-14-2021 influenza, injectabl e, quadrivalent, preservative free Hima Yuhas DO Work Phone: [facility] 09-13-2020 influenza, seasonal, injectable Hima Yuhas DO Work Phone: [facility] 07-13-2020 influenza, injectabl e, quadrivalent, preservative free Hima Yuhas DO Work Phone: [facility] 07-13-2019 influenza, injectabl e, quadrivalent, preservative free Hima Yuhas DO Work Phone: [facility] 07-13-2019 measles, mumps and rubella virus vaccine Hima Yuhas DO Work Phone: [facility] 07-10-2018 influenza, injectabl e, quadrivalent, preservative free Hima Yuhas DO Work Phone: [facility] 12-25-2017 Influenza, injectabl e, Madin Aurora Canine Kidney, preservative free, quadrivalent Hima Yuhas DO Work Phone: [facility] 12-17-2017 influenza virus vaccine, unspecified formulation Hima Yuhas DO Work Phone: [facility] Payers Date Payer Category Payer Self-pay 2020 Medicaid [employer] [id number] 2020-Present [phone] [place] [id number] 2020 Medicaid (Managed Care) [employer] [id number] 2020 Medicaid HMO [employer] [id number] 2018 Unknown [id number] 1985 Unknown [id number] [id number]. 59 1985 Unknown [id number] 2.840.1.349359.3.579.2. 59 1985 Unknown [id number] 2.840.1.182074.3.579.2. 1285 1985 Unknown [id number] 2.840.1.828625.3.579.2. 1285 1985 Unknown [id number] 2.840.1.536685.3.579.2. 1285 1985 Unknown [id number] 2.16840.1.292634.3.579.2. 1285 1985 Unknown [id number] 2.16840.1.874093.3.579.2. 1285 1985 Unknown [id number] 2.16840.1.121630.3.579.2. 1286 1985 Unknown [id number] 2.16.840.1.382858.3.579.2. 1286 1985 Unknown [id number] 2.16.840.1.444043.3.579.2. 1286 1985 Unknown [id number] 2.16.840.1.421208.3.579.2. 9 1985 Unknown [id number] 2.16.840.1.177226.3.579.2. 1259 1985 Unknown [id number] 2.16.840.1.124465.3.579.2. 1259 1959 Unknown [id number] Unknown [id number] 2.16.840.1.237748.3.579.2. 1149 Unknown [id number] 2.16.840.1.873144.3.579.2. 1149 Unknown Insurance No Card [id number] Unknown [id number]. 531 Social History Date Type Detail Facility Start: 07-21-2023 Tobacco smoking stat [facility] Never smoker [facility] Work Phone: Start: 1985 Sex Assigned At Female F [facility] Start: 10-09-2022 End: 07-28-2023 Tobacco smoking status [facility] Never smoked tobacco [facility] Start: 10-09-2022 End: 07-28-2023 Tobacco use and exposure Smokeless tobacco non-user [facility] Start: 04-12-2024 End: 04-11-2025 Alcoholic beverage intake Lifetime non-drinker (finding) [facility] Start: 07-28-2023 End: 04-12-2024 History of Social function [facility] Start: 07-28-2023 End: 04-12-2024 Tobacco use panel [facility] Start: 1985 Sex assigned at Not on file P [facility] Start: 07-23-2024 End: 01-17-2025 Alcoholic beverage intake Current drinker of alcohol (finding) [facility] How hard is it for y ou to pay for the very basics like food, housing, medical care, and heating Not hard at all [facility] Start: 10-22-2023 Alcohol Comment Socially [facility] Start: 07-06-2015 End: 04-13-2025 Sex Female (finding) [facility] Tobacco smoking stat [facility] Unknown if ever smoked [facility] Work Phone: Medical Equipment Procedure Code Equipment Code Equipment Origin al Text Equipment Identifier Dates Surgical procedure, using tension free vaginal tape, for stress incontinence [facility] FDA Start: 04-01-2018 Clinical Notes 12-17-2023 to 04-11-2025 Leny Rosenbaumelman - 04/11/2025 3:30 PM Sheri Scruggs LPN - 03/21/2025 3:50 PM Elvie Hill, DO - 02/03/2025 4:45 PM Henna [...] on 04-29-[address] Bryant at [facility]. MEDICATIONS Current Outpatient Medications Medication Instructions DULoxetine (CYMBALTA) 60 mg, Daily estrogens (conjugated) (PREMARIN) 0.625 mg, Oral, Daily, Take 1 tablet daily by mouth for 30 days phentermine (ADIPEX-P) 37.5 mg, Oral, Daily before breakfast [id number] ( 1 + IRON PO) propranolol LA [...] nursing note reviewed. Exam conducted with a demonstrator sewing techniques present. Vitals: Estimated body mass index is [...] reviewed, and patient is to proceed to [facility] OR. Follow Up: Patient is to follow up between 1-2 weeks post op to assess proper healing and recovery from procedure. Documented by Barbara Scruggs LPN on behalf of: Franklin Bryant DO documented in this encounter [facility] 03-21-2025 History of Presen t illness [...] (ADIPEX-P) 37.5 mg, Oral, Daily before breakfast Evhmwyve-Ref-Yy-FA ( 1 + IRON PO) propranolol LA [...] nursing note reviewed. Exam conducted with a demonstrator sewing techniques present. Vitals: Estimated body mass index is [...] Franklin Bryant DO documented in this encounter [facility] 02-03-2025 History of Presen t illness Narrative IM PROGRESS NOTE Patient - Cass Riley Age - 39 y[facility] 1985 [id number] ASSESSMENT & PLAN Video Visit via Real-time Synchronous Audiovisual Provider Location: [facility] [address] [place] [address] Patient Location: workplace Video Visit Consent Statement: [...] that there are some limitations compared to ytzq-qa-dmuf evaluations. The patient consented to the presence [...] she is agreeable to this. -referral to [facility] unit today -in the meantime, [...] vomiting., Disp: 20 tablet, Rfl: 0 PNV,calcium 13-ghhj-fkrbc acid (WESTAB PLUS) 27 mg iron- 1 [...] Testing No results found. Hima Hill DO., [facility] Office: [phone] documented in this encounter [facility] 01-17-2025 History of Presen t illness Narrative [...] vomiting., Disp: 20 tablet, Rfl: 0 PNV,calcium 19-qcah-iqdxh acid (WESTAB PLUS) 27 mg iron- 1 [...] Testing No results found. Hima Hill DO., [facility] Office: [phone] documented in this encounter [facility] 01-17-2025 Miscellaneous Notes ----- Message from Dr. Hima Hill DO sent at 07/23/2024 2:55 PM EDT ----- Weight recheck Sent mychart msg documented in this encounter [facility] 01-17-2025 Telephone encounter Note ----- Message from Dr. Hima Hill DO sent at 07/23/2024 2:55 PM EDT ----- Weight recheck [facility] 01-17-2025 Telephone encounter Note Sent mychart msg [facility] 12-27-2024 Miscellaneous Notes Patient called and wanted to know if she could get a work note for 12/22-12/24/24. It will need faxed on [phone] Message noted. A off work note is written and available in the chart. Off 12/22/2024-12/24/2024, RTW 12/25/2024. Faxed to her job documented in this encounter [facility] 12-27-2024 Telephone encounter Note Patient called and wanted to know if she could get a work note for 12/22-12/24/24. It will need faxed on [phone] [facility] Telephone encounter Note Message noted. A off work note is written and available in the chart. Off 12/22/2024-12/24/2024, RTW 12/25/2024. [facility]24 Telephone encounter Note Faxed to her job [facility] 12-24-[facility]24 History of Presen t illness Narrative IM PROGRESS NOTE Patient - Cass Riley Age - 39 y.o. - 1985 [facility] # - [id number] ASSESSMENT & PLAN Video Visit via Real-time Synchronous Audiovisual Provider Location: [facility] [address] [facility] [address] Patient Location: Patient's home Video Visit Consent [...] that there are some limitations compared to hfcv-up-oxhw evaluations. The patient consented to the presence [...] days. Dispense: 14 tablet; Refill: 0 - snozzvaberfygfm-gushobuqd-VX 2-30-10 mg/5 mL syrup; Take 5 mL [...] 7 days., Disp: 14 tablet, Rfl: 0 ynvotlecmwsbawg-qmdkatdaw-TF 2-30-10 mg/5 mL syrup, Take 5 mL [...] Testing No results found. Hima Hill DO., [facility] Office: [phone] documented in this encounter [facility] 12-13-2024 History of Presen t illness Narrative IM PROGRESS NOTE Patient - Cass Riley Age - 39 y.[facility]. [facility] 1985 [id number] ASSESSMENT & PLAN Video Visit via Real-time Synchronous Audiovisual Provider Location: [facility] [address] [facility] [address] Patient Location: Patient's home Video Visit Consent [...] that there are some limitations compared to lsev-df-dvdh evaluations. The patient consented to the presence [...] Other Testing No results found. Hima Hill DO. [facility] Office: [phone] documented in this encounter [facility] 12-08-2024 History of Presen t illness Narrative [...] (ADIPEX-P) 37.5 mg, Oral, Daily before breakfast Afqwboou-Gll-Wg-FA ( 1 + IRON PO) propranolol LA [...] nursing note reviewed. Exam conducted with a demonstrator sewing techniques present. Vitals: Estimated body mass index is 35.07 kg/m as calculated from the following: Height as of 24: 5' 3 . Weight as of this [...] of: THERESE Pa documented in this encounter [facility] 10-13-2024 Miscellaneous Notes Patient called they can't get her in until November 02 for her MRI she wanted to know if that was okay Message noted. Yes Message noted. Yes Patient notified [facility] 10-13-2024 Telephone encounter Note Patient called they can't get her in until November 02 for her MRI she wanted to know if that was okay [facility] 10-13-2024 Telephone encounter Note Message noted. Yes [facility] 10-13-2024 Telephone encounter Note [facility] 10-12-2024 History of Presen t illness Narrative [...] Motor: No weakness. Coordination: Coordination normal. Comments: [place] test negative bilateral Psychiatric: Mood and Affect: [...] Testing No results found. Hima Hill DO., [facility] Office: [phone] documented in this encounter [facility] 08-20-2024 Miscellaneous Notes Start by decreasing the bupropion to 150 mg every other day. After one week you will start Duloxetine 30 mg daily, and then stop the bupropion. Spoke with pt. Pt verbalizes understanding. documented in this encounter [facility] 08-20-2024 Telephone encounter Note Start by decreasing the bupropion to 150 mg every other day. After one week you will start Duloxetine 30 mg daily, and then stop the bupropion. Spoke with pt. Pt verbalizes understanding. [employer] 07-23-2024 History of Presen t illness Narrative [...] discussed. -she should continue follow-up with her health physicist for regular PAP examinations. -will need to [...] Testing No results found. Hima Hill DO., [facility] Office: [phone] documented in this encounter [facility] 06-16-2024 Miscellaneous Notes [address] [address] [facility] Adherence Outreach Name: Cass Riley Medication: Trulicity 0.75 mg/0.5 mL Prescribing Provider: Hima Hill Jr, DO Proportion of Days Covered (PDC): 0.63 Per pharmacy dispense report, last filled on 06/07/24 for a 28 days supply Contacted patient as part of the [facility] program for medication adherence with Trulicity . This was my first attempt to reach the patient and a message was left on their voicemail requesting a callback. Belkis Menezes RPH Clinical Pharmacist, [facility] documented in this encounter [facility] [employer] [facility] 06-16-2024 Telephone encounter Note [address] [address] Population Health Adherence Outreach Name: Cass Riley Medication: Trulicity 0.75 mg/0.5 mL Prescribing Provider: Hima Hill Jr, DO Proportion of Days Covered (PDC): 0.63 Per pharmacy dispense report, last filled on 06/07/24 for a 28 days supply Contacted patient as part of the [facility] program for medication adherence with Trabidaity . This was my first attempt to reach the patient and a message was left on their voicemail requesting a callback. Belkis Menezes RPH Clinical Pharmacist, [facility] Care Transformation [facility] Work Phone: 06-02-2024 Miscellaneous Notes Care Coordination [...] appointment. Letter sent. documented in this encounter [facility] 06-02-2024 Telephone encounter Note Care Coordination Outreach performed to coordinate overdue appointments, testing, and/or follow-up care: Yes Audit/Outreach Date: June 02, 2024 Reason: Well Person Method: Telephone and MyChart Outreach Attempt: First Outcome: Left Message and Letter sent Next PCP Appointment: N/A Tests/Referrals Pended: N/A Resources/Education Provided: Additional Comments: Unable to reach patient by telephone to schedule appointment. Letter sent. [facility] [employer] [facility] 03-02-2024 Miscellaneous Notes ----- Message from Hima Hill DO sent at 12/17/2023 5:51 PM EST ----- Weight recheck Patient declined scheduling at this time. Message noted. documented in this encounter [facility] 03-02-2024 Telephone encounter Note ----- Message from Hima Hill DO sent at 12/17/2023 5:51 PM EST ----- Weight recheck [facility] 03-02-2024 Telephone encounter Note Patient declined scheduling at this time. [facility] 03-02-2024 Telephone encounter Note Message noted. [facility] 12-17-2023 History of Presen t illness Narrative [...] weight gain. She describes it as sharp, Angela pain in her right temporal region accompanied [...] Testing No results found. Hima Hill DO., [facility] Office: [phone] documented in this encounter [facility] Evaluation note No assessment inform ation available [facility] Work Phone: Evaluation note Diagnosis Encounter for weight management Breast lump on left side at 9 o'clock position Lump or mass in breast documented in this encounter [facility] HealthcareEvaluation note* Diagnosis Intractable migraine without aura and without status migrainosus- Primary Fibromyalgia Unspecified myalgia and myositis documented in this encounter [facility]* Diagnosis Strep throat exposure- Primary documented in this encounter [facility] System[facility] note* Diagnosis Essential hypertension Unspecified essential hypertension Migraine without aura and without status migrainosus, not intractable Fibromyalgia Unspecified myalgia and myositis Strep throat exposure documented in this encounter [facility] System[facility] note* Diagnosis Migraine without aura and without status migrainosus, not intractable documented in this encounter [facility] System[facility] note* Diagnosis Migraine without aura and without status migrainosus, not intractable documented in this encounter [facility] note* Diagnosis Class 1 obesity with serious comorbidity and body mass index (BMI) of 33.0 to 33.9 in adult, unspecified obesity type Depression, unspecified depression type Essential hypertension Unspecified essential hypertension documented in this encounter [facility] System[facility] note* Diagnosis Obesity with body mass index 30 or greater- Primary Migraine without aura and without status migrainosus, not intractable documented in this encounter [facility] System[facility] note* Diagnosis Obesity with body mass index 30 or greater [facility] Diagnosis Migraine without aura and without status migrainosus, not intractable Essential hypertension Unspecified essential hypertension Class 1 obesity with serious comorbidity and body mass index (BMI) of 33.0 to 33.9 in adult, unspecified obesity type Depression, unspecified depression type documented in this encounter [facility] note* Diagnosis Essential hypertension Unspecified essential hypertension documented in this encounter [facility] note* Diagnosis Depression, unspecified depression type documented in this encounter [facility]* Diagnosis Abnormal wellness exam- Primary Migraine without aura and without status migrainosus, not intractable Impaired fasting glucose Class 1 obesity with serious comorbidity and body mass index (BMI) of 33.0 to 33.9 in adult, unspecified obesity type Iron deficiency anemia, unspecified iron deficiency anemia type B12 deficiency Obsessive-compulsive disorder, unspecified type [facility] Diagnosis Intractable migraine without aura and without status migrainosus- Primary documented in this encounter [facility]* Diagnosis Fibromyalgia Unspecified myalgia and myositis Migraine without aura and without status migrainosus, not intractable documented in this encounter [facility]* Diagnosis Intractable migraine without aura and without status migrainosus documented in this encounter [facility]* Diagnosis Strain of neck muscle, initial encounter- Primary Intractable migraine without aura and without status migrainosus documented in this encounter [facility]* Diagnosis Migraine without aura and without status migrainosus, not intractable documented in this encounter [facility]* Diagnosis Intractable migraine without aura and without status migrainosus documented in this encounter [facility]* Diagnosis Bipolar disorder, current episode mixed, mild ([facility])- Primary documented in this encounter [facility]* Diagnosis Strain of neck muscle, initial encounter Migraine without aura and without status migrainosus, not intractable [facility] Diagnosis Encounter to discuss procedure Menorrhagia with regular cycle [facility] Preop examination Unspecified pre-operative examination Menorrhagia with regular cycle Abnormal uterine bleeding (AUB) Pelvic pain documented in this encounter [facility] filedocumented [facility] [...] Obsessive-compulsive disorder, unspecified type Hima Hill DO [address] [place] [address] [facility] & [address] [address] Referral ID Status Reason Start Date Expiration Date V isits Requested Visits Authorized [id number] Pending Review 07/23/2024 07/23/2025 4 4 [facility] [employer] System Summary Purpose Family History Relationship Condition Age at Onset Recorded Date/T rivera Not Specified Diabetes mellitus Unknown Hypertension Unknown Advance Directives Advance Directive Response Recorded Date/ Time Advance Directives No July 21, 2023 4:30pm Advance Directive Response Recorded Date/ Time Advance Directives No April 01, 2018 5:33am Chief Complaint and Reason for Visit Chief Complaint meds [phone], o k jae Young Chief Complaint Admit Date Unknown April 11, 2025 3:39p m Additional Source Comments INFORMATION SOURCE (unrecogn ized section and content) DATE CREATED AUTHOR 05/22/2018 Jd [facility] DATE CREATED AUTHOR AUTHOR'S ORGANIZ ATION 09/30/2021 [facility] DATE CREATED AUTHOR AUTHOR'S ORGANIZ ATION 03/16/2023 [facility] DATE CREATED AUTHOR AUTHOR'S ORGANIZ ATION 07/26/2023 [facility] DATE CREATED AUTHOR AUTHOR'S ORGANIZ ATION 07/25/2024 [facility] DATE CREATED AUTHOR AUTHOR'S ORGANIZ ATION [facility]/03/2024 [facility] DATE CREATED AUTHOR AUTHOR'S ORGANIZ ATION 02/06/2025 [facility] DATE CREATED AUTHOR AUTHOR'S ORGANIZ ATION 04/12/2025 [facility] DATE CREATED AUTHOR AUTHOR'S ORGANIZ ATION 04/16/2025 [facility] y[facility] Goals (unrecognized section and [...] Care Teams (unrecognized sec tion and content) Life Educator Relationship Specialty Start Date End Date Hima Hill MD [address] [place] [address] PCP - General Internal Medicine 04/12/24 Life Educator Relationship Specialty Start Date End Date Hima Hill MD [address] [place] [address] PCP - General Internal Medicine 04/12/24 Life Educator Relationship Specialty Start Date End Date Hima Hill DO [address] [place] [place] [place] [address] PCP - General Internal Medicine 10/09/22 Life Educator Relationship Specialty Start Date End Date Hima Hill DO [address] [place] [address] PCP - General Internal Medicine 10/09/22 Life Educator Relationship Specialty Start Date End Date Hima Hill DO [address] [place] [place] [place] [address] PCP - General Internal Medicine 10/09/22 Life Educator Relationship Specialty Start Date End Date Hima Hill DO [address] [place] [place] [place] [address] PCP - General Internal Medicine 10/09/22 Life Educator Relationship Specialty Start Date End Date Hima Hill DO [address] [place] [address] PCP - General Internal Medicine 10/09/22 Life Educator Relationship Specialty Start Date End Date Hima Hill DO [address] [place] [address] PCP - General Internal Medicine 10/09/22 Life Educator Relationship Specialty Start Date End Date Hima Hill DO [address] [place] [address] PCP - General Internal Medicine 10/09/22 Life Educator Relationship Specialty Start Date End Date Hima Hill DO [address] [place] [address] PCP - General Internal Medicine 10/09/22 Life Educator Relationship Specialty Start Date End Date Hima Hill DO [address] [place] [address] PCP - General Internal Medicine 10/09/22 Life Educator Relationship Specialty Start Date End Date Hima Hill DO [address] [place] [address] PCP - General Internal Medicine 10/09/22 Life Educator Relationship Specialty Start Date End Date Hima Hill DO [address] [place] [address] PCP - General Internal Medicine 10/09/22 Life Educator Relationship Specialty Start Date End Date Hima Hill DO [address] [place] [address] PCP - General Internal Medicine 10/09/22 Life Educator Relationship Specialty Start Date End Date Hima Hill DO [address] [place] [address] PCP - General Internal Medicine 10/09/22 Life Educator Relationship Specialty Start Date End Date Hima Hill DO [address] [place] [address] PCP - General Internal Medicine 10/09/22 Life Educator Relationship Specialty Start Date End Date Hima Hill DO [address] [place] [address] PCP - General Internal Medicine 10/09/22 Life Educator Relationship Specialty Start Date End Date Hima Hill DO [address] [place] [address] PCP - General Internal Medicine 10/09/22 Life Educator Relationship Specialty Start Date End Date Hima Hill DO [address] [place] [address] PCP - General Internal Medicine 10/09/22 Life Educator Relationship Specialty Start Date End Date Hima Hill DO [address] [place] [address] PCP - General Internal Medicine 10/09/22 Life Educator Relationship Specialty Start Date End Date Hima Hill DO [address] [place] [address] PCP - General Internal Medicine 10/09/22 Life Educator Relationship Specialty Start Date End Date Hima Hill MD PCP - General Internal Medicine 04/12/24 Life Educator Relationship Specialty Start Date End Date Hima Hill MD PCP - General Internal Medicine 04/12/24 Life Educator Relationship Specialty Start Date End Date Hima Hill MD PCP - General Internal Medicine 04/12/24 Life Educator Relationship Specialty Start Date End Date Hima Hill MD PCP - General Internal Medicine 04/12/24 Team Status: Inactive Member Role Status Dates Franklin Bryant DO Attending Provider Active Start : April 11, 2025 End: April 11, 2025 Life Educator Relationship Specialty Start Date End Date Hima Hill MD PCP - General Internal Medicine 04/12/24 Life Educator Relationship Specialty Start Date End Date Hima Hill MD [address] [place] [address] PCP - General Internal Medicine 04/12/24 Reason for Visit (unrecogniz ed section and [...] BE BASED ON THE PRIMARY CLINICAL RECORDS. [employer] provides no warranty or guarantee of the accuracy or completeness of information in this document.
[2025-04-29 08:56] LABS: HCG Quantitative <1 mIU/mL
--- NOTE | 2025-04-29 10:53 | PM.ONB ---
Brief Operative Note Date of procedure: 04/29/25 Pre-op diagnosis general: menorrhagia Post-op diagnosis: same as pre-op Procedure: NAME OF PROCEDURE: [ ] Gabbie endometrial ablation with hysteroscopy. PROCEDURE: The patient was taken back to the OR where she was prepped and draped in the normal sterile fashion after being placed in the dorsal lithotomy position, after being placed under general anesthesia without difficulty.? A weighted speculum was placed into the vagina. The anterior lip was grasped with a single tooth tenaculum. The patient was then sounded to approximated 8cm. The patient?s cervix was gently dilated using hegardilators. The hysteroscope was passed through the cervix into the uterus where both ostia were seen. No gross evidence of polyps, fibroids or malignancy. The cervical length was noted to be 4 cm. The total cavity length is 4cm.? The Gabbie ablation apparatus was set to approximately 4cm in length. This was placed through the cervix and into the uterus. After the seal was tested, at that time the total ablation of 120 seconds was performed with the Gabbie withoutdifficulty. All instruments were removed from the vagina. Excellent hemostasis noted.? Sponge and lap count correct times 2.? Patient taken to recovery in stable condition. Anesthesia: MAC Surgeon: Franklin Bryant Estimated blood loss (mL): 5 Pathology: none sent Condition: stable Disposition: PACU Urinary Catheter Management Urinary Catheter Management Straight: Cath placed during this visit: no
[2025-04-29] MEDS: LACTATED RINGER'S SOLUTION 1,000 ML 50 ML IV (10:57)
--- NOTE | 2025-04-29 11:34 | PC.NURSE ---
1125-Dr. Mason aware of BP. No new orders received.
== END 2025-04-29 12:10 | disposition home or self-care (01) ==
PROVIDERS: PCP Internal Medicine; Visit Provider Obstetrics & Gynecology
PROC: (CPT 952; principal; 2025-04-29 09:30)
DX: N92.0 Excessive and frequent menstruation with regular cycle (principal); N93.9 Abnormal uterine and vaginal bleeding, unspecified; R10.2 Pelvic and perineal pain; I10 Essential (primary) hypertension
CPT/HCPCS: 58563; 36415; 84702; 85025; J1885; J2250; J2405; J2704; J3010

== ENCOUNTER 2025-05-04 20:09 | Outpatient (REF) | payer OTHER, SELFPAY ==
--- OUTSIDE RECORDS SUMMARY | 2025-01-28 07:00 | XMS_ITS ---
Author Organization [facility] vices Address [address] [place] [phone] Care Team Providers Care Engraver Pantograph Name Role Phone TorieLinnea castellanosica Marina [phone] REASON FOR VISIT Recall (A) 39 Social History Sex Assigned At : Social History Observation Description Sex Assigned At Female Encounters Encounter Location Date Provider Diagnosis [facility] [address] [place] [address] [phone] 01/28/2025 Marah Sauer Plan Of Treatment Next Appt Details Provider Name:Zoe Jimenez , 09/09/2025 11:15:00 AM, [address] [place] [address], [phone], Progress Notes * Cass RILEY LDOB: 5 (39 yo F)Acc No.[id number]:01/28/2025 Patient: Dusty KEENANCass Provider: Gi Sauer DMD :1985 A ge:39 Y S ex:Female Date:01/28/2025 Address:[address] [place] [phone] Subjective: * Chief Complaints: * 1 . Recall (A) 39. * Medical History: Objective: * Vitals: Assessment: Plan: * Treatment: * Billing Information: * Visit Code: * Procedure Codes: * Electronic signature of Linnea Sauer DMD on 05/04/2025 at 03:47 PM EDT Sign off status: Pending * Provider: Gi Sauer DMD Date: 0 01/28/2025 Generated for Phillip andrews/Obie/Stewart on: 0 05/04/2025 03:47 PM EDT
--- OUTSIDE RECORDS SUMMARY | 2025-05-04 15:40 | XMS_ITS | Encounter Summary ---
Author Organization [facility] Address [address] [place] [address] Care Team Providers Care Engineering Designer Name Role Phone Jefferson Roberts MD Primary Care Provider Reason for Visit * Reason Comments Well Women Visit Encounter Details Date Type Department Care Team (Late st Contact Info) Description 05/04/2025 3:40 PM EDT Office Visit [facility] OB [address] [place] [address] Franklin Bryant, DO [address] Lora Johnson, [facility]11 Well woman exam with routine gynecological exam; S/P endometrial ablation Social History Tobacco Use Types Packs/Day Years [...] Sign Reading Time Taken Comments Blood Pressure 130/82 05/04/2025 4:11 PM EDT Pulse - - Temperature - - Respiratory Rate - - Oxygen Saturation - - Inhaled Oxygen Concentration - - Weight 86.1 kg (189 lb 12 oz) 05/04/2025 4:11 PM EDT Height - - Body Mass Index 33.61 04/12/2024 8:57 AM EDT documented in this encounter Plan of Treatment Scheduled Orders Name Type Priority Associated Diagnoses Orde r Schedule Pap Smear Pathology and Cytology Routine Well woman exam with routine gynecological exam Ordered: 05/04/2025 HPV DNA probe, amplified Microbiology Routine Well woman exam with routine gynecological exam Ordered: 05/04/2025 documented as of this encounter Visit Diagnoses Diagnosis Well woman exam with routine gynecological exam Routine gynecological examination S/P endometrial ablation Other postprocedural status documented in this encounter Care Teams Engineering Designer Relationship Specialty Start Date End Date Jefferson Roberts MD [address] [place] [address] PCP - General Internal Medicine 04/12/24 documented as of this encounter
--- OUTSIDE RECORDS SUMMARY | 2025-05-04 20:11 | XMS_ITS | Encounter Summary ---
Author Organization [employer] Address [facility] [place]-[id number] [address] [place] [address] Care Team Providers Care Residential Glazier Name Role Phone Jefferson Roberts DO Primary Care Provider Encounter Details Date Type Department Care Team (Late st Contact Info) Description 04/13/2025 Orders Only [facility] - Family Medicine [address] [place] [phone] Ref Prov, [place] [address] Social History Tobacco Use Types Packs/Day Years [...] Care Team (Late st Contact Info) Description 05/05/2025 4:15 PM EDT Office Visit [facility] - [facility] Medicine [address] [place] [address] Jefferson Roberst DO [address] [place] [address] documented as of this encounter Procedures Procedure [...] documented as of this encounter Care Teams Residential Glazier Relationship Specialty Start Date End Date Jefferson Roberts DO [address] [place] [address] PCP - General Internal Medicine 10/09/22 documented as of this encounter
--- OUTSIDE RECORDS SUMMARY | 2025-05-04 20:11 | XMS_ITS | Encounter Summary ---
Author Organization [employer] [facility] tem Address [facility] [place]-[id number] [address] [place] [address] Care Team Providers Care Account Representative Name Role Phone Jefferson Roberts DO Primary Care Provider [phone] Reason for Visit * Reason Onset Date Comments Med Refill 10/28/2022 Encounter Details Date Type Department Care Team (Late Contact Info) Description 10/28/2022 Refill [facility] - Family Medicine [address] [place] [phone] Zara Farmer CMA Obesity with body mass [...] Upcoming Encounters Date Type Department Care Team ([facility] Contact Info) Description 05/05/2025 4:15 PM EDT Office Visit [facility] - [facility] [address] [place] [address] Jefferson Roberts DO [address] [place] [address] documented as of this encounter Visit Diagnoses Diagnosis Obesity with body mass index 30 or greater- Primary documented in this encounter Care Teams Account Representative Relationship Specialty Start Date End Date Jefferson Roberts DO [address] [place] [address] PCP - General Internal Medicine 10/09/22 documented as of this encounter
--- OUTSIDE RECORDS SUMMARY | 2025-05-04 20:11 | XMS_ITS | Encounter Summary ---
Author Organization [employer] Address [facility]-[id number] [address] [place] [address] Care Team Providers Care News Anchor Name Role Phone Jefferson Roberts Primary Care Provider [phone] Encounter Details Date Type Department Care Team (Late st Contact Info) Description 03/21/2025 Telephone [facility] - Family Medicine [address] [place] [address] Benito Scales CMA Social History Tobacco Use [...] referral could you please send it to [facility] or [facility] in [place]. documented in this encounter Plan of Treatment Upcoming Encounters Date Type Department Care Team (Late st Contact Info) Description 05/05/2025 4:15 PM EDT Office Visit [facility] - [facility] Medicine [address] [place] [address] Jefferson Roberts DO [address] [place] [address] documented as of this encounter Visit Diagnoses Not on filedocumented in this encounter Additional Health Concerns Assessment Noted Time PHQ-9 Depression Total Score: 0 01/17/20 25 4:30 PM EST documented as of this encounter Care Teams News Anchor Relationship Specialty Start Date End Date Jefferson Roberts DO [address] [place] [address] PCP - General Internal Medicine 10/09/22 documented as of this encounter
--- OUTSIDE RECORDS SUMMARY | 2025-05-04 20:11 | XMS_ITS | Encounter Summary ---
Author Organization [employer] [facility] tem Address [facility] [place]-[id number] [address] [place] [address] Care Team Providers Care Express Clerk Name Role Phone Jefferson Roberts DO Primary Care Provider [phone] Encounter Details Date Type Department Care Team (Late st Contact Info) Description 10/25/2022 Telephone [facility] - Family Medicine [address] [place] [address] Zara Farmer CMA Social History Tobacco Use [...] so, she would like it sent to [facility] in [place]. * Telephone Encounter - Jefferson Roberts DO - 10/25/2022 9:50 AM EST Rather [...] Medicine - Family Medicine [address] [place] [address] Jefferson Roberts DO [address] [place] [address] documented as of this encounter Visit Diagnoses Not on filedocumented in this encounter Care Teams Express Clerk Relationship Specialty Start Date End Date Jefferson Roberts DO [address] [place] [address] PCP - General Internal Medicine 10/09/22 documented as of this encounter
--- OUTSIDE RECORDS SUMMARY | 2025-05-04 20:11 | XMS_ITS | Clinical Summary ---
Author Organization [employer] [facility] tem Address [facility]-[id number] [address] [place] [address] Care Team Providers Care Washing And Screening Plant Supervisor Name Role Phone Jefferson Roberts Primary Care Provider [phone] Allergies No known active allergies Medications PNV,calcium 42-ydbq-gwxli acid (WESTAB PLUS) 27 mg iron- 1 mg tabletIndications: Essential hypertension Take 1 tablet by mouth in the morning. 90 tablet 5 Active DULoxetine (CYMBALTA) 30 mg capsuleIndications :Fibromyalgia Take 1 capsule (30 mg total) by mouth in the morning. 90 capsule 1 5 Active PREMARIN 0.625 mg tablet Take 1 tablet (0.625 mg total) by mouth. 5 Active rimegepant (NURTEC ODT) 75 mg tablet,disintegrat ingIndications:Int ractable migraine without aura and without status migrainosus Dissolve 75 mg on tongue daily as needed (breakthroug h migraine). 2 tablet 5 Active ondansetron ODT (ZOFRAN ODT) 4 mg disintegrating tabletIndications: Migraine without aura and without status migrainosus, not intractable Dissolve 1 tablet (4 mg total) on tongue 2 (two) times a day as needed for nausea or vomiting. 20 tablet 5 Active propranoloL (INDERAL) 40 mg tabletIndications: Intractable migraine without aura and without status migrainosus TAKE 1 TABLET BY MOUTH TWICE DAILY 60 tablet 2 5 Active meloxicam (MOBIC) 15 mg tabletIndications: Strain of neck muscle, initial encounter Take 1 tablet (15 mg total) by mouth in the morning. 30 tablet 5 Active baclofen (LIORESAL) 10 mg tabletIndications: Strain of neck muscle, initial encounter Take 1 tablet (10 mg total) by mouth 2 (two) times a day as needed for muscle spasms. 30 tablet 2 5 Active SUMAtriptan (IMITREX) 100 mg tabletIndications: Migraine without aura and without status migrainosus, not intractable Take 1 tablet (100 mg total) by mouth in the morning and at bedtime. 9 tablet 1 5 Active baclofen (LIORESAL) 10 mg tabletIndications: Strain of neck muscle, initial encounter Take 1 tablet (10 mg total) by mouth in the morning and 1 tablet (10 mg total) before bedtime. 20 tablet 5 025 Discontin ued(Reord er) meloxicam (MOBIC) 15 mg tabletIndications: Strain of neck muscle, initial encounter Take 1 tablet (15 mg total) by mouth in the morning. 20 tablet 5 025 Discontin ued(Reord er) SUMAtriptan (IMITREX) 100 mg tabletIndications: Migraine without aura and without status migrainosus, not intractable Take 1 tablet (100 mg total) by mouth in the morning and at bedtime. 9 tablet 1 5 025 Discontin ued(Reord er) Active Problems Problem Noted Date Diagnosed Date Impaired fasting glucose 03/04/2022 Migraine without aura 03/04/2022 Obesity with body mass index 30 or greater 01/25 Hypothyroidism 03/25/2019 Essential hypertension 12/29/2018 Female stress incontinence 12/29/2018 Encounters Date Type Department Care Team Description 04/29/2025 Telephone [facility] - Family Medicine [address] [place] [address] Jefferson Roberts DO 04/21/2025 Refill [facility] - [facility] [address] [place] [address] Jefferson Roberts DO Strain of neck muscle, initial encounter; Migraine without aura and without status migrainosus, not intractable 04/20/2025 Orders Only [facility] - [facility] [address] [place] [address] Jefferson Roberts, Strain of neck muscle, initial encounter 04/13/2025 Orders Only [facility] [address] [place] [address] Ref Prov, Not In System 03/25/2025 Refill [facility] [address] [place] [address] Jefferson Roberts, Intractable migraine without aura and without status migrainosus 03/21/2025 Orders Only [facility] [address] [place] [address] Jefferson Roberts DO Bipolar disorder, current episode mixed, mild (CMS-HCC) (Primary Dx) 03/21/2025 Telephone [facility] [address] [place] [address] Benito Scales [facility] 02/18/2025 Refill [facility] [address] [place] [address] Jefferson Roberts DO Strain of neck muscle, initial encounter; Migraine without aura and without status migrainosus, not intractable 02/03/2025 4:45 PM EST Telemedicine [facility] [address] [place] [address] Jefferson Roberts DO Bipolar disorder, current episode mixed, mild (CMS-HCC) (Primary Dx) 02/03/2025 Travel from Last 3 Months Immunizations Immunization Administration [...] 01/17/2025 4:31 PM EST Plan of Treatment Upcoming Encounters Date Type Department Care Team (Late st Contact Info) Description 05/05/2025 4:15 PM EDT Office Visit [facility] [address] [place] [address] Jefferson Roberts DO [address] [place] [address] Health Maintenance Due Date Last Done Comments Adult BMI Follow Up Plan 2003 COVID-19 Vaccine (2 - 2023-2 5 season) 2024 03/07/2021 Influenza Vaccine 08/01/2025 [...] R esult from Last 3 Months Insurance [place] [employer] Care Teams Washing And Screening Plant Supervisor Relationship Specialty Start Date End Date Jefferson Roberts DO [address] [place] [address] PCP - General Internal Medicine 10/09/22
--- OUTSIDE RECORDS SUMMARY | 2025-05-04 20:12 | XMS_ITS | Encounter Summary ---
Author Organization [employer] tem Address [facility] [place][id number] [address] [place] [address] Care Team Providers Care Library Page Name Role Phone Jefferson Roberts DO Primary Care Provider [phone] Encounter Details Date Type Department Care Team (Late st Contact Info) Description 04/20/2025 Orders Only [facility] - Family Medicine [address] [phone] Jefferson Roberts DO [address] [place] [address] Strain of neck muscle, initial encounter Social History Tobacco Use Types Packs/Day Years [...] Internal Medicine - Family Medicine [address] [place] [address] Jefferson Roberts DO [address] [place] [address] documented as of this encounter Visit Diagnoses Diagnosis Strain of neck muscle, initial encounter documented in this encounter Additional Health Concerns Assessment Noted Time PHQ-9 Depression Total Score: 0 01/17/20 25 4:30 PM EST documented as of this encounter Care Teams Library Page Relationship Specialty Start Date End Date Jefferson Roberts DO [address] [place] [address] PCP - General Internal Medicine 10/09/22 documented as of this encounter
--- OUTSIDE RECORDS SUMMARY | 2025-05-04 20:12 | XMS_ITS | Patient Health Record ---
Author Organization [facility] Address [address] [place] [address] Care Team Providers Care Practicing Dermatologist Name Role Phone Marah Sauer Unavailable [phone] ZekeZoe new Unavailable [phone] Allergies No Known Allergies Reason For Referral [...] Status Risk Notes Problem Venereal disease screening (324527673) Screening for STD (sexually transmitted disease) (Z11.3) Active confirmed Comment:pt desires screening, Problem Fatigue (60202343) Fatigue (R53.83) Active confirmed Problem Gynecological examination normal (86748749024473 4) Well woman exam with routine gynecological exam (Z01.419) Active confirmed Problem Obesity (796906598) Obesity (E66.9) Active confirmed Comment:pt trying diet [...] and exercise, Problem Thyroid function tests abnormal (351803031) Low TSH level (R94.6) Active confirmed Comment:free T 4 low. Pt to follow with pcp to see if she needs to start medical management, pcp said pt does not need meds, will repeat labs, Problem Removal of intrauterine contraceptive device done (situation) (67988250273566 5) Encounter for IUD removal (Z30.432) Active confirmed Comment:specul um inserted, iud strings seen at os, grasped with ringed forceps, iud removed intact and without difficulty, good hemostasis noted, pt tolerated procedure well, Problem Contraception care education (983296864) control counseling (Z30.09) Active confirmed Problem Leukocytosis (289202450) Leukocytosis (D72.829) Active confirmed Comment:with left shift, nurse to call pt to see if any infectious processes occuring currently repeat cbc, Problem Impaired fasting glycaemia (548247002) Elevated fasting blood sugar (R73.01) 010 Problem resolved confirmed Description:Im paired fasting glucose Problem Obesity (disorder) (800763630) Overweight and obesity (E66.3) 010 Problem resolved confirmed Vital Signs Heart Rate 80 /min 02/11/2025 Blood pressure diastolic 89 mm Hg 02/11/2025 Height-cm 162.56 cm 02/11/2025 Weight-kg 58.97 kg 02/11/2025 Height 64.00 in 02/11/2025 Blood pressure systolic 141 mm Hg 02/11/2025 Weight 130 lbs 02/11/2025 BMI 22.31 kg/m2 02/11/2025 Encounters Encounter Location Date Provider Diagnosis Dental Main [address] [place] [id number] 06/07/2024 Marah Sauer Encounter for scre ening for dental disorders Z13.84 ; 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 and Encounter for dental examination and cleaning without abnormal findings Z01.[address] [place] [id number] 02/11/2025 Zoe Jimenez Encounter for dent al [...] Name:Zoe Jimenez , 09/09/2025 11:15:00 AM, [address] [place], [place], [id number], Insurance Providers Payer Name Payer Address Payer Phone Subscriber Number Group Number Insured Name Patient Relationship to Insured Coverage Start Date Coverage End Date [employer] [address] [address] [place] [address] [id number] Rosemary Cass Self - patient is the insured 1 DMedicaid CFC after [place] [employer] [address] [place], [place] [id number] Martha Rileyna Self - patient is the insured 1 Medical (General) History Medical History History ICD Code No significant history of medical diseas es, ProblemStatus: Active, , Surgical History Surgery Date(Month/Year) Tonsillectomy and adenoidectomy, Problem Status: Active, 2010-03-21
--- OUTSIDE RECORDS SUMMARY | 2025-05-04 20:12 | XMS_ITS | Encounter Summary ---
Author Organization [facility] Address [address] [place] [address] Care Team Providers Care Animal Care Attendant Name Role Phone Jefferson Roberts MD Primary Care Provider [phone] Encounter Details Date Type Department Care Team (Latest Contact Info) Description 05/04/2025 Travel Social History Tobacco Use Types Packs/Day [...] on filedocumented in this encounter Care Teams Animal Care Attendant Relationship Specialty Start Date End Date Jefferson Roberts MD [address] [place] [address] PCP - General Internal Medicine 04/12/24 documented as of this encounter
--- OUTSIDE RECORDS SUMMARY | 2025-05-04 20:12 | XMS_ITS | Encounter Summary ---
Author Organization [employer] Address [facility][id number] [address] [place] [address] Care Team Providers Care Chuck Wagon Driver Name Role Phone Jefferson Roberst DO Primary Care Provider [phone] Encounter Details Date Type Department Care Team (Late Contact Info) Description 07/01/2023 Orders Only [facility] Internal Medicine - Family Medicine [address] [place] [address] Sara Garcia, TANVI Alopecia Social History Tobacco Use Types Packs/Day [...] Department Care Team (Late Contact Info) Description 05/05/2025 4:15 PM EDT [facility] [address] [place] [address] eJfferson Roberts DO [address] [place] [address] documented as of this encounter Procedures Procedure Name Priority Date/Time Associated Diagnosis Comments AMB REFERRAL TO DERMATOLOGY Routine 07/01/2023 Alopecia documented in this encounter Results * Ambulatory referral to Dermatology (07/01/2023) 07/01/2023 Jefferson Roberts DO OUTPATIENT REFERRAL ORDERABLES F inal Result MANUALLY TRANSCRIBED RESULTS documented in this encounter Visit Diagnoses Diagnosis Alopecia documented in this encounter Additional Health Concerns Assessment Noted Time PHQ-9 Depression Total Score: 0 06/11/20 23 4:11 PM EDT documented as of this encounter Care Teams Chuck Wagon Driver Relationship Specialty Start Date End Date Jefferson Roberts DO [address] [place] [address] PCP - General Internal Medicine 10/09/22 documented as of this encounter
--- OUTSIDE RECORDS SUMMARY | 2025-05-04 20:12 | XMS_ITS | Encounter Summary ---
Author Organization [facility] Address [facility]-[id number] [address] [place] [address] Care Team Providers Care Forging Machine Operator Name Role Phone Jefferson Roberts DO Primary Care Provider Reason for Visit * Reason Comments Med Refill Encounter Details Date Type Department Care Team ([facility] Contact Info) Description 11/11/2023 Refill [facility] - Family Medicine [address] [place] [phone] Jefferson Roberts DO [address] [place] [address] Essential hypertension Social History Tobacco Use Types [...] Upcoming Encounters Date Type Department Care Team ([facility] st Contact Info) Description 05/05/2025 4:15 PM EDT Office Visit [facility] - Family Medicine [address] [place] [address] Jefferson Roberts DO [address] [place] [address] documented as of this encounter Visit Diagnoses Diagnosis Essential hypertension Unspecified essential hypertension documented in this encounter Additional Health Concerns Assessment Noted Time PHQ-9 Depression Total Score: 0 07/09/20 23 3:48 PM EDT documented as of this encounter Care Teams Forging Machine Operator Relationship Specialty Start Date End Date Jefferson Roberts DO [address] [place] [address] PCP - General Internal Medicine 10/09/22 documented as of this encounter
--- OUTSIDE RECORDS SUMMARY | 2025-05-04 20:12 | XMS_ITS | Encounter Summary ---
Author Organization [employer] tem Address [facility] [place]-[id number] [address] [place] [address] Care Team Providers Care Furnace Converter Name Role Phone Jefferson Roberts DO Primary Care Provider [phone] Reason for Visit * Reason Comments Med Refill Encounter Details Date Type Department Care Team (Late st Contact Info) Description 01/07/2023 Refill [facility] Internal Medicine - Family Medicine [address] [place] [address] Jefferson Roberts DO [address] [place] [address] Depression, unspecified depression type (Primary Dx) Social [...] Medicine - Family Medicine [address] [place] [address] Jefferson Roberts DO [address] [place] [address] documented as of this encounter Visit Diagnoses Diagnosis Depression, unspecified depression type- Primary documented in this encounter Care Teams Furnace Converter Relationship Specialty Start Date End Date Jefferson Roberts DO [facility] [address] [place] [id number] PCP - General Internal Medicine 10/09/22 documented as of this encounter
--- OUTSIDE RECORDS SUMMARY | 2025-05-04 20:12 | XMS_ITS | Encounter Summary ---
Author Organization [facility] Address [address] [facility] [place] [address] Care Team Providers Care Farmworker Cranberry Name Role Phone Jefferson Roberts MD Primary Care Provider [phone] Reason for Visit * Reason Comments Med Refill Encounter Details Date Type Department Care Team (Late st Contact Info) Description 04/24/2025 Refill [facility] [address] [place] [phone] Evelyn Malone PA [address] [place], [facility]11 Hormone imbalance Social History Tobacco Use Types Packs/Day Years [...] as of this encounter Visit Diagnoses Diagnosis Hormone imbalance documented in this encounter Care Teams Farmworker Cranberry Relationship Specialty Start Date End Date Jefferson Roberts MD [address] [place] [address] PCP - General Internal Medicine 04/12/24 documented as of this encounter
--- OUTSIDE RECORDS SUMMARY | 2025-05-04 20:12 | XMS_ITS | Encounter Summary ---
Author Organization [facility] tem Address [facility] [place]-[id number] [address] [place] [address] Care Team Providers Care Hook And Eye Sewing Machine Operator Name Role Phone Jefferson Roberts DO Primary Care Provider [phone] Encounter Details Date Type Department Care Team (Late Contact Info) Description 04/07/2023 Orders Only [facility] Internal Medicine - Family Medicine [address] [place] [address] Jefferson Roberts DO [address] [place] [address] Class 1 obesity with serious comorbidity and [...] Medicine - Family Medicine [address] [place] [address] Jefferson Roberts DO [address] [place] [address] documented as of this encounter Visit Diagnoses Diagnosis Class 1 obesity with serious comorbidity and body mass index (BMI) of 33.0 to 33.9 in adult, unspecified obesity type documented in this encounter Additional Health Concerns Assessment Noted Time PHQ-9 Depression Total Score: 0 02/18/20 23 4:23 PM EDT documented as of this encounter Care Teams Hook And Eye Sewing Machine Operator Relationship Specialty Start Date End Date Jefferson Roberts DO [address] [place] [address] PCP - General Internal Medicine 10/09/22 documented as of this encounter
--- OUTSIDE RECORDS SUMMARY | 2025-05-04 20:12 | XMS_ITS | Encounter Summary ---
Author Organization [employer] Formerly [facility] tem Address [facility] [id number] [address] [place] [address] Care Team Providers Care Trial Mgr Name Role Phone Jefferson Roberts DO Primary Care Provider [phone] Encounter Details Date Type Department Care Team (Late st Contact Info) Description 06/24/2023 [facility] [address] [place] [phone] Jefferson Roberts DO [address] [place] [address] Social History Tobacco Use Types Packs/Day Years [...] said that the referral to derm in [place] did not work out, she was wondering if you could send a new referral to the one in [place] * Telephone Encounter - Jefferson Roberts DO - 06/24/2023 8:53 AM EDT I referred [facility] to [facility] [place]. * Telephone Encounter - Kathya Rousseau CMA - 06/24/2023 8:53 AM EDT LM on to call us if she would like the number documented in this encounter Plan of Treatment Upcoming Encounters Date Type Department Care Team (Late st Contact Info) Description 05/05/2025 4:15 PM EDT Office Visit [facility] Internal Medicine - Family Medicine [address] [place] [address] Jefferson Roberts DO [address] [place] [address] documented as of this encounter Visit Diagnoses Not on filedocumented in this encounter Additional Health Concerns Assessment Noted Time PHQ-9 Depression Total Score: 0 06/11/20 23 4:11 PM EDT documented as of this encounter Care Teams Trial Mgr Relationship Specialty Start Date End Date Jefferson Roberts DO [address] [place] [address] PCP - General Internal Medicine 10/09/22 documented as of this encounter
--- OUTSIDE RECORDS SUMMARY | 2025-05-04 20:12 | XMS_ITS | Encounter Summary ---
Author Organization [employer] [facility] tem Address [facility] [id number] [address] [place] [address] Care Team Providers Care Manager Beauty Name Role Phone Jefferson Roberts DO Primary Care Provider [phone] Encounter Details Date Type Department Care Team (Late Contact Info) Description 12/26/2022 Orders Only [facility] Internal Medicine - Family Medicine [address] [place] [address] Jefferson Roberts DO [address] [place] [address] Class 1 obesity with serious comorbidity and [...] Description 05/05/2025 4:15 PM EDT [facility] [address] [place] [address] Jefferson Roberts DO [address] [place], [place] [phone] documented as of this encounter Visit Diagnoses Diagnosis Class 1 obesity with serious comorbidity and body mass index (BMI) of 33.0 to 33.9 in adult, unspecified obesity type documented in this encounter Care Teams Manager Beauty Relationship Specialty Start Date End Date Jefferson Roberts DO [address] [place] [address] PCP - General Internal Medicine 10/09/22 documented as of this encounter
--- OUTSIDE RECORDS SUMMARY | 2025-05-04 20:12 | XMS_ITS | Encounter Summary ---
Author Organization [employer] s tem Address [facility] [id number] [address] [place] [address] Care Team Providers Care Room Service Manager Name Role Phone Jefferson Roberts DO Primary Care Provider [phone] Encounter Details Date Type Department Care Team (Late st Contact Info) Description 10/05/2024 Orders Only [facility] Internal Medicine - Family Medicine [address] [place] [phone] Jefferson Roberts DO [address] [place] [address] Migraine without aura and without status migrainosus, [...] Internal Medicine - Family Medicine [address] [place] [address] Jefferson Roberts DO [address] [place] [address] documented as of this encounter Visit Diagnoses Diagnosis Migraine without aura and without status migrainosus, not intractable documented in this encounter Additional Health Concerns Assessment Noted Time PHQ-9 Depression Total Score: 0 07/23/20 24 10:01 AM EDT documented as of this encounter Care Teams Room Service Manager Relationship Specialty Start Date End Date Jefferson Roberts DO [address] [place] [address] PCP - General Internal Medicine 10/09/22 documented as of this encounter
--- OUTSIDE RECORDS SUMMARY | 2025-05-04 20:12 | XMS_ITS | Encounter Summary ---
Author Organization [employer] [facility] tem Address [id number] [address] [place] [address] Care Team Providers Care Manufacturing Engineering Intern Name Role Phone Jefferson Roberts DO Primary Care Provider [phone] Encounter Details Date Type Department Care Team (Late st Contact Info) Description 12/26/2022 [facility] Medicine [address] [place] [address] Zara Farmer CMA Social History Tobacco Use [...] Internal Medicine - Family Medicine [address] [place] [address] Jefferson Roberts DO [address] [place] [address] documented as of this encounter Visit Diagnoses Not on filedocumented in this encounter Care Teams Manufacturing Engineering Intern Relationship Specialty Start Date End Date Jefferson Roberts DO [address] [place] [address] PCP - General Internal Medicine 10/09/22 documented as of this encounter
--- OUTSIDE RECORDS SUMMARY | 2025-05-04 20:12 | XMS_ITS | Encounter Summary ---
Author Organization [facility] Address [address] [place] [address] Care Team Providers Care Tree Trimming Line Technician Name Role Phone Jefferson Roberts MD Primary Care Provider [phone] Encounter Details Date Type Department Care Team (Late st Contact Info) Description 04/16/2024 Orders Only [facility] [address] [place] [address] Bell Kramer LPN [address] [place] [address] Social History Tobacco Use Types [...] on filedocumented in this encounter Care Teams Tree Trimming Line Technician Relationship Specialty Start Date End Date Jefferson Roberts MD [address] [place] [address] PCP - General Internal Medicine 04/12/24 documented as of this encounter
--- OUTSIDE RECORDS SUMMARY | 2025-05-04 20:12 | XMS_ITS | Encounter Summary ---
Author Organization [employer] s tem Address [place][id number] [address] [place] [address] Care Team Providers Care Biological Scientist Name Role Phone Jefferson Roberts DO Primary Care Provider [phone] Encounter Details Date Type Department Care Team (Late st Contact Info) Description 12/27/2024 Orders Only [facility] Internal Medicine - Family Medicine [address] [phone] Jefferson Roberts DO [address] [place] [address] Social History Tobacco Use Types Packs/Day Years [...] Internal Medicine - Family Medicine [address] [place] [address] Jefferson Roberts DO [address] [place] [address] documented as of this encounter Visit Diagnoses Not on filedocumented in this encounter Additional Health Concerns Assessment Noted Time PHQ-9 Depression Total Score: 0 10/12/20 24 4:41 PM EST documented as of this encounter Care Teams Biological Scientist Relationship Specialty Start Date End Date Jefferson Roberts DO [address] [place] [address] PCP - General Internal Medicine 10/09/22 documented as of this encounter
--- OUTSIDE RECORDS SUMMARY | 2025-05-04 20:12 | XMS_ITS | Encounter Summary ---
Author Organization [employer] [facility] tem Address [facility] [id number] [address] [place] [address] Care Team Providers Care Composite Mechanic Name Role Phone Jefferson Roberts DO Primary Care Provider [phone] Encounter Details Date Type Department Care Team (Late Contact Info) Description 04/07/2023 Telephone [facility] Internal Medicine - Family Medicine [address] [place] [address] Jefferson Roberts DO [address] [place] [address] Social History Tobacco Use Types Packs/Day Years [...] Internal Medicine - Family Medicine [address] [place] [address] Jefferson Roberts DO [address] [place] [address] documented as of this encounter Visit Diagnoses Not on filedocumented in this encounter Additional Health Concerns Assessment Noted Time PHQ-9 Depression Total Score: 0 02/18/20 23 4:23 PM EDT documented as of this encounter Care Teams Composite Mechanic Relationship Specialty Start Date End Date Jefferson Roberts DO [address] [place] [address] PCP - General Internal Medicine 10/09/22 documented as of this encounter
--- OUTSIDE RECORDS SUMMARY | 2025-05-04 20:12 | XMS_ITS | Encounter Summary ---
Author Organization [employer] s tem Address [facility] [id number] [address] [place] [address] Care Team Providers Care Loft Patternmaker Name Role Phone Jefferson Roberts DO Primary Care Provider [phone] Reason for Visit * Reason Comments Med Refill Encounter Details Date Type Department Care Team (Late st Contact Info) Description 01/21/2023 Refill [facility] Internal Medicine - Family Medicine [address] [phone] Jefferson Roberts DO [address] [place] [address] Chronic rhinitis (Primary Dx) Social History Tobacco [...] Internal Medicine - Family Medicine [address] [place] [address] Jefferson Roberts DO [address] [place] [address] documented as of this encounter Visit Diagnoses Diagnosis Chronic rhinitis- Primary documented in this encounter Care Teams Loft Patternmaker Relationship Specialty Start Date End Date Jefferson Roberts DO [address] [place] [address] PCP - General Internal Medicine 10/09/22 documented as of this encounter
--- OUTSIDE RECORDS SUMMARY | 2025-05-04 20:12 | XMS_ITS | Encounter Summary ---
Author Organization [employer] s tem Address [facility] [id number] [address] [place] [address] Care Team Providers Care Wrapper And Preserver Name Role Phone Jefferson Roberts DO Primary Care Provider [phone] Reason for Referral * Consultation (Routine) - Authorized Specialty Diagnoses / Procedures Referred By Contnatacha t Referred To Contact Behavioral Health Diagnoses Bipolar disorder, current episode mixed, mild (CMS-HCC) Jefferson Roberts DO [address] [place] [address] Phone: tel: fax: [facility] [address] [place] [address] Phone: tel: fax: Referral ID Status Reason Start Date Expiration Date Visits Requested Visits Authorized [id number] Authorized Specialty Services Required 03/21/2025 03/21/2026 4 4 Encounter Details Date Type Department Care Team (Late st Contact Info) Description 03/21/2025 Orders Only [facility] Internal Medicine - Family Medicine [address] [place] [address] Jefferson Roberts DO [address] [place] [address] Bipolar disorder, current episode mixed, mild (CMS-HCC) [...] Medicine - Family Medicine [address] [place] [address] Jefferson Roberts DO [address] [facility] [place] [address] Scheduled Referrals Name Type Priority Associated Diagnoses Order Schedule Ambulatory referral to Behavioral Health ([facility]) Outpatient Referral Routine Bipolar disorder, current episode mixed, mild ([facility]) 1 Occurrences starting 03/21/2025 until 03/21/2026 documented as of this encounter Visit Diagnoses Diagnosis Bipolar disorder, current episode mixed, mild ([facility])- Primary documented in this encounter Additional Health Concerns Assessment Noted Time PHQ-9 Depression Total Score: 0 01/17/20 25 4:30 PM EST documented as of this encounter Care Teams Wrapper And Preserver Relationship Specialty Start Date End Date Jefferson Roberts DO [address] [place] [address] PCP - General Internal Medicine 10/09/22 documented as of this encounter
--- OUTSIDE RECORDS SUMMARY | 2025-05-04 20:12 | XMS_ITS | Encounter Summary ---
Author Organization [employer] s tem Address [facility] [id number] [address] [place] [address] Care Team Providers Care Rail Operator Name Role Phone Jefferson Roberts DO Primary Care Provider [phone] Encounter Details Date Type Department Care Team (Late Contact Info) Description 10/01/2022 Orders Only [facility] Internal Medicine - Family Medicine [address] [place] [address] Jefferson Roberts DO [address] [place] [address] Social History Tobacco Use Types Packs/Day Years [...] 4:15 PM EDT [facility] - [facility] [address] [place] [address] Jefferson Roberts DO [address] [place] [address] documented as of this encounter Visit Diagnoses Not on filedocumented in this encounter Care Teams Rail Operator Relationship Specialty Start Date End Date Jefferson Roberts DO [address] [place] [address] PCP - General Internal Medicine 10/09/22 documented as of this encounter
--- OUTSIDE RECORDS SUMMARY | 2025-05-04 20:12 | XMS_ITS | Encounter Summary ---
Author Organization [employer] tem Address [facility] [id number] [address] [place] [address] Care Team Providers Care Blasting Entry Specialist Name Role Phone Jefferson Roberts DO Primary Care Provider [phone] Reason for Visit * Reason Onset Date Comments Med Refill 04/21/2025 Encounter Details Date Type Department Care Team (Late st Contact Info) Description 04/21/2025 Refill [facility] Internal Medicine - Family Medicine [address] [place] [address] Jefferson Roberts DO [address] [place] [address] Strain of neck muscle, initial encounter; Migraine [...] Internal Medicine - Family Medicine [address] [place] [address] Jefferson Roberts DO [address] [place] [address] documented as of this encounter Visit Diagnoses Diagnosis Strain of neck muscle, initial encounter Migraine without aura and without status migrainosus, not intractable documented in this encounter Additional Health Concerns Assessment Noted Time PHQ-9 Depression Total Score: 0 01/17/20 25 4:30 PM EST documented as of this encounter Care Teams Blasting Entry Specialist Relationship Specialty Start Date End Date Jefferson Roberts DO [address] [place] [address] PCP - General Internal Medicine 10/09/22 documented as of this encounter
--- OUTSIDE RECORDS SUMMARY | 2025-05-04 20:12 | XMS_ITS | Encounter Summary ---
Author Organization [facility] Address [address] [place] [address] Care Team Providers Care Health Technical Writer Name Role Phone Hima Hill MD Primary Care Provider [phone] Encounter Details Date Type Department Care Team (Late st Contact Info) Description 12/10/2024 Clinisync Result Encounter [facility] External Department Unsolicited Evelyn Vizcaino, THERESE [address] [place] [address] [place] [address] Social History Tobacco Use Types Packs/Day [...] AM EST Narrative 12/10/2024 11:34 AM EST [address] [address] Ultrasound Report Signed Patient: CHRISTIAN RILEY MR#: [id number] : 1985 Acct:[id number] Age/Sex: 39 / F ADM Date: 12/10/24 Loc: US Attending Dr: Evelyn Vizcaino Ordering Physician: Evelyn Vizcaino Date of Service: 12/10/24 Procedure(s): US breast LT limited Accession Number(s): [id number] cc: Evelyn Vizcaino; HIMA HILL Patient Name: CHRISTIAN RILEY MR#: [id number] : 1985 Exam Date: 12/10/2024 Ordering Doctor: [...] Treatments None Family Cancers None LOCATION: [facility] BREAST COMPOSITION: There are scattered areas of [...] Signed By: 12/10/24 1134 DD/ 1133 TD/TT: Sheep Killer: Procedure Note Radiology, Radiologist, - 12/10/2024 [place] [address] Ultrasound Report Signed Patient: CHRISTIAN RILEY LMR#: [id number] : 1985Acct:[id number] Age/Sex: 39 / FADM Date: 12/10/24 Loc: US Attending Dr: Evelyn Vizcaino Ordering Physician: Evelyn Vizcaino Date of Service: 12/10/24 Procedure(s): US breast LT limited Accession Number(s): [id number] cc: Evelyn Vizcaino; HIMA HILL Patient Name: CHRISTIAN RILEY MR#: [id number] : 1985 Exam Date: 12/10/2024 Ordering Doctor: [...] Treatments None Family Cancers None LOCATION: [facility] BREAST COMPOSITION: There are scattered areas of [...] M.D. Signed By:12/10/24 1134 DD/ 1133 TD/TT: Sheep Killer: us Evelyn SALEH [facility] Final Result documented in this encounter Visit Diagnoses Not on filedocumented in this encounter Care Teams Health Technical Writer Relationship Specialty Start Date End Date Hima Hill MD [address] [id number] PCP - General Internal Medicine 04/12/24 documented as of this encounter
--- OUTSIDE RECORDS SUMMARY | 2025-05-04 20:12 | XMS_ITS | Encounter Summary ---
Author Organization [facility] Address [address] [place] [address] Care Team Providers Care Mechanical Spreader Operator Name Role Phone Jefferson Roberts MD Primary Care Provider [phone] Encounter Details Date Type Department Care Team (Late st Contact Info) Description 04/29/2025 Clinisync Result Encounter [facility] External Department Unsolicited Franklin Bryant, [address] [place], [place] [address] Social History Tobacco Use Types Packs/Day Years [...] Procedure Name Priority Date/Time Associated Diagnosis Comments [facility]H PREG QUANT HCG Routine 04/29/2025 8: 15 AM EDT ALL CBC WITH AUTO DIFF Routine 04/29/2025 8:15 AM EDT documented in this encounter Results * TBH PREG QUANT HCG (04/29/2025 8:15 AM EDT) HCG QUANTITATIVE <1 mIU/mL TB Comment: 5-50 0.2-1 WEEK 50-500 1-2 WEEKS 100-5,000 2-3 WEEKS 500-10,000 3-4 WEEKS 1,000-50,000 4-5 WEEKS 10,000-100,000 5-6 WEEKS 15,000-200,000 6-8 WEEKS 10,000-100,000 2-3 MONTHS 04/29/2025 8:15 AM EDT 04/29/2025 8:17 AM EDT Narrative [facility] - 04/29/2025 8:56 AM EDT us Franklin Manny DO [facility] Final [facility] * (ABNORMAL) ALL CBC WITH AUTO DIFF (04/29/2025 8:15 AM EDT) TBH WBC 8.3 4.0 - 11.0 10 3/uL TBH TBH RBC 4.12(L) 4.20 - 5.40 10 6/uL TBH TBH HGB 12.6 12.0 - 16.0 g/dL TBH TBH HCT 37.1 36.0 - 48.0 % TBH TBH MCV 90.0 81.0 - 99.0 fL TBH TBH MCH 30.6 26.7 - 34.0 pg TBH TBH MCHC 34.0 29.9 - 35.2 g/dL TBH TBH RDW 12.5 11.0 - 15.0 % TBH TBH PLT 300 150 - 450 10 3/uL TBH TBH MPV 9.8 9.5 - 13.5 fL TBH NEUTROPHILS PERCENT AUTO 69.9 43.0 - 75.0 % TBH LYMPHOCYTES PERCENT AUTO 21.6 20.5 - 60.0 % TBH MONOCYTES PERCENT AUTO 5.3 1.7 - 12.0 % TBH TBH EO % 1.7 0.9 - 7.0 % TBH BASOPHILS PERCENT AUTO 1.1 0.2 - 2.0 % TBH IMMATURE GRANULOCYTES PCT AUTO 0.4 0.0 - 0.5 % TBH NEUTROPHILS ABSOLUTE AUTO 5.8 1.4 - 6.5 10 3/uL TBH LYMPHOCYTES ABSOLUTE AUTO 1.8 1.2 - 3.8 10 3/uL TBH MONOCYTES ABSOLUTE AUTO 0.4 0.3 - 0.8 10 3/uL TBH TBH EO # 0.1 0.0 - 0.7 10 3/uL TBH BASOPHILS ABSOLUTE AUTO 0.1 0.0 - 0.1 10 3/uL TBH IMMATURE GRANULOCYTES ABS AUTO 0.03 0.00 - 0.03 10 3/uL TBH 04/29/2025 8:15 AM EDT 04/29/2025 8:17 AM EDT Narrative [facility] - 04/29/2025 8:21 AM EDT us Franklin Manny DO [facility] Final Result [facility] documented in this encounter Visit Diagnoses Not on filedocumented in this encounter Care Teams Mechanical Spreader Operator Relationship Specialty Start Date End Date Jefferson Roberts MD [address] [place] [address] PCP - General Internal Medicine 04/12/24 documented as of this encounter
--- OUTSIDE RECORDS SUMMARY | 2025-05-04 20:12 | XMS_ITS | Encounter Summary ---
Author Organization [facility] Address [address] [place] [address] Care Team Providers Care Double End Chucking Machine Operator Name Role Phone Hima Hill MD Primary Care Provider [phone] Encounter Details Date Type Department Care Team (Late st Contact Info) Description 12/10/2024 Clinisync Result Encounter [facility] External Department Unsolicited Evelyn Vizcaino, THERESE [address] [place] [address] [place] [address] Social History Tobacco Use Types Packs/Day [...] EST Narrative 12/10/2024 11:34 AM EST The [address] [address] Mammography Report Signed Patient: CHRISTIAN RILEY MR#: [id number] : 1985 Acct:[id number] Age/Sex: 39 / F ADM Date: 12/10/24 Loc: US Attending Dr: Evelyn Vizcaino Ordering Physician: Evelyn Vizcaino Results: Date of Service: 12/10/24 Follow Up: Procedure(s): MM tomosynthesis diagnostic BI Accession Number(s): [id number] cc: Evelyn Vizcaino; HIMA HILL Patient Name: CHRISTIAN RILEY MR#: [id number] : 1985 Exam Date: 12/10/2024 Ordering Doctor: [...] Treatments None Family Cancers None LOCATION: [facility] BREAST COMPOSITION: There are scattered areas [...] Signed By: 12/10/24 1134 DD/ 1133 TD/TT: Sanitary Inspector: Procedure Note Radiology, Radiologist, - 12/10/2024 [place] [address] Mammography Report Signed Patient: CHRISTIAN RILEY LMR#: [id number] : 1985Acct:[id number] Age/Sex: 39 / FADM Date: 12/10/24 Loc: US Attending Dr: Evelyn Vizcaino Ordering Physician: Evelyn VizcainoResults: Date of Service: 12/10/24Follow Up: Procedure(s): MM tomosynthesis diagnostic BI Accession Number(s): [id number] cc: Evelyn Vizcaino; HIMA HILL Patient Name: CHRISTIAN RILEY MR#: [id number] : 1985 Exam Date: 12/10/2024 Ordering Doctor: [...] Treatments None Family Cancers None LOCATION: [facility] BREAST COMPOSITION: There are scattered areas [...] on 12/10/2024 at 11:07 Approved by: Real Hendirx M.D. on 12/10/2024 at 11:33 Dictated By: Real Hendrix M.D. Signed By:12/10/24 1134 DD/ 1133 TD/TT: Sanitary Inspector: us Evelyn S[facility] Final Result documented in this encounter Visit Diagnoses Not on filedocumented in this encounter Care Teams Double End Chucking Machine Operator Relationship Specialty Start Date End Date Hima Hill MD [address] [place] [address] PCP - General Internal Medicine 04/12/24 documented as of this encounter
--- OUTSIDE RECORDS SUMMARY | 2025-05-04 20:12 | XMS_ITS | Encounter Summary ---
Author Organization [employer] tem Address [facility] [place]-[id number] [address] [place] [address] Care Team Providers Care Grain Mill Products Inspector Name Role Phone Jefferson Roberts Primary Care Provider [phone] Encounter Details Date Type Department Care Team (Late st Contact Info) Description 07/12/2024 Telephone [facility] Internal Medicine - Family Medicine [address] [place] [address] No Montoya CMA Social History Tobacco Use [...] Internal Medicine - Family Medicine [address] [place] [address] Jefferson Roberts DO [address] [place] [address] documented as of this encounter Visit Diagnoses Not on filedocumented in this encounter Additional Health Concerns Assessment Noted Time PHQ-9 Depression Total Score: 0 12/17/19 24 4:27 PM EST documented as of this encounter Care Teams Grain Mill Products Inspector Relationship Specialty Start Date End Date Jefferson Roberts DO [address] [place] [address] PCP - General Internal Medicine 10/09/22 documented as of this encounter
--- OUTSIDE RECORDS SUMMARY | 2025-05-04 20:12 | XMS_ITS | Clinical Summary ---
Author Organization [facility] Address [address] [place] [address] Care Team Providers Care Hydroelectric Production Manager Name Role Phone Unavailable Primary Care Provider [...]
--- OUTSIDE RECORDS SUMMARY | 2025-05-04 20:12 | XMS_ITS | Encounter Summary ---
Author Organization [employer] [facility] tem Address [facility] [place]-[id number] [address] [place] [address] Care Team Providers Care Wool Sorter Name Role Phone Jefferson Roberts DO Primary Care Provider [phone] Encounter Details Date Type Department Care Team (Late Contact Info) Description 01/28/2023 Orders Only [facility] Internal Medicine - Family Medicine [address] [place] [phone] Jefferson Roberts DO [address] [place] [address] Class 1 obesity with serious comorbidity and [...] 4:15 PM EDT [facility] [address] [place] [address] Jefferson Roberts DO [address] [place], [place] [id number] documented as of this encounter Visit Diagnoses Diagnosis Class 1 obesity with serious comorbidity and body mass index (BMI) of 33.0 to 33.9 in adult, unspecified obesity type documented in this encounter Care Teams Wool Sorter Relationship Specialty Start Date End Date Jefferson Roberts DO [address] [place] [address] PCP - General Internal Medicine 10/09/22 documented as of this encounter
--- OUTSIDE RECORDS SUMMARY | 2025-05-04 20:12 | XMS_ITS | Encounter Summary ---
Author Organization [employer] [facility] tem Address [facility] [place]-[id number] [address] [place] [address] Care Team Providers Care Tripper Name Role Phone Jefferson Roberts DO Primary Care Provider [phone] Encounter Details Date Type Department Care Team (Late Contact Info) Description 03/01/2023 Orders Only [facility] Internal Medicine - Family Medicine [address] [phone] Jefferson Roberts DO [address] [place] [address] Class 1 obesity with serious comorbidity and [...] Internal Medicine - Family Medicine [address] [place] [address] Jefferson Roberts DO [address] [place] [address] documented as of this encounter Visit Diagnoses Diagnosis Class 1 obesity with serious comorbidity and body mass index (BMI) of 33.0 to 33.9 in adult, unspecified obesity type documented in this encounter Additional Health Concerns Assessment Noted Time PHQ-9 Depression Total Score: 0 02/18/20 23 4:23 PM EDT documented as of this encounter Care Teams Tripper Relationship Specialty Start Date End Date Jefferson Roberts DO [address] [place] [address] PCP - General Internal Medicine 10/09/22 documented as of this encounter
--- OUTSIDE RECORDS SUMMARY | 2025-05-04 20:12 | XMS_ITS | Encounter Summary ---
Author Organization [employer] tem Address [facility] [place][id number] [address] [place] [address] Care Team Providers Care Lan Support Specialist Name Role Phone Jefferson Roberts DO Primary Care Provider [phone] Encounter Details Date Type Department Care Team (Late st Contact Info) Description 08/17/2024 Orders Only [facility] Internal Medicine - Family Medicine [address] [phone] Jefferson Roberts DO [address] [place] [address] Fibromyalgia (Primary Dx) Social History Tobacco Use [...] Internal Medicine - Family Medicine [address] [place] [address] Jefferson Roberts DO [address] [place] [address] documented as of this encounter Visit Diagnoses Diagnosis Fibromyalgia- Primary Unspecified myalgia and myositis documented in this encounter Additional Health Concerns Assessment Noted Time PHQ-9 Depression Total Score: 0 07/23/20 24 10:01 AM EDT documented as of this encounter Care Teams Lan Support Specialist Relationship Specialty Start Date End Date Jefferson Roberts DO [address] [place] [address] PCP - General Internal Medicine 10/09/22 documented as of this encounter
--- OUTSIDE RECORDS SUMMARY | 2025-05-04 20:12 | XMS_ITS | Encounter Summary ---
Author Organization [employer] tem Address [facility] [place]-[id number] [address] [place] [address] Care Team Providers Care Stereotype Finisher Name Role Phone Jefferson Roberts Primary Care Provider [phone] Encounter Details Date Type Department Care Team (Late st Contact Info) Description 12/13/2024 Orders Only [facility] Internal Medicine - Family Medicine [address] [place] [phone] Ref Prov, [place] [address] Social History Tobacco Use Types Packs/Day Years [...] Internal Medicine - Family Medicine [address] [place] [address] Jefferson Roberts DO [address] [place] [address] documented as of this encounter Procedures Procedure [...] documented as of this encounter Care Teams Stereotype Finisher Relationship Specialty Start Date End Date Jefferson Roberts DO [address] [place] [address] PCP - General Internal Medicine 10/09/22 documented as of this encounter
--- OUTSIDE RECORDS SUMMARY | 2025-05-04 20:12 | XMS_ITS | Encounter Summary ---
Author Organization [employer] tem Address [facility] [place]-[id number] [address] [place] [address] Care Team Providers Care Carbon Cutter Name Role Phone Jefferson Roberts DO Primary Care Provider [phone] Encounter Details Date Type Department Care Team (Late st Contact Info) Description 04/29/2025 Telephone [facility] - [facility] Medicine [address] [place] [address] Jefferson Roberts DO [address] [place] [address] Social History Tobacco Use Types Packs/Day Years [...] encounter Miscellaneous Notes * Telephone Encounter - Jeanmarie Torres - 04/29/2025 11:52 AM EDT Patient called stating she does not feel her BP medication is working. Two BP's this morning were 185/95 & 185/112. Would like to discuss what she should do. documented in this encounter Plan of Treatment Upcoming Encounters Date Type Department Care Team (Late st Contact Info) Description 05/05/2025 4:15 PM EDT Office Visit [facility] Internal Medicine - Family Medicine [address] [place] [address] Jefferson Roberts DO [address] [place] [address] documented as of this encounter Visit Diagnoses Not on filedocumented in this encounter Additional Health Concerns Assessment Noted Time PHQ-9 Depression Total Score: 0 01/17/20 25 4:30 PM EST documented as of this encounter Care Teams Carbon Cutter Relationship Specialty Start Date End Date Jefferson Roberts DO [address] [place] [address] PCP - General Internal Medicine 10/09/22 documented as of this encounter
--- OUTSIDE RECORDS SUMMARY | 2025-05-04 20:12 | XMS_ITS | Encounter Summary ---
Author Organization [facility] Address [address] [place] [address] Care Team Providers Care Lead Manufacturing Engineering Tech Name Role Phone Jefferson Roberts MD Primary Care Provider [phone] Encounter Details Date Type Department Care Team (Late st Contact Info) Description 07/28/2023 Abstract [facility] [address] [facility] [address] [place] [address] Ml Dominguez MD [address] [facility] [address] [place] [address] Social History Tobacco Use Types Packs/Day Years [...] on filedocumented in this encounter Care Teams Lead Manufacturing Engineering Tech Relationship Specialty Start Date End Date Jefferson Roberts MD [address] [place] [address] PCP - General Internal Medicine 04/12/24 documented as of this encounter
--- OUTSIDE RECORDS SUMMARY | 2025-05-04 20:12 | XMS_ITS | Encounter Summary ---
Author Organization [employer] tem Address [facility] [place]-[id number] [address] [place] [address] Care Team Providers Care Extracorporeal Circulation Specialist Name Role Phone Jefferson Roberts DO Primary Care Provider [phone] Reason for Visit * Reason Comments Med Refill Encounter Details Date Type Department Care Team (Late st Contact Info) Description 06/29/2024 Refill [facility] Internal Medicine - Family Medicine [address] [phone] Jefferson Roberts DO [address] [place] [address] Migraine without aura and without status migrainosus, [...] Internal Medicine - Family Medicine [address] [place] [address] Jefferson Roberts DO [address] [place] [address] documented as of this encounter Visit Diagnoses Diagnosis Migraine without aura and without status migrainosus, not intractable documented in this encounter Additional Health Concerns Assessment Noted Time PHQ-9 Depression Total Score: 0 12/17/19 24 4:27 PM EST documented as of this encounter Care Teams Extracorporeal Circulation Specialist Relationship Specialty Start Date End Date Jefferson Roberts DO [address] [place] [address] PCP - General Internal Medicine 10/09/22 documented as of this encounter
--- OUTSIDE RECORDS SUMMARY | 2025-05-04 20:12 | XMS_ITS | Encounter Summary ---
Author Organization [facility] Address [address] [place] [address] Care Team Providers Care Vp Digital Marketing Name Role Phone Jefferson Roberts MD Primary Care Provider [phone] Encounter Details Date Type Department Care Team (Late st Contact Info) Description 04/20/2025 Clinisync Result Encounter [facility] External Department Unsolicited Noam Bryant, DO [address] [place] [address] [place] [address] Social History Tobacco Use Types [...] Procedure Name Priority Date/Time Associated Diagnosis Comments ECG 12-LEAD 04/20/2025 2:22 PM EDT documented in this encounter Results * ECG 12-LEAD (04/20/2025 2:22 PM EDT) Anatomical Region Laterality Modality Other 04/20/2025 2:22 PM EDT Narrative 04/20/2025 9:45 PM EDT The [address] [address] Electrocardiograph Report Signed Patient: CHRISTIAN RILEY MR#: [id number] : 1985 Acct:[id number] Age/Sex: 39 / F ADM Date: 04/20/25 Loc: PST Attending Dr: Noam Bryant D.O. Ordering Physician: Noam Bryant D.O. Date of Service: 04/20/25 Procedure(s): ECG 12 lead Accession Number(s): [id number] cc: [facility] Test Date: 2025-04-20 Pat Name: CHRISTIAN RILEY Department: Room: - Gender: Female Elevator Examiner: : 1985 Requested By: NOAM BRYANT Order Number: [id number] Reading MD: DELMY NUNEZ M.D. Measurements Intervals [place] Rate: 67 P: 35 WY: 171 QRS: 40 QRSD: 89 T: 40 QT: 397 QTc: 420 Interpretive Statements SINUS RHYTHM Normal ECG Compared to ECG 10/09/2023 07:48:21 No significant changes Electronically Signed On 04-20-2025 21:45:34 EDT by DELMY NUNEZ M.D. Dictated By: DELMY NUNEZ Signed By: 04/20/252 DD/ 1422 TD/TT: Beater Out: Procedure Note Radiology, Radiologist, MD - 04/20/2025 [place] [address] Electrocardiograph Report Signed Patient: CHRISTIAN RILEY LMR#: [id number] : 1985Acct:[id number] Age/Sex: 39 / FADM Date: 04/20/25 Loc: PST Attending Dr: Noam Bryant D.O. Ordering Physician: Noam Bryant D.O. Date of Service: 04/20/25 Procedure(s): ECG 12 lead Accession Number(s): [id number] cc: [facility] Test Date: 2025-04-20 Pat Name: CHRISTIAN RILEY Department: Room: - Gender: Female Elevator Examiner: : 1985 Requested By: NOAM BRYANT Order Number: [id number] Reading MD: DELMY NUNEZ M.D. Measurements Intervals [place] Rate: 67 P: 35 WY: 171 QRS: 40 QRSD: 89 T: 40 QT: 397 QTc: 420 Interpretive Statements SINUS RHYTHM Normal ECG Compared to ECG 10/09/2023 07:48:21 No significant changes Electronically Signed On 04-20-2025 21:45:34 EDT by DELMY NUNEZ M.D. Dictated By: DELMY NUNEZ Signed By:04/20/25 2140 DD/ 1422 TD/TT: Beater Out: us Noam Manny DO [facility] Final Result documented in this encounter Visit Diagnoses Not on filedocumented in this encounter Care Teams Vp Digital Marketing Relationship Specialty Start Date End Date Jefferson Roberts MD [address] [place] [address] PCP - General Internal Medicine 04/12/24 documented as of this encounter
--- OUTSIDE RECORDS SUMMARY | 2025-05-04 20:12 | XMS_ITS | Encounter Summary ---
Author Organization [facility] Address [address] [place] [address] Care Team Providers Care Plastic Process Technician Name Role Phone Jefferson Roberts MD Primary Care Provider [phone] Encounter Details Date Type Department Care Team (Late st Contact Info) Description 05/04/2025 Bamboo flowsheet [facility] [address] [place] [phone] Franklin Bryant, DO [address] [facility] [address] Lora Johnson, [facility] Social History Tobacco Use Types Packs/Day Years [...] on filedocumented in this encounter Care Teams Plastic Process Technician Relationship Specialty Start Date End Date Jefferson Roberts MD [address] [place] [address] PCP - General Internal Medicine 04/12/24 documented as of this encounter
--- OUTSIDE RECORDS SUMMARY | 2025-05-04 20:12 | XMS_ITS | Encounter Summary ---
Author Organization [employer] [facility] tem Address [facility] [place]-[id number] [address] [place] [address] Care Team Providers Care Rn Cardiovascular Name Role Phone Jefferson Roberts DO Primary Care Provider [phone] Reason for Referral * Consultation (Routine) - Closed Specialty Diagnoses / Procedures Referred By Contnatacha t Referred To Contact Dermatology Diagnoses Alopecia Jefferson Roberts DO [address] [place] [address] Phone: tel: fax: Cammie George MD [address] [place] [address], [address] [place] [address] Phone: tel: fax: Referral ID Status Reason Start Date Expiration Date V isits Requested Visits Authorized [id number] Closed Specialty Services Required 06/24/2023 06/23/2024 1 1 Encounter Details Date Type Department Care Team (Late st Contact Info) Description 06/24/2023 Orders Only [facility] Internal Medicine - Family Medicine [address] [place] [phone] Jefferson Roberts DO [address] [place] [address] Alopecia (Primary Dx) Social History Tobacco Use [...] Internal Medicine - Family Medicine [address] [place] [address] Jefferson Roberts DO [address] [place] [address] documented as of this encounter Results * Ambulatory referral to Dermatology (07/01/2023) 07/01/2023 Jefferson Roberts DO OUTPATIENT REFERRAL ORDERABLES F inal Result MANUALLY TRANSCRIBED RESULTS documented in this encounter Visit Diagnoses Diagnosis Alopecia- Primary documented in this encounter Additional Health Concerns Assessment Noted Time PHQ-9 Depression Total Score: 0 06/11/20 23 4:11 PM EDT documented as of this encounter Care Teams Rn Cardiovascular Relationship Specialty Start Date End Date Jefferson Roberts DO [address] [place] [address] PCP - General Internal Medicine 10/09/22 documented as of this encounter
--- OUTSIDE RECORDS SUMMARY | 2025-05-04 20:12 | XMS_ITS | Clinical Summary ---
Author Organization [facility] Healthcare Address [address] [place] [address] Care Team Providers Care Pusher Operator Name Role Phone Hima Hill MD Primary Care Provider [phone] Allergies No known active allergies Medications DULoxetine (Cymbalta) [address] capsule Take 60 mg by mouth Daily Do not crush or chew. Active baclofen (Lioresal) 10 MG tablet Take 10 mg by mouth in the morning and 10 mg in the evening. 02/19/20 25 Active 27-1 MG tablet Take 1 tablet by mouth Daily 03/25/20 25 Active SUMAtriptan (Imitrex) 100 MG tablet TAKE 1 TABLET BY MOUTH TWICE DAILY IN THE MORNING and before bedtime 02/19/20 25 Active Premarin 0.625 MG tabletIndicatio ns:Hormone imbalance TAKE 1 TABLET BY MOUTH EVERY DAY 30 tablet 3 04/26/20 25 Active propranolol (Inderal) 40 MG tablet Take 40 mg by mouth Active meloxicam (Mobic) 15 MG tablet Take 15 mg by mouth Daily Active Rwltggdt-Zjc-Un -FA ( 1 + IRON PO) 025 Discontinued estrogens, conjugated, (Premarin) 0.625 MG tabletIndicatio ns:Hormone imbalance Take 1 tablet (0.625 mg) by mouth Daily Take 1 tablet daily by mouth for 30 days 30 tablet 11 04/08/20 24 025 Discontinued propranolol LA (Inderal LA) 60 MG 24 hr capsule Take 60 mg by mouth Daily Do not crush, chew, or split. 025 Discontinued phentermine (Adipex-P) 37.5 MG tabletIndicatio ns:Encounter for weight management Take 1 tablet (37.5 mg) by mouth in the morning. Take before meals. 30 tablet 12/08/19 025 Discontinued Ferrous Sulfate (IRON PO) Take 1 tablet by mouth in the morning. 12/30/19 25 025 Discontinued Rimegepant Sulfate (Nurtec) 75 MG tablet dispersible Take 75 mg by mouth Daily as needed 01/17/20 025 Discontinued Active Problems No known active problems Encounters Date Type Department Care Team Description 05/04/2025 3:40 PM EDT Office Visit [facility] [address] [place] [address] Noam Bryant, DO Well woman exam with routine gynecological exam; S/P endometrial ablation 05/04/2025 Bamboo flowsheet [facility] [address] [place] [address] Noam Bryant, 05/04/2025 Travel 04/29/2025 Clinisync Result Encounter [facility] External Department Unsolicited Noam Bryant, DO 04/24/20[address]ill [facility] [address] [place] [address] Evelyn Malone PA Hormone imbalance 04/20/2025 Clinisync Result Encounter [facility] External Department Unsolicited Noam Bryant, 04/20/2025 Orders Only [facility] [address] [place] [address] Cammy Uribe MA 04/11/2025 3:30 PM EDT Procedure Visit [facility] [address] [place] [address] Noam Bryant, DO Preop examination; Menorrhagia with regular cycle; Abnormal uterine bleeding (AUB); Pelvic pain 04/11/2025 Abstract [facility] [place] [address] [place] [address] Noam Bryant, 04/11/2025 External Result Encounter [facility] External Department Unsolicited Noam Bryant, 04/11/2025 Travel 03/25/2025 Clinisync Result Encounter [facility] External Department Unsolicited Noam Bryant DO 03/25/2025 Clinisync Result Encounter [facility]OM[facility] External Department Unsolicited Noam Bryant DO 03/21/2025 3:50 PM EDT Office Visit [facility] [address] [place] [phone] Noam Bryant DO Encounter to discuss procedure; Menorrhagia with regular cycle 03/21/2025 Bamboo flowsheet [facility] [address] [place] [address] [place] [phone] Noam Bryant DO from Last 3 Months Social History Tobacco [...] 12 oz) 05/04/2025 4:11 PM EDT Height 160 cm (5' 3 ) 04/12/2024 8:57 AM EDT Body Mass Index 33.61 04/12/2024 8:57 AM EDT Plan of Treatment Health Maintenance Due Date Last Done Comments Influenza Vaccine (Season Ended) 2025 10/01/2023, 09/27/2022, 08/14/2021, Additional history exists Pap Smear 04/08/2027 04/08/2024, 03/05/2023 Cervical Cancer Screening 03/05/2028 HPV/Cotest 03/05/2028 Procedures Procedure Name Priority Date/Time Associated Diagnosis Comments [facility] PREG QUANT HCG Routine 04/29/2025 8: 15 AM EDT ALL CBC WITH AUTO DIFF Routine 8:15 AM EDT ECG 12-LEAD 04/20/2025 2:22 PM EDT POCT , URINE Routine 04/11/2025 3:57 PM [...] Recently Relevant to Health Maintenance Results * [facility] PREG QUANT HCG (04/29/2025 8:15 AM EDT) Only the most recent of2 resultswithin the time period is included. Pathologist [facility] HCG QUANTITATIVE <1 mIU/mL [facility] Comment: 5-50 0.2-1 WEEK 50-500 1-2 WEEKS 100-5,000 2-3 WEEKS 500-10,000 3-4 WEEKS 1,000-50,000 4-5 WEEKS 10,000-100,000 5-6 WEEKS 15,000-200,000 6-8 WEEKS 10,000-100,000 2-3 MONTHS 04/29/2025 8:15 AM EDT 04/29/2025 8:17 AM EDT Narrative CLINISYNC - 04/29/2025 8:56 AM EDT Noam Manny DO CLINISYNC Final Result [facility] * (ABNORMAL) ALL CBC WITH AUTO DIFF (04/29/2025 8:15 AM EDT) Only the most recent of2 resultswithin the time period is included. [facility] TB WBC 8.3 4.0 - 11.0 10 3/uL TBH TB RBC 4.12(L) 4.20 - 5.40 10 6/uL TB[facility] TB HGB 12.6 12.0 - 16.0 g/dL TB TB HCT 37.1 36.0 - 48.0 % TB TB MCV 90.0 81.0 - 99.0 fL TB TB MCH 30.6 26.7 - 34.0 pg TBH TB MCHC 34.0 29.9 - 35.2 g/dL TB TB RDW 12.5 11.0 - 15.0 % TBH TBH PLT 300 150 - 450 10 3/uL TB TB MPV 9.8 9.5 - 13.5 fL TBH [...] Narrative CLINISYNC - 04/29/2025 8:21 AM EDT Noam Bryant DO CLINISYNC Final Result [facility] * ECG 12-LEAD (04/20/2025 2:22 PM EDT) Anatomical Region Laterality Modality Other 04/20/2025 2:22 PM EDT Narrative 04/20/2025 9:45 [place] [address] Electrocardiograph Report Signed Patient: CASS RILEY MR#: [id number] : 1985 Acct:[id number] Age/Sex: 39 / F ADM Date: 04/20/25 Loc: PST Attending Dr: Noam Bryant D.O. Ordering Physician: Noam Bryant D.O. Date of Service: 04/20/25 Procedure(s): ECG 12 lead Accession Number(s): [id number] cc: [facility] Test Date: 2025-04-20 Pat Name: CASS RILEY Department: Room: - Gender: Female Medical Assistant Ob Gyn: : 1985 Requested By: NOAM BRYANT Order Number: [id number] Reading MD: DELMY NUNEZ M.D. Measurements Intervals Odonnell Rate: 67 P: 35 CO: 171 QRS: 40 QRSD: 89 T: 40 QT: 397 QTc: 420 Interpretive Statements SINUS RHYTHM Normal ECG Compared to ECG 10/09/2023 07:48:21 No significant changes Electronically Signed On 04-20-2025 21:45:34 EDT by DELMY NUNEZ M.D. Dictated By: DELMY NUNEZ Signed By: 04/20/252144 DD/ 21 TD/TT: Blowing Engineer: Procedure Note Radiology, Radiologist, MD - 04/20/2025 [place] [address] Electrocardiograph Report Signed Patient: CASS RILEY LMR#: [id number] : 1985Acct:[id number] Age/Sex: 39 / FADM Date: 04/20/25 Loc: PST Attending Dr: Noam Bryant D.O. Ordering Physician: Noam Bryant D.O. Date of Service: 04/20/25 Procedure(s): ECG 12 lead Accession Number(s): [id number] cc: [facility] Test Date: 2025-04-20 Pat Name: CASS RILEY Department: Room: - Gender: Female Medical Assistant Ob Gyn: : 1985 Requested By: NOAM BRYANT Order Number: [id number] Reading MD: DELMY NUNEZ M.D. Measurements Intervals Odonnell Rate: 67 P: 35 CO: 171 QRS: 40 QRSD: 89 T: 40 QT: 397 QTc: 420 Interpretive Statements SINUS RHYTHM Normal ECG Compared to ECG 10/09/2023 07:48:21 No significant changes Electronically Signed On 04-20-2025 21:45:34 EDT by DELMY NUNEZ M.D. Dictated By: DELMY NUNEZ Signed By:04/20/252144 DD/ 1422 TD/TT: Blowing Engineer: [facility] Final Result * POCT , urine manually resulted (04/11/2025 3:57 PM EDT) Preg Test, Ur Negative Negative Urine 04/11/2025 3:57 PM EDT [facility] POINT OF CARE TEST ENTER/EDIT OR [...] - Positive Urine 04/11/2025 3:57 PM EDT [facility] POINT OF CARE TEST ENTER/EDIT OR DERABLES Final Result * PATHOLOGY REQUEST FOR LAB JULIANN (04/11/2025 12:00 AM EDT) PATHOLOGY REQUEST FOR LAB JULIANN 04/15/2025 9:10 AM EDT [facility] Comment:See report. Scanned copy available in EMR. Other Topography unknown / Unknown 04/11/2025 04/12/2025 1:06 PM EDT Narrative [facility] - 04/15/2025 9:11 AM EDT EMBX Noam Bryant DO LAB BLOOD ORDERABLES Final Resul t Performing Organization Address City/[facility]/ZIP Co de Phone Number [facility] [address] [place] [address], [facility] [address] [place] [address] * Endometrial biopsy (04/11/2025 12:00 AM EDT) us Noam Bryant DO SURGICAL HISTORY PROCEDURES Jessica l Result Performing Organization Address City/[facility]/ZIP Co de Phone Number EXTERNAL LAB * US PELVIS TRANSVAGINAL (03/25/2025 3:11 PM EDT) Anatomical Region Laterality Modality Other 03/25/2025 3:11 PM EDT Narrative 03/25/2025 3:14 [place] [address] Ultrasound Report Signed Patient: CASS RILEY MR#: [id number] : 1985 Acct:[id number] Age/Sex: 39 / F ADM Date: 03/25/25 Loc: US Attending Dr: Noam Bryant D.O. Ordering Physician: Noam Bryant D.O. Date of Service: 03/25/25 Procedure(s): US pelvis transvaginal Accession Number(s): [id number] cc: Noam Bryant D.O.; [place] [id number] Patient Name: CASS RILEY MRN: [id number] date: 1985 Sex: F Assigned Patient Location: US Current Patient Location: US Accession/Order Number: [id number] Exam Date: 03/25/2025 15:09 Report Date: 03/25/2025 [...] Jr., D.O. 03/25/2025 3:11 PM Dictation Location: [place] [address] Electronically authenticated by: [id number] Y Date: 03/25/2025 15:11 Dictated By: Brandon Montez M.D. Signed By: 03/25/25 1514 DD/ 10 TD/TT: Blowing Engineer: Procedure Note Radiology, Radiologist, MD - 03/25/2025 [place] [address] Ultrasound Report Signed Patient: CASS RILEY LMR#: [id number] : 1985Acct:[id number] Age/Sex: 39 / FADM Date: 03/25/25 Loc: US Attending Dr: Noam Bryant D.O. Ordering Physician: Noam Bryant D.O. Date of Service: 03/25/25 Procedure(s): US pelvis transvaginal Accession Number(s): [id number] cc: Noam Bryant D.O.; [place] [address] Patient Name: CASS RILEY MRN: [id number] date: 1985 Sex: F Assigned Patient Location: US Current Patient Location: US Accession/Order Number: [id number] Exam Date: 03/25/2025 15:09 Report Date: 03/25/2025 [...] Jr., D.O. 03/25/2025 3:11 PM Dictation Location: [place] [address] Electronically authenticated by: [id number] Y Date: :11 Dictated By: Brandon Montez M.D. Signed By:03/25/254 DD/ 10 TD/TT: Blowing Engineer: us Noam Manny DO CLINISYNC IMAGING Final Result * MLR HEMOGLOBIN A1C (03/25/2025 1:42 PM EDT) GLYCOHEMOGLOBIN A1C 5.1 4.5 - 6.2 % [facility] Comment: ADA RECOMMENDED LIMIT 4.0 - 6.0 ADA THERAPEUTIC TARGET < 7.0 ACTION SUGGESTED > 7.0 ESTIMATED AVERAGE GLUCOSE 100 mg/dL TB 03/25/2025 1:42 PM EDT 03/25/2025 1:46 PM EDT Narrative CLINISYNC - 03/25/2025 2:58 PM EDT us Noam Manny DO CLINISYNC Final Result [facility] * ALL THYROXINE (T4) FREE (03/25/2025 1:42 PM EDT) FREE T4 1.05 0.76 - 1.46 ng/dL TB 03/25/2025 1:42 PM EDT 03/25/2025 1:46 PM EDT Narrative CLINISYNC - 03/25/2025 2:58 PM EDT Noam Manny DO CLINISYNC Final Result Performing Organization Address [facility] Co de Phone Number [facility] * ALL THYROID STIM HORMONE (03/25/2025 1:42 PM EDT) THYROID STIMULATING HORMONE 3.147 0.358 - 3.740 uIU/mL TBH 03/25/2025 1:42 PM EDT 03/25/2025 1:46 PM EDT Narrative CLINISYNC - 03/25/2025 2:58 PM EDT Noam Manny DO CLINISYNC Final Result Performing Organization Address [facility] Co de Phone Number [facility] * ALL LUTEINIZING HORMONE (03/25/2025 1:42 PM EDT) LUTEINIZING HORMONE(LH) 12.7 . mIU/mL [facility] Comment: Adult Female Range Follicular phase 2.4 - 12.6 Ovulation phase 14.0 - 95.6 Luteal phase 1.0 - 11.4 Postmenopausal 7.7 - 58.5 03/25/2025 1:42 PM EDT 03/25/2025 1:46 PM EDT Narrative CLINISYNC - 03/26/2025 4:07 AM EDT Noam Manny DO CLINISYNC Final Result Performing Organization Address [facility] Co de Phone Number [facility] * ALL FOLLICLE STIMULATING HORMONE (03/25/2025 1:42 PM EDT) FSH 9.9 . mIU/mL [facility] Comment: Adult Female Range Follicular phase 3.5 - 12.5 Ovulation phase 4.7 - 21.5 Luteal phase 1.7 - 7.7 Postmenopausal 25.8 - 134.8 Performed at: [address] [id number] Dietary Aide: Ronn Kolb PhD, Phone: [phone] 03/25/2025 1:42 PM EDT 03/25/2025 1:46 PM EDT Narrative CLINISYNC - 03/26/2025 4:07 AM EDT Noam Manny DO CLINISYNC Final Result Performing Organization Address [facility]/ZIP Co de Phone Number [facility] * (ABNORMAL) ALL DHEA SULFATE (03/25/2025 1:42 PM EDT) DHEA-SULFATE 55.1(A) 57.3 - 279.2 ug/dL TB 03/25/2025 1:42 PM EDT 03/25/2025 1:46 PM EDT Narrative CLINISYNC - 03/26/2025 4:07 AM EDT Noam Manny DO CLINISYNC Final Result Performing Organization Address [facility] Co de Phone Number [facility] * ALL DEHYDROEPIANDROSTERONE (03/25/2025 1:42 PM EDT) DHEA, SERUM 90 31 - 701 ng/dL [facility] Comment: This test was developed and its performance characteristics determined by [facility]. It has not been cleared or approved by the Food and Drug Administration. Performed at: [address] [id number] Dietary Aide: Janel Coronado MD, Phone: [phone] 03/25/2025 1:42 PM EDT 03/25/2025 1:46 PM EDT Narrative CLINISYNC - 04/02/2025 5:09 PM EDT Noam Manny DO CLINISYNC Final Result Performing Organization Address City/[facility]/ZIP Co de Phone Number [facility] * Pap Smear (04/08/2024 12:00 AM EDT) Swab Cervical swab / Unknown Damián Lamar MD LAB CYTOLOGY ORDERABLES Jessica salazar Result EXTERNAL LAB from Last 3 Months or Most Recently Relevant to Health Maintenance Insurance [employer] Care Teams Pusher Operator Relationship Specialty Start Date End Date Hima Hill MD [address] [place] [address] PCP - General Internal Medicine 04/12/24
--- OUTSIDE RECORDS SUMMARY | 2025-05-04 20:12 | XMS_ITS | Encounter Summary ---
Author Organization [facility] Address [address] [place] [address] Care Team Providers Care Burrer Machine Name Role Phone Jefferson Roberts MD Primary Care Provider Encounter Details Date Type Department Care Team (Late st Contact Info) Description 04/20/2025 Orders Only [facility] [address] [facility] [address] [place] [address] Cammy Uribe [place] [address] [place] [address] Social History Tobacco Use Types Packs/Day Years [...] * Endometrial biopsy (04/11/2025 12:00 AM EDT) Franklin Manny DO SURGICAL HISTORY PROCEDURES Jessica l Result EXTERNAL LAB documented in this encounter Visit Diagnoses Not on filedocumented in this encounter Care Teams Burrer Machine Relationship Specialty Start Date End Date Jefferson Roberts MD [address] [place] [address] PCP - General Internal Medicine 04/12/24 documented as of this encounter
--- OUTSIDE RECORDS SUMMARY | 2025-05-04 20:12 | XMS_ITS | Encounter Summary ---
Author Organization [facility] Address [address] [place] [address] Care Team Providers Care Casino Cage Cashier Name Role Phone Jefferson Roberts MD Primary Care Provider [phone] Encounter Details Date Type Department Care Team (Late st Contact Info) Description 04/11/2025 Abstract [facility] [address] [place] [phone] Franklin Bryant, DO [address] [facility] [address] [place] [place], [place] [address] Social History Tobacco Use Types Packs/Day Years [...] on filedocumented in this encounter Care Teams Casino Cage Cashier Relationship Specialty Start Date End Date Jefferson Roberts MD [address] [place] [address] PCP - General Internal Medicine 04/12/24 documented as of this encounter
--- OUTSIDE RECORDS SUMMARY | 2025-05-04 20:12 | XMS_ITS | Encounter Summary ---
Author Organization [employer] tem Address [id number] [address] [place] [address] Care Team Providers Care Activated Sludge Operator Name Role Phone Jefferson Roberts DO Primary Care Provider [phone] Encounter Details Date Type Department Care Team (Late Contact Info) Description 07/17/2023 Orders Only [facility] Internal Medicine - Family Medicine [address] [place] [phone] Jefferson Roberts DO [address] [place] [address] Alopecia (Primary Dx) Social History Tobacco Use [...] - Family Medicine [address] [place] [place] [address] Jefferson Roberts DO [address] [place] [address] documented as of this encounter Visit Diagnoses Diagnosis Alopecia- Primary documented in this encounter Additional Health Concerns Assessment Noted Time PHQ-9 Depression Total Score: 0 07/09/20 23 3:48 PM EDT documented as of this encounter Care Teams Activated Sludge Operator Relationship Specialty Start Date End Date Jefferson Roberts DO [address] [place] [address] PCP - General Internal Medicine 10/09/22 documented as of this encounter
--- OUTSIDE RECORDS SUMMARY | 2025-05-04 20:12 | XMS_ITS | Encounter Summary ---
Author Organization [employer] [facility] tem Address [id number] [address] [place] [address] Care Team Providers Care Bid Clerk Name Role Phone Jefferson Roberts DO Primary Care Provider [phone] Encounter Details Date Type Department Care Team (Late Contact Info) Description 03/17/2023 [facility] [address] [place] [address] Karly Toledo MA Social History Tobacco Use [...] Internal Medicine - Family Medicine [address] [place] [address] Jefferson Roberts DO [address] [place] [address] documented as of this encounter Visit Diagnoses Not on filedocumented in this encounter Additional Health Concerns Assessment Noted Time PHQ-9 Depression Total Score: 0 02/18/20 4:23 PM EDT documented as of this encounter Care Teams Bid Clerk Relationship Specialty Start Date End Date Jefferson Roberts DO [address] [place] [address] PCP - General Internal Medicine 10/09/22 documented as of this encounter
--- OUTSIDE RECORDS SUMMARY | 2025-05-04 20:12 | XMS_ITS | Encounter Summary ---
Author Organization [facility] [facility] tem Address [id number] [address] [place] [address] Care Team Providers Care Buggy Ladle Tender Name Role Phone Jefferson Roberts Primary Care Provider [phone] Reason for Visit * Reason Onset Date Comments Med Refill 02/11/2023 Encounter Details Date Type Department Care Team (Late st Contact Info) Description 02/11/2023 Telephone [facility] Internal Medicine - Family Medicine [address] [place] [address] Zara Farmer CMA Med Refill Social History [...] Medicine - Family Medicine [address] [place] [address] Jefferson Roberts DO [address] [place] [address] documented as of this encounter Visit Diagnoses Not on filedocumented in this encounter Care Teams Buggy Ladle Tender Relationship Specialty Start Date End Date Jefferson Roberts DO [address] [place] [address] PCP - General Internal Medicine 10/09/22 documented as of this encounter
--- OUTSIDE RECORDS SUMMARY | 2025-05-04 20:13 | XMS_ITS | Encounter Summary ---
Author Organization [employer] tem Address [id number] [address] [place] [address] Care Team Providers Care Pigment Weigher Name Role Phone Jefferson Roberts DO Primary Care Provider [phone] Reason for Visit * Reason Comments Med Refill Encounter Details Date Type Department Care Team (Late st Contact Info) Description 08/18/2022 Refill [facility] Internal Medicine - Family Medicine [address] [place] [address] Jefferson Roberts DO [address] [place] [address] Hypothyroidism, unspecified type (Primary Dx) Social History [...] Medicine - Family Medicine [address] [place] [address] Jefferson Roberts DO [address] [place] [address] documented as of this encounter Visit Diagnoses Diagnosis Hypothyroidism, unspecified type- Primary documented in this encounter Care Teams Pigment Weigher Relationship Specialty Start Date End Date Jefferson Roberts DO [address] [place] [phone] PCP - General Internal Medicine 10/09/22 documented as of this encounter
--- OUTSIDE RECORDS SUMMARY | 2025-05-04 20:13 | XMS_ITS | Encounter Summary ---
Author Organization [employer] [facility] tem Address [id number] [address] [place] [address] Care Team Providers Care Insemination Worker Name Role Phone Jefferson Roberts DO Primary Care Provider [phone] Encounter Details Date Type Department Care Team (Late st Contact Info) Description 10/01/2022 [facility] [address] [place] [address] Jefferson Roberts DO [address] [place] [address] Social History Tobacco Use Types Packs/Day Years [...] Internal Medicine - Family Medicine [address] [place] [address] Jefferson Roberts DO [address] [place] [address] documented as of this encounter Visit Diagnoses Not on filedocumented in this encounter Care Teams Insemination Worker Relationship Specialty Start Date End Date Jefferson Roberts DO [address] [place] [address] PCP - General Internal Medicine 10/09/22 documented as of this encounter
--- OUTSIDE RECORDS SUMMARY | 2025-05-04 20:13 | XMS_ITS | Encounter Summary ---
Author Organization [employer] tem Address [id number] [address] [place] [address] Care Team Providers Care C Engineer Name Role Phone Jefferson Roberts DO Primary Care Provider [phone] Reason for Visit * Reason Comments Med Refill Encounter Details Date Type Department Care Team (Late st Contact Info) Description 01/28/2024 Refill [facility] Internal Medicine - Family Medicine [address] [place] [phone] Jefferson Roberts DO [address] [place] [address] Social History Tobacco Use Types Packs/Day Years [...] Internal Medicine - Family Medicine [address] [place] [address] Jefferson Roberts DO [address] [place] [address] documented as of this encounter Visit Diagnoses Not on filedocumented in this encounter Additional Health Concerns Assessment Noted Time PHQ-9 Depression Total Score: 0 12/17/19 24 4:27 PM EST documented as of this encounter Care Teams C Engineer Relationship Specialty Start Date End Date Jefferson Roberts DO [address] [place] [address] PCP - General Internal Medicine 10/09/22 documented as of this encounter
--- OUTSIDE RECORDS SUMMARY | 2025-05-04 20:13 | XMS_ITS | Encounter Summary ---
Author Organization [facility] Address [facility][id number] [address] [place] [address] Care Team Providers Care Veterans Rehabilitation Counselor Name Role Phone Jefferson Roberts DO Primary Care Provider [phone] Encounter Details Date Type Department Care Team (Late Contact Info) Description 11/04/2023 Orders Only [facility] Internal Medicine - Family Medicine [address] [place] [phone] Jefferson Roberts DO [address] [place] [address] Social History Tobacco Use Types Packs/Day Years [...] Internal Medicine - Family Medicine [address] [place] [address] Jefferson Roberts DO [address] [place] [address] documented as of this encounter Procedures Procedure [...] documented as of this encounter Care Teams Veterans Rehabilitation Counselor Relationship Specialty Start Date End Date Jefferson Roberts DO [address] [place] [address] PCP - General Internal Medicine 10/09/22 documented as of this encounter
--- OUTSIDE RECORDS SUMMARY | 2025-05-04 20:13 | XMS_ITS | Encounter Summary ---
Author Organization [employer] Address [facility] [id number] [address] [place] [address] Care Team Providers Care Filer Helper Name Role Phone Jefferson Roberts DO Primary Care Provider [phone] Reason for Visit * Reason Comments Med Refill Encounter Details Date Type Department Care Team (Late st Contact Info) Description 05/14/2024 Refill [facility] Internal Medicine - Family Medicine [address] [phone] Jefferson Roberts DO [address] [place] [address] Migraine without aura and without status migrainosus, [...] Internal Medicine - Family Medicine [address] [place] [address] Jefferson Roberts DO [address] [place] [address] documented as of this encounter Visit Diagnoses Diagnosis Migraine without aura and without status migrainosus, not intractable documented in this encounter Additional Health Concerns Assessment Noted Time PHQ-9 Depression Total Score: 0 12/17/19 24 4:27 PM EST documented as of this encounter Care Teams Filer Helper Relationship Specialty Start Date End Date Jefferson Roberts DO [address] [place] [address] PCP - General Internal Medicine 10/09/22 documented as of this encounter
--- OUTSIDE RECORDS SUMMARY | 2025-05-04 20:13 | XMS_ITS | Encounter Summary ---
Author Organization [employer] Address [facility] [id number] [address] [place] [address] Care Team Providers Care Linen Grader Name Role Phone Jefferson Roberts DO Primary Care Provider [phone] Reason for Visit * Reason Comments Med Refill Encounter Details Date Type Department Care Team (Late st Contact Info) Description 04/28/2024 Refill [facility] Internal Medicine - Family Medicine [address] [phone] Jefferson Roberts DO [address] [place] [address] Migraine without aura and without status migrainosus, [...] Internal Medicine - Family Medicine [address] [place] [address] Jefferson Roberts DO [address] [place] [address] documented as of this encounter Visit Diagnoses Diagnosis Migraine without aura and without status migrainosus, not intractable documented in this encounter Additional Health Concerns Assessment Noted Time PHQ-9 Depression Total Score: 0 12/17/19 24 4:27 PM EST documented as of this encounter Care Teams Linen Grader Relationship Specialty Start Date End Date Jefferson Roberts DO [address] [place] [address] PCP - General Internal Medicine 10/09/22 documented as of this encounter
--- OUTSIDE RECORDS SUMMARY | 2025-05-04 20:13 | XMS_ITS | Encounter Summary ---
Author Organization [employer] [facility] tem Address [id number] [place] [address] Care Team Providers Care Radiator Repairer Name Role Phone Jefferson Roberts DO Primary Care Provider [phone] Reason for Visit * Reason Onset Date Comments Med Refill 10/01/2022 Encounter Details Date Type Department Care Team (Late st Contact Info) Description 10/01/2022 Refill [facility] Internal Medicine - Family Medicine [address] [place] [address] Jefferson Roberts DO [address] [place] [address] Social History Tobacco Use Types Packs/Day Years [...] - Family Medicine [address] [place] [address] Jefferson Roberts DO [address] [place] [address] documented as of this encounter Visit Diagnoses Not on filedocumented in this encounter Care Teams Radiator Repairer Relationship Specialty Start Date End Date Jefferson Roberts DO [address] [place] [address] PCP - General Internal Medicine 10/09/22 documented as of this encounter
--- OUTSIDE RECORDS SUMMARY | 2025-05-04 20:13 | XMS_ITS | Encounter Summary ---
Author Organization [employer] Address [facility] [id number] [address] [place] [address] Care Team Providers Care Supervisor Delivery Department Name Role Phone Jefferson Roberts DO Primary Care Provider [phone] Reason for Visit * Reason Comments Med Refill Encounter Details Date Type Department Care Team (Late st Contact Info) Description 09/03/2022 Refill [facility] Internal Medicine - Family Medicine [address] [place] [address] Jefferson Roberts DO [address] [place] [address] Essential hypertension (Primary Dx) Social History Tobacco [...] Medicine - Family Medicine [address] [place] [address] [place] [address] documented as of this encounter Visit Diagnoses Diagnosis Essential hypertension- Primary Unspecified essential hypertension documented in this encounter Care Teams Supervisor Delivery Department Relationship Specialty Start Date End Date Jefferosn Roberts DO [address] [place] [address] PCP - General Internal Medicine 10/09/22 documented as of this encounter
--- OUTSIDE RECORDS SUMMARY | 2025-05-04 20:14 | XMS_ITS | CCD ---
Author Organization [facility] CliniSypr Care Team Providers Care Elevator Adjuster Name Role Phone Rice, Michael W Unavailable Unavailable Rice, Michael W Unavailable Unavailable Rice, Michael W Unavailable Unavailable KOFFIBENNIES, HIMA~[phone] UNKNOWN Unavailable U navailable HANNAH ., DR CAMPBELL Admitting Unavailabl e KARASIK ., DR CAMPBELL Attending Unavailabl e MISC, DR CERRATO Primary Care Unavailable KARASIK ., DR CAMPBELL Consulting Unavailabl e KARASIK ., DR CAMPBELL Admitting Unavailabl e KARASIK ., DR CAMPBELL Attending Unavailabl e MISC, DR CERRATO Primary Care Unavailable KARASIK ., DR CAMPBELL Consulting Unavailabl e Rela Hendrix Consulting Unavailable MD Shannan Young Attending Provider Shannan Young Attending Unavailable Shannan Young Attending Unavailable HIMA HILL Referring Unavailable GHAZALS, HIMA Santos Primary Care Unavailable HIMA HILL Attending Unavailable GHAZALSHIMA Referring Unavailable GHAZALSHIMA Primary Care Unavailable Hima Hill MD Primary Care Provider [phone] Hima Hill DO Primary Care Provider HIMA HILL Attending Unavailable YUHAS, HIMA L Referring Unavailable YUHAS, HIMA L Primary Care Unavailable YUBENNIESHIMA Attending Unavailable GHAZALSHIMA Referring Unavailable YUHAS, HIMA [...] Unavailable Hima Hill MD Primary Care Provider [phone] Hima Hill DO Primary Care Provider FRANKLIN BRYANT Attending Unavailable FRANKLIN BRYANT Attending Unavailable EVELYN VIZCAINO Attending Unavailable Franklin Bryant DO Attending Provider Franklin Bryant Attending Unavailable Franklin Bryant Admitting Unavailable Allergies Allergy Classification Reported Allergen(s) Allergy Type Date of Onset Reaction(s) Facility (1 source) No Known Medication Allergies; Translations: [No Known Medication Allergies] Propensity to adverse reactions (disorder) [facility] Repository Medications Current Medications Medication [...] not crush or chew. Active estrogens, conjugated (long term) 0.625 mg oral tablet (20 sources) Estrogen [...] before meals. 30 tablet 12/08/2024 Active Pnv,Calcium 99-Bjsw-Kjtqq Acid (Westab Plus) 27 mg iron- 1 mg tablet (1 source) Start: 07-21-2023 take 1 tablet by mouth once daily Pnv,Calcium 98-Vpzv-Fgbml Acid (Westab Plus) 27 mg iron- 1 mg tablet Active TAB ORAL DAILY July 21, 2023 12:00am PNV,calcium 81-rqwi-ihkzb acid (WESTAB PLUS) 27 mg iron- 1 mg tablet (8 sources) Start: 12-30-2024 take 1 tablet by mouth in the morning PNV,calcium 76-clux-fzald acid (WESTAB PLUS) 27 mg iron- 1 mg tablet Indications: Essential hypertension Take 1 tablet by mouth in the morning. 90 tablet 12/30/2024 Active 27-1 MG tablet (4 sources) Start: 03-25-2025 take 1 tablet by mouth once daily 27-1 MG tablet Take 1 tablet by mouth Daily 03/25/2025 Active Yoessfpc-Qxv-Kg-FA ( 1 + IRON PO) (12 sources) Oqemklss-Bgm-Oi-F A ( 1 + IRON PO) Active [...] oral solution (4 sources) alpha-Adrenergic Agonist, Uncompetitive T-mrkzca-J-aspartate Receptor Antagonist, Sigma-1 Agonist Start: 12-24-2024 End: 01-17-2025 take 5 mL by mouth four times daily as needed for congestion rxkiumosdbzalpb-fdfyuehcd-MT 2-30-10 mg/5 mL syrup Indications: Strep throat [...] 04/21/2024 07/23/2024 Discontinued (Therapy completed) lactobacillus acidophilus [id number] unt / pectin 10 mg oral capsule [...] (Bld) 1.1 % 0.2 - 2.0 % [facility] Eosinophils/100 WBC (Bld) 1.7 % 0.9 - 7.0 % [facility] Erythrocyte distribution width (RBC) [Ratio] 12.5 % 11.0 - 15.0 % [facility] Hematocrit (Bld) [Volume fraction] 37.1 % 36.0 - 48.0 % [facility] Hemoglobin (Bld) [Mass/Vol] 12.6 g/dL 12.0 - 16.0 g/dL [facility] IMMATURE GRANULOCYTES ABS AUTO 0.03 [facility] Immature granulocytes/100 WBC (Bld) 0.4 % 0.0 - 0.5 % [facility] Interpretation and review of laboratory results Abnormal [facility] LYMPHOCYTES ABSOLUTE AUTO 1.8 [facility] Lymphocytes/100 WBC (Bld) 21.6 % 20.5 - 60.0 % [facility] MCH (RBC) [Entitic mass] 30.6 pg 26.7 - 34.0 pg [facility] MCHC (RBC) [Mass/Vol] 34 g/dL 29.9 - 35.2 g/dL [facility] MCV (RBC) [Entitic vol] 90 fL 81.0 - 99.0 fL [facility] MONOCYTES ABSOLUTE AUTO 0.4 [facility] Monocytes/100 WBC (Bld) 5.3 % 1.7 - 12.0 % [facility] NEUTROPHILS ABSOLUTE AUTO 5.8 [facility] Neutrophils/100 WBC (Bld) 69.9 % 43.0 - 75.0 % [facility] Platelet mean volume (Bld) [Entitic vol] 9.8 fL 9.5 - 13.[facility] [facility] PLT [address] [facility] RBC 4.[address] [facility] WBC 8.3 [facility] ECG 12-LEADon 04-20-2025 [place] [address] Electrocardiograph Report Signed Patient: CASS RILEY MR#: [id number] : 1985 Acct:[id number] Age/Sex: 39 / F ADM Date: 04/20/25 Loc: [facility] Attending Dr: Franklin Bryant D.O. Ordering Physician: Franklin Bryant D.O. 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 Measurements Intervals [place] Rate: 67 P: 35 [place]: 171 QRS: 40 QRSD: 89 T: 40 QT: 397 QTc: 420 Interpretive Statements SINUS RHYTHM Normal ECG Compared to ECG 10/09/2023 07:48:21 No significant changes Electronically Signed On 04-20-2025 21:45:34 EDT by DELMY NUNEZ M.D. Dictated By: DELMY NUNEZ Signed By: 04/20/251 DD/ 1422 TD/TT: Pastoral Worker: [facility] Radiology, Radiologist, MD - 04/20/2025 [place] [address] Electrocardiograph Report Signed Patient: CASS RILEY MR#: [id number] : 1985 Acct:[id number] Age/Sex: 39 / F ADM Date: 04/20/25 Loc: [facility] Attending Dr: Franklin Bryant D.O. Ordering Physician: Franklin Bryant D.O. 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 Measurements Intervals [place] Rate: 67 P: 35 [place]: 171 QRS: 40 QRSD: 89 T: 40 QT: 397 QTc: 420 Interpretive Statements SINUS RHYTHM Normal ECG Compared to ECG 10/09/2023 07:48:21 No significant changes Electronically Signed On 04-20-2025 21:45:34 EDT by DELMY NUNEZ M.D. Dictated By: DELMY NUNEZ Signed By: 04/20/254 DD/ 1422 TD/TT: Pastoral Worker: [facility] Radiology Study observation (narrative) [facility] ECG 12-LEADOrdered By: Radio logist Radiology on 04-20-2025 [facility] Work Phone: PATHOLOGY REQUEST FOR LAB CO RPon 04-15-2025 PATHOLOGY REQUEST FOR LAB JULIANN [facility] Comment on above: See report. Scanned copy available in EMR. [facility] HCG ( test) Ql (U)o n 04-11-2025 Interpretation and review of laboratory results Normal [facility] Preg Test, Ur Negative Negative [facility] Pathology Request for Lab Co rpon 04-11-2025 Pathology Request for Lab Juliann Normal The [facility] Comment on above: Order Comment: [facility] Result Comment: See report. Scanned copy available in EMR. PERFORMED BY: [place] [address] PATHOLOGIST FINANCIAL AGENT RENA HARRY M.D. Performed By: #### P ATH TO [facility] #### [address] Urinalysis macro (dipstick) panel (U)Ordered By: Cammy Uribe on 04-11-2025 Bilirubin, UA Negative Negative - 4(70) +++ mg/dL [facility] Blood, UA Negative Negative - 50 Ananth/mcL [facility] Clarity, UA Clear [facility] Color, UA Yellow [facility] Glucose, UA Negative Negative - 1999(110) ++++ mg/dL [facility] Interpretation and review of laboratory results Normal [facility] Ketones, UA Positive Negative - 160(16) ++++ mg/dL [facility] Comment on above: trace Leukocytes, UA Negative Negative - 500+++ Avis/mcL [facility] Nitrite, UA Negative Negative - Positive [facility] pH, UA 5.5 5 - 9 [facility] Protein, UA Trace Negative - 1999(20) ++++ mg/dL [facility] Spec Grav, UA 1.03 1 - 1.03 [facility] Urobilinogen, UA 0.2 0.2 - 12 mg/dL [facility] ALL CBC WITH AUTO DIFFon BASOPHILS ABSOLUTE AUTO 0.1 [facility] Basophils/100 WBC (Bld) 0.7 % 0.2 - 2.0 % [facility] Eosinophils/100 WBC (Bld) 1.3 % 0.9 - 7.0 % [facility] Erythrocyte distribution width (RBC) [Ratio] 12 % 11.0 - 15.0 % [facility] Hematocrit (Bld) [Volume fraction] 36.6 % 36.0 - 48.0 % [facility] Hemoglobin (Bld) [Mass/Vol] 12.5 g/dL 12.0 - 16.0 g/dL [facility] IMMATURE GRANULOCYTES ABS AUTO 0.01 [facility] Immature granulocytes/100 WBC (Bld) 0.1 % 0.0 - 0.5 % [facility] Interpretation and review of laboratory results Abnormal [facility] LYMPHOCYTES ABSOLUTE AUTO 2 [facility] Lymphocytes/100 WBC (Bld) 23.2 % 20.5 - 60.0 % [facility] MCH (RBC) [Entitic mass] 29.9 pg 26.7 - 34.0 pg [facility] MCHC (RBC) [Mass/Vol] 34.2 g/dL 29.9 - 35.2 g/dL [facility] MCV (RBC) [Entitic vol] 87.6 fL 81.0 - 99.0 fL [facility] MONOCYTES ABSOLUTE AUTO 0.5 [facility] Monocytes/100 WBC (Bld) 6.4 % 1.7 - 12.0 % [facility] NEUTROPHILS ABSOLUTE AUTO 5.8 [facility] Neutrophils/100 WBC (Bld) 68.3 % 43.0 - 75.0 % [facility] Platelet mean volume (Bld) [Entitic vol] 10 fL 9.5 - 13.5 fL [facility] TBH EO # 0.1 [facility] TB PLT [address] [facility] RBC 4.[address] [facility] WBC 8.5 [facility] US PELVIS TRANSVAGINALon The [address] [address] Ultrasound Report Signed Patient: CASS RILEY MR#: [id number] : 1985 Acct:[id number] Age/Sex: 39 / F ADM Date: 03/25/25 Loc: US Attending Dr: Franklin Bryant D.O. Ordering Physician: Franklin Bryant D.O. Date of Service: 03/25/25 Procedure(s): US pelvis transvaginal Accession Number(s): [id number] cc: Franklin Bryant D.O.; HIMA HILL [place] [address] Patient Name: CASS RILEY MRN: [facility]:[id number] date: 1985 Sex: F Assigned Patient Location: [place] Current Patient Location: [place] Accession/Order Number: [id number] Exam Date: 03/25/2025 15:09 Report Date: 03/25/2025 [...] Jr., D.O. 03/25/2025 3:11 PM Dictation Location: [place] [address] Electronically authenticated by: [id number] Y Date: 03/25/2025 15:11 Dictated By: Brandon Montez M.D. Signed By: 03/25/25 1514 DD/ 1511 TD/TT: Pastoral Worker: [facility] Radiology, Radiologist, MD - 03/25/2025 [facility] [address] [place] [address] Ultrasound Report Signed Patient: CASS RILEY MR#: [id number] : 1985 Acct:[id number] Age/Sex: 39 / F ADM Date: 03/25/25 Loc: US Attending Dr: Franklin Bryant D.O. Ordering Physician: Franklin Bryant D.O. Date of Service: 03/25/25 Procedure(s): US pelvis transvaginal Accession Number(s): [id number] cc: Franklin Bryant D.O.; HIMA HILL [place] [address] Patient Name: CASS RILEY MRN: [facility]:[id number] date: 1985 Sex: F Assigned Patient Location: [place] Current Patient Location: [place] Accession/Order Number: [id number] Exam Date: 03/25/2025 15:09 Report Date: 03/25/2025 [...] Jr., D.O. 03/25/2025 3:11 PM Dictation Location: [place] [address] Electronically authenticated by: [id number] Y Date: 03/25/2025 15:11 Dictated By: Brandon Montez M.D. Signed By: 03/25/25 1514 DD/ 151 TD/TT: Pastoral Worker: [facility] Radiology Study observation (narrative) [facility] US PELVIS TRANSVAGINALOrdere d By: Radiologist Radiology on 03-25-2025 [facility] Work Phone: Urinalysis macro (dipstick) panel (U)on 03-21-2025 Bilirubin, UA Negative Negative - 4(70) +++ mg/dL [facility] Blood, UA Negative Negative - 50 Ananth/mcL [facility] Clarity, UA Clear [facility] Color, UA Yellow [facility] Glucose, UA Negative Negative - 2000(110) ++++ mg/dL [facility] Interpretation and review of laboratory results Normal [facility] Ketones, UA Negative Negative - 160(16) ++++ mg/dL [facility] Leukocytes, UA Negative Negative - 500+++ Avis/mcL [facility] Nitrite, UA Negative Negative - Positive [facility] pH, UA 7 5 - 9 [facility] Protein, UA Negative Negative - 2000(20) ++++ mg/dL [facility] Spec Grav, UA 1.02 1 - 1.03 [facility] Urobilinogen, UA 1.0 0.2 - 12 mg/dL [facility] MR BRAIN WO CONTon MR BRAIN WO [...] Guido MD on 11/02/2024 12:57 PM Normal [facility] CBC AND AUTO DIFFon 07-23-20 ABSOLUTE BASOPHIL 0.1 X10E9/L Normal 0.0-0.2 [facility] Comment on above: Performed By: #### C BCA, CMP, TSHR, 2132-08, 50461-0 #### [facility] ([id number]) [address], [address] [place] [address] ABSOLUTE NEUTROPHIL 4.7 X10E9/L Normal 1.5-6.6 [facility] Comment on above: Performed By: #### C BCA, CMP, TSHR, 2132-08, 40922-4 #### [facility] ([id number]) [address], [address] [place] [address] Basophils/100 WBC (Bld) 1.0 % Normal [facility] Comment on above: Performed By: #### C BCA, CMP, TSHR, 2132-08, 70123-5 #### [facility] ([id number]) [address] [place] [address] Eosinophils (Bld) [#/Vol] 0.1 10*3/uL Normal 0.0-0.4 [facility] Comment on above: Performed By: #### C BCA, CMP, TSHR, 2132-08, 65411-9 #### [facility] ([id number]) [address] [place] [address] Eosinophils/100 WBC (Bld) 1.8 % Normal [facility] Comment on above: Performed By: #### C BCA, CMP, TSHR, 2132-08, 12455-6 #### [facility] ([id number]) [address] [address] [place] [address] Erythrocyte distribution width (RBC) [Ratio] 12.8 % Normal 11.5-15.0 [facility] Comment on above: Performed By: #### C BCA, CMP, TSHR, 2132-08, 86951-8 #### [facility] ([id number]) [address] [place] [address] Hematocrit (Bld) [Volume fraction] 36.0 % Normal 35-47 [facility] Comment on above: Performed By: #### C BCA, CMP, TSHR, 2132-08, 18798-8 #### [facility] ([id number]) [address] [address] [place] [address] Hemoglobin (Bld) [Mass/Vol] 12.4 g/dL Normal 11.7-15.5 [facility] Comment on above: Performed By: #### C BCA, CMP, TSHR, 2132-08, 24409-3 #### [facility] ([id number]) [address] [address] [place] [address] Lymphocytes (Bld) [#/Vol] 1.7 10*3/uL Normal 1.0-3.5 [facility] Comment on above: Performed By: #### C BCA, CMP, TSHR, 2132-08, 83868-6 #### [facility] ([id number]) [address] [address] [place] [address] Lymphocytes/100 WBC (Bld) 24.6 % Normal [facility] Comment on above: Performed By: #### C BCA, CMP, TSHR, 2132-08, 01550-6 #### [facility] ([id number]) [address] [address] [place] [address] MCH (RBC) [Entitic mass] 30.0 pg Normal 27-34 [facility] Comment on above: Performed By: #### C BCA, CMP, TSHR, 2132-08, 02200-1 #### [facility] ([id number]) [address] [address] [place] [address] MCHC (RBC) [Mass/Vol] 34.5 g/dL Normal 32-36 [facility] Comment on above: Performed By: #### C BCA, CMP, TSHR, 2132-08, 11243-0 #### [facility] ([id number]) [address] [facility] [address] [place] [address] MCV (RBC) [Entitic vol] 87 fL Normal 80-100 [facility] Comment on above: Performed By: #### C BCA, CMP, TSHR, 2132-08, 43648-8 #### [facility] ([id number]) [address] [address] [place] [address] Monocytes (Bld) [#/Vol] 0.3 10*3/uL Normal 0-0.9 [facility] Comment on above: Performed By: #### C BCA, CMP, TSHR, 2132-08, 04415-5 #### [facility] ([id number]) [address] [facility] [address] [place] [address] Monocytes/100 WBC (Bld) 4.8 % Normal [facility] Comment on above: Performed By: #### C BCA, CMP, TSHR, 2132-08, 64305-8 #### [facility] ([id number]) [address] [address] [place] [address] Neutrophils/100 WBC (Bld) 67.8 % Normal [facility] Comment on above: Performed By: #### C BCA, CMP, TSHR, 2132-08, 51188-2 #### [facility] ([id number]) [address] [address] [place] [address] Platelet mean volume (Bld) [Entitic vol] 8.8 fL Normal 7-12 [facility] Comment on above: Performed By: #### C BCA, CMP, TSHR, 2132-08, 55120-7 #### [facility] ([id number]) [address] [address] Platelets (Bld) [#/Vol] 298 10*3/uL Normal 150-450 [facility] Comment on above: Performed By: #### C BCA, CMP, TSHR, 2132-08, 28004-4 #### [facility] ([id number]) [address] [address] [place] [address] RBC COUNT 4.13 X10E12/L Normal 3.80-5.20 [facility] Comment on above: Performed By: #### C BCA, CMP, TSHR, 2132-08, 94817-4 #### [facility] ([id number]) [address] [address] WBC (Bld) [#/Vol] 7.0 10*3/uL Normal 4.0-11.0 [facility] Comment on above: Performed By: #### C BCA, CMP, TSHR, 2132-08, 56906-8 #### [facility] ([id number]) [address] [address] [place] [address] COMPREHENSIVE METABOLIC PANE Ignacio 07-23-2024 Albumin [Mass/Vol] 4.2 g/dL Normal 3.2-5.3 [facility] Comment on above: Performed By: #### C BCA, CMP, TSHR, 2132-08, 10695-3 #### [facility] ([id number]) [address] [place] [address] ALP [Catalytic activity/Vol] 50 U/L Normal 39-130 [facility] Comment on above: Performed By: #### C BCA, CMP, TSHR, 2132-08, 29389-8 #### [facility] ([id number]) [address] [place] [address] ALT [Catalytic activity/Vol] 18 U/L Normal 0-31 [facility] Comment on above: Performed By: #### C BCA, CMP, TSHR, 2132-08, 88286-2 #### [facility] ([id number]) [address] [place] [address] Anion gap [Moles/Vol] 7 mmol/L Normal 5-15 [facility] Comment on above: Performed By: #### C BCA, CMP, TSHR, 2132-08, 34840-2 #### [facility] ([id number]) [address] [place] [address] AST [Catalytic activity/Vol] 23 U/L Normal 0-41 [facility] Comment on above: Performed By: #### C BCA, CMP, TSHR, 2132-08, 33329-0 #### [facility] ([id number]) [address] [place] [address] Bilirubin [Mass/Vol] 0.5 mg/dL Normal 0.3-1.2 [facility] Comment on above: Performed By: #### C BCA, CMP, TSHR, 2132-08, 05604-5 #### [facility] ([id number]) [address] [place] [address] Calcium [Mass/Vol] 9.1 mg/dL Normal 8.5-10.5 [facility] Comment on above: Performed By: #### C BCA, CMP, TSHR, 2132-08, 12168-4 #### [facility] ([id number]) [address] [place] [address] Chloride [Moles/Vol] 101 mmol/L Normal 98-109 [facility] Comment on above: Performed By: #### C BCA, CMP, TSHR, 2132-08, 18356-7 #### [facility] ([id number]) [address] [place] [address] CO2 [Moles/Vol] 30 mmol/L Normal 22-32 [facility] Comment on above: Performed By: #### C BCA, CMP, TSHR, 2132-08, 66182-6 #### [facility] ([id number]) [address] [place] [address] Creatinine [Mass/Vol] 0.60 mg/dL Normal 0.40-1.00 [facility] Comment on above: Result Comment: METH OD TRACEABLE TO IDMS STANDARD Performed By: #### C BCA, CMP, TSHR, 2132-08, 50694-6 #### [facility] ([id number]) [address] [place] [address] eGFR (CKD-EPI) NON-RACE DEPENDENT >90 Normal >59 [facility] Comment on above: Result Comment: Reported eGFR is based on the CKD-EPI 2020 equation that does not use a race coefficient. Performed By: #### C BCA, CMP, TSHR, 2132-08, 05262-5 #### [facility] ([id number]) [address] [place] [address] Glucose [Mass/Vol] 91 mg/dL Normal 65-99 [facility] Comment on above: Performed By: #### C BCA, CMP, TSHR, 2132-08, 05936-9 #### [facility] ([id number]) [address] [place] [address] Potassium [Moles/Vol] 4.1 mmol/L Normal 3.5-5.0 [facility] Comment on above: Performed By: #### C BCA, CMP, TSHR, 2132-08, 45695-6 #### [facility] ([id number]) [address] [place] [address] Protein [Mass/Vol] 6.9 g/dL Normal 6.0-8.0 [facility] Comment on above: Performed By: #### C BCA, CMP, TSHR, 2132-08, 07382-4 #### [facility] ([id number]) [address], [facility] [address] [place] [address] Sodium [Moles/Vol] 138 mmol/L Normal 134-146 [facility] Comment on above: Performed By: #### C BCA, CMP, TSHR, 2132-08, 56229-4 #### [facility] ([id number]) [address], [address] [address] Urea nitrogen [Mass/Vol] 11 mg/dL Normal 5-23 [facility] Comment on above: Performed By: #### C BCA, CMP, TSHR, 2132-08, 15311-0 #### [facility] ([id number]) [address], [address] [address] ESR Photometric method (Bld) [Velocity]on 07-23-2024 ESR, ERYTHROCYTE SEDIMENTATION RATE 8 mm/h Normal 0-20 [facility] Comment on above: Performed By: #### C BCA, CMP, TSHR, 34132-2 #### [facility] ([id number]) [address], [address] [address] TSH WITH REFLEXon 07-23-2024 TSH 2.06 uIU/mL Normal 0.49-4.67 [facility] Comment on above: Performed By: #### C BCA, CMP, TSHR, 2132-08, 89575-2 #### [facility] ([id number]) [address] [facility], [address] [place] [address] VITAMIN B12on 07-23-2024 Cobalamin (Vitamin B12) [Mass/Vol] 916 pg/mL High 180-914 [facility] Comment on above: Performed By: #### C BCA, CMP, TSHR, 2132-08, 94738-9 #### [facility] ([id number]) [address] [facility], [address] [place] [address] Virtual Visiton 07-21-2023 Virtual Visit [facility] [address] [facility] [place] [address] Virtual Visit Signed Patient: Cass Riley MR#: [id number] : 1985 Acct: [id number] Age/Sex: 38 / F Loc: OB.AV Date of Service: 07/21/[address]: Shannan Young M.D. cc: Intake Intake Visit Reasons: meds [phone], ok per Hannah Software Analyst Required: No Allergies No Known Allergies Allergy (Verified 07/21/23 16:27) Medications - Last Reconciled 07/21/23 by Rosa Isela Harper bupropion HCl mg ORAL AM chlorthalidone mg ORAL DAILY PNV,calcium 89-[id number] acid 27 mg iron- 1 mg (WesTab Plus) tabs ORAL DAILY Patient : No Post menopausal: No History History 5 Elective abortions 0 Para 4 Spontaneous abortions 1 Hx # Term Pregnancies 4 Ectopic pregnancies 0 Hx # Pregnancies 0 Multiple births 0 PFSH Medical History (Updated 07/21/23 @ 16:29 by [facility]) Anxiety Depression Hypertension Surgical History (Updated 07/21/23 @ 16:29 by [facility]) History of section Hx of tonsillectomy Family History (Updated 07/21/23 @ 16:30 by [facility]) Other Diabetes Hypertension Social History (Updated 07/21/23 @ 16:30 by [facility]) Advance Directives: No Would like to be referred to Volunteer Assistant for info?: No Smoking Status: Never smoker [...] Yes Questionnaire C-SSRS (Primary Care) [facility] [employer] Review of Systems [facility] Eyes Reports no additional complaints ENT [...] of vagina Coding Level of Care Code 59714 New Patient Level 2 Diagnoses Vaginal dryness N89.8 Dictated By: Shannan Young M.D. Signed By: 07/22/23 1241 Normal [facility] PAP ACOG PANEL 2: 30 to 65on 03-12-2023 . . Normal [facility] Comment on above: Result Comment: Perf ormed at: WB Performed By: #### 4 [id number] #### [facility] [address] [address] [address] Marcia Beverly Age Gdln ACOG Testing 30-65 Normal [facility] Comment on above: Performed By: #### 4 [id number] #### [facility] [address] [address] [address] Marcia Beverly DIAGNOSIS: Comment Normal [facility] Comment on above: Result Comment: NEGA TIVE FOR INTRAEPITHELIAL LESION OR MALIGNANCY. Performed at: WB Performed By: #### 4 [id number] #### [facility] [address] [address] [address] Marcia Beverly HPV Aptima Negative Normal Negative [facility] Comment on above: Result Comment: This nucleic acid amplification test detects fourteen high-risk HPV types (16,18,31,33,35,39,45,51,52,56,58,59,66,68) without differentiation. Performed at: =G Performed By: #### 4 [id number] #### [facility] [address] [address] [address] Marcia Beverly HPV Genotype Reflex Comment Normal [facility] Comment on above: Result Comment: Crit eria not met, HPV Genotype not performed. Performed at: WB Performed By: #### 4 [id number] #### [facility] [address] [place] [address] Dr. Marcia Beverly Methodology: Comment Normal [facility] Comment on above: Result Comment: This liquid based ThinPrep(R) pap test was screened with the use of an image guided system. Performed at: WB Performed By: #### 4 [id number] #### [facility] [address] [place] [address] Dr. Marcia Beverly Note: Comment Normal [facility] Comment on above: Result Comment: The Pap smear is a screening test designed to aid in the detection of premalignant and malignant conditions of the uterine cervix. It is not a diagnostic procedure and should not be used as the sole means of detecting cervical cancer. Both false-positive and false-negative reports do occur. . Performed at: WB Performed By: #### 4 [id number] #### [facility] [address] [place] [address] Dr. Marcia Beverly Performed by: Comment Normal [facility] Comment on above: Result Comment: Elke Covington, Spanisher (ASCP) Performed at: WB Performed By: #### 4 [id number] #### [facility] [address] [place] [address] Dr. Marcia Beverly Specimen adequacy: Comment Normal [facility] Comment on above: Result Comment: Sati sfactory for evaluation. Endocervical and/or squamous metaplastic cells (endocervical component) are present. Performed at: WB Performed By: #### 4 [id number] #### [facility] [address] [place] [address] Dr. Marcia Beverly MG MAMM DIAGNOSTIC 3D SUBHASH CA Don 03-07-2023 MG MAMM DIAGNOSTIC 3D SUBHASH CAD Patient: CASS RILEY Exam Date: 03/07/2023 : 1985 Gender:F Ordering : DR SHANNAN YOUNG . Admission #: [id number] Family : Order #: [id number] CLICK HERE TO VIEW EXAM RADIOLOGY REPORT PROCEDURE: MAMMOGRAM DIAGNOSTIC 3D BILATERAL CAD, 03/07/2023, 07:14 ULTRASOUND BREAST BILATERAL LIMITED, 03/07/2023, 07:56 COMPARISON: None. INDICATIONS: Screening mammography Calculator Name NCI Breast Cancer Risk Assessment Tool 5 Year Breast Cancer Risk 0.40% Lifetime Breast Cancer Risk 9.20% Personal Breast Cancer No Personal Ovarian Cancer No Treatments None Family Cancers None LOCATION: [facility] BREAST COMPOSITION: Scattered areas fibroglandular density. [...] Hendrix M.D. on 03/07/2023 at 09:06 Normal [facility] US BREAST SUBHASH LIMITEDon 04-0 US BREAST SUBHASH LIMITED Patient: CASS RILEY Exam Date: 03/07/2023 : 1985 Gender:F Ordering : DR SHANNAN YOUNG . Admission #: [id number] Family : Order #: [id number] CLICK HERE TO VIEW EXAM RADIOLOGY REPORT PROCEDURE: MAMMOGRAM DIAGNOSTIC 3D BILATERAL CAD, 03/07/2023, 07:14 ULTRASOUND BREAST BILATERAL LIMITED, 03/07/2023, 07:56 COMPARISON: None. INDICATIONS: Screening mammography Calculator Name NCI Breast Cancer Risk Assessment Tool 5 Year Breast Cancer Risk 0.40% Lifetime Breast Cancer Risk 9.20% Personal Breast Cancer No Personal Ovarian Cancer No Treatments None Family Cancers None LOCATION: [facility] BREAST COMPOSITION: Scattered areas fibroglandular density. [...] Hendrix M.D. on 03/07/2023 at 09:06 Normal [facility] BASIC METABOLIC PANELon 07-01 BUN/CREATININE RATIO NOT APPLICABLE Normal 6-22 [facility] Comment on above: Performed By: #### 1 0165, 04096, 81329 #### [facility] [address] [address] Framing Inspector: Bruno Watts MD Calcium [Mass/Vol] 9.0 mg/dL Normal 8.6-10.2 [facility] Comment on above: Performed By: #### 1 0165, 74571, 99163 #### [facility] [address] [place] [address] Framing Inspector: Bruno Watts MD Chloride [Moles/Vol] 101 mmol/L Normal 98-110 [facility] Comment on above: Performed By: #### 1 0165, 46970, 45558 #### [facility] [address] [place] [address] Framing Inspector: Bruno Watts MD CO2 [Moles/Vol] 30 mmol/L Normal 20-32 [facility] Comment on above: Performed By: #### 1 0165, 88185, 95031 #### [facility] [address] [place] [address] Framing Inspector: Bruno Watts MD Creatinine [Mass/Vol] 0.67 mg/dL Normal 0.50-1.[address] [facility] Comment on above: Performed By: #### 1 0165, 12020, 90708 #### [facility] [address] [address] Framing Inspector: Bruno Watts MD eGFR NON-AFR. TONGAN 113 mL/min/1.73m2 Normal > OR = 60 [facility] Comment on above: Performed By: #### 1 0165, 58744, 74985 #### [facility] [address] [place] [address] Framing Inspector: Bruno Watts MD GFR/1.73 sq M.predicted among blacks MDRD (S/P/Bld) [Vol rate/Area] 131 mL/min/{1.73_m2} Normal > OR = 60 [facility] Comment on above: Performed By: #### 1 0165, 62321, 50814 #### [facility] [address] [place] [address] Framing Inspector: Bruno Watts MD Glucose [Mass/Vol] 127 mg/dL High 65-99 [facility] Comment on above: Result Comment: Fasting reference interval For someone without known diabetes, a glucose value >125 mg/dL indicates that they may have diabetes and this should be confirmed with a follow-up test. Performed By: #### 1 0165, 17128, 12776 #### [facility] [address] [address] Framing Inspector: Bruno Watts MD Potassium [Moles/Vol] 3.7 mmol/L Normal 3.5-5.[address] [facility] Comment on above: Performed By: #### 1 0165, 01421, 27147 #### [facility] [address] [place] [address] Framing Inspector: Bruno Watts MD Sodium [Moles/Vol] 139 mmol/L Normal 135-146 [facility] Comment on above: Performed By: #### 1 0165, 14842, 87942 #### [facility] [address] [place] [address] Framing Inspector: Bruno Watts MD Urea nitrogen [Mass/Vol] 14 mg/dL Normal 7-25 [facility] Comment on above: Performed By: #### 1 0165, 20947, 60697 #### [facility] of [address], [address] [place] [address] Framing Inspector: Bruno Watts MD PATIENT ID APPROVAL TIQ DOCU MENTNARESHon 07-14-2021 COMMENT Normal [facility] Comment on above: Result Comment: Iden tification of test requisition and/or specimen(s) was questionable. The below named individual provided this revised patient identification. Performed By: #### 1 0165, 64491, 34390 #### [facility] of [address], [address] [place] [address] Framing Inspector: Bruno Watts MD CONTACT ZARA Roche Normal [facility] Comment on above: Performed By: #### 1 0165, 18944, 60375 #### [facility] of [address], [address] [place] [address] Framing Inspector: Bruno Watts MD TESTS AFFECTED [id number] Normal [facility] Comment on above: Performed By: #### 1 0165, 38708, 33615 #### [facility] of [address], [address] [place] [address] Framing Inspector: Bruno Watts MD TSH+FREE T4on 07-14-2021 Free T4 [Mass/Vol] 0.9 ng/dL Normal 0.8-1.8 [facility] Comment on above: Result Comment: TEST NOT PERFORMED An identification discrepancy exists between the requisition and the specimen. Performed By: #### 1 0165, 82108, 86834 #### [facility] of [address], [address] [place] [address] Framing Inspector: Bruno Watts MD TSH Qn 0.92 m[IU]/L Normal [facility] Comment on above: Result Comment: Refe rence Range > or = 20 Years 0.40-4.50 Ranges First trimester 0.26-2.66 Second trimester 0.55-2.73 Third trimester 0.43-2.91 Performed By: #### 1 0165, 17173, 89515 #### [facility] of [facility] [address], [address] [place] [address] Framing Inspector: Bruno Watts MD Coding Summary.on 02-11-2018 Coding Summary. CODING DATE: 02/11/2018 FINAL [facility] STATUS: Home (Routine DC) PAYOR: Roel APC [...] Saved: 02/11/2018 10:31 am Normal [facility] Main OR Intraoperative Recor don 02-05-2018 Main OR Intraoperative Record IntraOp Document Type FTURO Summary Primary Physician: Owen Alexandre Jr., MD Finalized Date/Time: 02/05/18 14:30:20 Pt. Name: CASS RILEY D.O.B./Sex: 1985 Female Med Rec #: [id number] Physician: Owen Alexandre Jr., MD Financial #: [id number] Pt. Type: O Room/Bed: / Admit/Disch: 02/05/18 13:58:13 - Institution: Case Times FTURO Entry 1 Patient Times In Room 02/05/18 14:22:00 Out Room 02/05/18 14:31:00 Procedure Times Start 02/05/18 14:23:00 Stop 02/05/18 14:26:00 Anesthesia Times Last Modified By: Yoel RAI, Maru GARCIA 02/05/18 14:27:00 Case Attendance FTURO Entry 1 Entry 2 Entry 3 Case Attendee Yoel RAI, SHAUNAOR, Adriel [facility], Owen Kumari Jr., MD Role Performed Rug Frame Mounter - Primary Scrub - Primary Surgeon - [...] RN, Ruthann 02/05/18 14:30 Normal [facility] Main OR Preoperative Recordo n 02-05-2018 Main OR Preoperative Record Holding Area Document Type FTURO Summary Primary Physician: Owen Alexandre Jr., MD Finalized Date/Time: 02/05/18 14:24:03 Pt. Name: CASS RILEY/Sex: 1985 Female Med Rec #: [id number] Physician: Owen Alexandre Jr., MD Financial #: [id number] Pt. Type: O Room/Bed: / Admit/Disch: 02/05/18 [...] of Pain: No Comment: Skin Integrity Intact, [place], Warm, & Dry Vitals - EU Blood Pressure 153/98 Pulse 88 bpm Respirations 16 br/min SPO2 RN Reviewed Yes Last Modified By: RADHA Diallo RN, Ruthann 02/05/18 14:23:59 Finalized By: RADHA Diallo RN, Ruthann Document Signatures Signed By: Gordondavid VARG[place]ela[place] 02/05/18 14:18 RADHA Diallo RN, Ruthann 02/05/18 14:24 Normal [facility] Operative Reporton Operative Report Patient: [...] TVT mid urethral sling.. Normal [facility] Comment on above: Result Comment: Elec tronically Signed By: Owen Alexandre Jr., MD\.br\Date and Time Signed: 02/05/18 14:32 EST Vital Signs Date Time Vital Sign Value Performing Clinician Facility 04-11-2025 15:46-0400 Body mass index (BMI) [Ratio] 32.77 kg/m2 Franklin Manny DO Work Phone: [facility] 04-11-2025 15:46-0400 Body weight 83.92 kg Franklin Manny DO Work Phone: [facility] 04-11-2025 15:46-0400 Diastolic blood pressure 76 mm[Hg] Franklin Manny DO Work Phone: [facility] 04-11-2025 15:46-0400 Systolic blood pressure 122 mm[Hg] Franklin Manny DO Work Phone: [facility] 03-21-2025 16:02-0400 Body mass index (BMI) [Ratio] 33.66 kg/m2 Franklin Manny DO Work Phone: [facility] 03-21-2025 16:02-0400 Body weight 86.18 kg Franklin Manny DO Work Phone: [facility] 03-21-2025 16:02-0400 Diastolic blood pressure 80 mm[Hg] Franklin Manny DO Work Phone: [facility] 03-21-2025 16:02-0400 Systolic blood pressure 128 mm[Hg] Franklin Manny DO Work Phone: [facility] 01-17-2025 16:31-0500 Body height 162.6 cm Hima Chapmanelen DO Work Phone: [facility] 01-17-2025 16:31-0500 Body mass index (BMI) [Ratio] 33.49 kg/m2 Hima Hill DO Work Phone: [facility] 01-17-2025 16:31-0500 Body temperature 98.49 [degF] Hima Hill DO Work Phone: [facility] 01-17-2025 16:31-0500 Body weight 88.54 kg Hima Chapmans DO Work Phone: [facility] [employer] [facility] 01-17-2025 16:31-0500 Diastolic blood pressure 78 mm[Hg] Hima Chapmans DO Work Phone: [facility] [employer] [facility] 01-17-2025 16:31-0500 Heart rate 82 /min Hima Chapmans DO Work Phone: [facility] [employer] [facility] 01-17-2025 16:31-0500 Respiratory rate 18 /min Hima Chapmans DO Work Phone: [facility] 01-17-2025 16:31-0500 SaO2% (BldA) [Mass fraction] 99 % Hima Chapmans DO Work Phone: [facility] 01-17-2025 16:31-0500 Systolic blood pressure 138 mm[Hg] Hima Chapmans DO Work Phone: [facility] 12-08-2024 16:48-0500 Body mass index (BMI) [Ratio] 35.07 kg/m2 Evelyn SALEH Work Phone: [facility] 12-08-2024 16:48-0500 Body weight 89.81 kg Evelyn Vizcaino PA Work Phone: [facility] 12-08-2024 16:48-0500 Diastolic blood pressure 80 mm[Hg] Evelyn Vizcaino PA Work Phone: [facility] 12-08-2024 16:48-0500 Systolic blood pressure 128 mm[Hg] Evelyn Vizcaino PA Work Phone: [facility] 10-12-2024 17:18-0500 Diastolic blood pressure 98 mm[Hg] Hima Chapmans DO Work Phone: [facility] 10-12-2024 17:18-0500 Systolic blood pressure 150 mm[Hg] Hima Chapmans DO Work Phone: [facility] 10-12-2024 16:41-0500 Body mass index (BMI) [Ratio] 31.45 kg/m2 Hima Yuhas DO Work Phone: [facility] [employer] 10-12-2024 16:41-0500 Body temperature 98.2 [degF] Hima Chapmans DO Work Phone: [facility] [employer] [facility] 10-12-2024 16:41-0500 Body weight 83.1 kg Hima Chapmans DO Work Phone: [facility] [employer] [facility] 10-12-2024 16:41-0500 Heart rate 96 /min Hima Chapmans DO Work Phone: [facility] [employer] [facility] 10-12-2024 16:41-0500 SaO2% (BldA) [Mass fraction] 98 % Hima Chapmans DO Work Phone: [facility] [employer] [facility] 07-23-2024 10:02-0400 Body height 162.6 cm Hima Chapmans DO Work Phone: [facility] [employer] [facility] 07-23-2024 10:02-0400 Body mass index (BMI) [Ratio] 31.82 kg/m2 Hima Hill DO Work Phone: [facility] [employer] [facility] 07-23-2024 10:02-0400 Body temperature 98.49 [degF] Hima Hill DO Work Phone: [facility] [employer] [facility] 07-23-2024 10:02-0400 Body weight 84.1 kg Hima Hill DO Work Phone: [facility] [employer] [facility] 07-23-2024 10:02-0400 Diastolic blood pressure 80 mm[Hg] Hima Chapmans DO Work Phone: [facility] [employer] [facility] 07-23-2024 10:02-0400 Heart rate 81 /min Hima Chapmans DO Work Phone: [facility] [employer] [facility] 07-23-2024 10:02-0400 Respiratory rate 18 /min Hima Chapmans DO Work Phone: [facility] [employer] [facility] 07-23-2024 10:02-0400 SaO2% (BldA) [Mass fraction] 99 % Hima Hill [facility] 07-23-2024 10:02-0400 Systolic blood pressure 130 mm[Hg] Hima Hill DO [facility] 12-17-2023 16:28-0500 Body height 162.6 cm Hima Hill DO [facility] 12-17-2023 16:28-0500 Body mass index (BMI) [Ratio] 30.24 kg/m2 Hima Hill DO [facility] 12-17-2023 16:28-0500 Body temperature 97.9 [degF] Hima Hill DO [facility] 12-17-2023 16:28-0500 Body weight 79.92 kg Hima Hill DO Work Phone: [facility] [employer] 12-17-2023 16:28-0500 Diastolic blood pressure 70 mm[Hg] Hima Hill DO [facility] 12-17-2023 16:28-0500 Heart rate 75 /min Hima Hill DO [facility] 12-17-2023 16:28-0500 SaO2% (BldA) [Mass fraction] 99 % Hima Hill DO [facility] 12-17-2023 16:28-0500 Systolic blood pressure 126 mm[Hg] Hima Hill DO Work Phone: [facility] [employer] Encounters Encounter Date Encounter Type Care Provider [...] Departed Referred Franklin Manny DO Work Phone: [facility] Start: 04-11-2025 End: 04-11-2025 Patient encounter [...] 03-25-2025 Refill Hima Hill DO Work Phone: [facility] Comment [...] 02-18-2025 Refill Hima Hill DO Work Phone: [facility] Comment on above: Strain of neck muscl e, initial encounter; Migraine without aura and without status migrainosus, not intractable Start: 02-03-2025 End: 02-03-2025 ambulatory [facility] Start: 02-03-2025 End: 02-03-2025 Office outpatient visit 25 minutes Hima Chapmanelen DO Work Phone: [facility] Comment on above: Bipolar disorder, cu rrent episode mixed, mild (CMS-HCC) (Primary Dx) Start: 01-25-2025 End: 01-25-2025 Refill Hima Hill DO Work Phone: [facility] Comment on above: Intractable migraine without aura and without status migrainosus Start: 01-20-2025 End: 01-20-2025 Refill On Jan QC ANALYST [facility] Comment on above: Migraine without aur a and without status migrainosus, not intractable Start: 01-17-2025 End: 01-17-2025 Office outpatient visit 25 minutes Hima Chapmanelen DO Work Phone: [facility] Comment on above: Strain of neck muscl e, initial encounter (Primary Dx); Intractable migraine without aura and without status migrainosus Start: 01-17-2025 End: 01-17-2025 ambulatory [facility] Start: 01-17-2025 End: 01-25-2025 Telephone encounter Hima Hill DO Work Phone: [facility] Start: 12-30-2024 End: 12-30-2024 Refill Hima Hill DO Work Phone: [facility] Comment on above: Essential hypertensi on; Migraine without aura and without status migrainosus, not intractable; Fibromyalgia; Strep throat exposure Start: 12-27-2024 End: 12-27-2024 Telephone encounter Kathya Rousseau [facility] Start: 12-24-2024 End: 12-24-2024 ambulatory [facility] Start: 12-24-2024 End: 12-24-2024 Office outpatient visit 15 minutes Hima Hill DO Work Phone: [facility] Comment on above: Strep throat exposur e (Primary Dx) Start: 12-13-2024 End: 12-13-2024 ambulatory [facility] Start: 12-13-2024 End: 12-13-2024 Office outpatient visit 25 minutes Hima Hill DO Work Phone: [facility] Comment on above: Intractable migraine without aura and without status migrainosus (Primary Dx); Fibromyalgia Start: 12-08-2024 End: 12-08-2024 ambulatory EVELYN VIZCAINO Not Available Start: 12-08-2024 End: 12-08-2024 Office outpatient visit 15 minutes Evelyn Vizcaino PA Work Phone: [facility] Comment on above: Encounter for weight management; Breast lump on left side at 9 o'clock position Start: 12-08-2024 End: 12-08-2024 Bamboo flowsheet Evelyn SALEH Work Phone: [facility] Start: 12-08-2024 End: 12-08-2024 Bamboo flowsheet Evelyn SALEH Work Phone: [facility] Start: 11-15-2024 End: 11-15-2024 Refill Hima Hill DO Work Phone: [facility] Comment on above: Intractable migraine without aura and without status migrainosus Start: 11-02-2024 End: 11-02-2024 ambulatory [facility] Start: 10-18-2024 End: 10-18-2024 Refill Hima Hill DO Work Phone: [facility] Internal [facility] - Family Medicine Comment on above: Fibromyalgia; Migraine without aura and without status migrainosus, not intractable Start: 10-13-2024 End: 10-15-2024 Telephone encounter Hima Chapmanelen MARTÍNEZ Work Phone: [facility] - Family Medicine Start: 10-12-2024 End: 10-12-2024 Office outpatient visit 25 minutes Hima Tom Hill DO Work Phone: [facility] - Family Medicine Comment on above: Intractable migraine without aura and without status migrainosus (Primary Dx) Start: 10-12-2024 End: 10-12-2024 ambulatory [facility] Start: 08-20-2024 End: 08-20-2024 Telephone encounter Arlyn Miller [facility] Internal Medicine - Family Medicine Start: 07-23-2024 End: 07-23-2024 ambulatory [facility] Start: 07-23-2024 End: 07-23-2024 Encounter for general adult medical examination with abnormal findings Hima Tom Hill DO Work Phone: [facility] [employer] Work Phone: Start: 07-23-2024 End: 07-23-2024 Periodic preventive med est patient 18-39 yrs Hima Hill DO Work Phone: [facility] Internal Medicine - Family [...] unspecified type Start: 07-23-2024 End: 07-23-2024 ambulatory [facility] Start: 07-11-2024 End: 07-11-2024 Refill Hima Hill DO Work Phone: [facility] Internal [facility] - Family Medicine Comment on above: Depression, unspecif ied depression type Start: 06-21-2024 End: 06-21-2024 Refill Hima Hill DO Work Phone: [facility] Internal Medicine - Family Medicine Comment on above: Migraine without aur a and without status migrainosus, not intractable Start: 06-16-2024 End: 06-16-2024 Telephone encounter Belkis Menezes [facility] Work Phone: [facility] Start: 06-02-2024 End: 06-02-2024 Telephone encounter Josee Lynn CMA [facility] Internal Medicine - Family Medicine Comment on above: Appointment Due Start: 05-23-2024 End: 05-23-2024 Refill Hima Hill DO Work Phone: [facility] Internal Medicine - Family Medicine Comment on above: Essential hypertensi on Start: 04-27-2024 End: 04-27-2024 Refill Hima Hill DO Work Phone: [facility] Internal Medicine - Family Medicine Comment on above: Migraine without aur a and without status migrainosus, not intractable; Essential hypertension; Class 1 obesity with serious comorbidity and body mass index (BMI) of 33.0 to 33.9 in adult, unspecified obesity type; Depression, unspecified depression type Start: 04-21-2024 End: 04-21-2024 Refill Hima Chapmans DO Work Phone: [facility] Internal [facility] Family Medicine Comment on above: Obesity with body ma ss index 30 or greater Start: 03-24-2024 End: 03-24-2024 Refill Hima Chapmans DO Work Phone: [facility] Comment on above: Migraine without aur a and without status migrainosus, not intractable Start: 03-06-2024 Refill Hima Chapmans D O Work Phone: [facility] Comment on above: Essential hypertensi on Start: 03-02-2024 End: 03-11-2024 Telephone encounter Hima Hill DO Work Phone: [facility] Family [facility] Start: 02-19-2024 Refill iHma Chapmans D O Work Phone: [facility] Family Medicine Comment on above: Migraine without aur a and without status migrainosus, not intractable Start: 02-02-2024 Refill Hima Chapmans D O Work Phone: [facility] Internal Medicine Family Medicine Comment on above: Migraine without aur a and without status migrainosus, not intractable Start: 01-14-2024 Refill Hima Velahas D O Work Phone: [facility] Family [facility] Comment on above: Migraine without aur a and without status migrainosus, not intractable Start: 12-17-2023 End: 12-17-2023 Office outpatient visit 25 minutes Hima Chapmans DO Work Phone: [facility] Internal Medicine - Family Medicine Comment on above: Obesity with body ma ss index 30 or greater (Primary Dx); Migraine without aura and without status migrainosus, not intractable Start: 12-10-2023 Refill Hima Chapmans D O Work Phone: [facility] Comment [...] Start: 07-21-2023 End: 07-21-2023 ambulatory Shannan Young Facility:[facility] Start: 07-21-2023 Non-patient / Non-visit MD Manuel Young Work Phone: [facility] [facility] Work Phone: Start: 03-07-2023 End: 03-08-[address] SHANNAN YOUNG . Facility: Start: 03-05-2023 End: 03-05-[address] SHANNAN YOUNG . Facility: Start: 02-05-2018 End: 02-06-2018 Ambulatory Michael Hendrix Facility:[facility] Procedures Date Procedure Procedure Detail Performing Clinician [...] Cervix by Cyto stain Hima Hill DO Rede[place] Phone: Plan of Treatment Date Care Activity Detail Author Start: 10-01-2033 DTaP,Tdap and Td Vaccines (2 - Td or Tdap) DTaP,Tdap and Td Vaccines (2 - Td or Tdap) [facility] Start: 03-05-2028 Screening for malign ant neoplasm of cervix [facility] Start: 04-08-2027 Screening for malign ant neoplasm of cervix Pap Smear [facility] Start: 03-05-2026 Screening for malign ant neoplasm of cervix Pap Smear [facility] Start: 01-17-2026 Adult BMI Screening Adult BMI Screen ing [facility] Start: 01-17-2026 [facility] Start: 01-17-2026 Tobacco Screening Tobacco Screening [facility] Start: 10-12-2025 Adult BMI Screening Adult BMI Screen ing [facility] Start: 10-12-2025 Depression Screening Depression Scre ening [facility] Start: 08-01-2025 Influenza vaccination [facility] Start: 07-23-2025 Adult BMI Screening Adult BMI Screen ing [facility] Start: 07-23-2025 Depression Screening Depression Scre ening [facility] Start: 07-23-2025 Tobacco Screening Tobacco Screening [facility] Start: 05-04-2025 End: 05-04-2025 Patient encounter procedure 05/04/2025 3:40 PM EDT Office Visit [facility] [address] [place] [id number] Franklin Bryant, DO [address] [place] [address] [facility] Start: 04-11-2025 End: 04-11-2025 Patient encounter procedure [facility] Start: 04-11-2025 [facility] Start: 03-21-2025 End: 03-21-2025 Patient encounter procedure 03/21/2025 3:50 PM EDT Office Visit [facility] [address] [place] [id number] Franklin Bryant, DO [address], [place] [id number] Arrived [facility] Comment on above: [...] [facility] [address] [place] [id number] Evelyn Vizcaino PA [address] [place], [place] [id number] [facility] Start: 12-17-2024 Adult BMI Screening Adult BMI Screen ing [facility] Start: 12-17-2024 Depression Screening Depression Scre ening [facility] Start: 12-17-2024 Tobacco Screening Tobacco Screening [facility] Start: 12-08-2024 End: 02-05-2026 US Breast - left Left breast US complete Imaging Routine Breast lump on left side at 9 o'clock position Expected: 12/08/2024, Expires: 02/05/2026 [facility] Work Phone: Comment on above: Expected: 12/08/2024 , Expires: 02/05/2026 Start: 11-10-2024 End: 11-10-2024 Patient encounter procedure 11/10/2024 4:30 PM EST Office Visit [facility] [address] [place] [address] Hima Hill, DO [address] [place] [address] [facility] Start: 11-02-2024 End: 11-02-2024 Patient encounter procedure 11/02/2024 6:45 AM EST Appointment [facility] [address] [place] [facility] [place] [address] Hima Hill, DO [address] [place] [address] [facility] Start: 10-26-2024 End: 10-26-2024 Patient encounter procedure 10/26/2024 4:30 PM EST Office Visit [facility] [address] [place] [address] Hima Hill, DO [address] [place] [address] [facility] - Family Medicine Start: 10-22-2024 Adult BMI Screening Adult BMI Screen ing [facility] Start: 10-22-2024 Tobacco Screening Tobacco Screening [facility] Start: 10-12-2024 End: 10-12-2025 MR Brain WO contrast MR brain without contrast Imaging Routine Intractable migraine without aura and without status migrainosus Expected: 10/12/2024, Expires: 10/12/2025 [facility] Work Phone: Comment on above: Expected: 10/12/2024 , Expires: 10/12/2025 Start: 08-01-2024 COVID-19 Vaccine () COVID-19 Vaccine () [facility] Start: 08-01-2024 COVID-19 Vaccine () COVID-19 Vaccine () [facility] Start: 08-01-2024 Influenza vaccination [facility] Start: 07-23-2024 End: 07-23-2024 Patient encounter procedure 07/23/2024 10:00 AM EDT Office Visit [facility] [address] [place] [address] Hima Hill, DO [address] [place] [address] [facility] - [facility] Start: 07-09-2024 [facility] Start: 12-17-2023 End: 12-17-2023 Patient encounter procedure 12/17/2023 4:30 PM EST Office Visit [facility] [address] [place] [address] Hima Hill, DO [address] [place] [address] [facility] Start: 08-01-2023 COVID-19 Vaccine ( season) COVID-19 Vaccine () [facility] [employer] Start: 2006 Screening for malign ant neoplasm of cervix Pap Smear [facility] Start: 2003 Adult BMI Follow Up Plan Adult BMI Follow Up Plan [facility] End: 07-23-2025 CBC W Auto Differential panel - Blood CBC auto differential Lab Routine Iron deficiency anemia, unspecified iron deficiency anemia type 1 Occurrences starting 07/23/2024 until 07/23/2025 [facility] [employer] Comment on above: 1 Occurrences starti ng 07/23/2024 until 07/23/2025 CBC W Auto Different ial panel - Blood CBC and differential Lab Routine Menorrhagia with regular cycle Ordered: 03/21/2025 [facility] [employer] Comment on above: Ordered: 03/21/2025 End: 07-23-2025 Comprehensive metabolic 2000 panel - Serum or Plasma Comprehensive metabolic panel Lab Routine Impaired fasting glucose 1 Occurrences starting 07/23/2024 until 07/23/2025 [facility] Work Phone: Comment on above: 1 Occurrences starti ng 07/23/2024 until 07/23/2025 End: 07-23-2025 Cyanocobalamin vitamin b-12 Vitamin B12 Lab Routine B12 deficiency 1 Occurrences starting 07/23/2024 until 07/23/2025 [facility] [employer] Comment on above: 1 Occurrences starti ng 07/23/2024 until 07/23/2025 DHEA-sulfate DHEA-sulfate Lab Routine Menorrhagia with regular cycle Ordered: 03/21/2025 [facility] [employer] Comment on above: Ordered: 03/21/2025 Endometrial biopsy Endometrial b iopsy Procedures Routine Menorrhagia with regular cycle Abnormal uterine bleeding (AUB) Pelvic pain Ordered: 04/11/2025 [facility] [employer] Work Phone: Comment on above: Ordered: 04/11/2025 End: 07-23-2025 Erythrocyte sedimentation rate Erythrocyte Sedimentation Rate (ESR) Lab Routine Migraine without aura and without status migrainosus, not intractable 1 Occurrences starting 07/23/2024 until 07/23/2025 [facility] Comment on above: 1 Occurrences starti ng 07/23/2024 until 07/23/2025 Follicle stimulating hormone Follicle stimulating hormone Lab Routine Menorrhagia with regular cycle Ordered: 03/21/2025 [facility] Comment on above: Ordered: 03/21/2025 hCG, quantitative, hCG, quantitative, Lab Routine Menorrhagia with regular cycle Ordered: 03/21/2025 [facility] Work Phone: Comment on above: Ordered: 03/21/2025 Hemoglobin A1c/Hemoglobin.total in Blood Hemoglobin A1c Lab Routine Menorrhagia with regular cycle Ordered: 03/21/2025 [facility] Comment on above: Ordered: 03/21/2025 Luteinizing hormone Luteinizing hormone Lab Routine Menorrhagia with regular cycle Ordered: 03/21/2025 [facility] Comment on above: Ordered: 03/21/2025 Thyrotropin [Units/volume] in Serum or Plasma TSH Lab Routine Menorrhagia with regular cycle Ordered: 03/21/2025 [facility] Comment on above: Ordered: 03/21/2025 Thyroxine (T4) free [Mass/volume] in Serum or Plasma T4, free Lab Routine Menorrhagia with regular cycle Ordered: 03/21/2025 [facility] Comment on above: Ordered: 03/21/2025 End: 07-23-2025 TSH with Reflex TSH with Reflex Lab Routine Class 1 obesity with serious comorbidity and body mass index (BMI) of 33.0 to 33.9 in adult, unspecified obesity type 1 Occurrences starting 07/23/2024 until 07/23/2025 [facility] Comment on above: 1 Occurrences starti ng 07/23/2024 until 07/23/2025 Immunizations Immunization Date Immunization Notes Care Provider Sudheer lagunas 10-01-2023 influenza, injectabl e, quadrivalent, preservative free Hima Hill DO Work Phone: [facility] 10-01-2023 tetanus toxoid, redu eliceo diphtheria toxoid, and acellular pertussis vaccine, adsorbed Hima Hill DO Work Phone: [facility] 10-01-2023 influenza virus vaccine, unspecified formulation Hima Koffidmitri DO Work Phone: [facility] 09-27-2022 Influenza, injectabl e, Madin Ashwini Canine Kidney, preservative free, quadrivalent Hima Yuhas DO Work Phone: [facility] 08-14-2021 influenza, injectabl e, quadrivalent, preservative free Hima Yuhas DO Work Phone: [facility] 09-13-2020 influenza, seasonal, injectable Hima Yuhas DO Work Phone: [facility] 07-13-2020 influenza, injectabl e, quadrivalent, preservative free Hima Yuhas DO Work Phone: [facility] 07-13-2019 influenza, injectabl e, quadrivalent, preservative free Hima Yuhas DO Work Phone: [facility] 07-13-2019 measles, mumps and rubella virus vaccine Hima Yuhas DO Work Phone: [facility] 07-10-2018 influenza, injectabl e, quadrivalent, preservative free Hima Yuhas DO Work Phone: [facility] 12-25-2017 Influenza, injectabl e, Madin [place] Canine Kidney, preservative free, quadrivalent Hima Yuhas DO Work Phone: [facility] 12-17-2017 influenza virus vaccine, unspecified formulation Hima Yuhas DO Work Phone: [facility] Payers Date Payer Category Payer Self-pay 2020 Medicaid [employer] [id number] 2020-Present [phone] [place] [address] [id number] 2020 Medicaid (Managed Care) [employer] [id number] 2020 Medicaid HMO [employer] [id number] 2018 Unknown [id number] 1985 Unknown [id number] 2.840.1.009243.3.579.2. 59 1985 Unknown [id number] 2.840.1.278263.3.579.2. 59 1985 Unknown [id number] 2.840.1.021501.3.579.2. 1285 1985 Unknown [id number] 2.840.1.030226.3.579.2. 1285 1985 Unknown [id number] 2.840.1.756648.3.579.2. 1285 1985 Unknown [id number] 2.16840.1.038227.3.579.2. 1285 1985 Unknown [id number] 2.16840.1.406368.3.579.2. 1285 1985 Unknown [id number] 2.16840.1.264026.3.579.2. 1286 1985 Unknown [id number] 2.16.840.1.292509.3.579.2. 1286 1985 Unknown [id number] 2.16.840.1.567220.3.579.2. 1286 1985 Unknown [id number] 2.16.840.1.972265.3.579.2. 9 1985 Unknown [id number] 2.16.840.1.786793.3.579.2. 1259 1985 Unknown [id number] 2.16.840.1.218343.3.579.2. 1259 1959 Unknown [id number] Unknown [id number] 2.16.840.1.984216.3.579.2. 1149 Unknown [id number] 2.16.840.1.529080.3.579.2. 1149 Unknown Insurance No Card [id number] Unknown [id number] [id number]. 531 Social History Date Type Detail Facility Start: 07-21-2023 Tobacco smoking stat [facility] Never smoker [facility] Work Phone: Start: 1985 Sex Assigned At Female F [facility] Start: 10-09-2022 End: 07-28-2023 Tobacco smoking status [facility] Never smoked tobacco [facility] Start: 10-09-2022 End: 07-28-2023 Tobacco use and exposure Smokeless tobacco non-user [facility] Start: 04-12-2024 End: 04-11-2025 Alcoholic beverage intake Lifetime non-drinker (finding) [facility] Start: 07-28-2023 End: 04-12-2024 History of Social function [facility] Start: 07-28-2023 End: 04-12-2024 Tobacco use panel [facility] Start: 1985 Sex assigned at Not on file P [facility] Start: 07-23-2024 End: 01-17-2025 Alcoholic beverage intake Current drinker of alcohol (finding) [facility] How hard is it for y ou to pay for the very basics like food, housing, medical care, and heating Not hard at all [facility] Start: 10-22-2023 Alcohol Comment Socially [facility] Start: 07-06-2015 End: 04-13-2025 Sex Female (finding) [facility] Tobacco smoking stat [facility] Unknown if ever smoked [facility] Work Phone: Medical Equipment Procedure Code [...] on 04-29-[address] Bryant at [facility]. MEDICATIONS Current Outpatient Medications Medication Instructions DULoxetine (CYMBALTA) 60 mg, Daily estrogens (conjugated) (PREMARIN) 0.625 mg, Oral, Daily, Take 1 tablet daily by mouth for 30 days phentermine (ADIPEX-P) 37.5 mg, Oral, Daily before breakfast Otdzcjcb-Qgv-Tm-FA ( 1 + IRON PO) propranolol LA [...] nursing note reviewed. Exam conducted with a weather teacher present. Vitals: Estimated body mass index is [...] reviewed, and patient is to proceed to [facility]. Follow Up: Patient is to follow up between 1-2 weeks post op to assess proper healing and recovery from procedure. Documented by Barbara Scruggs LPN on behalf of: Franklin Bryant DO documented in this encounter [facility] 03-21-2025 History of Presen t illness Narrative [...] (ADIPEX-P) 37.5 mg, Oral, Daily before breakfast Ucdzlnwy-Adk-Ua-FA ( 1 + IRON PO) propranolol LA [...] nursing note reviewed. Exam conducted with a weather teacher present. Vitals: Estimated body mass index is [...] Franklin Bryant DO documented in this encounter [facility] 02-03-2025 History of Presen t illness Narrative IM PROGRESS NOTE Patient - Cass Riley Age - 39 y.o. [facility] 1985 [id number] ASSESSMENT & PLAN Video Visit via Real-time Synchronous Audiovisual Provider Location: [facility] [address] [place] [address] Patient Location: workplace Video Visit Consent Statement: [...] that there are some limitations compared to xexk-hl-qtrv evaluations. The patient consented to the presence [...] she is agreeable to this. -referral to [facility] today -in the meantime, [...] vomiting., Disp: 20 tablet, Rfl: 0 PNV,calcium 34-otud-yjgnp acid (WESTAB PLUS) 27 mg iron- 1 [...] Testing No results found. Hima Hill DO., [facility] Office: [phone] documented in this encounter [facility] 01-17-2025 History of Presen t illness Narrative [...] vomiting., Disp: 20 tablet, Rfl: 0 PNV,calcium 72-qxdy-kqkih acid (WESTAB PLUS) 27 mg iron- 1 [...] Testing No results found. Hima Hill DO., [facility] Office: [phone] documented in this encounter [facility] 01-17-2025 Miscellaneous Notes ----- Message from Dr. Hima Hill DO sent at 07/23/2024 2:55 PM EDT ----- Weight recheck Sent mychart msg documented in this encounter [facility] 01-17-2025 Telephone encounter Note ----- Message from Dr. Hima Hill DO sent at 07/23/2024 2:55 PM EDT ----- Weight recheck [facility] 01-17-2025 Telephone encounter Note Sent mychart msg [facility] 12-27-2024 Miscellaneous Notes Patient called and wanted to know if she could get a work note for 12/22-12/24/24. It will need faxed on [phone] Message noted. A off work note is written and available in the chart. Off 12/22/2024-12/24/2024, RTW 12/25/2024. Faxed to her job documented in this encounter [facility] [employer] 12-27-2024 Telephone encounter Note Patient called and wanted to know if she could get a work note for 12/22-12/24/24. It will need faxed on [phone] [facility] 12-27-2024 Telephone encounter Note Message noted. A off work note is written and available in the chart. Off 12/22/2024-12/24/2024, RTW 12/25/2024. [facility] 12-27-2024 Telephone encounter Note Faxed to her job [facility] 12-24-2024 History of Presen t illness Narrative IM PROGRESS NOTE Patient - Cass Riley Age - 39 y.o. - 1985 [facility] # - [id number] ASSESSMENT & PLAN Video Visit via Real-time Synchronous Audiovisual Provider Location: [facility] [address] [facility] [address] Patient Location: Patient's home Video Visit Consent [...] that there are some limitations compared to bpvb-ht-ysof evaluations. The patient consented to the presence [...] days. Dispense: 14 tablet; Refill: 0 - rmisukojhqnjivo-poygnwhkv-[place] 2-30-10 mg/5 mL syrup; Take 5 mL [...] 7 days., Disp: 14 tablet, Rfl: 0 acqwxibjcozjnpk-kotwwezbn-MF 2-30-10 mg/5 mL syrup, Take 5 mL [...] Testing No results found. Hima Hill DO., [facility] Office: [phone] documented in this encounter [facility] 12-13-2024 History of Presen t illness Narrative IM PROGRESS NOTE Patient - Cass Riley Age - 39 y.o. [facility] 1985 [place] [id number] ASSESSMENT & PLAN Video Visit via Real-time Synchronous Audiovisual Provider Location: [facility] INTERNAL MEDICINE - FAMILY MEDICINE [address] [facility] [address] Patient Location: Patient's home Video Visit Consent [...] that there are some limitations compared to iife-td-gxfd evaluations. The patient consented to the presence [...] Testing No results found. Hima Hill DO. [facility] Office: [phone] documented in this encounter [facility] 12-08-2024 History of Presen t illness Narrative [...] (ADIPEX-P) 37.5 mg, Oral, Daily before breakfast Qqloheid-Aad-Dc-FA ( 1 + IRON PO) propranolol LA [...] nursing note reviewed. Exam conducted with a weather teacher present. Vitals: Estimated body mass index is [...] of: THERESE Pa documented in this encounter [facility] 10-13-2024 Miscellaneous Notes Patient called they can't get her in until November 02 for her MRI she wanted to know if that was okay Message noted. Yes Message noted. Yes Patient notified [email or web address]13[facility]24 Telephone encounter Note Patient called they can't get her in until November 02 for her MRI she wanted to know if that was okay [facility] 10-13-2024 Telephone encounter Note Message noted. Yes [facility] 10-13-2024 Telephone encounter Note Patient notified [facility] 10-12-2024 History of Presen t illness [...] Motor: No weakness. Coordination: Coordination normal. Comments: Hallpike-Ellenton test negative bilateral Psychiatric: Mood and Affect: [...] Testing No results found. Hima Hill DO., [facility] Office: [phone] documented in this encounter [facility] 08-20-2024 Miscellaneous Notes Start by decreasing the bupropion to 150 mg every other day. After one week you will start Duloxetine 30 mg daily, and then stop the bupropion. Spoke with pt. Pt verbalizes understanding. documented in this encounter [facility] 08-20-2024 Telephone encounter Note Start by decreasing the bupropion to 150 mg every other day. After one week you will start Duloxetine 30 mg daily, and then stop the bupropion. Spoke with pt. Pt verbalizes understanding. [facility] 07-23-2024 History of Presen t illness Narrative [...] discussed. 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 -will need to [...] Testing No results found. Hima Hill DO., [facility] Office: [phone] documented in this encounter [facility] 06-16-2024 Miscellaneous Notes [address] [address] [facility] Adherence Outreach Name: Cass Riley Medication: Trulicity 0.75 mg/0.5 mL Prescribing Provider: Hima Hill Jr, DO Proportion of Days Covered (PDC): 0.63 Per pharmacy dispense report, last filled on 06/07/24 for a 28 days supply Contacted patient as part of the [facility] program for medication adherence with Trulicity . This was my first attempt to reach the patient and a message was left on their voicemail requesting a callback. Belkis Menezes RPH Clinical Pharmacist, [facility] documented in this encounter [facility] 06-16-2024 Telephone encounter Note [address] [address] Population Health Adherence Outreach Name: Cass Riley Medication: Trulicity 0.75 mg/0.5 mL Prescribing Provider: Hima Hill Jr, DO Proportion of Days Covered (PDC): 0.63 Per pharmacy dispense report, last filled on 06/07/24 for a 28 days supply Contacted patient as part of the [facility] program for medication adherence with Trabidaity . This was my first attempt to reach the patient and a message was left on their voicemail requesting a callback. Belkis Menezes RPH Clinical Pharmacist, [facility] Quality & Care Transformation [facility] Work Phone: 06-02-2024 Miscellaneous Notes Care Coordination [...] appointment. Letter sent. documented in this encounter [facility] 06-02-2024 Telephone encounter Note Care Coordination Outreach performed to coordinate overdue appointments, testing, and/or follow-up care: Yes Audit/Outreach Date: June 02, 2024 Reason: Well Person Method: Telephone and MyChart Outreach Attempt: First Outcome: Left Message and Letter sent Next PCP Appointment: N/A Tests/Referrals Pended: N/A Resources/Education Provided: Additional Comments: Unable to reach patient by telephone to schedule appointment. Letter sent. [facility] 03-02-2024 Miscellaneous Notes ----- Message from Hima Hill DO sent at 12/17/2023 5:51 PM EST ----- Weight recheck Patient declined scheduling at this time. Message noted. documented in this encounter [facility] 03-02-2024 Telephone encounter Note ----- Message from Hima Hill DO sent at 12/17/2023 5:51 PM EST ----- Weight recheck [facility] 03-02-2024 Telephone encounter Note Patient declined scheduling at this time. [facility] 03-02-2024 Telephone encounter Note Message noted. [facility] 12-17-2023 History of Presen t illness Narrative [...] Testing No results found. Hima Hill DO., [facility] Office: [phone] documented in this encounter [facility] Evaluation note No assessment inform ation available [facility] Work Phone: Evaluation note Diagnosis Encounter for weight management Breast lump on left side at 9 o'clock position Lump or mass in breast documented in this encounter [facility]* Diagnosis Intractable migraine without aura and without status migrainosus- Primary Fibromyalgia Unspecified myalgia and myositis documented [facility] Diagnosis Strep throat exposure- Primary documented in this [facility]* Diagnosis Essential hypertension Unspecified essential hypertension Migraine without aura and without status migrainosus, not intractable Fibromyalgia Unspecified myalgia and myositis Strep throat exposure documented in this [facility]* Diagnosis Migraine without aura and without status migrainosus, not intractable documented [facility] this [facility]* Diagnosis Migraine without aura and without status migrainosus, not intractable documented [facility]* Diagnosis Class 1 obesity with serious comorbidity and body mass index (BMI) of 33.0 to 33.9 in adult, unspecified obesity type Depression, unspecified depression type Essential hypertension Unspecified essential hypertension documented in this encounter [facility]* Diagnosis Obesity with body mass index 30 or greater- Primary Migraine without aura and without status migrainosus, not intractable documented in this encounter [facility]* Diagnosis Obesity with body mass index 30 or greater [facility] Diagnosis Migraine without aura and without status migrainosus, not intractable Essential hypertension Unspecified essential hypertension Class 1 obesity with serious comorbidity and body mass index (BMI) of 33.0 to 33.9 in adult, unspecified obesity type Depression, unspecified depression type documented [facility] this encounter [facility] Diagnosis Essential hypertension Unspecified essential hypertension documented [facility] this [facility]* Diagnosis Depression, unspecified depression type documented [facility] this [facility]* Diagnosis Abnormal wellness exam- Primary Migraine without aura and without status migrainosus, not intractable Impaired fasting glucose Class 1 obesity with serious comorbidity and body mass index (BMI) of 33.0 to 33.9 in adult, unspecified obesity type Iron deficiency anemia, unspecified iron deficiency anemia type B12 deficiency Obsessive-compulsive disorder, unspecified type documented [facility] this encounter [facility] Diagnosis Intractable migraine without aura and without status migrainosus- Primary documented in this encounter [facility]* Diagnosis Fibromyalgia Unspecified myalgia and myositis Migraine without aura and without status migrainosus, not intractable documented in this encounter [facility]* Diagnosis Intractable migraine without aura and without status migrainosus documented [facility]* Diagnosis Strain of neck muscle, initial encounter- Primary Intractable migraine without aura and without status migrainosus documented [facility]* Diagnosis Migraine without aura and without status migrainosus, not intractable documented [facility]* Diagnosis Intractable migraine without aura and without status migrainosus documented [facility]* Diagnosis Bipolar disorder, current episode mixed, mild ([facility])- Primary documented [facility] Diagnosis Strain of neck muscle, initial encounter Migraine without aura and without status migrainosus, not intractable documented [facility] encounter [facility] Diagnosis Encounter to discuss procedure Menorrhagia with regular cycle [facility] Preop examination Unspecified pre-operative examination [...] Obsessive-compulsive disorder, unspecified type Hima Hill DO [address] [place] [address] [facility] & [address] [address] Referral ID Status Reason Start Date Expiration Date V isits Requested Visits Authorized [id number] Pending Review 07/23/2024 07/23/2025 4 4 [facility] Summary Purpose Family History Relationship Condition Age at Onset Recorded Date/T rivera Not Specified Diabetes mellitus Unknown Hypertension Unknown Advance Directives Advance Directive Response Recorded Date/ Time Advance Directives No July 21, 2023 4:30pm Advance Directive Response Recorded Date/ Time Advance Directives No April 01, 2018 5:33am Chief Complaint and Reason for Visit Chief Complaint meds [phone], o k jae Young Chief Complaint Admit Date Unknown April 11, 2025 3:39p m Additional Source Comments INFORMATION SOURCE (unrecogn ized section and content) DATE CREATED AUTHOR 05/22/2018 Jd Kignus [facility] DATE CREATED AUTHOR AUTHOR'S ORGANIZ ATION 09/30/2021 [facility] DATE CREATED AUTHOR AUTHOR'S ORGANIZ ATION 03/16/2023 [facility] DATE CREATED AUTHOR AUTHOR'S ORGANIZ ATION 07/26/2023 [facility] DATE CREATED AUTHOR AUTHOR'S ORGANIZ ATION 07/25/2024 [facility] DATE CREATED AUTHOR AUTHOR'S ORGANIZ ATION 11/03/2024 [facility] DATE CREATED AUTHOR AUTHOR'S ORGANIZ ATION 02/06/2025 [facility] DATE CREATED AUTHOR AUTHOR'S ORGANIZ ATION 04/12/2025 [facility] DATE CREATED AUTHOR AUTHOR'S ORGANIZ ATION 04/16/2025 [facility] Goals (unrecognized section and content) [...] Care Teams (unrecognized sec tion and content) Elevator Adjuster Relationship Specialty Start Date End Date Hima Hill MD [address] [place] [address] PCP - General Internal Medicine 04/12/24 Elevator Adjuster Relationship Specialty Start Date End Date Hima Hill MD [address] [place] [address] PCP - General Internal Medicine 04/12/24 Elevator Adjuster Relationship Specialty Start Date End Date Hima Hill DO [address] [place] [place] [address] PCP - General Internal Medicine 10/09/22 Elevator Adjuster Relationship Specialty Start Date End Date Hima Hill DO [address] [place] [address] PCP - General Internal Medicine 10/09/22 Elevator Adjuster Relationship Specialty Start Date End Date Hima Hill DO [address] [place] [place] [address] PCP - General Internal Medicine 10/09/22 Elevator Adjuster Relationship Specialty Start Date End Date Hima Hill DO [address] [place] [place] [address] PCP - General Internal Medicine 10/09/22 Elevator Adjuster Relationship Specialty Start Date End Date Hima Hill DO [address] [place] [address] PCP - General Internal Medicine 10/09/22 Elevator Adjuster Relationship Specialty Start Date End Date Hima Hill DO [address] [place] [address] PCP - General Internal Medicine 10/09/22 Elevator Adjuster Relationship Specialty Start Date End Date Hima Hill DO [address] [place] [address] PCP - General Internal Medicine 10/09/22 Elevator Adjuster Relationship Specialty Start Date End Date Hima Hill DO [address] [place] [address] PCP - General Internal Medicine 10/09/22 Elevator Adjuster Relationship Specialty Start Date End Date Hima Hill DO [address] [place] [address] PCP - General Internal Medicine 10/09/22 Elevator Adjuster Relationship Specialty Start Date End Date Hima Hill DO [address] [place] [address] PCP - General Internal Medicine 10/09/22 Elevator Adjuster Relationship Specialty Start Date End Date Hima Hill DO [address] [place] [address] PCP - General Internal Medicine 10/09/22 Elevator Adjuster Relationship Specialty Start Date End Date Hima Hill DO [address] [place] [address] PCP - General Internal Medicine 10/09/22 Elevator Adjuster Relationship Specialty Start Date End Date Hima Hill DO [address] [place] [address] PCP - General Internal Medicine 10/09/22 Elevator Adjuster Relationship Specialty Start Date End Date Hima Hill DO [address] [place] [address] PCP - General Internal Medicine 10/09/22 Elevator Adjuster Relationship Specialty Start Date End Date Hima Hill DO [address] [place] [address] PCP - General Internal Medicine 10/09/22 Elevator Adjuster Relationship Specialty Start Date End Date Hima Hill DO [address] [place] [address] PCP - General Internal Medicine 10/09/22 Elevator Adjuster Relationship Specialty Start Date End Date Hima Hill DO [address] [place] [address] PCP - General Internal Medicine 10/09/22 Elevator Adjuster Relationship Specialty Start Date End Date Hima Hill DO [address] [place] [address] PCP - General Internal Medicine 10/09/22 Elevator Adjuster Relationship Specialty Start Date End Date Hima Hill DO [address] [place] [address] PCP - General Internal Medicine 10/09/22 Elevator Adjuster Relationship Specialty Start Date End Date Hima Hill MD PCP - General Internal Medicine 04/12/24 Elevator Adjuster Relationship Specialty Start Date End Date Hima Hill MD PCP - General Internal Medicine 04/12/24 Elevator Adjuster Relationship Specialty Start Date End Date Hima Hill MD PCP - General Internal Medicine 04/12/24 Elevator Adjuster Relationship Specialty Start Date End Date Hima Hill MD PCP - General Internal Medicine 04/12/24 Team Status: Inactive Member Role Status Dates Franklin Bryant DO Attending Provider Active Start : April 11, 2025 End: April 11, 2025 Elevator Adjuster Relationship Specialty Start Date End Date Hima Hill MD PCP - General Internal Medicine 04/12/24 Elevator Adjuster Relationship Specialty Start Date End Date Hima Hill MD [address] [place] [address] PCP - General Internal Medicine [...] BE BASED ON THE PRIMARY CLINICAL RECORDS. [employer] provides no warranty or guarantee of the accuracy or completeness of information in this document.
[2025-05-10 13:08] LABS: Age Gdln ACOG Testing Note (.); HPV Aptima Negative (Negative); IGP, Aptima HPV, rfx 16/18,45 Note (.)
== END 2025-05-04 20:10 | disposition home or self-care (01) ==
LOC: LAB 20:09
PROVIDERS: PCP Internal Medicine; Visit Provider Obstetrics & Gynecology
DX: Z01.419 Encounter for gynecological examination (general) (routine) without abnormal findings (principal)
CPT/HCPCS: 87624; 88175

== ENCOUNTER 2025-05-30 15:54 | Outpatient (OUT) | payer OTHER, SELFPAY ==
[2025-05-30 16:13] LABS: Basophils Absolute Auto 0.1 10^3/uL (0.0-0.1); Eosinophils Absolute Auto 0.1 10^3/uL (0.0-0.7); Eosinophils Percent Auto 1.2 % (0.9-7.0); Hematocrit 35.4 % (36.0-48.0); Hemoglobin 12.3 g/dL (12.0-16.0); Immature Granulocytes Abs Auto 0.03 10^3/uL (0.00-0.03); Immature Granulocytes Pct Auto 0.3 % (0.0-0.5); Lymphocytes Absolute Auto 2.2 10^3/uL (1.2-3.8); Lymphocytes Percent Auto 24.7 % (20.5-60.0); Mean Corpuscular HGB Conc 34.7 g/dL (29.9-35.2); Mean Corpuscular Hemoglobin 30.1 pg (26.7-34.0); Mean Corpuscular Volume 86.6 fL (81.0-99.0); Monocytes Absolute Auto 0.5 10^3/uL (0.3-0.8); Monocytes Percent Auto 5.4 % (1.7-12.0); Neutrophils Percent Auto 67.4 % (43.0-75.0); Platelet Count 338 10^3/uL (150-450); Red Blood Count 4.09 10^6/uL (4.20-5.40); Red Cell Distribution Width 11.9 % (11.0-15.0); White Blood Count 8.9 10^3/uL (4.0-11.0)
[2025-05-30 16:21] LABS: Erythrocyte Sedimentation Rate 15 mm/hr (<=20)
[2025-05-30 17:34] LABS: C Reactive Protein 0.78 mg/dL (<=0.50); Uric Acid 4.2 mg/dL (2.6-6.0)
[2025-06-01 04:07] LABS: Antistreptolysin O Ab 165.7 IU/mL (0.0-200.0); Rheumatoid Factor (RF) <10.0 IU/mL (<14.0)
[2025-06-01 13:08] LABS: Anti-CCP Ab, IgG/IgA 4 units (0-19)
[2025-06-01 14:08] LABS: Antinuclear Antibodies, IFA Negative (.)
== END 2025-05-30 15:55 | disposition home or self-care (01) ==
LOC: LAB 15:55
PROVIDERS: PCP Nurse Practitioner Family; Visit Provider Nurse Practitioner Family
DX: M25.50 Pain in unspecified joint (principal)
CPT/HCPCS: 36415; 84550; 85025; 85652; 86038; 86060; 86140; 86200; 86431